=== PATIENT | male | born 1955 | race African-American/Black ===

== ENCOUNTER 2017-09-18 08:59 | Inpatient (IN) | payer OTHER ==
--- NOTE | 2017-09-17 17:08 | RAD REPORT ---
EXAM DESCRIPTION: RAD - Chest Pa And Lat (2 Views) - 09/17/2017 4:52 pm CLINICAL HISTORY: Preop chest, pending right foot surgery, hypertension and diabetes COMPARISON: April 2013 TECHNIQUE: PA and lateral views of the chest were obtained. FINDINGS: The lungs are clear of a peripheral consolidation, mass or failure finding. Mediastinal an d hilar rib regions within normal limits. Mild prominence of the interstitial markings not substantia lly different from the comparison. Heart size is normal and central vasculature is within normal limits. No pleural effusion or pneumot horax seen. No acute bony finding noted. No aortic abnormality. IMPRESSION: No acute cardiopulmonary process. No significant change the comparison study.
[2017-09-17 18:15] LABS: Potassium 3.7 mEq/L (3.6-5.0)
[2017-09-17 18:19] LABS: Absolute Lymphocytes (CBC) 1.4 K/uL (0.7-4.9); Absolute Monocytes 1.3 K/uL (0.1-1.3); Absolute Neutrophil 9.5 K/uL (1.8-8.0); Basophils % 0.9 % (0-1.3); Eosinophils % 0.5 % (0-4.4); Hematocrit 34.3 % (39.6-49.0); Lymphocytes % 11.5 % (15.3-44.8); MCH 26.9 pg (27.0-35.0); MCV 83.3 fL (80-100); MPV 7.2 fL (7.6-11.3); Monocytes % 10.1 % (3.3-12.3); RBC Red Blood Cell Count 4.12 M/uL (4.33-5.43)
--- NOTE | 2017-09-17 23:43 | EKG ---
Test Date: 2017-09-17 Test Time: 16:56:16 Sneller Hand: LORI MEASUREMENT RESULTS: Intervals: Rate: 74 GA: 354 QRSD: 108 QT: 430 QTc: 477 [place]: P: 85 GA: 354 QRS: 41 T: 89 INTERPRETIVE STATEMENTS: Sinus rhythm with 1st degree AV block Left ventricular hypertrophy with repolarization abnormality Abnormal ECG Compared to ECG 05/19/2013 01:26:04 Left ventricular hypertrophy now present Early repolarization now present Electronically Signed On 09-17-17 23:43:05 CDT by Nakul Butcher
[2017-09-18] MEDS ORDERED: CEFAZOLIN/SWI 1gm 1 GM/10 ML SYR ONE (09:44)
[2017-09-18] MEDS ORDERED: NA CHLORIDE 0.9% 0 ML ONE (09:44)
[2017-09-18] MEDS ORDERED: NA CHLORIDE 0.9% 500 ML ONE (09:54)
[2017-09-18] MEDS: BUPIVACAINE 0.5% Inj,MDV 50 mL VIAL ONE ×2 (09:57→10:50)
[2017-09-18] MEDS ORDERED: FENTANYL CITR 100 MCG/2 ML ONE ×2 (09:59→10:59)
[2017-09-18] MEDS ORDERED: PROPOFOL 200 MG/20 ML VIAL IV ONE (09:59)
[2017-09-18] MEDS ORDERED: MIDAZOLAM HCL 2 MG/2 ML INJ ONE ×2 (09:59→10:58)
[2017-09-18] MEDS ORDERED: LIDOCAINE 2% MPF 5 ML VIAL ONE ×2 (10:04→10:42)
[2017-09-18] MEDS ORDERED: ONDANSETRON HCL 40 MG/20 ML VIAL ONE (10:30)
[2017-09-18] MEDS ORDERED: EPHEDRINE SULF 50 MG/ML SYR ONE (10:43)
[2017-09-18] MEDS ORDERED: MORPHINE 10 MG/ML VIAL ONE (11:14)
[2017-09-18] MEDS ORDERED: NS 0.9% VIAL 10 ML ONE (11:14)
[2017-09-18] MEDS: MEPERIDINE HCL 50 MG/ML AMP ONE ×4 (12:00→12:31)
[2017-09-18] MEDS: MIDAZOLAM HCL 2 MG/2 ML INJ ONE ×2 (12:17→12:22)
[2017-09-18] MEDS ORDERED: LABETALOL HCL 100 MG/20 ML ONE (12:43)
[2017-09-18] MEDS ORDERED: ONDANSETRON 4 MG/2 ML VIAL IV PRN (12:51)
[2017-09-18] MEDS: MEPERIDINE HCL 25 MG/0.5 ML IV PRN ×3 (13:36→20:38)
[2017-09-18] MEDS ORDERED: ACETAMINOPHEN 500 MG TAB PO PRN (13:48)
--- NOTE | 2017-09-18 14:01 | P.HP ---
Certification for Inpatient Patient admitted to: Inpatient With expected LOS: >2 Midnights Patient will require the following post-hospital care: Rehabilitation Practitioner: I am a practitioner with admitting privileges, knowledge of patient current condition, hospital course, and medical plan of care. Services: Services provided to patient in accordance with Admission requirements found in Title 42 Section 412.3 of the Code of Federal Regulations Patient History Date of Service: 09/18/17 Primary Care Provider: Dr. Helton([place], [place]); Surgery-Dr. Aguilar; Card-Dr. Webb; Neph-Dr. Brown Reason for admission: Patient requiring left below-knee amputation History of Present Illness: 62-year-old male presented to outpatient surgery for left below -knee amputation due to a left foot grade 4 nonhealing diabetic ulcer. Patient has had a nonhealing diabetic ulcer to the left foot. Patient to have left below-knee amputation. I was asked to admit the patient for postoperative care. Patient will require physical therapy an inpatient rehab consultation. Prior to surgery I was able to evaluate the patient. Patient denied any significant chest pain, shortness of breath, nausea or vomiting. Patient was doing well. No complaints noted. Patient with history of diabetes-insulin dependent; hypertension; end-stage renal disease on dialysis(Mondays, Wednesdays and Fridays); CAD, CHF, and tobacco use. Lab reviewed. He hemoglobin 11.1, white count 12.4, sodium 136, potassium 3.7, creatinine 4.27 with a GFR of 17. Glucose 161. Allergies levofloxacin [From Levaquin] Allergy (Verified 09/18/17 13:40) Shortness of breath Home medications list reviewed: Yes Home Medications: Aspirin Chewable [Aspirin Chewable*] 81 mg PO DAILY 09/04/17 Clopidogrel Bisulfate [Plavix*] 75 mg PO DAILY 09/04/17 Furosemide 80 mg PO BID 09/04/17 Hydralazine HCl 25 mg PO BID 09/04/17 Lovastatin 40 mg PO DAILY 09/04/17 Nifedipine [Nifedipine ER] 30 mg PO DAILY 09/04/17 Sevelamer Carbonate 800 mg PO TIDWM 09/04/17 Folic Acid/Vit Bcomp,C [Judy-Kayden Tablet] 1 tab PO DAILY 09/17/17 Insulin 70/30 NPH/Reg Human [Novolin 70/30*] 1 dose SQ SEECOM 09/17/17 - Past Medical/Surgical History Has patient received pneumonia vaccine in the past: Yes Diabetic: Yes -: ESRD, dialysis-Mondays, Wednesdays and Fridays -: Diabetes mellitus type 2 -: Hypertension -: CHF, diastolic dysfunction -: COPD -: CAD -: Tobacco abuse -: Foot SX X3 -: Gallbladder -: Appendix Psychosocial/ Personal History: The patient is and . Patient has 2 children. - Family History Father -: Cancer Notes: Father and mother of cancer. - Social History Smoking Status: Current some day smoker Counseled patient to stop smoking for: less than 10 minutes Smoking therapy provided: Yes Patient receptive to therapy: Yes Alcohol use: No CD- Drugs: No Caffeine use: Yes Place of Residence: Home Review of Systems General: As per HPI Eyes: Unremarkable ENT: Unremarkable Respiratory: Unremarkable Cardiovascular: Unremarkable Gastrointestinal: Unremarkable Genitourinary: Unremarkable Musculoskeletal: As per HPI Integumentary: As per HPI Neurological: Unremarkable Lymphatics: Unremarkable Physical Examination - Vital Signs Temperature: 97.3 F Blood Pressure: 157/71 Pulse: 72 Respirations: 16 - Physical Exam General: Alert, In no apparent distress, Oriented x3, Cooperative HEENT: Atraumatic, Normocephalic, PERRLA, Mucous membr. moist/pink Neck: Supple, No Thyromegaly Respiratory: Clear to auscultation bilaterally, Normal air movement Cardiovascular: Normal pulses, Regular rate/rhythm Gastrointestinal: Normal bowel sounds, Soft and benign, Non-distended, No tenderness, No masses, No rebound, No guarding Musculoskeletal: No tenderness, No warmth Integumentary: Other (Left foot bandaged.) Neurological: Normal speech, Normal strength at 5/5 x4 extr, Normal tone, Normal affect - Studies Laboratory Data (last 24 hrs) 09/17/17 17:30: Sodium 136, Potassium 3.7, BUN 18, Creatinine 4.27 H, Glucose 161 H 09/17/17 17:30: WBC 12.4 H, Hgb 11.1 L, Hct 34.3 L, Plt Count 315 Assessment and Plan - Problems (Diagnosis) (1) Anemia Current Visit: Yes Status: Chronic Plan: This is likely chronic disease. Patient will have left below-knee amputation. Will need to monitor hemoglobin. Qualifiers: Anemia type: due to chronic kidney disease Chronic kidney disease stage: on chronic dialysis Qualified Code(s): N18.6 - End stage renal disease; D63.1 - Anemia in chronic kidney disease; Z99.2 - Dependence on renal dialysis (2) Tobacco abuse Current Visit: Yes Status: Chronic Plan: Tobacco cessation education provided. (3) CAD (coronary artery disease) Current Visit: No Status: Chronic Plan: Will need to resume home medication after surgery. (4) CHF (congestive heart failure) Current Visit: No Status: Chronic Plan: Overall stable. Will need to resume home medication. Qualifiers: Heart failure type: diastolic Heart failure chronicity: chronic Qualified Code(s): I50.32 - Chronic diastolic (congestive) heart failure (5) COPD (chronic obstructive pulmonary disease) Current Visit: No Status: Chronic Plan: Overall stable. Will resume home medication. Qualifiers: COPD type: chronic bronchitis Chronic bronchitis type: unspecified Qualified Code(s): J42 - Unspecified chronic bronchitis (6) Diabetes mellitus Current Visit: No Status: Chronic Plan: Will provide sliding scale. Will monitor closely. Qualifiers: Diabetes mellitus type: type 2 Diabetes mellitus senior care insulin use: with senior care use Diabetes mellitus complication status: with other specified complication Qualified Code(s): E11.69 - Type 2 diabetes mellitus with other specified complication; Z79.4 - halfway (current) use of insulin (7) Diabetic ulcer of left foot Current Visit: No Status: Acute Plan: Case discussed at length with surgery. Patient will have left below-knee amputation. Patient will be monitored as inpatient postop. Will consult physical therapy to assess for inpatient rehab. Qualifiers: Diabetes mellitus type: type 2 (8) ESRD (end stage renal disease) Current Visit: No Status: Chronic Plan: Will consult Nephrology to continue dialysis Mondays, Wednesdays and Fridays. (9) Hypertension Current Visit: No Status: Chronic Plan: Will continue with home medication. Qualifiers: Hypertension type: essential hypertension Qualified Code(s): I10 - Essential (primary) hypertension (10) Obesity (BMI 30.0-34.9) Current Visit: No Status: Chronic Plan: Will provide lifestyle modification education. (11) PAD (peripheral artery disease) Current Visit: No Status: Chronic Plan: Will continue with medication. Discharge Plan: Other (Inpatient rehab) Plan to discharge in: 48 Hours - Advance Directives Does patient have a Living Will: No Does patient have a Durable POA for Healthcare: No - Code Status/Comfort Care Code Status Assessed: Yes Time Spent Managing Pts Care (In Minutes): 55
[2017-09-18] MEDS ORDERED: D50W 25 GM/50 ML SYRINGE IV PRN (14:02)
[2017-09-18] MEDS ORDERED: GLUCAGON 1 MG/VIAL IM PRN (14:02)
[2017-09-18] MEDS ORDERED: ALBUTEROL 2.5 MG/3 ML NEB SOL NEB PRN (14:05)
[2017-09-18] MEDS ORDERED: IPRATROPIUM IH PRN (14:30)
[2017-09-18] MEDS: HYDROCODONE/APAP 7.5/325 MG TAB PO PRN (15:11)
[2017-09-18] MEDS: INSULIN -REGULAR HUMAN 50 UNIT/0.5 ML ML SQ SCH ×2 (15:24→21:00)
[2017-09-18 15:52] VITALS: BMI 30.9
[2017-09-18] MEDS: SEVELAMER CARBONATE 800 MG TABLET PO SCH (16:22)
[2017-09-18] MEDS: FUROSEMIDE 40 MG TABLET PO SCH (16:22)
[2017-09-18] MEDS: CEFAZOLIN/SWI 1gm 1 GM/10 ML SYR IV SCH (20:37)
[2017-09-18] MEDS: HYDRALAZINE HCL 25 MG TABLET PO SCH (20:38)
[2017-09-18] MEDS: ATORVASTATIN 20 MG TAB PO SCH (20:38)
[2017-09-18] MEDS: ARFORMOTEROL TARTRATE 15 MCG/2 ML VIAL.NEB NEB SCH (20:55)
--- NOTE | 2017-09-18 22:19 | OP ---
Date of Procedure: 09/18/2017 Surgeon: Justin Aguilar MD Dietary Services Director: Anastasia Scott, certified SPECIALIST ICU. Preoperative Diagnosis: Severe peripheral vascular disease, nonhealing wound, left foot. Postoperative Diagnosis: Severe peripheral vascular disease, nonhealing wound, left foot. Procedure: Left below-knee amputation. Estimated Blood Loss: Minimal. Specimen: Left leg. Findings: As above. Anesthesia: General. Complications: None. Disposition: The patient tolerated the procedure in stable condition and taken to the Recovery in go od general condition. Procedure In Detail: The patient was brought to the OR and placed in the supine position. General a nesthesia was begun. The patient was prepped and draped in the usual sterile fashion, and then sharp dissection proceeded down 4 fingerbreadths below the tibial tuberosity. Posterior flaps created to appropriate size to cover the wound and then all neurovascular bundle identified sequentially and div ided between clamps, tied with 2-0 silk ties. Fibula and tibia clearly identified and freed from the surrounding tissues, and bone cutter and Gigli saw used to divide. Both rough edges smoothed with a rasp. The entire leg removed and sent to Pathology. Wound irrigated, bleeding controlled with caut arabella. Good coverage of the bone with muscular pedicles was accomplished, and then the fascia was reap proximated with 2-0 and 3-0 chromic and pantera were used to close skin. Sterile dressing was applie d. The patient was awakened and taken to Recovery in good general condition. /MODL Voice ID: [id number] Report ID: [id number]
[2017-09-18] MEDS ORDERED: MAGNESIUM OXIDE 400 MG TAB PO ONE (22:32)
--- NOTE | 2017-09-18 22:41 | P.CNS ---
Date of Consult: 09/18/17 Reason for Consult: ESRD Requesting Physician: Wing Rivas Primary Care Provider: Dr. Helton([place], [place]); Surgery-Dr. Aguilar; Card-Dr. Webb; Neph-Dr. Brown Chief Complaint: Patient requiring left below-knee amputation History of Present Illness: 62 yo AA male with ESRD sp Left BKA due to DM ulcer. 62-year-old male presented to outpatient surgery for left below -knee amputation due to a left foot grade 4 nonhealing diabetic ulcer. Patient has had a nonhealing diabetic ulcer to the left foot. Patient to have left below-knee amputation. I was asked to admit the patient for postoperative care. Patient will require physical therapy an inpatient rehab consultation. Prior to surgery I was able to evaluate the patient. Patient denied any significant chest pain, shortness of breath, nausea or vomiting. Patient was doing well. No complaints noted. Patient with history of diabetes-insulin dependent; hypertension; end-stage renal disease on dialysis(Mondays, Wednesdays and Fridays); CAD, CHF, and tobacco use. Allergies levofloxacin [From Levaquin] Allergy (Verified 09/18/17 13:40) Shortness of breath Home medications list reviewed: Yes Home Medications: Aspirin Chewable [Aspirin Chewable*] 81 mg PO DAILY 09/04/17 Clopidogrel Bisulfate [Plavix*] 75 mg PO DAILY 09/04/17 Furosemide 80 mg PO BID 09/04/17 Hydralazine HCl 25 mg PO BID 09/04/17 Lovastatin 40 mg PO DAILY 09/04/17 Nifedipine [Nifedipine ER] 30 mg PO DAILY 09/04/17 Sevelamer Carbonate 800 mg PO TIDWM 09/04/17 Folic Acid/Vit Bcomp,C [Judy-Kayden Tablet] 1 tab PO DAILY 09/17/17 Insulin 70/30 NPH/Reg Human [Novolin 70/30*] 1 dose SQ SEECOM 09/17/17 - Past Medical/Surgical History Diabetic: Yes -: ESRD, dialysis-Mondays, Wednesdays and Fridays -: Diabetes mellitus type 2 -: Hypertension -: CHF, diastolic dysfunction -: COPD -: CAD -: Tobacco abuse -: Foot SX X3 -: Gallbladder -: Appendix Psychosocial/ Personal History: The patient is and . Patient has 2 children. - Family History Father Medical History: Cancer Notes: Father and mother of cancer. - Social History Alcohol use: No CD- Drugs: No Caffeine use: Yes Place of Residence: Home Review of Systems 10-point ROS is otherwise unremarkable General: Weakness, Malaise Musculoskeletal: Leg Pain Neurological: Weakness Physical Examination Temp Pulse Resp BP Pulse Ox 96.7 F L 75 16 198/82 H 90 L 09/18/17 16:00 09/18/17 16:00 09/18/17 16:00 09/18/17 16:00 09/18/17 16:00 General: Oriented x3, Cooperative HEENT: Atraumatic Neck: Supple Respiratory: Clear to auscultation bilaterally Cardiovascular: Regular rate/rhythm, No gallops, Edema Gastrointestinal: Soft and benign, Non-distended Musculoskeletal: No clubbing, No contractures, Other (Left BKA.) Integumentary: No rashes, No cyanosis Neurological: Normal speech Blood work reviewed in the chart. Cr 4.27 Imagings Data: EXAM DESCRIPTION: RAD - Chest Pa And Lat (2 Views) - 09/17/2017 4:52 pm CLINICAL HISTORY: Preop chest, pending right foot surgery, hypertension and diabetes COMPARISON: April 2013 TECHNIQUE: PA and lateral views of the chest were obtained. FINDINGS: The lungs are clear of a peripheral consolidation, mass or failure finding. Mediastinal and hilar rib regions within normal limits. Mild prominence of the interstitial markings not substantially different from the comparison. Heart size is normal and central vasculature is within normal limits. No pleural effusion or pneumothorax seen. No acute bony finding noted. No aortic abnormality. IMPRESSION: No acute cardiopulmonary process. No significant change the comparison study. Conclusions/Impression: A/ ESRD on HD. HTN with CKD. Diastolic CHF, chronic. Anemia in CKD. PERCY/ Secondary HyperPTH. DM II with CKD. Constipation. P/ Continue current POC and Medications. Arrange for acute HD in AM. Give Magnesium for constipation. Increase Nifedipine. Start ramipril. Pain medications as needed. AM labs. Daily weight. Thank you kindly for the consultation.
[2017-09-18] MEDS ORDERED: NA CHLORIDE 0.9% 1,000 ML IV PRN (22:49)
[2017-09-18] MEDS ORDERED: MANNITOL 25% 12.5 GM/50 ML VIAL IV PRN (22:49)
[2017-09-18] MEDS: RAMIPRIL 5 MG CAP PO SCH (22:53)
[2017-09-18] MEDS ORDERED: EPOETIN ALFA 10,000 UNIT/ML VIAL IV SCH (23:00)
[2017-09-18] MEDS ORDERED: NIFEDIPINE XL 30 MG TABLET PO SCH (23:00)
[2017-09-18] MEDS ORDERED: ALBUMIN HUMAN 25% 50 ML IV SCH (23:00)
[2017-09-19] MEDS: HYDROCODONE/APAP 7.5/325 MG TAB PO PRN ×4 (01:07→21:30)
[2017-09-19 05:09] LABS: Absolute Lymphocytes (CBC) 1.2 K/uL (0.7-4.9); Absolute Monocytes 1.3 K/uL (0.1-1.3); Absolute Neutrophil 11.3 K/uL (1.8-8.0); Basophils % 0.7 % (0-1.3); Eosinophils % 0.2 % (0-4.4); Hematocrit 29.8 % (39.6-49.0); Lymphocytes % 8.7 % (15.3-44.8); MCH 27.3 pg (27.0-35.0); MCV 82.9 fL (80-100); MPV 7.7 fL (7.6-11.3); Monocytes % 9.2 % (3.3-12.3)
[2017-09-19 05:38] LABS: Magnesium 2.4 mg/dL (1.8-2.5); Potassium 4.2 mEq/L (3.6-5.0)
[2017-09-19] MEDS: INSULIN -REGULAR HUMAN 50 UNIT/0.5 ML ML SQ SCH ×4 (07:30→21:00)
[2017-09-19] MEDS: ARFORMOTEROL TARTRATE 15 MCG/2 ML VIAL.NEB NEB SCH ×2 (08:39→20:21)
[2017-09-19] MEDS: ASPIRIN EC 81 MG TAB PO SCH (08:50)
[2017-09-19] MEDS: FOLIC ACID 1 MG TABLET PO SCH (08:51)
[2017-09-19] MEDS: ENOXAPARIN 30 MG/0.3 ML SQ SCH (08:51)
[2017-09-19] MEDS: SEVELAMER CARBONATE 800 MG TABLET PO SCH ×3 (08:51→18:20)
[2017-09-19] MEDS: CEFAZOLIN/SWI 1gm 1 GM/10 ML SYR IV SCH ×2 (08:51→21:02)
[2017-09-19] MEDS: MULTIVITAMINS,THERAPEUT 1 TAB PO SCH (08:51)
[2017-09-19] MEDS: CLOPIDOGREL 75 MG TABLET PO SCH (08:51)
[2017-09-19] MEDS ORDERED: VIT BCOMP C PO SCH (09:00)
[2017-09-19] MEDS: HYDRALAZINE HCL 25 MG TABLET PO SCH ×2 (09:00→21:03)
[2017-09-19] MEDS: NIFEDIPINE XL 30 MG TABLET PO SCH ×2 (09:00→21:00)
[2017-09-19] MEDS ORDERED: FOLIC ACID PO SCH (09:00)
[2017-09-19] MEDS ORDERED: NIFEDIPINE XL 30 MG TABLET PO SCH (09:00)
[2017-09-19] MEDS: FUROSEMIDE 40 MG TABLET PO SCH ×2 (09:00→18:20)
--- NOTE | 2017-09-19 09:58 | P.PN ---
Subjective Date of Service: 09/19/17 Primary Care Provider: Dr. Helton([place], [place]); Surgery-Dr. Aguilar; Card-Dr. Webb; Neph-Dr. Brown Chief Complaint: Patient requiring left below-knee amputation Subjective: Doing well Physical Examination - Vital Signs Temperature: 97.7 F Blood Pressure: 115/58 Pulse: 81 Respirations: 16 Pulse Ox (%): 100 - Physical Exam General: Alert, In no apparent distress, Oriented x3, Cooperative HEENT: Atraumatic Neck: Supple Respiratory: Clear to auscultation bilaterally, Normal air movement Cardiovascular: Normal pulses, Regular rate/rhythm Gastrointestinal: Normal bowel sounds, Soft and benign, Non-distended, No tenderness, No masses, No rebound, No guarding Musculoskeletal: Other (Bandage to the left lower extremity) Neurological: Normal speech, Normal strength at 5/5 x4 extr, Normal tone, Normal affect - Studies Laboratory Data (last 24 hrs) 09/19/17 04:18: Sodium 135, Potassium 4.2, BUN 35 H, Creatinine 7.02 H* D, Glucose 142 H, Magnesium 2.4 D 09/19/17 04:18: WBC 13.9 H, Hgb 9.8 L, Hct 29.8 L, Plt Count 312 Medications List Reviewed: Yes Assessment & Plan - Problems (Diagnosis) (1) Anemia Onset Date: 09/19/17 Current Visit: Yes Status: Chronic Plan: Patient has left below-knee amputation. Patient with anemia chronic disease. Hemoglobin stable. Will monitor closely. Qualifiers: Anemia type: due to chronic kidney disease Chronic kidney disease stage: on chronic dialysis Qualified Code(s): N18.6 - End stage renal disease; D63.1 - Anemia in chronic kidney disease; Z99.2 - Dependence on renal dialysis (2) Tobacco abuse Onset Date: 09/19/17 Current Visit: Yes Status: Chronic Plan: Tobacco cessation education provided. (3) CAD (coronary artery disease) Onset Date: 09/19/17 Current Visit: Yes Status: Chronic Plan: Will continue with his medications (4) CHF (congestive heart failure) Onset Date: 09/19/17 Current Visit: Yes Status: Chronic Plan: Will continue with his medication. Maintain 1500 cc per day fluid restriction Qualifiers: Heart failure type: diastolic Heart failure chronicity: chronic Qualified Code(s): I50.32 - Chronic diastolic (congestive) heart failure (5) COPD (chronic obstructive pulmonary disease) Onset Date: 09/19/17 Current Visit: Yes Status: Chronic Plan: Overall stable. Will continue with medication Qualifiers: COPD type: chronic bronchitis Chronic bronchitis type: unspecified Qualified Code(s): J42 - Unspecified chronic bronchitis (6) Diabetes mellitus Onset Date: 09/19/17 Current Visit: Yes Status: Chronic Plan: Will continue with sliding scale. Hemoglobin A1c obtained. Qualifiers: Diabetes mellitus type: type 2 Diabetes mellitus senior care insulin use: with intermodal owner operator truck driver use Diabetes mellitus complication status: with other specified complication Qualified Code(s): E11.69 - Type 2 diabetes mellitus with other specified complication; Z79.4 - residential (current) use of insulin (7) Diabetic ulcer of left foot Onset Date: 09/19/17 Current Visit: Yes Status: Acute Plan: Patient had left below-knee amputation. Patient will work with physical therapy. Patient to be assessed for inpatient rehab. Case discussed with surgery yesterday. care services manager consulted. Qualifiers: Diabetes mellitus type: type 2 (8) ESRD (end stage renal disease) Onset Date: 09/19/17 Current Visit: Yes Status: Chronic Plan: Nephrology to continue dialysis Mondays, Wednesdays and Fridays. (9) Hypertension Onset Date: 09/19/17 Current Visit: Yes Status: Chronic Plan: Will continue with home medication. Qualifiers: Hypertension type: essential hypertension Qualified Code(s): I10 - Essential (primary) hypertension (10) Obesity (BMI 30.0-34.9) Onset Date: 09/19/17 Current Visit: Yes Status: Chronic Plan: Will provide lifestyle modification education. (11) PAD (peripheral artery disease) Onset Date: 09/19/17 Current Visit: Yes Status: Chronic Plan: Will continue with medication. (12) Status post amputation Current Visit: Yes Status: Acute Plan: Continue with PT. Assess for Inpatient rehab. Discharge Plan: Other (Inpatient rehab) Plan to discharge in: 48 Hours Time Spent Managing Pts Care (In Minutes): 55
--- NOTE | 2017-09-19 10:51 | PN ---
Date of Progress Note: 09/19/2017 Subjective: The patient is awake, alert. Complaining of some incisional pain. Objective: Vital Signs: Stable. Afebrile. Extremities: Dressing is clean, dry, and intact. Laboratory Data: Reviewed. Assessment: Status post left below-knee amputation. Recommendations: Continue physical therapy as ordered. Rehab evaluation for inpatient rehab. The p atient is clinically doing well. /MODL Voice ID: [id number] Report ID: [id number]
[2017-09-19] MEDS: MEPERIDINE HCL 25 MG/0.5 ML IV PRN (11:26)
--- NOTE | 2017-09-19 17:51 | PN ---
Date of Progress Note: 09/19/2017 Subjective: The patient is seen and examined on dialysis. Complaining of pain in his left lower ext remity and also some back pain. Otherwise, no other issues. Physical Examination: Vital Signs: Have been reviewed and are stable. General: He appears in no acute distress. Lungs: Clear. Abdomen: Soft. Extremities: Right lower extremity with no evidence of edema. Left foot status post BKA was noted. Laboratory Data: Showing stable hemoglobin of 9.8, hematocrit 39.8, and platelet count 312. BMP res ults have been reviewed. Current Medications: Include aspirin, Plavix which has been just started, Procrit with dialysis, Las ix 80 mg b.i.d., Mannitol p.r.n. for dialysis, ramipril and Renvela, nicardipine, meperidine for pain . Impression: 1.End-stage renal disease, on dialysis. 2.Peripheral vascular disease, status post BKA and nonhealing wound. 3.Anemia secondary to ESRD, currently on Procrit. 4.Type 2 diabetes, on insulin per protocol. Plan: Overall, the patient is doing okay at this time. Followup with Wound Care to follow up on oksana balderas of the BKA stump. The patient will have Sunday, Sunday, and Sunday dialysis. I have discont inued meperidine with underlying history of ESRD secondary to severe complications including seizures. Continue hydrocodone for pain protocol. We will follow up closely . RUPERTO/WARRENL Voice ID: [id number] Report ID: [id number]
[2017-09-19 18:25] LABS: Urine Appearance CLEAR; Urine Bilirubin NEGATIVE (NEG); Urine Blood NEGATIVE (NEG); Urine Color YELLOW; Urine Glucose TRACE (NEG); Urine Protein 3+ (NEG); Urine Specific Gravity 1.015 (1.005-1.030); Urine Urobilinogen 0.2 mg/dL (0.2-1.0)
[2017-09-19 18:51] LABS: Urine Microscopic Reflex ORDER UMIC
[2017-09-19 19:06] LABS: Urine Bacteria <20 /HPF (NONE SEEN); Urine Culture Reflex Order REFLEXED; Urine RBC <5 /HPF (NONE SEEN)
[2017-09-19 20:40] LABS: A1c Component 0.47 mg/dL; Hemoglobin A1c 6.5 % (4-6.0)
[2017-09-19] MEDS: RAMIPRIL 5 MG CAP PO SCH (21:03)
[2017-09-19] MEDS: ATORVASTATIN 20 MG TAB PO SCH (21:03)
[2017-09-20] MEDS ORDERED: HYDROCODONE/APAP 10/325 TAB PO ONE
[2017-09-20] MEDS ORDERED: TEMAZEPAM 15 MG CAP PO ONE
[2017-09-20 05:10] LABS: Absolute Lymphocytes (CBC) 1.2 K/uL (0.7-4.9); Absolute Monocytes 1.4 K/uL (0.1-1.3); Absolute Neutrophil 11.5 K/uL (1.8-8.0); Basophils % 0.9 % (0-1.3); Eosinophils % 0.4 % (0-4.4); Hematocrit 32.3 % (39.6-49.0); Lymphocytes % 8.3 % (15.3-44.8); MCH 27.4 pg (27.0-35.0); MCV 83.6 fL (80-100); MPV 8.3 fL (7.6-11.3); Monocytes % 9.8 % (3.3-12.3); RBC Red Blood Cell Count 3.86 M/uL (4.33-5.43)
[2017-09-20 05:36] LABS: Magnesium 2.4 mg/dL (1.8-2.5); Potassium 4.4 mEq/L (3.6-5.0)
[2017-09-20] MEDS: HYDROCODONE/APAP 7.5/325 MG TAB PO PRN ×3 (05:58→21:24)
[2017-09-20] MEDS: ARFORMOTEROL TARTRATE 15 MCG/2 ML VIAL.NEB NEB SCH ×2 (07:23→19:41)
[2017-09-20] MEDS: INSULIN -REGULAR HUMAN 50 UNIT/0.5 ML ML SQ SCH ×4 (07:30→21:00)
[2017-09-20] MEDS ORDERED: LACTULOSE 20 GM/30 ML UCUP PO ONE (08:29)
--- NOTE | 2017-09-20 08:33 | P.PN ---
Date of Service: 09/20/17 Vital Signs Temp Pulse Resp BP Pulse Ox 97.6 F 55 18 140/77 97 09/20/17 04:00 09/20/17 04:00 09/20/17 04:00 09/20/17 04:00 09/20/17 04:00 Medications Acetaminophen (Tylenol -Extra Strength) 500 mg PO Q4HP PRN PRN Reason: [id number] Stop: 10/18/17 13:49 Hydrocodone Bitart/Acetaminophen ([place] 7.5/325 Mg) 1 tab PO Q6H PRN PRN Reason: PAIN-MODERATE Stop: 10/18/17 12:53 Last Admin: 09/20/17 05:58 Dose: 1 tab Albuterol Sulfate (Proventil 0.083% Neb Soln) 2.5 mg NEB [id number] PRN PRN Reason: SHORTNESS OF BREATH Stop: 10/18/17 20:01 Last Admin: 09/19/17 20:21 Dose: 2.5 mg Arformoterol Tartrate (Brovana) 15 mcg NEB BIDRESP FIDEL Stop: 10/18/17 20:01 Last Admin: 09/20/17 07:23 Dose: 15 mcg Aspirin (Aspirin Ec) 81 mg PO DAILY FIDEL Stop: 10/19/17 09:01 Last Admin: 09/19/17 08:50 Dose: 81 mg Atorvastatin Calcium (Lipitor) 20 mg PO BEDTIME FIDEL Stop: 10/18/17 21:01 Last Admin: 09/19/17 21:03 Dose: 20 mg Clopidogrel Bisulfate (Plavix) 75 mg PO DAILY FIDEL Stop: 10/19/17 09:01 Last Admin: 09/19/17 08:51 Dose: 75 mg Dextrose (Dextrose 50% Syringe) 12.5 gm IV PRN PRN PRN Reason: HYPOGLYCEMIA PROTOCOL Stop: 10/18/17 14:03 Docusate Sodium (Colace Cap) 100 mg PO BID FIDEL Stop: 10/20/17 09:01 Enoxaparin Sodium (Lovenox 30 Mg Inj) 30 mg SQ DAILY FIDEL Stop: 10/19/17 09:01 Last Admin: 09/19/17 08:51 Dose: 30 mg Epoetin [place]queria (Procrit) 10,000 unit IV EVERY HD FIDEL Stop: 10/18/17 23:01 Last Admin: 09/19/17 13:03 Dose: 10,000 unit Folic Acid (Folic Acid) 1 mg PO DAILY FIDEL Stop: 10/19/17 09:01 Last Admin: 09/19/17 08:51 Dose: 1 mg Furosemide (Lasix) 80 mg PO BIDL FIDEL Stop: 10/18/17 17:01 Last Admin: 09/19/17 18:20 Dose: 80 mg Glucagon (Glucagen) 1 mg IM 1X PRN PRN Reason: HYPOGLYCEMIA Stop: 10/18/17 14:03 Heparin Sodium (Porcine) (Heparin 1,000 Units/Ml) 6,000 unit IJ EVERY HD PRN PRN Reason: FLUSH AFTER EACH USE Stop: 10/18/17 22:50 Home Med (Home Med) 0 ea IH QID PRN PRN Reason: SHORTNESS OF BREATH Stop: 10/18/17 14:31 Hydralazine HCl (Apresoline) 25 mg PO BID FIDEL Stop: 10/18/17 21:01 Last Admin: 09/19/17 21:03 Dose: 25 mg Cefazolin Sodium (Ancef 1 Gm/10 Ml Swi Ivp) 1 gm in 10 mls @ 600 mls/hr IV Q12HR [facility] Stop: 10/18/17 21:01 Last Admin: 09/19/17 21:02 Dose: 10 mls Albumin Human (Albumin 25%) 50 mls @ 100 mls/hr IV EVERY HD [facility] Stop: 10/18/17 23:01 Insulin Human Regular (Novolin -R) 0 unit SQ ACHS FIDEL; Protocol Stop: 10/18/17 16:31 Last Admin: 09/20/17 07:30 Dose: Not Given Lactulose (Cephulac) 20 gm PO 1X ONE Stop: 09/20/17 08:30 Mannitol (Mannitol 12.5 Gm/50 Ml Vial) 12.5 gm IV EVERY HD PRN PRN Reason: BP support at hemodialysis Stop: 10/18/17 22:50 Nifedipine (Procardia Xl) 30 mg PO Q12HR [facility] Stop: 10/19/17 09:01 Last Admin: 09/19/17 21:00 Dose: Not Given Ondansetron HCl (Zofran) 4 mg IV Q6H PRN PRN Reason: NAUSEA Stop: 10/18/17 12:52 Ramipril (Altace) 5 mg PO BEDTIME [facility] Stop: 10/18/17 22:36 Last Admin: 09/19/17 21:03 Dose: 5 mg Sevelamer Carbonate (Renvela) 800 mg PO TIDWM FIDEL Stop: 10/18/17 17:01 Last Admin: 09/19/17 18:20 Dose: 800 mg Sodium Chloride (Normal Saline Flush) 10 ml IV BID FIDEL Stop: 10/18/17 21:01 Last Admin: 09/19/17 21:03 Dose: 10 ml Vitamin B Complex/Vit C/Folic Acid (Nephro-Kayden) 1 tab PO DAILY FIDEL Stop: 10/19/17 09:01 Last Admin: 09/19/17 08:51 Dose: 1 tab Lab Results (last 24 hrs) 09/20/17 07:36: POC Glucose 175 H 09/20/17 04:16: Sodium 137, Potassium 4.4, Chloride 97 L, Carbon Dioxide 28, BUN 29 H, Creatinine 5.95 H* D, Estimated GFR 12 L, Glucose 180 H, Calcium 9.0, Magnesium 2.4 09/20/17 04:16: WBC 14.3 H, RBC 3.86 L, Hgb 10.6 L, Hct 32.3 L, MCV 83.6, MCH 27.4, MCHC 32.7, RDW 18.3 H, Plt Count 345, MPV 8.3, Neutrophils % 80.6 H, Lymphocytes % 8.3 L, Monocytes % 9.8, Eosinophils % 0.4, Basophils % 0.9, Absolute Neutrophils 11.5 H, Absolute Lymphocytes 1.2, Absolute Monocytes 1.4 H , Absolute Eosinophils 0.1, Absolute Basophils 0.1 09/19/17 20:21: POC Glucose 190 H 09/19/17 18:03: Urine Color Yellow, Urine Appearance Clear, Urine pH 8.0 H, Ur Specific [place] 1.015, Urine Ketones Negative, Urine Blood Negative, Urine Nitrite Negative, Urine Bilirubin Negative, Urine Urobilinogen 0.2, Ur Leukocyte Esterase Negative, Urine RBC <5, Urine WBC 10-20 H, Ur Squamous Epith Cells 5-10 H, Urine Bacteria <20, Urine Culture Reflexed Reflexed, Urine Glucose Trace, Urine Total Protein 3+ H 09/19/17 16:19: POC Glucose 172 H 09/19/17 11:13: POC Glucose 135 H 09/19/17 04:18: Hemoglobin A1c 6.5 H 09/19/17 04:18: Hemoglobin A1c Cancelled Assessment/ Plan: Nephrology. CPS stable without CP or SOB. No acute events overnight. Constipation. Flatus. Anorexia. Vitals, medications, blood work and imaging reviewed in the chart. General: Oriented x3, Cooperative HEENT: Atraumatic Neck: Supple Respiratory: Clear to auscultation bilaterally Cardiovascular: Regular rate/rhythm, No gallops, Edema Gastrointestinal: Soft and benign, Non-distended Musculoskeletal: No clubbing, No contractures, Other (Left BKA.) Integumentary: No rashes, No cyanosis Neurological: Normal speech Blood work reviewed in the chart. Cr 4.27 Imagings Data: EXAM DESCRIPTION: RAD - Chest Pa And Lat (2 Views) - 09/17/2017 4:52 pm CLINICAL HISTORY: Preop chest, pending right foot surgery, hypertension and diabetes COMPARISON: April 2013 TECHNIQUE: PA and lateral views of the chest were obtained. FINDINGS: The lungs are clear of a peripheral consolidation, mass or failure finding. Mediastinal and hilar rib regions within normal limits. Mild prominence of the interstitial markings not substantially different from the comparison. Heart size is normal and central vasculature is within normal limits. No pleural effusion or pneumothorax seen. No acute bony finding noted. No aortic abnormality. IMPRESSION: No acute cardiopulmonary process. No significant change the comparison study. Conclusions/Impression: A/ ESRD on HD. HTN with CKD. Diastolic CHF, chronic. Anemia in CKD. PERCY/ Secondary HyperPTH. DM II with CKD. Constipation. P/ Continue current POC and Medications. Next HD tomorrow. Start Colace. Give Lactulose today. Pain medications as needed; counseled. Plan to see cardiology today for AV block. AM labs. Daily weight. PT as tolerated.
--- NOTE | 2017-09-20 09:01 | P.PN ---
Subjective Date of Service: 09/20/17 Primary Care Provider: Dr. Helton([place], [place]); Surgery-Dr. Aguilar; Card-Dr. Webb; Neph-Dr. Brown Chief Complaint: Patient requiring left below-knee amputation Subjective: Other (Patient reported pain yesterday. He did not work with physical therapy. Pain better controlled today. Hospitalist last night ordered cardiology consult due to second-degree AV block.) Physical Examination - Vital Signs Temperature: 97.6 F Blood Pressure: 140/77 Pulse: 55 Respirations: 18 Pulse Ox (%): 97 - Physical Exam General: Alert, In no apparent distress, Oriented x3, Cooperative HEENT: Atraumatic Neck: Supple Respiratory: Clear to auscultation bilaterally, Normal air movement Cardiovascular: Normal pulses, Regular rate/rhythm Gastrointestinal: Normal bowel sounds, Soft and benign, Non-distended Musculoskeletal: No erythema, No tenderness, No warmth Integumentary: No erythema, No warmth, No cyanosis Neurological: Normal speech, Normal strength at 5/5 x4 extr, Normal tone, Normal affect - Studies Laboratory Data (last 24 hrs) 09/20/17 04:16: Sodium 137, Potassium 4.4, BUN 29 H, Creatinine 5.95 H* D, Glucose 180 H, Magnesium 2.4 09/20/17 04:16: WBC 14.3 H, Hgb 10.6 L, Hct 32.3 L, Plt Count 345 Medications List Reviewed: Yes Assessment & Plan - Problems (Diagnosis) (1) Anemia Onset Date: 09/19/17 Current Visit: Yes Status: Chronic Plan: Patient has left below-knee amputation. Patient with anemia chronic disease. Hemoglobin stable. Will monitor closely. Qualifiers: Anemia type: due to chronic kidney disease Chronic kidney disease stage: on chronic dialysis Qualified Code(s): N18.6 - End stage renal disease; D63.1 - Anemia in chronic kidney disease; Z99.2 - Dependence on renal dialysis (2) Tobacco abuse Onset Date: 09/19/17 Current Visit: Yes Status: Chronic Plan: Tobacco cessation education provided. (3) CAD (coronary artery disease) Onset Date: 09/19/17 Current Visit: Yes Status: Chronic Plan: Will continue with medication. (4) CHF (congestive heart failure) Onset Date: 09/19/17 Current Visit: Yes Status: Chronic Plan: Will continue with his medication. Maintain 1500 cc per day fluid restriction Qualifiers: Heart failure type: diastolic Heart failure chronicity: chronic Qualified Code(s): I50.32 - Chronic diastolic (congestive) heart failure (5) COPD (chronic obstructive pulmonary disease) Onset Date: 09/19/17 Current Visit: Yes Status: Chronic Plan: Overall stable. Will continue with medication Qualifiers: COPD type: chronic bronchitis Chronic bronchitis type: unspecified Qualified Code(s): J42 - Unspecified chronic bronchitis (6) Diabetes mellitus Onset Date: 09/19/17 Current Visit: Yes Status: Chronic Plan: Will continue with sliding scale. Hemoglobin A1c obtained. Qualifiers: Diabetes mellitus type: type 2 Diabetes mellitus mcfp insulin use: with mcfp use Diabetes mellitus complication status: with other specified complication Qualified Code(s): E11.69 - Type 2 diabetes mellitus with other specified complication; Z79.4 - halfway (current) use of insulin (7) Diabetic ulcer of left foot Onset Date: 09/19/17 Current Visit: Yes Status: Acute Plan: Patient had left below-knee amputation. Patient will continue work physical therapy. Patient being assess for inpatient rehab. Qualifiers: Diabetes mellitus type: type 2 (8) ESRD (end stage renal disease) Onset Date: 09/19/17 Current Visit: Yes Status: Chronic Plan: Nephrology to continue dialysis Mondays, Wednesdays and Fridays. (9) Hypertension Onset Date: 09/19/17 Current Visit: Yes Status: Chronic Plan: Will continue with home medication. Qualifiers: Hypertension type: essential hypertension Qualified Code(s): I10 - Essential (primary) hypertension (10) Obesity (BMI 30.0-34.9) Onset Date: 09/19/17 Current Visit: Yes Status: Chronic Plan: Will provide lifestyle modification education. (11) PAD (peripheral artery disease) Onset Date: 09/19/17 Current Visit: Yes Status: Chronic Plan: Will continue with medication. (12) Status post amputation Current Visit: Yes Status: Acute Plan: Continue with PT. Assess for Inpatient rehab. (13) Second degree AV block Current Visit: Yes Status: Acute Plan: Second-degree AV block noted. Cardiology consulted to further evaluate and assess. Discharge Plan: Other (Inpatient rehab) Plan to discharge in: 48 Hours Time Spent Managing Pts Care (In Minutes): 55
[2017-09-20] MEDS: FUROSEMIDE 40 MG TABLET PO SCH ×2 (09:06→17:09)
[2017-09-20] MEDS: SEVELAMER CARBONATE 800 MG TABLET PO SCH ×3 (09:06→17:10)
[2017-09-20] MEDS: FOLIC ACID 1 MG TABLET PO SCH (09:06)
[2017-09-20] MEDS: ENOXAPARIN 30 MG/0.3 ML SQ SCH (09:07)
[2017-09-20] MEDS: CLOPIDOGREL 75 MG TABLET PO SCH (09:07)
[2017-09-20] MEDS: ASPIRIN EC 81 MG TAB PO SCH (09:07)
[2017-09-20] MEDS: HYDRALAZINE HCL 25 MG TABLET PO SCH ×2 (09:07→21:13)
[2017-09-20] MEDS: MULTIVITAMINS,THERAPEUT 1 TAB PO SCH (09:07)
--- NOTE | 2017-09-20 10:04 | EKG ---
Test Date: 2017-09-20 Test Time: 00:26:24 Nurses Superintendent: RT-O MEASUREMENT RESULTS: Intervals: Rate: 70 MT: QRSD: 106 QT: 434 QTc: 468 [place]: P: MT: QRS: 28 T: 132 INTERPRETIVE STATEMENTS: Atrial fibrillation with a competing junctional pacemaker ST & T wave abnormality, consider lateral ischemia or digitalis effect Prolonged QT Abnormal ECG Compared to ECG 09/17/2017 16:56:16 ST (T wave) deviation now present Possible ischemia now present Prolonged QT interval now present Sinus rhythm no longer present First degree AV block no longer present Left ventricular hypertrophy no longer present Early repolarization no longer present Electronically Signed On 09-20-17 10:03:24 CDT by Vijay Lemus
--- NOTE | 2017-09-20 10:04 | EKG ---
Test Date: 2017-09-20 Test Time: 00:28:44 Glass Etcher: RT-O MEASUREMENT RESULTS: Intervals: Rate: 68 NH: QRSD: 104 QT: 440 QTc: 467 [place]: P: NH: QRS: 28 T: 116 INTERPRETIVE STATEMENTS: Atrial fibrillation with a competing junctional pacemaker ST & T wave abnormality, consider lateral ischemia or digitalis effect Prolonged QT Abnormal ECG Compared to ECG 09/20/2017 00:26:24 No significant changes Electronically Signed On 09-20-17 10:03:23 CDT by Vijay Lemus
[2017-09-20] MEDS: DOCUSATE NA 100 MG CAP PO SCH ×2 (10:05→21:13)
[2017-09-20] MEDS: CEFAZOLIN/SWI 1gm 1 GM/10 ML SYR IV SCH ×2 (10:05→21:13)
[2017-09-20] MEDS: NIFEDIPINE XL 30 MG TABLET PO SCH ×2 (12:54→21:00)
--- NOTE | 2017-09-20 13:40 | ECHO ---
HEIGHT: 6 ft 1 in WEIGHT: 235 lb 0 oz DATE OF STUDY: 09/20/[address]: Familia Duval MD 2-DIMENSIONAL: YES M.MODE: YES DOPPLER: YES COLOR FLOW: YES TDS: NO PORTABLE: NO DEFINITY: NO BUBBLE STUDY: NO DIAGNOSIS: ARRYTHMIA CARDIAC HISTORY: CATHERIZATION: YES SURGERY: NO PROSTHETIC VALVE: NO PACEMAKER: NO MEASUREMENTS (cm) DIASTOLIC (NORMALS) SYSTOLIC (NORMALS) IVSd 1.2 (0.6-1.2) LA Diam 3.7 (1.9-4.0) LVEF 54% LVIDd 6.0 (3.5-5.7) LVIDs 4.3 (2.0-3.5) %FS 29% LVPWd 1.2 (0.6-1.2) Ao Diam 3.1 (2.0-3.7) 2 DIMENSIONAL ASSESSMENT: RIGHT ATRIUM: NORMAL LEFT ATRIUM: NORMAL SIZE RIGHT VENTRICLE: NORMAL LEFT VENTRICLE: DILATED TRICUSPID VALVE: NORMAL MITRAL VALVE: MITRAL ANNULAR CALCIFICATION PULMONIC VALVE: NORMAL AORTIC VALVE: NORMAL PERICARDIAL EFFUSION: NONE AORTIC ROOT: NORMAL LEFT VENTRICULAR WALL MOTION: NORMAL LEFT VENTRICULAR EJECTION FRACTION. DECREASED LEFT VENTRICULAR COMPLIANCE. DOPPLER/COLOR FLOW: MILD TRICUSPID REGURGITATION. COMMENTS: MILD TRICUSPID REGURGITATION. DECREASED LEFT VENTRICULAR COMPLIANCE. NORMAL LEFT VENTRICULAR EJECTION FRACTION. MILD LEFT VENTRICULAR DILIATION. MITRAL ANNULAR CALCIFICATION. TECHNOLOGIST: Rogelio LEE
--- NOTE | 2017-09-20 15:13 | PN ---
Date of Progress Note: 09/20/2017 Subjective: The patient is awake, alert. No complaint, except for some mild incisional pain. Objective: Vital Signs: Stable. Afebrile. Extremities: Dressing is clean, dry, and intact. No fever or chills. Laboratory Data: Reviewed. White count is still elevated. Assessment: Status post left below-knee amputation. Recommendations: Continue IV antibiotics, physical therapy, and the patient is being evaluated for t michelle to the rehab floor tomorrow. /MODL Voice ID: [id number] Report ID: [id number]
--- NOTE | 2017-09-20 16:34 | CON ---
Date of Consultation: 09/20/2017 The patient was admitted on 09/17/[address] Duval's service. I was consulted because of abnormal EK G. I saw the patient on 09/20/2017. History Of Present Illness: Mr. Warner is a 62-year-old male. He has an extensive past medical histo ry and cardiac history. He has a history of end-stage renal disease, on hemodialysis. He just had a left BKA. He has a history of anemia, coronary artery disease, tobacco abuse, congestive heart fail ure that is chronic diastolic. He also has a history of COPD, diabetes, hypertension, obesity, perip heral arterial disease. Last blood work showed a creatinine of 5.95 and hemoglobin 10.6. His last E KG showed left ventricular hypertrophy on the monitor, second-degree AV block type 1 Wenckebach witho ut any symptoms. Past Medical History: As stated above. Allergies: INCLUDE LEVAQUIN. Review of Systems: Negative. Social History: Negative. Family History: Noncontributory. Medications: Listed by Dr. Duval. Physical Examination: Vital Signs: Stable. Second-degree AV block, Wenckebach. Normal blood pressure. Afebrile. HEENT: Negative. Neck: Supple. No bruit. Chest: Clear. Cardiac: Revealed S4 gallops. Regular rhythm and rate. Abdomen: Benign. Extremities: Status post left BKA. Diagnostic Data: As stated earlier. 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 No reason to intervene. Echoc ardiogram that was done today showed normal ejection fraction, mild left ventricular hypertrophy, mil d aortic sclerosis. No wall motion abnormalities. No need to change any of his medical therapy as t his is not an indication for pacemaker. His other problems including coronary artery disease, chroni c obstructive pulmonary disease, end-stage renal disease, peripheral arterial disease, and hypertensi on are stable. I will sign off his case. SUZANNA/NAYA Voice ID: [id number] Report ID: [id number]
[2017-09-20] MEDS: GABAPENTIN 100 MG CAP PO PRN (17:09)
[2017-09-20] MEDS: RAMIPRIL 5 MG CAP PO SCH (21:13)
[2017-09-20] MEDS: ATORVASTATIN 20 MG TAB PO SCH (21:14)
[2017-09-21] MEDS: HYDROCODONE/APAP 7.5/325 MG TAB PO PRN ×2 (04:34→10:14)
[2017-09-21 05:06] LABS: Absolute Lymphocytes (CBC) 1.2 K/uL (0.7-4.9); Absolute Monocytes 1.3 K/uL (0.1-1.3); Absolute Neutrophil 9.2 K/uL (1.8-8.0); Basophils % 0.5 % (0-1.3); Eosinophils % 0.9 % (0-4.4); Hematocrit 29.8 % (39.6-49.0); Lymphocytes % 10.3 % (15.3-44.8); MCH 27.1 pg (27.0-35.0); MCV 83.7 fL (80-100); MPV 8.1 fL (7.6-11.3); Monocytes % 10.9 % (3.3-12.3); RBC Red Blood Cell Count 3.56 M/uL (4.33-5.43)
[2017-09-21 05:29] LABS: Magnesium 2.6 mg/dL (1.8-2.5); Potassium 4.6 mEq/L (3.6-5.0)
[2017-09-21] MEDS: INSULIN -REGULAR HUMAN 50 UNIT/0.5 ML ML SQ SCH ×2 (07:30→11:30)
[2017-09-21] MEDS: ARFORMOTEROL TARTRATE 15 MCG/2 ML VIAL.NEB NEB SCH (07:43)
[2017-09-21] MEDS: GABAPENTIN 100 MG CAP PO PRN (08:34)
[2017-09-21 08:40] VITALS: O2SAT 94
[2017-09-21] MEDS: SEVELAMER CARBONATE 800 MG TABLET PO SCH ×2 (08:40→13:20)
[2017-09-21] MEDS: MULTIVITAMINS,THERAPEUT 1 TAB PO SCH (09:00)
[2017-09-21] MEDS: NIFEDIPINE XL 30 MG TABLET PO SCH (09:00)
[2017-09-21] MEDS: FUROSEMIDE 40 MG TABLET PO SCH (09:00)
[2017-09-21] MEDS: HYDRALAZINE HCL 25 MG TABLET PO SCH (09:00)
--- NOTE | 2017-09-21 11:11 | P.DS ---
Admission Date: 09/18/17 Discharge Date: 09/21/17 Primary Care Provider: Dr. Helton([place], [place]); Surgery-Dr. Aguilar; Card-Dr. Webb; Neph-Dr. Brown Disposition: TRANSFER TO INPATIENT REHAB Discharge Condition: GOOD Reason for Admission: Patient requiring left below-knee amputation Consultations: Surgery-Dr. Aguilar Nephrology-Dr. Cain Cardiology-Dr. Lemus Procedures: Echocardiogram: Ejection fraction 54% Surgery: Date of Procedure: 09/18/2017 Surgeon: Justin Aguilar MD Reheat Furnace Operator: Anastasia Scott, certified UNIT CLERK. Preoperative Diagnosis: Severe peripheral vascular disease, nonhealing wound, left foot. Postoperative Diagnosis: Severe peripheral vascular disease, nonhealing wound, left foot. Procedure: Left below-knee amputation. Estimated Blood Loss: Minimal. Specimen: Left leg. Findings: As above. Anesthesia: General. - Problems (1) Anemia Onset Date: 09/19/17 Current Visit: Yes Status: Chronic Qualifiers: Anemia type: due to chronic kidney disease Chronic kidney disease stage: on chronic dialysis Qualified Code(s): N18.6 - End stage renal disease; D63.1 - Anemia in chronic kidney disease; Z99.2 - Dependence on renal dialysis (2) Tobacco abuse Onset Date: 09/19/17 Current Visit: Yes Status: Chronic (3) CAD (coronary artery disease) Onset Date: 09/19/17 Current Visit: Yes Status: Chronic (4) CHF (congestive heart failure) Onset Date: 09/19/17 Current Visit: Yes Status: Chronic Qualifiers: Heart failure type: diastolic Heart failure chronicity: chronic Qualified Code(s): I50.32 - Chronic diastolic (congestive) heart failure (5) COPD (chronic obstructive pulmonary disease) Onset Date: 09/19/17 Current Visit: Yes Status: Chronic Qualifiers: COPD type: chronic bronchitis Chronic bronchitis type: unspecified Qualified Code(s): J42 - Unspecified chronic bronchitis (6) Diabetes mellitus Onset Date: 09/19/17 Current Visit: Yes Status: Chronic Qualifiers: Diabetes mellitus type: type 2 Diabetes mellitus long-term insulin use: with public relations specialist use Diabetes mellitus complication status: with other specified complication Qualified Code(s): E11.69 - Type 2 diabetes mellitus with other specified complication; 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 (7) Diabetic ulcer of left foot Onset Date: 09/19/17 Current Visit: Yes Status: Acute Qualifiers: Diabetes mellitus type: type 2 (8) ESRD (end stage renal disease) Onset Date: 09/19/17 Current Visit: Yes Status: Chronic (9) Hypertension Onset Date: 09/19/17 Current Visit: Yes Status: Chronic Qualifiers: Hypertension type: essential hypertension Qualified Code(s): I10 - Essential (primary) hypertension (10) Obesity (BMI 30.0-34.9) Onset Date: 09/19/17 Current Visit: Yes Status: Chronic (11) PAD (peripheral artery disease) Onset Date: 09/19/17 Current Visit: Yes Status: Chronic (12) Status post amputation Current Visit: Yes Status: Acute (13) Second degree AV block Current Visit: Yes Status: Chronic Brief History of Present Illness: 62-year-old male presented to outpatient surgery for left below -knee amputation due to a left foot grade 4 nonhealing diabetic ulcer. Patient has had a nonhealing diabetic ulcer to the left foot. Patient to have left below-knee amputation. I was asked to admit the patient for postoperative care. Patient will require physical therapy an inpatient rehab consultation. Prior to surgery I was able to evaluate the patient. Patient denied any significant chest pain, shortness of breath, nausea or vomiting. Patient was doing well. No complaints noted. Patient with history of diabetes-insulin dependent; hypertension; end-stage renal disease on dialysis(Mondays, Wednesdays and Fridays); CAD, CHF, and tobacco use. Lab reviewed. He hemoglobin 11.1, white count 12.4, sodium 136, potassium 3.7, creatinine 4.27 with a GFR of 17. Glucose 161. Hospital Course: During the course of his stay patient did well post left below-knee amputation. Patient had a nonhealing chronic diabetic ulcer to the foot. Patient with severe PVD. Patient did work with physical therapy. At discharge patient will go to inpatient rehab to continue rehabilitation. Will continue with surgery recommendation. Surgery will need to follow up with the patient while in rehab. At discharge patient will continue with Keflex 500 mg once daily for 3 days. On days that dialysis this will need to be given after dialysis. Recommendation is to recheck BMP and CBC in 3 days. Patient with end-stage renal disease on hemodialysis. Nephrology was consulted to continue his care. Patient will continue with medication-Judy Kayden daily and Sevelamer 800 mg one pill TID. At discharge patient will continue with dialysis on Mondays, Wednesdays and Fridays. Patient has diabetes. Hemoglobin A1c 6.5. Patient will continue with his current medication-insulin 70/30 as prescribed. Recommendation is to maintain blood sugars less 140 fasting and less than 200 after meals. Further adjustment can be done by his PCP. Patient with hypertension. Patient will continue with his medication- hydralazine 25 mg 1 pill twice daily and nifedipine 30 mg 1 pill once daily. Recommendation is to maintain blood pressures less 150/80. Further adjustment can be done by his PCP. Patient with CHF, diastolic dysfunction. Echocardiogram done showed ejection fraction 54%. Patient was evaluated by cardiology due to EKG showing second- degree AV block. No intervention is needed at this time. Patient will continue with a 1500 cc per day fluid restriction. Patient will continue with his diuretic medication-Lasix 80 mg 1 pill twice daily. Recommendation is to monitor weight daily. If weight increases by more than 5 lb he will need to contact Nephrology for further recommendation. Patient with COPD. Patient will continue with COPD treatment-Symbicort 160 mcg 2 puffs twice daily and Pro air 2 puffs 3 times a day as needed for shortness of breath. Patient has anemia of chronic disease. This has remained stable. This can be followed up as an outpatient. Patient with chronic peripheral vascular disease with his current medication- aspirin 81 mg once daily and Plavix 75 mg 1 pill once daily. Patient has hyperlipidemia. Patient will continue with medication. Patient now with left below-knee amputation. Fall precautions will be enforced. Patient will continue with physical therapy with inpatient rehab. Medication for pain tramadol 50 mg 1 pill 3 times a day as needed will be provided. Further adjustment in medication and pain can be done in rehab. Vital Signs/Physical Exam: Temp Pulse Resp BP Pulse Ox 97.7 F 74 18 146/68 H 97 09/21/17 04:00 09/21/17 04:00 09/21/17 04:00 09/21/17 04:00 09/21/17 04:00 General: Alert, In no apparent distress, Oriented x3, Cooperative HEENT: Atraumatic, Mucous membr. moist/pink Neck: Supple, No Thyromegaly Respiratory: Clear to auscultation bilaterally, Normal air movement Cardiovascular: Normal pulses, Regular rate/rhythm Gastrointestinal: Normal bowel sounds, Soft and benign, Non-distended, No tenderness, No masses, No rebound, No guarding Musculoskeletal: No tenderness, No warmth Integumentary: Tenderness/swelling (Left below-knee amputation noted. Bandaged and splinted in place.) Neurological: Normal speech, Normal strength at 5/5 x4 extr, Normal tone, Normal affect Laboratory Data at Discharge: WBC 11.8 K/uL (4.3-10.9) H D 09/21/17 04:25 Hgb 9.6 g/dL (13.6-17.9) L 09/21/17 04:25 Hct 29.8 % (39.6-49.0) L 09/21/17 04:25 Plt Count 332 K/uL (152-406) 09/21/17 04:25 Sodium 135 mEq/L (135-145) 09/21/17 04:25 Potassium 4.6 mEq/L (3.6-5.0) 09/21/17 04:25 BUN 41 mg/dL (6-20) H 09/21/17 04:25 Creatinine 7.43 mg/dL (0.61-1.24) H* D 09/21/17 04:25 Glucose 155 mg/dL (65-120) H 09/21/17 04:25 Magnesium 2.6 mg/dL (1.8-2.5) H 09/21/17 04:25 Home Medications: Aspirin Chewable [Aspirin Chewable*] 81 mg PO DAILY 09/04/17 Clopidogrel Bisulfate [Plavix*] 75 mg PO DAILY 09/04/17 Furosemide 80 mg PO BID 09/04/17 Hydralazine HCl 25 mg PO BID 09/04/17 Lovastatin 40 mg PO DAILY 09/04/17 Nifedipine [Nifedipine ER] 30 mg PO DAILY 09/04/17 Sevelamer Carbonate 800 mg PO TIDWM 09/04/17 Folic Acid/Vit Bcomp,C [Judy-Kayden Tablet] 1 tab PO DAILY 09/17/17 Insulin 70/30 NPH/Reg Human [Novolin 70/30*] 1 dose SQ SEECOM 09/17/17 Albuterol Sulfate [Proair Hfa] 8.5 gm IH TID PRN #1 hfa.aer.ad 09/21/17 Budesonide/Formoterol Fumarate [Symbicort 160-4.5 Mcg Inhaler] 2 puff IH BID #1 hfa.aer.ad 09/21/17 Cephalexin [Keflex] 500 mg PO DAILY #3 cap 09/21/17 Tramadol HCl [Ultram] 50 mg PO TID PRN #20 tablet 09/21/17 New Medications: Albuterol Sulfate [Proair Hfa] 8.5 gm IH TID PRN #1 hfa.aer.ad PRN Reason: Shortness Of Breath Budesonide/Formoterol Fumarate [Symbicort 160-4.5 Mcg Inhaler] 2 puff IH BID #1 hfa.aer.ad Cephalexin [Keflex] 500 mg PO DAILY #3 cap Tramadol HCl [Ultram] 50 mg PO TID PRN #20 tablet PRN Reason: Pain Mild Patient Discharge Instructions: 1. Patient be transferred to inpatient rehab for continued physical therapy and rehabilitation. 2. Patient did well post left below-knee amputation. Patient had a nonhealing chronic diabetic ulcer to the foot. Patient with severe PVD. Patient did work with physical therapy. At discharge patient will go to inpatient rehab to continue rehabilitation. Will continue with surgery recommendation. Surgery will need to follow up with the patient while in rehab. At discharge patient will continue with Keflex 500 mg once daily for 3 days. On days that dialysis this will need to be given after dialysis. Recommendation is to recheck BMP and CBC in 3 days. 3. Patient with end-stage renal disease on hemodialysis. Nephrology was consulted to continue his care. Patient will continue with medication-Judy Kayden daily and Sevelamer 800 mg one pill TID. At discharge patient will continue with dialysis on Mondays, Wednesdays and Fridays. 4. Patient has diabetes. Hemoglobin A1c 6.5. Patient will continue with his current medication-insulin 70/30 as prescribed. Recommendation is to maintain blood sugars less 140 fasting and less than 200 after meals. Further adjustment can be done by his PCP. 5. Patient with hypertension. Patient will continue with his medication- hydralazine 25 mg 1 pill twice daily and nifedipine 30 mg 1 pill once daily. Recommendation is to maintain blood pressures less 150/80. Further adjustment can be done by his PCP. 6. Patient with CHF, diastolic dysfunction. Echocardiogram done showed ejection fraction 54%. Patient was evaluated by cardiology due to EKG showing second-degree AV block. No intervention is needed at this time. Patient will continue with a 1500 cc per day fluid restriction. Patient will continue with his diuretic medication-Lasix 80 mg 1 pill twice daily. Recommendation is to monitor weight daily. If weight increases by more than 5 lb he will need to contact Nephrology for further recommendation. 7. Patient with COPD. Patient will continue with COPD treatment-Symbicort 160 mcg 2 puffs twice daily and Pro air 2 puffs 3 times a day as needed for shortness of breath. 8. Patient has anemia of chronic disease. This has remained stable. This can be followed up as an outpatient. 9. Patient with chronic peripheral vascular disease with his current medication -aspirin 81 mg once daily and Plavix 75 mg 1 pill once daily. 10. Patient has hyperlipidemia. Patient will continue with medication. 11. Patient now with left below-knee amputation. Fall precautions will be enforced. Patient will continue with physical therapy with inpatient rehab. Medication for pain tramadol 50 mg 1 pill 3 times a day as needed will be provided. Further adjustment in medication and pain can be done in rehab. Diet: Renal Activity: Fall precautions Time spent managing pt's care (in minutes): 55
[2017-09-21 13:14] LABS: HBsAG Nonreactive (Nonreactive)
[2017-09-21] MEDS: DOCUSATE NA 100 MG CAP PO SCH (13:20)
[2017-09-21] MEDS: FOLIC ACID 1 MG TABLET PO SCH (13:20)
[2017-09-21] MEDS: ENOXAPARIN 30 MG/0.3 ML SQ SCH (13:20)
[2017-09-21] MEDS: ASPIRIN EC 81 MG TAB PO SCH (13:20)
[2017-09-21] MEDS: CEFAZOLIN/SWI 1gm 1 GM/10 ML SYR IV SCH (13:20)
[2017-09-21] MEDS: CLOPIDOGREL 75 MG TABLET PO SCH (13:21)
--- NOTE | 2017-09-21 14:49 | PN ---
Date of Progress Note: 09/21/2017 Subjective: The patient is awake, alert, no complaint. Objective: Vital signs: Stable, afebrile. Extremities: The dressing is clean, dry, and intact. Laboratory Data: White count is almost normalized. Assessment: Status post left below-knee amputation. Recommendation: The patient is cleared from surgery to be transferred to the rehab facility and the patient should be on oral antibiotics until his white count is normalized completely and we will eval uate the patient upon rehab. Once he is transferred there, I will check his wound in 3 or 4 days. /MODL Voice ID: [id number] Report ID: [id number]
[2017-09-21 16:27] VITALS: BP 113/56; TEMP 97.7
== END 2017-09-21 15:46 | DRG 474 ==
LOC: OR 08:59 → 2ND 11:30
PROVIDERS: ADMIT Family Medicine; ATTEND Family Medicine
PROC: 0Y6J0Z1 Detachment at Left Lower Leg, High, Open Approach (ICD-10-PCS; principal; 2017-09-18 10:00)
PROC: 5A1D70Z Performance of Urinary Filtration, Intermittent, Less than 6 Hours Per Day (ICD-10-PCS; 2017-09-19)
PROC: 5A1D70Z Performance of Urinary Filtration, Intermittent, Less than 6 Hours Per Day (ICD-10-PCS; 2017-09-21)
DX: Z47.81 Encounter for orthopedic aftercare following surgical amputation (principal); N18.6 End stage renal disease; I13.2 Hypertensive heart and chronic kidney disease with heart failure and with stage 5 chronic kidney disease, or end stage renal disease; I50.32 Chronic diastolic (congestive) heart failure; N25.81 Secondary hyperparathyroidism of renal origin; D63.1 Anemia in chronic kidney disease; I25.10 Atherosclerotic heart disease of native coronary artery without angina pectoris; E11.22 Type 2 diabetes mellitus with diabetic chronic kidney disease; E11.621 Type 2 diabetes mellitus with foot ulcer; I73.9 Peripheral vascular disease, unspecified; I44.1 Atrioventricular block, second degree; J44.9 Chronic obstructive pulmonary disease, unspecified; E78.5 Hyperlipidemia, unspecified; K59.00 Constipation, unspecified; E66.9 Obesity, unspecified; F17.200 Nicotine dependence, unspecified, uncomplicated; Z99.2 Dependence on renal dialysis; Z79.4 Long term (current) use of insulin; Z68.31 Body mass index [BMI] 31.0-31.9, adult
CPT/HCPCS: 36415; 71046; 80048; 81003; 81015; 82962; 83036; 83735; 85025; 86317; 86704; 86706; 87077; 87086; 87088; 87186; 87340; 88305; 88307; 90935; 93005; 93306; 94640; 97163; J0690; J1650; J2175; J2250; J2405; J3010; J7030; J7605; Q4081

== ENCOUNTER 2017-09-21 15:46 | Inpatient (IN) | payer OTHER ==
[2017-09-21] MEDS ORDERED: TRAMADOL HCL 50 MG TAB PO PRN (16:02)
[2017-09-21] MEDS ORDERED: GLUCAGON 1 MG/VIAL IM PRN (16:17)
[2017-09-21] MEDS ORDERED: D50W 25 GM/50 ML SYRINGE IV PRN (16:17)
[2017-09-21] MEDS ORDERED: ONDANSETRON 4 MG (ODT) TAB PO PRN (16:38)
--- NOTE | 2017-09-21 16:59 | P.CNS ---
Date of Consult: 09/21/17 Reason for Consult: ESRD Requesting Physician: Edgar Pereira Chief Complaint: Left BKA due to DM Ulcer. History of Present Illness: 62 yo AA male with ESRD sp Left BKA due to DM ulcer. 62-year-old male presented to outpatient surgery for left below -knee amputation due to a left foot grade 4 nonhealing diabetic ulcer. Patient has had a nonhealing diabetic ulcer to the left foot. Patient to have left below-knee amputation. I was asked to admit the patient for postoperative care. Patient will require physical therapy an inpatient rehab consultation. Prior to surgery I was able to evaluate the patient. Patient denied any significant chest pain, shortness of breath, nausea or vomiting. Patient was doing well. No complaints noted. Patient with history of diabetes-insulin dependent; hypertension; end-stage renal disease on dialysis(Mondays, Wednesdays and Fridays); CAD, CHF, and tobacco use. Allergies levofloxacin [From Levaquin] Allergy (Verified 09/21/17 16:24) Shortness of breath Home medications list reviewed: Yes Home Medications: Aspirin Chewable [Aspirin Chewable*] 81 mg PO DAILY 09/04/17 Clopidogrel Bisulfate [Plavix*] 75 mg PO DAILY 09/04/17 Furosemide 80 mg PO BID 09/04/17 Hydralazine HCl 25 mg PO BID 09/04/17 Lovastatin 40 mg PO DAILY 09/04/17 Nifedipine [Nifedipine ER] 30 mg PO DAILY 09/04/17 Sevelamer Carbonate 800 mg PO TIDWM 09/04/17 Folic Acid/Vit Bcomp,C [Judy-Kayden Tablet] 1 tab PO DAILY 09/17/17 Insulin 70/30 NPH/Reg Human [Novolin 70/30*] 1 dose SQ SEECOM 09/17/17 Albuterol Sulfate [Proair Hfa] 8.5 gm IH TID PRN #1 hfa.aer.ad 09/21/17 Budesonide/Formoterol Fumarate [Symbicort 160-4.5 Mcg Inhaler] 2 puff IH BID #1 hfa.aer.ad 09/21/17 Cephalexin [Keflex] 500 mg PO DAILY #3 cap 09/21/17 Docusate [Colace Cap*] 100 mg PO BID cap 09/21/17 Lactulose [Cephulac] 30 ml PO TID PRN #30 ucup 09/21/17 Tramadol HCl [Ultram] 50 mg PO TID PRN #20 tablet 09/21/17 - Past Medical/Surgical History Diabetic: Yes -: ESRD, dialysis-Mondays, Wednesdays and Fridays -: Diabetes mellitus type 2 -: Hypertension -: CHF, diastolic dysfunction -: COPD -: CAD -: Tobacco abuse -: Foot SX X3 -: Gallbladder -: Appendix Psychosocial/ Personal History: The patient is and . Patient has 2 children. - Family History Father History Unknown: Yes Medical History: Cancer Notes: Father and mother of cancer. - Social History Alcohol use: No CD- Drugs: No Caffeine use: Yes Place of Residence: Home Review of Systems 10-point ROS is otherwise unremarkable Physical Examination Temp Pulse Resp BP Pulse Ox 97.2 F 97 H 16 102/57 L 98 09/21/17 15:54 09/21/17 15:54 09/21/17 15:54 09/21/17 15:54 09/21/17 15:54 General: In no apparent distress, Oriented x3, Cooperative HEENT: Atraumatic Neck: Supple Respiratory: Clear to auscultation bilaterally Cardiovascular: Regular rate/rhythm, No rubs Gastrointestinal: Soft and benign, Non-distended Musculoskeletal: No clubbing, No contractures Integumentary: No rashes, No cyanosis, Other (Left BKA.) Neurological: Normal speech Blood work reviewed in the chart. Hgb 9.6; Alb 3.3 Imagings Data: HEIGHT: 6 ft 1 in WEIGHT: 235 lb 0 oz DATE OF STUDY: 09/20/[address]: Familia Duval MD 2-DIMENSIONAL: YES M.MODE: YES DOPPLER: YES COLOR FLOW: YES TDS: NO PORTABLE: NO DEFINITY: NO BUBBLE STUDY: NO DIAGNOSIS: ARRYTHMIA CARDIAC HISTORY: CATHERIZATION: YES SURGERY: NO PROSTHETIC VALVE: NO PACEMAKER: NO MEASUREMENTS (cm) DIASTOLIC (NORMALS) SYSTOLIC (NORMALS) IVSd 1.2 (0.6-1.2) LA Diam 3.7 (1.9-4.0) LVEF 54% LVIDd 6.0 (3.5-5.7) LVIDs 4.3 (2.0-3.5) %FS 29% LVPWd 1.2 (0.6-1.2) Ao Diam 3.1 (2.0-3.7) 2 DIMENSIONAL ASSESSMENT: RIGHT ATRIUM: NORMAL LEFT ATRIUM: NORMAL SIZE RIGHT VENTRICLE: NORMAL LEFT VENTRICLE: DILATED TRICUSPID VALVE: NORMAL MITRAL VALVE: MITRAL ANNULAR CALCIFICATION PULMONIC VALVE: NORMAL AORTIC VALVE: NORMAL PERICARDIAL EFFUSION: NONE AORTIC ROOT: NORMAL LEFT VENTRICULAR WALL MOTION: NORMAL LEFT VENTRICULAR EJECTION FRACTION. DECREASED LEFT VENTRICULAR COMPLIANCE. DOPPLER/COLOR FLOW: MILD TRICUSPID REGURGITATION. COMMENTS: MILD TRICUSPID REGURGITATION. DECREASED LEFT VENTRICULAR COMPLIANCE. NORMAL LEFT VENTRICULAR EJECTION FRACTION. MILD LEFT VENTRICULAR DILIATION. MITRAL ANNULAR CALCIFICATION. Conclusions/Impression: A/ ESRD on HD. HTN with CKD. Diastolic CHF, chronic. Anemia in CKD. PERCY/ Secondary HyperPTH. DM II with CKD. Left BKA. P/ Continue current POC and Medications. Seen and examined on HD earlier today. Next HD Sunday. Restart inpt medications. No NSAIDs. Titrate insulin as needed. Continue procrit. Low sodium diet. AM labs. Daily weight. Thank you kindly for the consultation.
[2017-09-21] MEDS: FUROSEMIDE 40 MG TABLET PO SCH (17:00)
[2017-09-21] MEDS: INSULIN -REGULAR HUMAN 50 UNIT/0.5 ML ML SQ SCH ×2 (17:10→21:00)
[2017-09-21] MEDS: SEVELAMER CARBONATE 800 MG TABLET PO SCH (17:10)
--- NOTE | 2017-09-21 17:38 | EKG ---
Test Date: 2017-09-21 Test Time: 10:06:10 Emergency Medical Service Coordinator: DANYELLE MEASUREMENT RESULTS: Intervals: Rate: 70 MS: 312 QRSD: 110 QT: 416 QTc: 449 [place]: P: 38 MS: 312 QRS: 38 T: 117 INTERPRETIVE STATEMENTS: Sinus rhythm with 1st degree AV block T wave abnormality, consider lateral ischemia Abnormal ECG Compared to ECG 09/20/2017 08:53:54 Sinus bradycardia no longer present Atrial premature complex(es) no longer present Aberrant conduction of supraventricular beat(s) no longer present Left bundle-branch block no longer present Left ventricular hypertrophy no longer present Prolonged QT interval no longer present T-wave abnormality still present Possible ischemia still present Electronically Signed On 09-21-17 17:36:54 CDT by Vijay Lemus
[2017-09-21] MEDS: DOCUSATE NA 100 MG CAP PO SCH (19:36)
[2017-09-21] MEDS: GABAPENTIN 300 MG CAP PO SCH (19:36)
[2017-09-21] MEDS: HYDRALAZINE HCL 25 MG TABLET PO SCH (19:36)
[2017-09-21] MEDS ORDERED: SYMBICORT IH SCH ×2 (20:00)
[2017-09-21] MEDS ORDERED: FUROSEMIDE 40 MG TABLET PO SCH (20:00)
[2017-09-21] MEDS: ATORVASTATIN 10 MG TAB PO SCH (21:29)
[2017-09-21] MEDS: ALBUTEROL 2.5 MG/3 ML NEB SOL NEB PRN (22:29)
[2017-09-22] MEDS: HYDROCODONE/APAP 7.5/325 MG TAB PO PRN ×4 (00:05→21:14)
[2017-09-22 06:18] LABS: Absolute Lymphocytes (CBC) 1.1 K/uL (0.7-4.9); Absolute Monocytes 1.2 K/uL (0.1-1.3); Absolute Neutrophil 7.5 K/uL (1.8-8.0); Basophils % 0.7 % (0-1.3); Eosinophils % 1.5 % (0-4.4); Hematocrit 29.7 % (39.6-49.0); Lymphocytes % 11.1 % (15.3-44.8); MCH 28.2 pg (27.0-35.0); MCV 83.6 fL (80-100); Monocytes % 11.9 % (3.3-12.3); RBC Red Blood Cell Count 3.56 M/uL (4.33-5.43)
[2017-09-22 06:48] LABS: Albumin 2.8 g/dL (3.2-5.5); Magnesium 2.4 mg/dL (1.8-2.5); Potassium 4.5 mEq/L (3.6-5.0); Prealbumin 18.1 mg/dl (18-38)
[2017-09-22] MEDS: INSULIN -REGULAR HUMAN 50 UNIT/0.5 ML ML SQ SCH ×4 (07:30→22:21)
[2017-09-22] MEDS: DOCUSATE NA 100 MG CAP PO SCH ×2 (08:26→21:14)
[2017-09-22] MEDS: GABAPENTIN 300 MG CAP PO SCH ×2 (08:26→21:16)
[2017-09-22] MEDS: CLOPIDOGREL 75 MG TABLET PO SCH (08:26)
[2017-09-22] MEDS: CEPHALEXIN 500 MG CAP PO SCH (08:26)
[2017-09-22] MEDS: SEVELAMER CARBONATE 800 MG TABLET PO SCH ×3 (08:26→17:20)
[2017-09-22] MEDS: MULTIVITAMINS,THERAPEUT 1 TAB PO SCH (08:26)
[2017-09-22] MEDS: ASPIRIN EC 81 MG TAB PO SCH (08:27)
[2017-09-22] MEDS: NIFEDIPINE XL 30 MG TABLET PO SCH (08:28)
[2017-09-22] MEDS: HYDRALAZINE HCL 25 MG TABLET PO SCH ×2 (08:28→21:14)
[2017-09-22] MEDS: FUROSEMIDE 40 MG TABLET PO SCH ×2 (09:00→17:20)
[2017-09-22] MEDS: LACTULOSE 20 GM/30 ML UCUP PO PRN (12:21)
[2017-09-22] MEDS: ATORVASTATIN 10 MG TAB PO SCH (21:14)
[2017-09-22] MEDS: DULERA 100/5 (MOMETASONE/FORMOTEROL) INHALER IH SCH (21:15)
[2017-09-22] MEDS: DOCUSATE NA/SENNA CONC 1 TAB PO SCH (21:15)
[2017-09-22] MEDS: BISACODYL 10 MG RECTAL SUPP PR PRN (21:15)
[2017-09-22 23:28] LABS: Urine Appearance CLEAR; Urine Bilirubin NEGATIVE (NEG); Urine Blood NEGATIVE (NEG); Urine Color YELLOW; Urine Glucose TRACE (NEG); Urine Protein 3+ (NEG); Urine Urobilinogen 0.2 mg/dL (0.2-1.0); Urine pH 7.5 (5.0-7.0)
[2017-09-22] MEDS: TRAMADOL HCL 50 MG TAB PO PRN (23:56)
[2017-09-23 00:29] LABS: Urine Culture Reflex Order NOT NEEDED
[2017-09-23 00:31] LABS: Urine Bacteria <20 /HPF (NONE SEEN); Urine RBC <5 /HPF (NONE SEEN)
[2017-09-23] MEDS: MELATONIN 3 MG TABLET PO PRN (01:20)
[2017-09-23] MEDS: HYDROCODONE/APAP 7.5/325 MG TAB PO PRN ×4 (02:31→20:40)
[2017-09-23] MEDS: INSULIN -REGULAR HUMAN 50 UNIT/0.5 ML ML SQ SCH ×4 (07:30→20:49)
[2017-09-23] MEDS: DULERA 100/5 (MOMETASONE/FORMOTEROL) INHALER IH SCH (07:49)
[2017-09-23] MEDS: DOCUSATE NA 100 MG CAP PO SCH (07:49)
[2017-09-23] MEDS: GABAPENTIN 300 MG CAP PO SCH ×2 (07:49→20:40)
[2017-09-23] MEDS: CEPHALEXIN 500 MG CAP PO SCH (07:50)
[2017-09-23] MEDS: CLOPIDOGREL 75 MG TABLET PO SCH (07:50)
[2017-09-23] MEDS: MULTIVITAMINS,THERAPEUT 1 TAB PO SCH (07:50)
[2017-09-23] MEDS: ASPIRIN EC 81 MG TAB PO SCH (07:50)
[2017-09-23] MEDS: SEVELAMER CARBONATE 800 MG TABLET PO SCH ×3 (07:50→17:04)
[2017-09-23] MEDS: NIFEDIPINE XL 30 MG TABLET PO SCH (08:00)
[2017-09-23] MEDS: HYDRALAZINE HCL 25 MG TABLET PO SCH ×2 (08:00→20:40)
[2017-09-23] MEDS ORDERED: DULERA 100/5 (MOMETASONE/FORMOTEROL) INHALER IH PRN (08:59)
[2017-09-23] MEDS: FUROSEMIDE 40 MG TABLET PO SCH ×2 (09:00→17:04)
[2017-09-23] MEDS: TRAMADOL HCL 50 MG TAB PO PRN (12:01)
[2017-09-23] MEDS: ENOXAPARIN 30 MG/0.3 ML SQ SCH (17:04)
[2017-09-23] MEDS: DOCUSATE NA/SENNA CONC 1 TAB PO SCH (20:40)
[2017-09-23] MEDS: PROMOD 30 ML DOSE PO SCH (20:41)
[2017-09-23] MEDS: ATORVASTATIN 10 MG TAB PO SCH (20:50)
[2017-09-24] MEDS: HYDROCODONE/APAP 7.5/325 MG TAB PO PRN ×3 (02:44→20:00)
[2017-09-24 06:44] LABS: Absolute Lymphocytes (CBC) 1.7 K/uL (0.7-4.9); Absolute Monocytes 1.1 K/uL (0.1-1.3); Absolute Neutrophil 9.5 K/uL (1.8-8.0); Eosinophils % 1.5 % (0-4.4); Lymphocytes % 13.8 % (15.3-44.8); MCH 27.1 pg (27.0-35.0); MCV 84.2 fL (80-100); MPV 8.1 fL (7.6-11.3); RBC Red Blood Cell Count 3.56 M/uL (4.33-5.43)
[2017-09-24] MEDS: TRAMADOL HCL 50 MG TAB PO PRN ×2 (06:44→15:50)
[2017-09-24 06:51] LABS: Potassium 5.1 mEq/L (3.6-5.0)
[2017-09-24] MEDS: INSULIN -REGULAR HUMAN 50 UNIT/0.5 ML ML SQ SCH ×4 (07:30→20:00)
[2017-09-24] MEDS: NIFEDIPINE XL 30 MG TABLET PO SCH (08:00)
[2017-09-24] MEDS ORDERED: NA CHLORIDE 0.9% 1,000 ML IV PRN (08:39)
[2017-09-24] MEDS ORDERED: MANNITOL 25% 12.5 GM/50 ML VIAL IV PRN (08:39)
[2017-09-24] MEDS: CLOPIDOGREL 75 MG TABLET PO SCH (08:40)
[2017-09-24] MEDS: HYDRALAZINE HCL 25 MG TABLET PO SCH ×2 (08:40→20:00)
[2017-09-24] MEDS: PROMOD 30 ML DOSE PO SCH ×2 (08:40→19:58)
[2017-09-24] MEDS: GABAPENTIN 300 MG CAP PO SCH ×2 (08:40→19:59)
[2017-09-24] MEDS: ASPIRIN EC 81 MG TAB PO SCH (08:40)
[2017-09-24] MEDS: MULTIVITAMINS,THERAPEUT 1 TAB PO SCH (08:40)
[2017-09-24] MEDS: SEVELAMER CARBONATE 800 MG TABLET PO SCH ×3 (08:40→18:48)
[2017-09-24] MEDS: CEPHALEXIN 500 MG CAP PO SCH (08:40)
[2017-09-24] MEDS: FUROSEMIDE 40 MG TABLET PO SCH ×2 (09:00→16:58)
[2017-09-24] MEDS ORDERED: ALBUMIN HUMAN 25% 50 ML IV SCH (09:00)
[2017-09-24] MEDS: EPOETIN ALFA 10,000 UNIT/ML VIAL IV SCH (15:21)
[2017-09-24] MEDS: ENOXAPARIN 30 MG/0.3 ML SQ SCH (18:48)
[2017-09-24] MEDS: DOCUSATE NA/SENNA CONC 1 TAB PO SCH (20:00)
[2017-09-24] MEDS: ATORVASTATIN 10 MG TAB PO SCH (20:00)
[2017-09-24] MEDS: MELATONIN 3 MG TABLET PO PRN (22:23)
[2017-09-25] MEDS: HYDROCODONE/APAP 7.5/325 MG TAB PO PRN ×2 (06:40→13:32)
[2017-09-25] MEDS: INSULIN -REGULAR HUMAN 50 UNIT/0.5 ML ML SQ SCH ×4 (07:30→20:32)
[2017-09-25] MEDS: GABAPENTIN 300 MG CAP PO SCH ×2 (08:20→20:34)
[2017-09-25] MEDS: CEPHALEXIN 500 MG CAP PO SCH (08:20)
[2017-09-25] MEDS: FUROSEMIDE 40 MG TABLET PO SCH ×2 (08:20→17:14)
[2017-09-25] MEDS: HYDRALAZINE HCL 25 MG TABLET PO SCH ×2 (08:20→20:34)
[2017-09-25] MEDS: ASPIRIN EC 81 MG TAB PO SCH (08:21)
[2017-09-25] MEDS: MULTIVITAMINS,THERAPEUT 1 TAB PO SCH (08:21)
[2017-09-25] MEDS: CLOPIDOGREL 75 MG TABLET PO SCH (08:21)
[2017-09-25] MEDS: SEVELAMER CARBONATE 800 MG TABLET PO SCH ×3 (08:21→17:14)
[2017-09-25] MEDS: PROMOD 30 ML DOSE PO SCH ×2 (08:23→20:34)
[2017-09-25] MEDS: NIFEDIPINE XL 30 MG TABLET PO SCH (10:12)
[2017-09-25] MEDS: TRAMADOL HCL 50 MG TAB PO PRN ×2 (12:20→20:34)
--- NOTE | 2017-09-25 16:08 | PN ---
Date of Progress Note: 09/25/2017 Subjective: The patient is awake, alert, and no complaints. Objective: Vital signs: Stable and afebrile. Awake, alert. Extremities: Examination of the left BKA wound reveals to be clean, dry, and intact. No sign of inf ection. Laboratory Data: Reviewed. White count is 12.7, was 10.0. Assessment: Status post left below-knee amputation. Recommendations: Figure of eight dressings daily, nutritional optimization. Physical therapy, prost hesis evaluation, patient is clinically doing well. /MODL Voice ID: [id number] Report ID: [id number]
[2017-09-25] MEDS: ENOXAPARIN 30 MG/0.3 ML SQ SCH (17:13)
[2017-09-25] MEDS: DOCUSATE NA/SENNA CONC 1 TAB PO SCH (20:34)
[2017-09-25] MEDS: ATORVASTATIN 10 MG TAB PO SCH (20:34)
[2017-09-26] MEDS: INSULIN -REGULAR HUMAN 50 UNIT/0.5 ML ML SQ SCH ×4 (07:30→20:47)
[2017-09-26] MEDS: PROMOD 30 ML DOSE PO SCH ×2 (08:00→20:48)
[2017-09-26] MEDS: GABAPENTIN 300 MG CAP PO SCH ×2 (08:20→20:46)
[2017-09-26] MEDS: SEVELAMER CARBONATE 800 MG TABLET PO SCH ×3 (08:20→18:35)
[2017-09-26] MEDS: FUROSEMIDE 40 MG TABLET PO SCH ×2 (08:21→16:00)
[2017-09-26] MEDS: CLOPIDOGREL 75 MG TABLET PO SCH (08:21)
[2017-09-26] MEDS: ASPIRIN EC 81 MG TAB PO SCH (08:21)
[2017-09-26] MEDS: MULTIVITAMINS,THERAPEUT 1 TAB PO SCH (08:21)
[2017-09-26] MEDS: HYDRALAZINE HCL 25 MG TABLET PO SCH ×2 (08:22→20:46)
[2017-09-26] MEDS: HYDROCODONE/APAP 7.5/325 MG TAB PO PRN ×3 (08:22→23:30)
[2017-09-26] MEDS: NIFEDIPINE XL 30 MG TABLET PO SCH (09:50)
[2017-09-26] MEDS: TRAMADOL HCL 50 MG TAB PO PRN (12:18)
--- NOTE | 2017-09-26 15:39 | FAST ---
ENCOUNTER DATE AND TIME: 09/26/2017 08:00 (CDT) NAME CARMEN ALTAMIRANO DATE OF : 1955 DATE OF ADMISSION: 09/21/2017 15:46 (CDT) PHONE: AGE: 62 N# [id number] GENDER: Male ENCOUNTER PHYSICIAN: Dr. Edgar Pereira M.D. ADMISSION DIAGNOSIS: - Amputation of Limb 05 - Unilateral Lower Limb Below the Knee (BK) (05.4) Left Below the Knee Amputation. EATING: EATING - STEP 1: Does the patient require assistance when eating? No. EATING - SCORE: 7-IND GROOMING: Oral care Wash, rinse, and dry face Wash, rinse, and dry hands GROOMING - STEP 1: Does the patient require assistance when grooming? No. GROOMING - SCORE: 7-IND BATHING: Abdomen Buttocks Chest Left arm Left upper leg Perineal area Right arm Right lower leg and foot Right upper leg BATHING - STEP 1: Does the patient require assistance when bathing? Yes. BATHING - STEP 2: Does the patient require the assistance of a helper? Yes. BATHING - STEP 3: How much assistance does the patient require from the helper? Only prior preparation such as putting bathing equipment within reach, turning on water, checking water temperature BATHING - SCORE: 5-SUP DRESSING - UPPER BODY: T-shirt/pullover shirt (four steps) ARTICLES SCORE Total number of steps: 4 DRESSING - UPPER BODY - STEP 1: Does the patient require help when dressing above the waist? No. DRESSING - UPPER BODY - SCORE: 7-IND DRESSING - LOWER BODY: Elastic waist pants (three steps) Slip-on shoe - Right foot (one step) Underwear (three steps) ARTICLES SCORE Total number of steps: 7 DRESSING - LOWER BODY - STEP 1: Does the patient require help when dressing below the waist? Yes. DRESSING - LOWER BODY - STEP 2: Does the patient require the assistance of a helper? Yes. DRESSING - LOWER BODY - STEP 3: Does the helper touch the patient while dressing? No. DRESSING - LOWER BODY - SCORE: 5-SUP TOILETING: Activity did not occur on this shift TOILETING - SCORE: 0-UNK BLADDER MANAGEMENT: Activity did not occur on this shift BLADDER MANAGEMENT - SCORE: 7-IND BOWEL MANAGEMENT: Activity did not occur on this shift BOWEL MANAGEMENT - SCORE: 7-IND TRANSFERS: BED, CHAIR, WHEELCHAIR: Activity did not occur on this shift TRANSFERS: BED, CHAIR, WHEELCHAIR - SCORE: 0-UNK TRANSFERS: TOILET: Activity did not occur on this shift TRANSFERS: TOILET - SCORE: 0-UNK TRANSFERS: SHOWER: TRANSFERS: SHOWER - STEP 1: Does the patient require assistance with shower transfers? Yes. TRANSFERS: SHOWER - STEP 2: Does the patient require the assistance of a helper? Yes. TRANSFERS: SHOWER - STEP 3: How much assistance does the patient require from the helper? Only supervision, cuing, coaxing, or he lp to set out transfer equipment or to lock brakes and/or lift foot rests TRANSFERS: SHOWER - SCORE: 5-SUP TRANSFERS: TUB: Activity did not occur on this shift TRANSFERS: TUB - SCORE: 0-UNK LOCOMOTION: WALK: Activity did not occur on this shift LOCOMOTION: WALK - SCORE: 0-UNK LOCOMOTION: WHEELCHAIR: Activity did not occur on this shift LOCOMOTION: WHEELCHAIR - SCORE: 0-UNK LOCOMOTION: STAIRS: Activity did not occur on this shift LOCOMOTION: STAIRS - SCORE: 0-UNK COMPREHENSION: COMPREHENSION: TYPE: Both COMPREHENSION - STEP 1: Does the patient require help to understand complex and abstract ideas (such as current events, finan josé, discharge planning, medical issues, relationships, etc)? No. COMPREHENSION - STEP 2: Does the patient need extra time, require an assistive device (such as glasses, hearing aids, or an a ugmentative communication system), OR does s/he have mild difficulty expressing complex and abstract ideas (including mild dysarthria or mild word-finding problems)? No. COMPREHENSION - SCORE: 7-IND EXPRESSION EXPRESSION: TYPE: Both EXPRESSION - STEP 1: Does the patient require help expressing complex and abstract ideas (such as current events, finances , discharge planning, medical issues, relationships, etc)? No. EXPRESSION - STEP 2: Does the patient need extra time, require an assistive device (such as augmentive communication syste m or a communication board), OR does s/he have mild difficulty expressing complex and abstract ideas (including mild dysarthria or mild word-find problems)? No. EXPRESSION - SCORE: 7-IND SOCIAL INTERACTION: SOCIAL INTERACTION - STEP 1: Does the patient require a helper to interact with others in social and therapeutic situations? No. SOCIAL INTERACTION - STEP 2: Does the patient need extra time in social situations, OR does s/he interact with staff, other patien ts, and family members ONLY in structured environments, OR does s/he require medication for social in teraction? No. SOCIAL INTERACTION - SCORE: 7-IND PROBLEM SOLVING: PROBLEM SOLVING - STEP 1: Does the patient need help to solve complex problems such as managing a checking account or confronti ng interpersonal problems? No. PROBLEM SOLVING - STEP 2: Does the patient require extra time to make decisions or solve problems, OR does s/he have slight dif ficulty reading, initiating, or self-correcting in unfamiliar situations? No. PROBLEM SOLVING - SCORE: 7-IND MEMORY: MEMORY - STEP 1: Does the patient need help to remember frequently encountered people, daily routines, and executing r equests? No. MEMORY - STEP 2: Does the patient have slight difficulty recognizing frequently encountered people, daily routines, or executing requests without the need for repetition or using self-initiated or environmental cues to remember? No. MEMORY - SCORE: 7-IND SIGNATURE PANEL: The following modified sections: Eating - Score, Grooming - Score, Bathing - Score, Dressing - Upper Body - Score, Dressing - Lower Body - Score, Toileting - Score, Transfers: Bed, Chair, Wheelchair - S core, Transfers: Toilet - Score, Transfers: Tub - Score, Transfers: Shower - Score, Comprehension - S core, Expression - Score, Social Interaction - Score, Problem Solving - Score, Memory - Score were [e lectronically] signed by Brianna Watts OT on SunSep 26 2017 14:38:38 T-0500 ([facility])
--- NOTE | 2017-09-26 15:44 | FAST ---
SHIFT START DATE/TIME: 09/26/2017 07:00 (CDT) SHIFT END DATE/TIME: 09/26/2017 19:00 (CDT) NAME CARMEN ALTAMIRANO DATE OF : 1955 DATE OF ADMISSION: 09/21/2017 15:46 (CDT) PHONE: AGE: 62 [facility]# [id number] GENDER: Male ENCOUNTER PHYSICIAN: Dr. Edgar Pereira M.D. ADMISSION DIAGNOSIS: - Amputation of Limb 05 - Unilateral Lower Limb Below the Knee (BK) (05.4) Left Below the Knee Amputation. EATING: EATING - STEP 1: Does the patient require assistance when eating? Yes. EATING - STEP 2: Does the patient require the assistance of a helper? No, patient only requires an assistive device, O R s/he takes more than reasonable time to eat, OR there is a safety concern, OR s/he requires modifie d food consistency EATING - SCORE: 6-MARIPOSA GROOMING: Comb/brush hair Oral care Wash, rinse, and dry face GROOMING - STEP 1: Does the patient require assistance when grooming? Yes. GROOMING - STEP 2: Does the patient require the assistance of a helper? No. The patient only requires an assistive devic e, OR takes more than reasonable time to groom, OR there is a concern for safety as the patient groom s GROOMING - SCORE: 6-MARIPOSA BATHING: Activity did not occur on this shift BATHING - SCORE: 0-UNK DRESSING - UPPER BODY: Activity did not occur on this shift ARTICLES SCORE Total number of steps: 0 DRESSING - UPPER BODY - SCORE: 0-UNK DRESSING - LOWER BODY: Activity did not occur on this shift ARTICLES SCORE Total number of steps: 0 DRESSING - LOWER BODY - SCORE: 0-UNK TOILETING: Activity did not occur on this shift TOILETING - SCORE: 0-UNK BLADDER MANAGEMENT: Patient is on renal dialysis or peritoneal dialysis and no voiding activity BLADDER MANAGEMENT - SCORE: 7-IND BLADDER MANAGEMENT - FREQUENCY OF ACCIDENTS: BLADDER MANAGEMENT(FA) - STEP 1: How many accidents has the patient had during the current shift? 0 BOWEL MANAGEMENT: Activity did not occur on this shift BOWEL MANAGEMENT - SCORE: 7-IND BOWEL MANAGEMENT - FREQUENCY OF ACCIDENTS: BOWEL MANAGEMENT(FA) - STEP 1: How many accidents has the patient had during the current shift? 0 TRANSFERS: BED, CHAIR, WHEELCHAIR: TRANSFERS: BED, CHAIR, WHEELCHAIR - STEP 1: Does the patient require assistance with bed, chair, or wheelchair transfers? Yes. TRANSFERS: BED, CHAIR, WHEELCHAIR - STEP 2: Does the patient require the assistance of a helper? Yes. TRANSFERS: BED, CHAIR, WHEELCHAIR - STEP 3: How much assistance does the patient require from the helper? Steadying/guiding assistance TRANSFERS: BED, CHAIR, WHEELCHAIR - SCORE: 4-MIN TRANSFERS: TOILET: Activity did not occur on this shift TRANSFERS: TOILET - SCORE: 0-UNK TRANSFERS: SHOWER: Activity did not occur on this shift TRANSFERS: SHOWER - SCORE: 0-UNK TRANSFERS: TUB: Activity did not occur on this shift TRANSFERS: TUB - SCORE: 0-UNK LOCOMOTION: WALK: Activity did not occur on this shift LOCOMOTION: WALK - SCORE: 0-UNK LOCOMOTION: WHEELCHAIR: LOCOMOTION: WHEELCHAIR - STEP 1: Does the patient need help to go 150 feet in a wheelchair? No. LOCOMOTION: WHEELCHAIR - SCORE: 6-MARIPOSA COMPREHENSION: COMPREHENSION - STEP 1: Does the patient require help to understand complex and abstract ideas (such as current events, finan josé, discharge planning, medical issues, relationships, etc)? No. COMPREHENSION - STEP 2: Does the patient need extra time, require an assistive device (such as glasses, hearing aids, or an a ugmentative communication system), OR does s/he have mild difficulty expressing complex and abstract ideas (including mild dysarthria or mild word-finding problems)? Yes. COMPREHENSION - SCORE: 6-MARIPOSA EXPRESSION EXPRESSION: TYPE: Both EXPRESSION - STEP 1: Does the patient require help expressing complex and abstract ideas (such as current events, finances , discharge planning, medical issues, relationships, etc)? No. EXPRESSION - STEP 2: Does the patient need extra time, require an assistive device (such as augmentive communication syste m or a communication board), OR does s/he have mild difficulty expressing complex and abstract ideas (including mild dysarthria or mild word-find problems)? Yes. EXPRESSION - SCORE: 6-MARIPOSA SOCIAL INTERACTION: SOCIAL INTERACTION - STEP 1: Does the patient require a helper to interact with others in social and therapeutic situations? No. SOCIAL INTERACTION - STEP 2: Does the patient need extra time in social situations, OR does s/he interact with staff, other patien ts, and family members ONLY in structured environments, OR does s/he require medication for social in teraction? Yes, patient needs extra time SOCIAL INTERACTION - SCORE: 6-MARIPOSA PROBLEM SOLVING: PROBLEM SOLVING - STEP 1: Does the patient need help to solve complex problems such as managing a checking account or confronti ng interpersonal problems? No. PROBLEM SOLVING - STEP 2: Does the patient require extra time to make decisions or solve problems, OR does s/he have slight dif ficulty reading, initiating, or self-correcting in unfamiliar situations? Yes, patient needs extra ti me. PROBLEM SOLVING - SCORE: 6-MARIPOSA MEMORY: MEMORY - STEP 1: Does the patient need help to remember frequently encountered people, daily routines, and executing r equests? No. MEMORY - STEP 2: Does the patient have slight difficulty recognizing frequently encountered people, daily routines, or executing requests without the need for repetition or using self-initiated or environmental cues to remember? No. MEMORY - SCORE: 7-IND SIGNATURE PANEL: The following modified sections: Eating - Score, Grooming - Score, Bathing - Score, Dressing - Upper Body - Score, Dressing - Lower Body - Score, Toileting - Score, Bladder Management - Score, Bowel Man agement - Score, Transfers: Bed, Chair, Wheelchair - Score, Transfers: Toilet - Score, Transfers: Adeline wer - Score, Transfers: Tub - Score, Locomotion: Walk - Score, Locomotion: Wheelchair - Score, Compre hension - Score, Expression - Score, Social Interaction - Score, Problem Solving - Score, Memory - Sc ore were [electronically] signed by Jomar [email or web address] on SunSep 26 2017 14:44:45 T-0500 ([facility])
--- NOTE | 2017-09-26 17:46 | FAST ---
ENCOUNTER DATE AND TIME: 09/26/2017 08:00 (CDT) NAME CARMEN ALTAMIRANO DATE OF : 1955 DATE OF ADMISSION: 09/21/2017 15:46 (CDT) PHONE: AGE: 62 N# [id number] GENDER: Male ENCOUNTER PHYSICIAN: Dr. Edgar Pereira M.D. ADMISSION DIAGNOSIS: - Amputation of Limb 05 - Unilateral Lower Limb Below the Knee (BK) (05.4) Left Below the Knee Amputation. EATING: Activity did not occur on this shift EATING - SCORE: 0-UNK GROOMING: Activity did not occur on this shift GROOMING - SCORE: 0-UNK BATHING: Activity did not occur on this shift BATHING - SCORE: 0-UNK DRESSING - UPPER BODY: Activity did not occur on this shift Patient is not dressing in public clothing ARTICLES SCORE Total number of steps: 0 DRESSING - UPPER BODY - SCORE: 0-UNK DRESSING - LOWER BODY: Activity did not occur on this shift Patient is not dressing in public clothing ARTICLES SCORE Total number of steps: 0 DRESSING - LOWER BODY - SCORE: 0-UNK TOILETING: Activity did not occur on this shift TOILETING - SCORE: 0-UNK BLADDER MANAGEMENT: Activity did not occur on this shift BLADDER MANAGEMENT - SCORE: 7-IND BOWEL MANAGEMENT: Activity did not occur on this shift BOWEL MANAGEMENT - SCORE: 7-IND TRANSFERS: BED, CHAIR, WHEELCHAIR: TRANSFERS: BED, CHAIR, WHEELCHAIR - STEP 1: Does the patient require assistance with bed, chair, or wheelchair transfers? Yes. TRANSFERS: BED, CHAIR, WHEELCHAIR - STEP 2: Does the patient require the assistance of a helper? Yes. TRANSFERS: BED, CHAIR, WHEELCHAIR - STEP 3: How much assistance does the patient require from the helper? Lifting of the legs TRANSFERS: BED, CHAIR, WHEELCHAIR - STEP 4: How many legs does the patient require the helper to lift? both legs TRANSFERS: BED, CHAIR, WHEELCHAIR - SCORE: 3-MOD TRANSFERS: TOILET: Activity did not occur on this shift TRANSFERS: TOILET - SCORE: 0-UNK TRANSFERS: SHOWER: Activity did not occur on this shift TRANSFERS: SHOWER - SCORE: 0-UNK TRANSFERS: TUB: Activity did not occur on this shift TRANSFERS: TUB - SCORE: 0-UNK LOCOMOTION: WALK: Activity did not occur on this shift LOCOMOTION: WALK - SCORE: 0-UNK LOCOMOTION: WHEELCHAIR: LOCOMOTION: WHEELCHAIR - STEP 1: Does the patient need help to go 150 feet in a wheelchair? Yes. LOCOMOTION: WHEELCHAIR - STEP 2: How much assistance does the patient need from the helper? Only supervision, cuing, or coaxing LOCOMOTION: WHEELCHAIR - SCORE: 5-SUP LOCOMOTION: STAIRS: Activity did not occur on this shift LOCOMOTION: STAIRS - SCORE: 0-UNK COMPREHENSION: COMPREHENSION - SCORE: 0-UNK EXPRESSION EXPRESSION - SCORE: 0-UNK SOCIAL INTERACTION: SOCIAL INTERACTION - SCORE: 0-UNK PROBLEM SOLVING: PROBLEM SOLVING - SCORE: 0-UNK MEMORY: MEMORY - SCORE: 0-UNK SIGNATURE PANEL: The following modified sections: Transfers: Bed, Chair, Wheelchair - Score, Transfers: Toilet - Score , Locomotion: Walk - Score, Locomotion: Wheelchair - Score, Locomotion: Stairs - Score were [electron [email or web address]] signed by Christina Walton PTA on SunSep 26 2017 16:46:15 T-0500 ([facility] Daylight [facility])
[2017-09-26] MEDS: ENOXAPARIN 30 MG/0.3 ML SQ SCH (18:35)
[2017-09-26] MEDS: ATORVASTATIN 10 MG TAB PO SCH (20:46)
[2017-09-26] MEDS: MELATONIN 3 MG TABLET PO PRN (20:46)
[2017-09-26] MEDS: DOCUSATE NA/SENNA CONC 1 TAB PO SCH (20:46)
[2017-09-26] MEDS: BISACODYL 10 MG RECTAL SUPP PR PRN (23:33)
[2017-09-27] MEDS ORDERED: FLEET ENEMA ADULT PR ONE (00:29)
--- NOTE | 2017-09-27 03:18 | FAST ---
SHIFT START DATE/TIME: 09/26/2017 19:00 (CDT) SHIFT END DATE/TIME: 09/27/2017 07:00 (CDT) NAME CARMEN ALTAMIRANO DATE OF : 1955 DATE OF ADMISSION: 09/21/2017 15:46 (CDT) PHONE: AGE: 62 [facility]# [id number] GENDER: Male ENCOUNTER PHYSICIAN: Dr. Edgar Pereira M.D. ADMISSION DIAGNOSIS: - Amputation of Limb 05 - Unilateral Lower Limb Below the Knee (BK) (05.4) Left Below the Knee Amputation. EATING: Activity did not occur on this shift EATING - SCORE: 0-UNK GROOMING: Wash, rinse, and dry hands GROOMING - STEP 1: Does the patient require assistance when grooming? Yes. GROOMING - STEP 2: Does the patient require the assistance of a helper? No. The patient only requires an assistive devic e, OR takes more than reasonable time to groom, OR there is a concern for safety as the patient groom s GROOMING - SCORE: 6-MARIPOSA BATHING: Activity did not occur on this shift BATHING - SCORE: 0-UNK DRESSING - UPPER BODY: Patient is not dressing in public clothing ARTICLES SCORE Total number of steps: 0 DRESSING - UPPER BODY - SCORE: 0-UNK DRESSING - LOWER BODY: Patient is not dressing in public clothing ARTICLES SCORE Total number of steps: 0 DRESSING - LOWER BODY - SCORE: 0-UNK TOILETING: TOILETING - STEP 1: Does the patient require assistance with toileting? Yes. TOILETING - STEP 2: Does the patient require the assistance of a helper? Yes. TOILETING - STEP 3: How much assistance does the patient require from the helper? Only supervision TOILETING - SCORE: 5-SUP BLADDER MANAGEMENT: Patient is on renal dialysis or peritoneal dialysis and no voiding activity BLADDER MANAGEMENT - SCORE: 7-IND BOWEL MANAGEMENT: Enema: [place] positions patient, places a pad, lubricates and inserts rectal tip / nozzle into anal c anal, administers enema, places patient on bedpan or BSC, and takes patient off of bedpan or BSC afte r bowel movement. Suppository: [place] positions patient, places a pad, lubricates and inserts the suppository, provides digital stimulation, places patient on bedpan, and takes patient off of bedpan. BOWEL MANAGEMENT - SCORE: 1-DEP TRANSFERS: BED, CHAIR, WHEELCHAIR: Activity did not occur on this shift TRANSFERS: BED, CHAIR, WHEELCHAIR - SCORE: 0-UNK TRANSFERS: TOILET: TRANSFERS: TOILET - STEP 1: Does the patient require assistance with toilet transfers? Yes. TRANSFERS: TOILET - STEP 2: Does the patient require the assistance of a helper? Yes. TRANSFERS: TOILET - STEP 3: How much assistance does the patient require from the helper? Patient performs half or more of the tr ansferring tasks TRANSFERS: TOILET - STEP 4: Does the patient need only incidental help such as contact guard or steadying during toilet transfer? No. Patient needs more than incidental help TRANSFERS: TOILET - SCORE: 3-MOD TRANSFERS: SHOWER: Activity did not occur on this shift TRANSFERS: SHOWER - SCORE: 0-UNK TRANSFERS: TUB: Activity did not occur on this shift TRANSFERS: TUB - SCORE: 0-UNK LOCOMOTION: WALK: Activity did not occur on this shift LOCOMOTION: WALK - SCORE: 0-UNK LOCOMOTION: WHEELCHAIR: Activity did not occur on this shift LOCOMOTION: WHEELCHAIR - SCORE: 0-UNK COMPREHENSION: COMPREHENSION: TYPE: Both COMPREHENSION - STEP 1: Does the patient require help to understand complex and abstract ideas (such as current events, finan josé, discharge planning, medical issues, relationships, etc)? No. COMPREHENSION - STEP 2: Does the patient need extra time, require an assistive device (such as glasses, hearing aids, or an a ugmentative communication system), OR does s/he have mild difficulty expressing complex and abstract ideas (including mild dysarthria or mild word-finding problems)? Yes. COMPREHENSION - SCORE: 6-MARIPOSA EXPRESSION EXPRESSION - STEP 1: Does the patient require help expressing complex and abstract ideas (such as current events, finances , discharge planning, medical issues, relationships, etc)? No. EXPRESSION - STEP 2: Does the patient need extra time, require an assistive device (such as augmentive communication syste m or a communication board), OR does s/he have mild difficulty expressing complex and abstract ideas (including mild dysarthria or mild word-find problems)? Yes. EXPRESSION - SCORE: 6-MARIPOSA SOCIAL INTERACTION: SOCIAL INTERACTION - STEP 1: Does the patient require a helper to interact with others in social and therapeutic situations? No. SOCIAL INTERACTION - STEP 2: Does the patient need extra time in social situations, OR does s/he interact with staff, other patien ts, and family members ONLY in structured environments, OR does s/he require medication for social in teraction? Yes, patient needs extra time SOCIAL INTERACTION - SCORE: 6-MARIPOSA PROBLEM SOLVING: PROBLEM SOLVING - STEP 1: Does the patient need help to solve complex problems such as managing a checking account or confronti ng interpersonal problems? No. PROBLEM SOLVING - STEP 2: Does the patient require extra time to make decisions or solve problems, OR does s/he have slight dif ficulty reading, initiating, or self-correcting in unfamiliar situations? Yes, patient needs extra ti me. PROBLEM SOLVING - SCORE: 6-MARIPOSA MEMORY: MEMORY - STEP 1: Does the patient need help to remember frequently encountered people, daily routines, and executing r equests? No. MEMORY - STEP 2: Does the patient have slight difficulty recognizing frequently encountered people, daily routines, or executing requests without the need for repetition or using self-initiated or environmental cues to remember? No. MEMORY - SCORE: 7-IND
[2017-09-27 07:00] LABS: Absolute Lymphocytes (CBC) 1.3 K/uL (0.7-4.9); Absolute Monocytes 1.1 K/uL (0.1-1.3); Absolute Neutrophil 10.7 K/uL (1.8-8.0); Eosinophils % 2.7 % (0-4.4); Hematocrit 32.3 % (39.6-49.0); Lymphocytes % 9.8 % (15.3-44.8); MCH 27.4 pg (27.0-35.0); MCV 83.9 fL (80-100); MPV 7.9 fL (7.6-11.3); Monocytes % 8.2 % (3.3-12.3); RBC Red Blood Cell Count 3.85 M/uL (4.33-5.43)
[2017-09-27 07:10] LABS: Albumin 3.1 g/dL (3.2-5.5); Potassium 5.4 mEq/L (3.6-5.0); Prealbumin 26.6 mg/dl (18-38)
[2017-09-27] MEDS: GABAPENTIN 300 MG CAP PO SCH ×2 (07:45→20:52)
[2017-09-27] MEDS: LACTULOSE 20 GM/30 ML UCUP PO PRN (07:46)
[2017-09-27] MEDS: MULTIVITAMINS,THERAPEUT 1 TAB PO SCH (07:46)
[2017-09-27] MEDS: SEVELAMER CARBONATE 800 MG TABLET PO SCH ×3 (07:46→17:23)
[2017-09-27] MEDS: NIFEDIPINE XL 30 MG TABLET PO SCH (07:46)
[2017-09-27] MEDS: HYDROCODONE/APAP 7.5/325 MG TAB PO PRN ×2 (07:47→20:50)
[2017-09-27] MEDS: CLOPIDOGREL 75 MG TABLET PO SCH (07:47)
[2017-09-27] MEDS: ASPIRIN EC 81 MG TAB PO SCH (07:47)
[2017-09-27] MEDS: HYDRALAZINE HCL 25 MG TABLET PO SCH ×2 (07:47→20:51)
[2017-09-27] MEDS: PROMOD 30 ML DOSE PO SCH ×2 (08:36→20:52)
[2017-09-27] MEDS: INSULIN -REGULAR HUMAN 50 UNIT/0.5 ML ML SQ SCH ×4 (08:36→21:00)
[2017-09-27] MEDS: FUROSEMIDE 40 MG TABLET PO SCH ×2 (08:49→17:22)
[2017-09-27] MEDS ORDERED: SOD POLYSTYREN SUL 15 GM/60 ML UCUP PO ONE (10:43)
[2017-09-27] MEDS: TRAMADOL HCL 50 MG TAB PO PRN (11:06)
--- NOTE | 2017-09-27 14:28 | FAST ---
SHIFT START DATE/TIME: 09/27/2017 07:00 (CDT) SHIFT END DATE/TIME: 09/27/2017 19:00 (CDT) NAME CARMEN ALTAMIRANO DATE OF : 1955 DATE OF ADMISSION: 09/21/2017 15:46 (CDT) PHONE: AGE: 62 [facility]# [id number] GENDER: Male ENCOUNTER PHYSICIAN: Dr. Edgar Pereira M.D. ADMISSION DIAGNOSIS: - Amputation of Limb 05 - Unilateral Lower Limb Below the Knee (BK) (05.4) Left Below the Knee Amputation. EATING: EATING - STEP 1: Does the patient require assistance when eating? Yes. EATING - STEP 2: Does the patient require the assistance of a helper? No, patient only requires an assistive device, O R s/he takes more than reasonable time to eat, OR there is a safety concern, OR s/he requires modifie d food consistency EATING - SCORE: 6-MARIPOSA GROOMING: Activity did not occur on this shift GROOMING - SCORE: 0-UNK BATHING: Activity did not occur on this shift BATHING - SCORE: 0-UNK DRESSING - UPPER BODY: Activity did not occur on this shift ARTICLES SCORE Total number of steps: 0 DRESSING - UPPER BODY - SCORE: 0-UNK DRESSING - LOWER BODY: Activity did not occur on this shift ARTICLES SCORE Total number of steps: 0 DRESSING - LOWER BODY - SCORE: 0-UNK TOILETING: Activity did not occur on this shift TOILETING - SCORE: 0-UNK BLADDER MANAGEMENT: Patient is on renal dialysis or peritoneal dialysis and no voiding activity BLADDER MANAGEMENT - SCORE: 7-IND BLADDER MANAGEMENT - FREQUENCY OF ACCIDENTS: BLADDER MANAGEMENT(FA) - STEP 1: How many accidents has the patient had during the current shift? 0 BOWEL MANAGEMENT: Activity did not occur on this shift BOWEL MANAGEMENT - SCORE: 7-IND BOWEL MANAGEMENT - FREQUENCY OF ACCIDENTS: BOWEL MANAGEMENT(FA) - STEP 1: How many accidents has the patient had during the current shift? 0 TRANSFERS: BED, CHAIR, WHEELCHAIR: Activity did not occur on this shift TRANSFERS: BED, CHAIR, WHEELCHAIR - SCORE: 0-UNK TRANSFERS: BED, CHAIR, WHEELCHAIR - COMMENTS: Pt with pain- refuses to get up today TRANSFERS: TOILET: Activity did not occur on this shift TRANSFERS: TOILET - SCORE: 0-UNK TRANSFERS: TOILET - COMMENTS: Pt with pain refuses to get up today TRANSFERS: SHOWER: Activity did not occur on this shift TRANSFERS: SHOWER - SCORE: 0-UNK TRANSFERS: TUB: Activity did not occur on this shift TRANSFERS: TUB - SCORE: 0-UNK LOCOMOTION: WALK: Activity did not occur on this shift LOCOMOTION: WALK - SCORE: 0-UNK LOCOMOTION: WHEELCHAIR: Activity did not occur on this shift LOCOMOTION: WHEELCHAIR - SCORE: 0-UNK LOCOMOTION: WHEELCHAIR - COMMENTS: Pt with pain- pt refuses to get up today COMPREHENSION: COMPREHENSION: TYPE: Both COMPREHENSION - STEP 1: Does the patient require help to understand complex and abstract ideas (such as current events, finan josé, discharge planning, medical issues, relationships, etc)? No. COMPREHENSION - STEP 2: Does the patient need extra time, require an assistive device (such as glasses, hearing aids, or an a ugmentative communication system), OR does s/he have mild difficulty expressing complex and abstract ideas (including mild dysarthria or mild word-finding problems)? Yes. COMPREHENSION - SCORE: 6-MARIPOSA EXPRESSION EXPRESSION: TYPE: Both EXPRESSION - STEP 1: Does the patient require help expressing complex and abstract ideas (such as current events, finances , discharge planning, medical issues, relationships, etc)? No. EXPRESSION - STEP 2: Does the patient need extra time, require an assistive device (such as augmentive communication syste m or a communication board), OR does s/he have mild difficulty expressing complex and abstract ideas (including mild dysarthria or mild word-find problems)? Yes. EXPRESSION - SCORE: 6-MARIPOSA SOCIAL INTERACTION: SOCIAL INTERACTION - STEP 1: Does the patient require a helper to interact with others in social and therapeutic situations? No. SOCIAL INTERACTION - STEP 2: Does the patient need extra time in social situations, OR does s/he interact with staff, other patien ts, and family members ONLY in structured environments, OR does s/he require medication for social in teraction? Yes, patient needs extra time SOCIAL INTERACTION - SCORE: 6-MARIPOSA PROBLEM SOLVING: PROBLEM SOLVING - STEP 1: Does the patient need help to solve complex problems such as managing a checking account or confronti ng interpersonal problems? No. PROBLEM SOLVING - STEP 2: Does the patient require extra time to make decisions or solve problems, OR does s/he have slight dif ficulty reading, initiating, or self-correcting in unfamiliar situations? Yes, patient needs extra ti me. PROBLEM SOLVING - SCORE: 6-MARIPOSA MEMORY: MEMORY - STEP 1: Does the patient need help to remember frequently encountered people, daily routines, and executing r equests? No. MEMORY - STEP 2: Does the patient have slight difficulty recognizing frequently encountered people, daily routines, or executing requests without the need for repetition or using self-initiated or environmental cues to remember? No. MEMORY - SCORE: 7-IND SIGNATURE PANEL: The following modified sections: Eating - Score, Grooming - Score, Bathing - Score, Dressing - Upper Body - Score, Dressing - Lower Body - Score, Toileting - Score, Bladder Management - Score, Bowel Man agement - Score, Transfers: Bed, Chair, Wheelchair - Score, Transfers: Bed, Chair, Wheelchair - Comme nts:, Transfers: Toilet - Score, Transfers: Toilet - Comments:, Transfers: Shower - Score, Transfers: Tub - Score, Locomotion: Walk - Score, Locomotion: Wheelchair - Score, Locomotion: Wheelchair - Comm ents:, Comprehension - Score, Expression - Score, Social Interaction - Score, Problem Solving - Score , Memory - Score were [electronically] signed by Gemma Webb C.N.A. on SunSep 27 2017 13:27:52 T -0500 (Central Daylight Time)
--- NOTE | 2017-09-27 16:04 | FAST ---
ENCOUNTER DATE AND TIME: 09/27/2017 08:00 (CDT) NAME CARMEN ALTAMIRANO DATE OF : 1955 DATE OF ADMISSION: 09/21/2017 15:46 (CDT) PHONE: AGE: 62 N# [id number] GENDER: Male ENCOUNTER PHYSICIAN: Dr. Edgar Pereira M.D. ADMISSION DIAGNOSIS: - Amputation of Limb 05 - Unilateral Lower Limb Below the Knee (BK) (05.4) Left Below the Knee Amputation. EATING: Activity did not occur on this shift EATING - SCORE: 0-UNK GROOMING: Activity did not occur on this shift GROOMING - SCORE: 0-UNK BATHING: Activity did not occur on this shift BATHING - SCORE: 0-UNK DRESSING - UPPER BODY: Activity did not occur on this shift Patient is not dressing in public clothing ARTICLES SCORE Total number of steps: 0 DRESSING - UPPER BODY - SCORE: 0-UNK DRESSING - LOWER BODY: Activity did not occur on this shift Patient is not dressing in public clothing ARTICLES SCORE Total number of steps: 0 DRESSING - LOWER BODY - SCORE: 0-UNK TOILETING: Activity did not occur on this shift TOILETING - SCORE: 0-UNK BLADDER MANAGEMENT: Activity did not occur on this shift BLADDER MANAGEMENT - SCORE: 7-IND BOWEL MANAGEMENT: Activity did not occur on this shift BOWEL MANAGEMENT - SCORE: 7-IND TRANSFERS: BED, CHAIR, WHEELCHAIR: Activity did not occur on this shift TRANSFERS: BED, CHAIR, WHEELCHAIR - SCORE: 0-UNK TRANSFERS: TOILET: Activity did not occur on this shift TRANSFERS: TOILET - SCORE: 0-UNK TRANSFERS: SHOWER: Activity did not occur on this shift TRANSFERS: SHOWER - SCORE: 0-UNK TRANSFERS: TUB: Activity did not occur on this shift TRANSFERS: TUB - SCORE: 0-UNK LOCOMOTION: WALK: Activity did not occur on this shift LOCOMOTION: WALK - SCORE: 0-UNK LOCOMOTION: WHEELCHAIR: Activity did not occur on this shift LOCOMOTION: WHEELCHAIR - SCORE: 0-UNK LOCOMOTION: STAIRS: Activity did not occur on this shift LOCOMOTION: STAIRS - SCORE: 0-UNK COMPREHENSION: COMPREHENSION - SCORE: 0-UNK EXPRESSION EXPRESSION - SCORE: 0-UNK SOCIAL INTERACTION: SOCIAL INTERACTION - SCORE: 0-UNK PROBLEM SOLVING: PROBLEM SOLVING - SCORE: 0-UNK MEMORY: MEMORY - SCORE: 0-UNK SIGNATURE PANEL: The following modified sections: Transfers: Bed, Chair, Wheelchair - Score, Transfers: Toilet - Score , Locomotion: Walk - Score, Locomotion: Wheelchair - Score, Locomotion: Stairs - Score were [electron icallteodoro] signed by Ran Marshall PTA on SunSep 27 2017 15:03:34 GMT-0500 (Central Daylight Time)
--- NOTE | 2017-09-27 16:14 | RAD REPORT ---
EXAM DESCRIPTION: RAD - Chest Single View - 09/27/2017 3:43 pm CLINICAL HISTORY: Cough and congestion COMPARISON: September 17 TECHNIQUE: AP portable chest image was obtained 1532 hours . FINDINGS: No consolidation, mass or failure. Interstitial markings are mildly prominent at each base , accentuated by the shallow inspiration. Acute infiltrate is doubtful. Heart and vasculature are nor mal. No measurable pleural effusion and no pneumothorax. No gross bony abnormality seen. No acute aor tic findings suspected. IMPRESSION: No acute cardiopulmonary process. Exam was somewhat limited. If there are ongoing concerns for a lung base infiltrate, followup two vie w imaging could be performed.
[2017-09-27] MEDS: ENOXAPARIN 30 MG/0.3 ML SQ SCH (17:24)
--- NOTE | 2017-09-27 18:12 | R.PN ---
ENCOUNTER DATE AND TIME: 09/27/2017 17:09 (CDT) NAME CARMEN ALTAMIRANO DATE OF : 1955 DATE OF ADMISSION: 09/21/2017 15:46 (CDT) Left Below the Knee AmputationCHIEF COMPLAINT: Left below the knee amputation SUBJECTIVE: Pt denied any Shortness of Breath. Pt denied any depression. Self-propelled wheelchair 320' with bilateral upper and left lower extremity. VITAL SIGNS Temperature: 97.8 F SBP/DBP: 148/67 Pulse: 62 Resp: 14 MEDICATION ALLERGIES: Levofloxacin ENVIRONMENTAL ALLERGIES: None Known - Substance Allergies None Known - Other Allergies None Known CONSULT: Perform Consult Certified Prosthetic for prosthesis construction NURSING: - Shower allowing shower - Lab Results blood Sugar Check ACHS - Skin care per protocol PRECAUTIONS: - Fall Precaution Bed and chair alarm ACTIVITIES OOB only with supervision THERAPIES: - Orthotics/Prosthetics Prosthetic Evaluation. - Occupational Therapy Evaluate and Treat. - Physical Therapy Evaluate and Treat. PHYSICAL EXAM - Gen Alert and awake Lying in bed No apparent distress Oriented to: person, time, and place - Skin Left BKA bandage in place with good hemostasis. Normacephalic - Eyes No abnormalities - ENMT No abnormalities - Neck No abnormalities - CVS RRR - Chest Clear - Abd +bowel sounds - GI Non distended Deferred - No abnormalities - Ext No significant edema - MSK 5-/5 weakness in right upper and 3+/5 weakness in right lower extremity. - Neuro No focal deficits - Psych No abnormalities ASSESSMENT: Pt. is a 62 yo Right-handed white male.His impairment category is Amputation of Limb 05 - Unilateral Lower Limb Below the Knee (BK) (05.4).Pre-morbidly, Pt. was independent/mod-I in Communication, Soci al Cognition, Self-Care, Locomotion, Sphincter Control, and Transfers Control; and he had good Sphinc ter Control.Currently, he has deficits of Balance, Self-Care, Locomotion, Endurance, Safety Awareness , and Transfers Control.Pt. is now referred to [facility] for acute in-patient rehabilitation in order to maximize patient's functional independence in activities of daily living, strength, ROM, and mobility.- Rehab Goal Patient has realistic goal of being discharged at assistance level 6-Johana to reside at Home with Fam ramy/Relatives. MDM/PLAN: - Diet Type Continue Regular - Physical Therapy Gait dysfunction - to improve, our physical therapists will perform initial evaluation of pt's statu s upon admission and devise an individualized program for Gait Training, and Wheel Chair mobility Inability to transfer - to improve, our physical therapists will perform initial evaluation of pt's status upon admission and devise an individualized program for Bed mobility Need for home safety evaluation - to improve, our physical therapists will perform initial evaluatio n of pt's status upon admission and devise an individualized program for Home Evaluation Need in caregiver upon discharge - to improve, our physical therapists will perform initial evaluati on of pt's status upon admission and devise an individualized program for Caregiver Training Edema - to improve, our physical therapists will perform initial evaluation of pt's status upon admi ssion and devise an individualized program for Elevation Training, and Lymphedema Therapy New precaution - to improve, our physical therapists will perform initial evaluation of pt's status upon admission and devise an individualized program for Patient precaution education Poor balance - to improve, our physical therapists will perform initial evaluation of pt's status up on admission and devise an individualized program for Balance Training Poor endurance - to improve, our physical therapists will perform initial evaluation of pt's status upon admission and devise an individualized program for Endurance Training Weakness - to improve, our physical therapists will perform initial evaluation of pt's status upon a dmission and devise an individualized program for Aquatic Therapy, Neuromuscular Reeducation, and Str engthening Achieving independence - to improve, our physical therapists will perform initial evaluation of pt's status upon admission and devise an individualized program for Community Reintegration Activities - Diet - Liquid Texture Continue Regular - Tube Feed Continue N/A - Lab Results blood Sugar Check ACHS - Weight Bearing Precaution NWB left LE - Fall Precaution Bed and chair alarm - Skin care per protocol - N/A Perform Consult Certified Prosthetic for prosthesis construction - Diet - Solid Texture Continue Regular - Shower allowing shower - Occupational Therapy ADL deficits - to improve, our occupation therapists will perform initial evaluation of pt's status upon admission and devise an individualized program for Bathing, Bed mobility, Community Reintegratio n, Cooking, Dressing, Eating, Fine Motor Skills, Grooming, Homemaking, Kitchen Mobility, Laundry, Pat ient Education, Safety Awareness, Splinting - Positioning, Transfers(Toilet, Tub, Shower), and Wheel Chair Management Need for care process manager - to improve, our occupation therapists will perform initial evaluation of pt's status upon admission and devise an individualized program for Caregiver Training Weakness - to improve, our occupation therapists will perform initial evaluation of pt's status upon admission and devise an individualized program for Aquatic Therapy, Balance, Endurance, UE ROM, and UE strengthening FUNCTIONAL STATUS: UPDATED AT WEEKLY TEAM CONFERENCE - Bladder Same Bladder control device used: diaper Same assistance level: On dialysis Same accident frequency: 7-Ind - No accidents in the past 7 days - Bowel Same accident frequency: 7-Ind - No accidents in the past 7 days - Walking Same score based on distance walked: 0(N/A) - Wheelchair Same score based on distance traveled: 0(N/A) FUNCTIONAL STATUS: - Self-Care A. Eating sup B. Grooming sup C. Bathing Uriel D. Dressing - Upper Johana E. Dressing - Lower Uriel F. Toileting Uriel - Sphincter Control G: Bladder control Dep H: Bowel control Ind - Transfers Control I. Bed/Chair/Wheelchair Uriel J. Toilet Uriel K. Tub/Shower ADNO - Locomotion L. Walk/Wheelchair (C) Uriel L. Walk/Wheelchair (W) Uriel M. Stairs ADNO - Communication N. Comprehension (B) Ind O. Expression (B) Ind - Social Cognition P. Social Interaction Ind Q. Problem Solving Ind R. Memory Ind - Endurance Fair - Balance Fair - Safety Awareness Fair CURRENT FUNC. DEFICITS: Balance, Self-Care, Locomotion, Endurance, Safety Awareness, and Transfers Control SIGNATURE PANEL: (CDT)
[2017-09-27] MEDS: CEFTRIAXONE/SWI 1gm 1 GM/10 ML SYR IV SCH (19:26)
--- NOTE | 2017-09-27 20:49 | RAD REPORT ---
EXAM DESCRIPTION: RAD - Chest Pa And Lat (2 Views) - 09/27/2017 8:03 pm CLINICAL HISTORY: Cough and congestion COMPARISON: September 27 TECHNIQUE: PA and lateral views of the chest were obtained. FINDINGS: The lungs are clear. Lung markings are similar to comparison. Heart size is normal and ce ntral vasculature is within normal limits. No pleural effusion or pneumothorax seen. No acute bony finding noted. No aortic abnormality. IMPRESSION: No acute cardiopulmonary process. No significant change from comparison.
[2017-09-27] MEDS: MELATONIN 3 MG TABLET PO PRN (20:51)
[2017-09-27] MEDS: ATORVASTATIN 10 MG TAB PO SCH (20:51)
[2017-09-27] MEDS: DOCUSATE NA/SENNA CONC 1 TAB PO SCH (20:52)
[2017-09-28] MEDS: BISACODYL 10 MG RECTAL SUPP PR PRN (00:07)
--- NOTE | 2017-09-28 04:28 | FAST ---
SHIFT START DATE/TIME: 09/27/2017 19:00 (CDT) SHIFT END DATE/TIME: 09/28/2017 07:00 (CDT) NAME CARMEN ALTAMIRANO DATE OF : 1955 DATE OF ADMISSION: 09/21/2017 15:46 (CDT) PHONE: AGE: 62 [facility]# [id number] GENDER: Male ENCOUNTER PHYSICIAN: Dr. Edgar Pereira M.D. ADMISSION DIAGNOSIS: - Amputation of Limb 05 - Unilateral Lower Limb Below the Knee (BK) (05.4) Left Below the Knee Amputation. EATING: EATING - STEP 1: Does the patient require assistance when eating? Yes. EATING - STEP 2: Does the patient require the assistance of a helper? Yes. EATING - STEP 3: Does the patient perform half or more of the eating tasks? Yes. EATING - STEP 4: Does the patient need only supervision, cuing, coaxing OR help to apply an orthosis OR help to cut fo od, open containers, pour liquids, or butter bread? Yes. EATING - SCORE: 5-SUP GROOMING: Activity did not occur on this shift GROOMING - SCORE: 0-UNK BATHING: Activity did not occur on this shift BATHING - SCORE: 0-UNK DRESSING - UPPER BODY: Patient is not dressing in public clothing ARTICLES SCORE Total number of steps: 0 DRESSING - UPPER BODY - SCORE: 0-UNK DRESSING - LOWER BODY: Patient is not dressing in public clothing ARTICLES SCORE Total number of steps: 0 DRESSING - LOWER BODY - SCORE: 0-UNK TOILETING: TOILETING - STEP 1: Does the patient require assistance with toileting? Yes. TOILETING - STEP 2: Does the patient require the assistance of a helper? Yes. TOILETING - STEP 3: How much assistance does the patient require from the helper? Hands-on assistance from the helper TOILETING - STEP 4: Of the 3 tasks: 1) Adjusting clothing prior to use, 2) Cleansing of perineal area, 3) Adjusting clot kathy after use; How many tasks does the patient perform WITHOUT assistance of the helper? Two tasks TOILETING - SCORE: 3-MOD BLADDER MANAGEMENT: Patient is on renal dialysis or peritoneal dialysis and no voiding activity BLADDER MANAGEMENT - SCORE: 7-IND BOWEL MANAGEMENT: BOWEL MANAGEMENT - STEP 1: Does the patient control bowels completely and intentionally without equipment devices or medications AND is always continent? No. BOWEL MANAGEMENT - STEP 2: Does the patient require the assistance of a helper? Yes. BOWEL MANAGEMENT - STEP 3: How much assistance does the patient require from the helper? Perkins provides less than 25% assistanc e to position patient on / off bedpan BOWEL MANAGEMENT - SCORE: 4-MIN BOWEL MANAGEMENT - FREQUENCY OF ACCIDENTS: BOWEL MANAGEMENT(FA) - STEP 1: How many accidents has the patient had during the current shift? 0 TRANSFERS: BED, CHAIR, WHEELCHAIR: TRANSFERS: BED, CHAIR, WHEELCHAIR - STEP 1: Does the patient require assistance with bed, chair, or wheelchair transfers? Yes. TRANSFERS: BED, CHAIR, WHEELCHAIR - STEP 2: Does the patient require the assistance of a helper? Yes. TRANSFERS: BED, CHAIR, WHEELCHAIR - STEP 3: How much assistance does the patient require from the helper? Steadying/guiding assistance TRANSFERS: BED, CHAIR, WHEELCHAIR - SCORE: 4-MIN TRANSFERS: TOILET: TRANSFERS: TOILET - STEP 1: Does the patient require assistance with toilet transfers? Yes. TRANSFERS: TOILET - STEP 2: Does the patient require the assistance of a helper? Yes. TRANSFERS: TOILET - STEP 3: How much assistance does the patient require from the helper? Patient performs half or more of the tr ansferring tasks TRANSFERS: TOILET - STEP 4: Does the patient need only incidental help such as contact guard or steadying during toilet transfer? Yes. TRANSFERS: TOILET - SCORE: 4-MIN TRANSFERS: SHOWER: Activity did not occur on this shift TRANSFERS: SHOWER - SCORE: 0-UNK TRANSFERS: TUB: Activity did not occur on this shift TRANSFERS: TUB - SCORE: 0-UNK LOCOMOTION: WALK: Activity did not occur on this shift LOCOMOTION: WALK - SCORE: 0-UNK LOCOMOTION: WHEELCHAIR: Activity did not occur on this shift LOCOMOTION: WHEELCHAIR - SCORE: 0-UNK COMPREHENSION: COMPREHENSION: TYPE: Both COMPREHENSION - STEP 1: Does the patient require help to understand complex and abstract ideas (such as current events, finan josé, discharge planning, medical issues, relationships, etc)? No. COMPREHENSION - STEP 2: Does the patient need extra time, require an assistive device (such as glasses, hearing aids, or an a ugmentative communication system), OR does s/he have mild difficulty expressing complex and abstract ideas (including mild dysarthria or mild word-finding problems)? Yes. COMPREHENSION - SCORE: 6-MARIPOSA EXPRESSION EXPRESSION: TYPE: Both EXPRESSION - STEP 1: Does the patient require help expressing complex and abstract ideas (such as current events, finances , discharge planning, medical issues, relationships, etc)? No. EXPRESSION - STEP 2: Does the patient need extra time, require an assistive device (such as augmentive communication syste m or a communication board), OR does s/he have mild difficulty expressing complex and abstract ideas (including mild dysarthria or mild word-find problems)? No. EXPRESSION - SCORE: 7-IND SOCIAL INTERACTION: SOCIAL INTERACTION - STEP 1: Does the patient require a helper to interact with others in social and therapeutic situations? No. SOCIAL INTERACTION - STEP 2: Does the patient need extra time in social situations, OR does s/he interact with staff, other patien ts, and family members ONLY in structured environments, OR does s/he require medication for social in teraction? No. SOCIAL INTERACTION - SCORE: 7-IND PROBLEM SOLVING: PROBLEM SOLVING - STEP 1: Does the patient need help to solve complex problems such as managing a checking account or confronti ng interpersonal problems? No. PROBLEM SOLVING - STEP 2: Does the patient require extra time to make decisions or solve problems, OR does s/he have slight dif ficulty reading, initiating, or self-correcting in unfamiliar situations? Yes, patient needs extra ti me. PROBLEM SOLVING - SCORE: 6-MARIPOSA MEMORY: MEMORY - STEP 1: Does the patient need help to remember frequently encountered people, daily routines, and executing r equests? No. MEMORY - STEP 2: Does the patient have slight difficulty recognizing frequently encountered people, daily routines, or executing requests without the need for repetition or using self-initiated or environmental cues to remember? Yes. MEMORY - SCORE: 6-MARIPOSA SIGNATURE PANEL: The following modified sections: Eating - Score, Grooming - Score, Bathing - Score, Dressing - Upper Body - Score, Dressing - Lower Body - Score, Toileting - Score, Bladder Management - Score, Bowel Man agement - Score, Transfers: Bed, Chair, Wheelchair - Score, Transfers: Toilet - Score, Transfers: Adeline wer - Score, Transfers: Tub - Score, Locomotion: Walk - Score, Locomotion: Wheelchair - Score, Compre hension - Score, Expression - Score, Social Interaction - Score, Problem Solving - Score, Memory - Sc ore were [electronically] signed by Cristal Renae C.N.A. on SunSep 28 2017 03:27:30 T-0500 ( Central Daylight Time)
[2017-09-28] MEDS: HYDROCODONE/APAP 7.5/325 MG TAB PO PRN ×4 (05:23→22:16)
[2017-09-28] MEDS: INSULIN -REGULAR HUMAN 50 UNIT/0.5 ML ML SQ SCH ×4 (07:21→21:00)
[2017-09-28] MEDS: SEVELAMER CARBONATE 800 MG TABLET PO SCH ×3 (08:34→17:00)
[2017-09-28] MEDS: MULTIVITAMINS,THERAPEUT 1 TAB PO SCH (08:34)
[2017-09-28] MEDS: GABAPENTIN 300 MG CAP PO SCH ×3 (08:34→21:17)
[2017-09-28] MEDS: CLOPIDOGREL 75 MG TABLET PO SCH (08:34)
[2017-09-28] MEDS: NIFEDIPINE XL 30 MG TABLET PO SCH (08:36)
[2017-09-28] MEDS: FUROSEMIDE 40 MG TABLET PO SCH ×2 (08:36→17:00)
[2017-09-28] MEDS: ASPIRIN EC 81 MG TAB PO SCH (08:37)
[2017-09-28] MEDS: HYDRALAZINE HCL 25 MG TABLET PO SCH ×2 (08:37→21:17)
[2017-09-28] MEDS: TRAMADOL HCL 50 MG TAB PO PRN ×3 (08:37→19:38)
[2017-09-28] MEDS: PROMOD 30 ML DOSE PO SCH ×2 (08:37→21:18)
[2017-09-28] MEDS: CEFTRIAXONE/SWI 1gm 1 GM/10 ML SYR IV SCH (08:45)
--- NOTE | 2017-09-28 09:46 | P.RH.PN ---
Estimated Length of Stay: 17 Expected Discharge Date: 10/07/17 Discharge Disposition Plan: Home Family Support: Yes [employer] Goal: Mobility, Transfers, Self Care Vital Signs: Last Vital Signs Temp 96.6 F L 09/28/17 07:40 Pulse 81 09/28/17 08:36 Resp 18 09/28/17 07:40 BP 193/86 H 09/28/17 08:36 Pulse Ox 97 09/28/17 07:40 Laboratory: Laboratory Last Values WBC 13.6 K/uL (4.3-10.9) H 09/27/17 05:52 RBC 3.85 M/uL (4.33-5.43) L 09/27/17 05:52 Hgb 10.5 g/dL (13.6-17.9) L 09/27/17 05:52 Hct 32.3 % (39.6-49.0) L 09/27/17 05:52 MCV 83.9 fL (80-100) 09/27/17 05:52 MCH 27.4 pg (27.0-35.0) 09/27/17 05:52 MCHC 32.7 g/dL (32.0-36.0) 09/27/17 05:52 RDW 18.9 % (12.1-15.2) H 09/27/17 05:52 Plt Count 306 K/uL (152-406) 09/27/17 05:52 MPV 7.9 fL (7.6-11.3) 09/27/17 05:52 Neutrophils % 78.3 % (41.7-73.7) H 09/27/17 05:52 Lymphocytes % 9.8 % (15.3-44.8) L 09/27/17 05:52 Monocytes % 8.2 % (3.3-12.3) 09/27/17 05:52 Eosinophils % 2.7 % (0-4.4) 09/27/17 05:52 Basophils % 1.0 % (0-1.3) 09/27/17 05:52 Absolute Neutrophils 10.7 K/uL (1.8-8.0) H 09/27/17 05:52 Absolute Lymphocytes 1.3 K/uL (0.7-4.9) 09/27/17 05:52 Absolute Monocytes 1.1 K/uL (0.1-1.3) 09/27/17 05:52 Absolute Eosinophils 0.4 K/uL (0-0.5) 09/27/17 05:52 Absolute Basophils 0.1 K/uL (0-0.5) 09/27/17 05:52 Sodium 135 mEq/L (135-145) 09/27/17 05:52 Potassium 5.4 mEq/L (3.6-5.0) H 09/27/17 05:52 Chloride 102 mEq/L (101-111) 09/27/17 05:52 Carbon Dioxide 23 mEq/L (21-31) 09/27/17 05:52 BUN 48 mg/dL (6-20) H 09/27/17 05:52 Creatinine 6.12 mg/dL (0.61-1.24) H* D 09/27/17 05:52 Estimated GFR 11 mL/min (=/>90) L 09/27/17 05:52 Glucose 206 mg/dL (65-120) H 09/27/17 05:52 POC Glucose 140 mg/dl (65-120) H 09/28/17 07:20 Calcium 9.0 mg/dL (8.5-10.5) 09/27/17 05:52 Magnesium 2.4 mg/dL (1.8-2.5) 09/22/17 05:54 Lactate Dehydrogenase 142 IU/L (125-240) 09/27/17 13:26 Albumin 3.1 g/dL (3.2-5.5) L 09/27/17 05:52 Prealbumin 26.6 mg/dl (18-38) 09/27/17 05:52 Procalcitonin 2.34 ng/mL (<0.50) H 09/27/17 13:26 Urine Color Yellow 09/22/17 21:32 Urine Appearance Clear 09/22/17 21:32 Urine pH 7.5 (5.0-7.0) H 09/22/17 21:32 Ur Specific [place] 1.020 (1.005-1.030) 09/22/17 21:32 Urine Ketones Negative (NEG) 09/22/17 21:32 Urine Blood Negative (NEG) 09/22/17 21:32 Urine Nitrite Negative (NEG) 05/26/18 21:32 Urine Bilirubin Negative (NEG) 09/22/17 21:32 Urine Urobilinogen 0.2 mg/dL (0.2-1.0) 09/22/17 21:32 Ur Leukocyte Esterase Negative (NEG) 09/22/17 21:32 Urine RBC <5 /HPF (NONE SEEN) 09/22/17 21:32 Urine WBC <5 /HPF (<5) 09/22/17 21:32 Ur Squamous Epith Cells <5 /HPF (NONE SEEN) 09/22/17 21:32 Ur Urothelial Cells <5 /HPF (NONE SEEN) 09/22/17 21:32 Urine Bacteria <20 /HPF (NONE SEEN) 09/22/17 21:32 Urine Culture Reflexed Not needed 09/22/17 21:32 Urine Glucose Trace (NEG) 09/22/17 21:32 Urine Total Protein 3+ (NEG) H 09/22/17 21:32 Weight: 220 lb 9.6 oz Wound Present: Yes Closed Surgical Incision Present: Yes Negative Pressure Wound Therapy Present: No Physician Update: He has a mildly elevated WBc of 13.6 with 78.3% neutrophils, increased procalcitonin of 2.34 but normal Lactate. He is now on iv rocephin and blood cultures are pending. Chest x-ray is negative. Occupational therapist notes poor safety awareness. He will be evaluated by speech therapy. He is impulsive and would do activities without planning. He reported significant pain yesterday. Summary: Patient's care plan and sandwich hand goals have been reviewed and revised as necessary. Please see the Rehabilitation Signature page for all necessary signatures.
--- NOTE | 2017-09-28 10:31 | P.PN ---
Date of Service: 09/28/17 Mr. Warner will require a wheelchair at discharge due to his acute left below the knee amputation combined with nonweight bearing status of the left stump, right leg weakness and bilaterally upper extremity weakness. He is able to use standard wheelchair safely and complete his activities of daily living and mobilization.
--- NOTE | 2017-09-28 11:25 | RAD REPORT ---
EXAM DESCRIPTION: RAD - Abdomen 1 View (KUB) - 09/28/2017 11:12 am CLINICAL HISTORY: Abdominal pain, possible bowel obstruction COMPARISON: None. FINDINGS: Large amount of stool is present filling the colon. Small bowel loops do not appear to be dilated. There is no free air or pneumatosis. Cholecystectomy clips are present in the right upper qu adrant. Vascular calcifications are seen. No suspicious calcifications. Disc and bony degenerative changes are present. IMPRESSION: Large stool volume filling the colon. No bowel obstruction or free air.
--- NOTE | 2017-09-28 11:26 | RAD REPORT ---
EXAM DESCRIPTION: RAD - Tib Fib Left - 09/28/2017 11:14 am CLINICAL HISTORY: Fall, recent below-knee amputation COMPARISON: None. FINDINGS: No acute fracture changes seen. Osteotomy site of the distal tibia and fibula shows no ish picious finding. Skin pantera are in place. Edema and contusion changes are present but may be part o f the recent surgery. No air or foreign body. Vascular calcifications are present. Distal femoral art arabella stent is in place. No acute or suspicious bony finding. No air or foreign body in the soft tissues. IMPRESSION: No suspicious or unexpected bone, joint or soft tissue finding.
[2017-09-28] MEDS: LACTULOSE 20 GM/30 ML UCUP PO PRN (13:56)
--- NOTE | 2017-09-28 14:33 | FAST ---
ENCOUNTER DATE AND TIME: 09/28/2017 08:00 (CDT) NAME CARMEN ALTAMIRANO DATE OF : 1955 DATE OF ADMISSION: 09/21/2017 15:46 (CDT) PHONE: AGE: 62 N# [id number] GENDER: Male ENCOUNTER PHYSICIAN: Dr. Edgar Pereira M.D. ADMISSION DIAGNOSIS: - Amputation of Limb 05 - Unilateral Lower Limb Below the Knee (BK) (05.4) Left Below the Knee Amputation. EATING: Activity did not occur on this shift EATING - SCORE: 0-UNK GROOMING: Comb/brush hair Oral care Patient shaved Wash, rinse, and dry face Wash, rinse, and dry hands GROOMING - STEP 1: Does the patient require assistance when grooming? No. GROOMING - SCORE: 7-IND BATHING: Abdomen Buttocks Chest Left arm Left upper leg Perineal area Right arm Right lower leg and foot Right upper leg BATHING - STEP 1: Does the patient require assistance when bathing? Yes. BATHING - STEP 2: Does the patient require the assistance of a helper? Yes. BATHING - STEP 3: How much assistance does the patient require from the helper? Only incidental help such as placement of a wash cloth in his/her hand a few times as s/he bathes OR help to bathe just one or two areas of the body BATHING - SCORE: 4-MIN DRESSING - UPPER BODY: T-shirt/pullover shirt (four steps) ARTICLES SCORE Total number of steps: 4 DRESSING - UPPER BODY - STEP 1: Does the patient require help when dressing above the waist? No. DRESSING - UPPER BODY - SCORE: 7-IND DRESSING - LOWER BODY: Elastic waist pants (three steps) Sock - Right foot (one step) Underwear (three steps) ARTICLES SCORE Total number of steps: 7 DRESSING - LOWER BODY - STEP 1: Does the patient require help when dressing below the waist? Yes. DRESSING - LOWER BODY - STEP 2: Does the patient require the assistance of a helper? Yes. DRESSING - LOWER BODY - STEP 3: Does the helper touch the patient while dressing? Yes. DRESSING - LOWER BODY - STEP 4: How many of the total steps does the patient complete on his/her own? 4 DRESSING - LOWER BODY - SCORE: 3-MOD TOILETING: Activity did not occur on this shift TOILETING - SCORE: 0-UNK BLADDER MANAGEMENT: Activity did not occur on this shift BLADDER MANAGEMENT - SCORE: 7-IND BOWEL MANAGEMENT: Activity did not occur on this shift BOWEL MANAGEMENT - SCORE: 7-IND TRANSFERS: BED, CHAIR, WHEELCHAIR: Activity did not occur on this shift TRANSFERS: BED, CHAIR, WHEELCHAIR - SCORE: 0-UNK TRANSFERS: TOILET: Activity did not occur on this shift TRANSFERS: TOILET - SCORE: 0-UNK TRANSFERS: SHOWER: TRANSFERS: SHOWER - STEP 1: Does the patient require assistance with shower transfers? Yes. TRANSFERS: SHOWER - STEP 2: Does the patient require the assistance of a helper? Yes. TRANSFERS: SHOWER - STEP 3: How much assistance does the patient require from the helper? Only incidental help such as contact gu arding or steadying during shower transfers, or help to lift one leg into the shower TRANSFERS: SHOWER - SCORE: 4-MIN TRANSFERS: TUB: Activity did not occur on this shift TRANSFERS: TUB - SCORE: 0-UNK LOCOMOTION: WALK: Activity did not occur on this shift LOCOMOTION: WALK - SCORE: 0-UNK LOCOMOTION: WHEELCHAIR: Activity did not occur on this shift LOCOMOTION: WHEELCHAIR - SCORE: 0-UNK LOCOMOTION: STAIRS: Activity did not occur on this shift LOCOMOTION: STAIRS - SCORE: 0-UNK COMPREHENSION: COMPREHENSION: TYPE: Visual COMPREHENSION - STEP 1: Does the patient require help to understand complex and abstract ideas (such as current events, finan josé, discharge planning, medical issues, relationships, etc)? No. COMPREHENSION - STEP 2: Does the patient need extra time, require an assistive device (such as glasses, hearing aids, or an a ugmentative communication system), OR does s/he have mild difficulty expressing complex and abstract ideas (including mild dysarthria or mild word-finding problems)? Yes. COMPREHENSION - SCORE: 6-MARIPOSA EXPRESSION EXPRESSION: TYPE: Non-Vocal EXPRESSION - STEP 1: Does the patient require help expressing complex and abstract ideas (such as current events, finances , discharge planning, medical issues, relationships, etc)? No. EXPRESSION - STEP 2: Does the patient need extra time, require an assistive device (such as augmentive communication syste m or a communication board), OR does s/he have mild difficulty expressing complex and abstract ideas (including mild dysarthria or mild word-find problems)? No. EXPRESSION - SCORE: 7-IND SOCIAL INTERACTION: SOCIAL INTERACTION - STEP 1: Does the patient require a helper to interact with others in social and therapeutic situations? No. SOCIAL INTERACTION - STEP 2: Does the patient need extra time in social situations, OR does s/he interact with staff, other patien ts, and family members ONLY in structured environments, OR does s/he require medication for social in teraction? No. SOCIAL INTERACTION - SCORE: 7-IND PROBLEM SOLVING: PROBLEM SOLVING - STEP 1: Does the patient need help to solve complex problems such as managing a checking account or confronti ng interpersonal problems? No. PROBLEM SOLVING - STEP 2: Does the patient require extra time to make decisions or solve problems, OR does s/he have slight dif ficulty reading, initiating, or self-correcting in unfamiliar situations? Yes, patient needs extra ti me. PROBLEM SOLVING - SCORE: 6-MARIPOSA MEMORY: MEMORY - STEP 1: Does the patient need help to remember frequently encountered people, daily routines, and executing r equests? No. MEMORY - STEP 2: Does the patient have slight difficulty recognizing frequently encountered people, daily routines, or executing requests without the need for repetition or using self-initiated or environmental cues to remember? Yes. MEMORY - SCORE: 6-MARIPOSA SIGNATURE PANEL: The following modified sections: Eating - Score, Grooming - Score, Bathing - Score, Dressing - Upper Body - Score, Dressing - Lower Body - Score, Toileting - Score, Transfers: Bed, Chair, Wheelchair - S core, Transfers: Toilet - Score, Transfers: Shower - Score, Transfers: Tub - Score, Comprehension - S core, Expression - Score, Social Interaction - Score, Problem Solving - Score, Memory - Score were [e lectronically] signed by CRISTINA Oh on SunSep 28 2017 13:33:18 T-0500 ([facility])
--- NOTE | 2017-09-28 15:37 | FAST ---
SHIFT START DATE/TIME: 09/28/2017 07:00 (CDT) SHIFT END DATE/TIME: 09/28/2017 19:00 (CDT) NAME CARMEN ALTAMIRANO DATE OF : 1955 DATE OF ADMISSION: 09/21/2017 15:46 (CDT) PHONE: AGE: 62 [facility]# [id number] GENDER: Male ENCOUNTER PHYSICIAN: Dr. Edgar Pereira M.D. ADMISSION DIAGNOSIS: - Amputation of Limb 05 - Unilateral Lower Limb Below the Knee (BK) (05.4) Left Below the Knee Amputation. EATING: EATING - STEP 1: Does the patient require assistance when eating? Yes. EATING - STEP 2: Does the patient require the assistance of a helper? Yes. EATING - STEP 3: Does the patient perform half or more of the eating tasks? Yes. EATING - STEP 4: Does the patient need only supervision, cuing, coaxing OR help to apply an orthosis OR help to cut fo od, open containers, pour liquids, or butter bread? Yes. EATING - SCORE: 5-SUP GROOMING: Comb/brush hair Oral care Wash, rinse, and dry face Wash, rinse, and dry hands GROOMING - STEP 1: Does the patient require assistance when grooming? Yes. GROOMING - STEP 2: Does the patient require the assistance of a helper? Yes. GROOMING - STEP 3: How much assistance does the patient require from the helper? Only prior equipment preparation/set up from the helper GROOMING - SCORE: 5-SUP BATHING: Activity did not occur on this shift BATHING - SCORE: 0-UNK DRESSING - UPPER BODY: Activity did not occur on this shift ARTICLES SCORE Total number of steps: 0 DRESSING - UPPER BODY - SCORE: 0-UNK DRESSING - LOWER BODY: Activity did not occur on this shift ARTICLES SCORE Total number of steps: 0 DRESSING - LOWER BODY - SCORE: 0-UNK TOILETING: TOILETING - STEP 1: Does the patient require assistance with toileting? Yes. TOILETING - STEP 2: Does the patient require the assistance of a helper? Yes. TOILETING - STEP 3: How much assistance does the patient require from the helper? Hands-on assistance from the helper TOILETING - STEP 4: Of the 3 tasks: 1) Adjusting clothing prior to use, 2) Cleansing of perineal area, 3) Adjusting clot kathy after use; How many tasks does the patient perform WITHOUT assistance of the helper? Three tasks with steadying assistance from the helper TOILETING - SCORE: 4-MIN BLADDER MANAGEMENT: BLADDER MANAGEMENT - STEP 1: Does the patient control the bladder completely and intentionally without equipment or devices or med ications, and is always continent? No. BLADDER MANAGEMENT - STEP 2: Does the patient require the assistance of a helper? No, patient requires and independently uses an a ssistive device, such as a urinal, bedpan, bedside commode, catheter, absorbent pad, or collecting de vice BLADDER MANAGEMENT - SCORE: 6-MARIPOSA BOWEL MANAGEMENT: BOWEL MANAGEMENT - STEP 1: Does the patient control bowels completely and intentionally without equipment devices or medications AND is always continent? No. BOWEL MANAGEMENT - STEP 2: Does the patient require the assistance of a helper? No, patient requires medication for control such as stool softeners, suppositories, laxatives, enemas, or OTC medications BOWEL MANAGEMENT - SCORE: 6-MARIPOSA TRANSFERS: BED, CHAIR, WHEELCHAIR: TRANSFERS: BED, CHAIR, WHEELCHAIR - STEP 1: Does the patient require assistance with bed, chair, or wheelchair transfers? Yes. TRANSFERS: BED, CHAIR, WHEELCHAIR - STEP 2: Does the patient require the assistance of a helper? Yes. TRANSFERS: BED, CHAIR, WHEELCHAIR - STEP 3: How much assistance does the patient require from the helper? Steadying/guiding assistance TRANSFERS: BED, CHAIR, WHEELCHAIR - SCORE: 4-MIN TRANSFERS: TOILET: TRANSFERS: TOILET - STEP 1: Does the patient require assistance with toilet transfers? Yes. TRANSFERS: TOILET - STEP 2: Does the patient require the assistance of a helper? Yes. TRANSFERS: TOILET - STEP 3: How much assistance does the patient require from the helper? Patient performs half or more of the tr ansferring tasks TRANSFERS: TOILET - STEP 4: Does the patient need only incidental help such as contact guard or steadying during toilet transfer? Yes. TRANSFERS: TOILET - SCORE: 4-MIN TRANSFERS: SHOWER: Activity did not occur on this shift TRANSFERS: SHOWER - SCORE: 0-UNK TRANSFERS: TUB: Activity did not occur on this shift TRANSFERS: TUB - SCORE: 0-UNK LOCOMOTION: WALK: Activity did not occur on this shift LOCOMOTION: WALK - SCORE: 0-UNK LOCOMOTION: WHEELCHAIR: Activity did not occur on this shift LOCOMOTION: WHEELCHAIR - SCORE: 0-UNK COMPREHENSION: COMPREHENSION - SCORE: 0-UNK EXPRESSION EXPRESSION - SCORE: 0-UNK SOCIAL INTERACTION: SOCIAL INTERACTION - SCORE: 0-UNK PROBLEM SOLVING: PROBLEM SOLVING - SCORE: 0-UNK MEMORY: MEMORY - SCORE: 0-UNK SIGNATURE PANEL: The following modified sections: Eating - Score, Grooming - Score, Bathing - Score, Dressing - Upper Body - Score, Dressing - Lower Body - Score, Toileting - Score, Bladder Management - Score, Bowel Man agement - Score, Transfers: Bed, Chair, Wheelchair - Score, Transfers: Toilet - Score, Transfers: Adeline wer - Score, Transfers: Tub - Score, Locomotion: Walk - Score, Locomotion: Wheelchair - Score, Compre hension - Score, Expression - Score, Social Interaction - Score, Problem Solving - Score, Memory - Sc ore were [electronically] signed by Tavo Jamil on SunSep 28 2017 14:36:59 GMT-0500 (Central Daylight Time)
--- NOTE | 2017-09-28 16:13 | FAST ---
ENCOUNTER DATE AND TIME: 09/28/2017 08:00 (CDT) NAME CARMEN ALTAMIRANO DATE OF : 1955 DATE OF ADMISSION: 09/21/2017 15:46 (CDT) PHONE: AGE: 62 N# [id number] GENDER: Male ENCOUNTER PHYSICIAN: Dr. Edgar Pereira M.D. ADMISSION DIAGNOSIS: - Amputation of Limb 05 - Unilateral Lower Limb Below the Knee (BK) (05.4) Left Below the Knee Amputation. EATING: Activity did not occur on this shift EATING - SCORE: 0-UNK GROOMING: Activity did not occur on this shift GROOMING - SCORE: 0-UNK BATHING: Activity did not occur on this shift BATHING - SCORE: 0-UNK DRESSING - UPPER BODY: Activity did not occur on this shift Patient is not dressing in public clothing ARTICLES SCORE Total number of steps: 0 DRESSING - UPPER BODY - SCORE: 0-UNK DRESSING - LOWER BODY: Activity did not occur on this shift Patient is not dressing in public clothing ARTICLES SCORE Total number of steps: 0 DRESSING - LOWER BODY - SCORE: 0-UNK TOILETING: Activity did not occur on this shift TOILETING - SCORE: 0-UNK BLADDER MANAGEMENT: Activity did not occur on this shift BLADDER MANAGEMENT - SCORE: 7-IND BOWEL MANAGEMENT: Activity did not occur on this shift BOWEL MANAGEMENT - SCORE: 7-IND TRANSFERS: BED, CHAIR, WHEELCHAIR: TRANSFERS: BED, CHAIR, WHEELCHAIR - STEP 1: Does the patient require assistance with bed, chair, or wheelchair transfers? Yes. TRANSFERS: BED, CHAIR, WHEELCHAIR - STEP 2: Does the patient require the assistance of a helper? Yes. TRANSFERS: BED, CHAIR, WHEELCHAIR - STEP 3: How much assistance does the patient require from the helper? Steadying/guiding assistance TRANSFERS: BED, CHAIR, WHEELCHAIR - SCORE: 4-MIN TRANSFERS: TOILET: Activity did not occur on this shift TRANSFERS: TOILET - SCORE: 0-UNK TRANSFERS: SHOWER: Activity did not occur on this shift TRANSFERS: SHOWER - SCORE: 0-UNK TRANSFERS: TUB: Activity did not occur on this shift TRANSFERS: TUB - SCORE: 0-UNK LOCOMOTION: WALK: Patient walks less than 50 feet LOCOMOTION: WALK - SCORE: 1-DEP LOCOMOTION: WHEELCHAIR: LOCOMOTION: WHEELCHAIR - STEP 1: Does the patient need help to go 150 feet in a wheelchair? Yes. LOCOMOTION: WHEELCHAIR - STEP 2: How much assistance does the patient need from the helper? Only supervision, cuing, or coaxing LOCOMOTION: WHEELCHAIR - SCORE: 5-SUP LOCOMOTION: STAIRS: Activity did not occur on this shift LOCOMOTION: STAIRS - SCORE: 0-UNK COMPREHENSION: COMPREHENSION - SCORE: 0-UNK EXPRESSION EXPRESSION - SCORE: 0-UNK SOCIAL INTERACTION: SOCIAL INTERACTION - SCORE: 0-UNK PROBLEM SOLVING: PROBLEM SOLVING - SCORE: 0-UNK MEMORY: MEMORY - SCORE: 0-UNK SIGNATURE PANEL: The following modified sections: Transfers: Bed, Chair, Wheelchair - Score, Transfers: Toilet - Score , Locomotion: Walk - Score, Locomotion: Wheelchair - Score, Locomotion: Stairs - Score were [monica meyer] signed by Ran Marshall PTA on SunSep 28 2017 15:12:47 GMT-0500 (Central Daylight Time)
[2017-09-28] MEDS: EPOETIN ALFA 10,000 UNIT/ML VIAL IV SCH (16:27)
--- NOTE | 2017-09-28 17:53 | FAST ---
ENCOUNTER DATE AND TIME: 09/28/2017 08:00 (CDT) NAME CARMEN ALTAMIRANO DATE OF : 1955 DATE OF ADMISSION: 09/21/2017 15:46 (CDT) PHONE: AGE: 62 N# [id number] GENDER: Male ENCOUNTER PHYSICIAN: Dr. Edgar Pereira M.D. ADMISSION DIAGNOSIS: - Amputation of Limb 05 - Unilateral Lower Limb Below the Knee (BK) (05.4) Left Below the Knee Amputation. EATING: Activity did not occur on this shift EATING - SCORE: 0-UNK GROOMING: Activity did not occur on this shift GROOMING - SCORE: 0-UNK BATHING: Activity did not occur on this shift BATHING - SCORE: 0-UNK DRESSING - UPPER BODY: Activity did not occur on this shift Patient is not dressing in public clothing ARTICLES SCORE Total number of steps: 0 DRESSING - UPPER BODY - SCORE: 0-UNK DRESSING - LOWER BODY: Activity did not occur on this shift Patient is not dressing in public clothing ARTICLES SCORE Total number of steps: 0 DRESSING - LOWER BODY - SCORE: 0-UNK TOILETING: Activity did not occur on this shift TOILETING - SCORE: 0-UNK BLADDER MANAGEMENT: Activity did not occur on this shift BLADDER MANAGEMENT - SCORE: 7-IND BOWEL MANAGEMENT: Activity did not occur on this shift BOWEL MANAGEMENT - SCORE: 7-IND TRANSFERS: BED, CHAIR, WHEELCHAIR: Activity did not occur on this shift TRANSFERS: BED, CHAIR, WHEELCHAIR - SCORE: 0-UNK TRANSFERS: TOILET: Activity did not occur on this shift TRANSFERS: TOILET - SCORE: 0-UNK TRANSFERS: SHOWER: Activity did not occur on this shift TRANSFERS: SHOWER - SCORE: 0-UNK TRANSFERS: TUB: Activity did not occur on this shift TRANSFERS: TUB - SCORE: 0-UNK LOCOMOTION: WALK: Activity did not occur on this shift LOCOMOTION: WALK - SCORE: 0-UNK LOCOMOTION: WHEELCHAIR: Activity did not occur on this shift LOCOMOTION: WHEELCHAIR - SCORE: 0-UNK LOCOMOTION: STAIRS: Activity did not occur on this shift LOCOMOTION: STAIRS - SCORE: 0-UNK COMPREHENSION: COMPREHENSION - STEP 1: Does the patient require help to understand complex and abstract ideas (such as current events, finan josé, discharge planning, medical issues, relationships, etc)? Yes. COMPREHENSION - STEP 2: Does the patient require help to understand questions or statements about basic needs or ideas (such as hunger, thirst, sleep, safety, daily schedule, room location, or discomfort) half or more of the t gu[place]? No. COMPREHENSION - STEP 3: How often does the patient need help to understand directions and conversation about basic needs? Les s than 10% of the time COMPREHENSION - SCORE: 5-SUP EXPRESSION EXPRESSION - STEP 1: Does the patient require help expressing complex and abstract ideas (such as current events, finances , discharge planning, medical issues, relationships, etc)? Yes. EXPRESSION - STEP 2: Does the patient require help to express basic necessities or ideas (such as hunger, thirst, sleep, s afety, daily schedule, room location, or discomfort) half or more of the time? No. EXPRESSION - STEP 3: How often does the patient need help to express directions and conversation about basic needs? 10-24% of the time EXPRESSION - SCORE: 4-MIN SOCIAL INTERACTION: SOCIAL INTERACTION - STEP 1: Does the patient require a helper to interact with others in social and therapeutic situations? Yes. SOCIAL INTERACTION - STEP 2: Does the patient interact appropriately half or more of the time? Yes. SOCIAL INTERACTION - STEP 3: How often does the patient need help to interact appropriately? Less than 10% of the time SOCIAL INTERACTION - SCORE: 5-SUP PROBLEM SOLVING: PROBLEM SOLVING - STEP 1: Does the patient need help to solve complex problems such as managing a checking account or confronti ng interpersonal problems? Yes. PROBLEM SOLVING - STEP 2: Does the patient solve basic routine problems half or more of the time? Yes. PROBLEM SOLVING - STEP 3: How often does the patient need help to solve basic routine problems? 25%-49% of the time PROBLEM SOLVING - SCORE: 3-MOD MEMORY: MEMORY - STEP 1: Does the patient need help to remember frequently encountered people, daily routines, and executing r equests? Yes. MEMORY - STEP 2: How often does the patient need help to remember frequently encountered people, daily routines, and e xecuting requests? 25% - 49% of the time MEMORY - SCORE: 3-MOD SIGNATURE PANEL: The following modified sections: Comprehension - Score, Expression - Score, Social Interaction - Scor e, Problem Solving - Score, Memory - Score were [electronically] signed by UNRULY Balderrama on Sun 16:52:45 GMT-0500 (Central Daylight Time)
[2017-09-28] MEDS: ENOXAPARIN 30 MG/0.3 ML SQ SCH (19:39)
[2017-09-28] MEDS: DOCUSATE NA/SENNA CONC 1 TAB PO SCH (21:17)
[2017-09-28] MEDS: ATORVASTATIN 10 MG TAB PO SCH (21:17)
--- NOTE | 2017-09-28 22:24 | P.PN ---
Date of Service: 09/27/17 Vital Signs Temp Pulse Resp BP Pulse Ox 97.5 F 80 16 146/65 H 94 09/28/17 19:38 09/28/17 19:38 09/28/17 19:38 09/28/17 19:38 09/28/17 19:38 Medications Hydrocodone Bitart/Acetaminophen ([place] 7.5/325 Mg) 1 tab PO Q6H PRN PRN Reason: PAIN Stop: 10/21/17 23:50 Last Admin: 09/28/17 22:16 Dose: 1 tab Albuterol Sulfate (Proventil 0.083% Neb Soln) 2.5 mg NEB TIDRESP PRN PRN Reason: SHORTNESS OF BREATH Stop: 10/21/17 16:26 Last Admin: 09/21/17 22:29 Dose: 2.5 mg Aspirin (Aspirin Ec) 81 mg PO DAILY [facility] Stop: 10/22/17 08:01 Last Admin: 09/28/17 08:37 Dose: 81 mg Atorvastatin Calcium (Lipitor) 10 mg PO BEDTIME [facility] Stop: 10/21/17 21:01 Last Admin: 09/28/17 21:17 Dose: 10 mg Bisacodyl (Dulcolax) 10 mg AR DAILY PRN PRN Reason: CONSTIPATION Stop: 10/21/17 19:28 Last Admin: 09/28/17 00:07 Dose: 10 mg Clopidogrel Bisulfate (Plavix) 75 mg PO DAILY [facility] Stop: 10/22/17 08:01 Last Admin: 09/28/17 08:34 Dose: 75 mg Dextrose (Dextrose 50% Syringe) 12.5 gm IV PRN PRN; Protocol PRN Reason: HYPOGLYCEMIA Stop: 10/21/17 16:18 Docusate Sodium (Colace Cap) 200 mg PO DAILY [facility] Stop: 10/29/17 08:01 Enoxaparin Sodium (Lovenox 30 Mg Inj) 30 mg SQ DAILY 5 PM [facility] Stop: 10/23/17 17:01 Last Admin: 09/28/17 19:39 Dose: 30 mg Epoetin Taqueria (Procrit) 10,000 unit IV EVERY HD [facility] Stop: 10/24/17 08:46 Last Admin: 09/28/17 16:27 Dose: 10,000 unit Furosemide (Lasix) 80 mg PO BIDL [facility] Stop: 10/21/17 17:01 Last Admin: 09/28/17 17:00 Dose: Not Given Gabapentin (Neurontin) 600 mg PO BID [facility] Stop: 10/28/17 10:01 Last Admin: 09/28/17 21:17 Dose: 600 mg Glucagon (Glucagen) 1 mg IM 1X PRN; Protocol PRN Reason: HYPOGLYCEMIA Stop: 10/21/17 16:18 Heparin Sodium (Porcine) (Heparin 1,000 Units/Ml) 2,000 unit IV EVERY HD [facility] Stop: 10/26/17 11:01 Last Admin: 09/28/17 16:27 Dose: 2,000 unit Hydralazine HCl (Apresoline) 25 mg PO BID [facility] Stop: 10/21/17 20:01 Last Admin: 09/28/17 21:17 Dose: 25 mg Albumin Human (Albumin 25%) 50 mls @ 100 mls/hr IV EVERY HD [facility] Stop: 10/24/17 09:01 Ceftriaxone Sodium/Sodium Chloride (Rocephin 1 Gm/10 Ml Swi Ivp) 1 gm in 10 mls @ 600 mls/hr IV DAILY [facility] Stop: 10/27/17 17:01 Last Admin: 09/28/17 08:45 Dose: 10 mls Insulin Human Regular (Novolin -R) 0 unit SQ ACHS [facility]; Protocol Stop: 10/21/17 16:31 Last Admin: 09/28/17 21:00 Dose: Not Given Lactulose (Cephulac) 20 gm PO BID [facility] Stop: 10/29/17 08:01 Mannitol (Mannitol 12.5 Gm/50 Ml Vial) 12.5 gm IV EVERY HD PRN PRN Reason: BP support at hemodialysis Stop: 10/24/17 08:40 Melatonin (Melatonin) 3 mg PO BEDTIME PRN PRN PRN Reason: INSOMNIA Stop: 10/23/17 01:10 Last Admin: 09/27/17 20:51 Dose: 3 mg Nifedipine (Procardia Xl) 30 mg PO DAILY [facility] Stop: 10/22/17 08:01 Last Admin: 09/28/17 08:36 Dose: 30 mg Nutritional Formula (Promod Liquid Protein) 30 ml PO BID [facility] Stop: 10/23/17 20:01 Last Admin: 09/28/17 21:18 Dose: 30 ml Ondansetron HCl (Zofran) 4 mg PO Q6H PRN PRN Reason: NAUSEA / VOMITING Stop: 10/21/17 16:39 Senna/Docusate Sodium (Senokot-S) 2 tab PO BEDTIME [facility] Stop: 10/22/17 21:01 Last Admin: 09/28/17 21:17 Dose: 2 tab Sevelamer Carbonate (Renvela) 800 mg PO TIDWM [facility] Stop: 10/21/17 17:01 Last Admin: 09/28/17 17:00 Dose: Not Given Sodium Chloride (Normal Saline Flush) 10 ml IV BID [facility] Stop: 10/27/17 20:01 Last Admin: 09/28/17 20:00 Dose: 10 ml Tramadol HCl (Ultram) 50 mg PO Q6H PRN PRN Reason: PAIN MILD Stop: 10/21/17 16:03 Last Admin: 09/28/17 19:38 Dose: 50 mg Vitamin B Complex/Vit C/Folic Acid (Nephro-Kayden) 1 tab PO DAILY [facility] Stop: 10/22/17 08:01 Last Admin: 09/28/17 08:34 Dose: 1 tab Lab Results (last 24 hrs) 09/28/17 19:35: POC Glucose 190 H 09/28/17 16:51: POC Glucose 140 H 09/28/17 11:43: POC Glucose 188 H 09/28/17 07:20: POC Glucose 140 H Microbiology Results 09/27/17 16:55 Blood - Blood Aerobic Blood Culture - Preliminary No growth in 24 hours. 09/27/17 16:55 Blood - Blood Anaerobic Blood Culture - Final 09/22/17 21:32 Clean Catch Urine [place] Count - Final <10,000 CFU/ML. 09/22/17 21:32 Clean Catch Urine - Final Assessment/ Plan: Nephrology. CPS stable without CP or SOB. No acute events overnight. Constipation. Vitals, medications, blood work and imaging reviewed in the chart. General: In no apparent distress, Oriented x3, Cooperative HEENT: Atraumatic Neck: Supple Respiratory: Clear to auscultation bilaterally Cardiovascular: Regular rate/rhythm, No rubs Gastrointestinal: Soft and benign, Non-distended Musculoskeletal: No clubbing, No contractures Integumentary: No rashes, No cyanosis, Other (Left BKA.) Neurological: Normal speech Blood work reviewed in the chart. Hgb 9.6; Alb 3.3 Imagings Data: HEIGHT: 6 ft 1 in WEIGHT: 235 lb 0 oz DATE OF STUDY: 09/20/[address]: Familia Duval MD 2-DIMENSIONAL: YES M.MODE: YES DOPPLER: YES COLOR FLOW: YES TDS: NO PORTABLE: NO DEFINITY: NO BUBBLE STUDY: NO DIAGNOSIS: ARRYTHMIA CARDIAC HISTORY: CATHERIZATION: YES SURGERY: NO PROSTHETIC VALVE: NO PACEMAKER: NO MEASUREMENTS (cm) DIASTOLIC (NORMALS) SYSTOLIC (NORMALS) IVSd 1.2 (0.6-1.2) LA Diam 3.7 (1.9-4.0) LVEF 54% LVIDd 6.0 (3.5-5.7) LVIDs 4.3 (2.0-3.5) %FS 29% LVPWd 1.2 (0.6-1.2) Ao Diam 3.1 (2.0-3.7) 2 DIMENSIONAL ASSESSMENT: RIGHT ATRIUM: NORMAL LEFT ATRIUM: NORMAL SIZE RIGHT VENTRICLE: NORMAL LEFT VENTRICLE: DILATED TRICUSPID VALVE: NORMAL MITRAL VALVE: MITRAL ANNULAR CALCIFICATION PULMONIC VALVE: NORMAL AORTIC VALVE: NORMAL PERICARDIAL EFFUSION: NONE AORTIC ROOT: NORMAL LEFT VENTRICULAR WALL MOTION: NORMAL LEFT VENTRICULAR EJECTION FRACTION. DECREASED LEFT VENTRICULAR COMPLIANCE. DOPPLER/COLOR FLOW: MILD TRICUSPID REGURGITATION. COMMENTS: MILD TRICUSPID REGURGITATION. DECREASED LEFT VENTRICULAR COMPLIANCE. NORMAL LEFT VENTRICULAR EJECTION FRACTION. MILD LEFT VENTRICULAR DILIATION. MITRAL ANNULAR CALCIFICATION. Conclusions/Impression: A/ ESRD on HD. HTN with CKD. Diastolic CHF, chronic. Anemia in CKD. PERCY/ Secondary HyperPTH. DM II with CKD. Left BKA. P/ Continue current POC and Medications. HD TIW. Give Kayexalate for hyperkalemia. Give Lactulose for constipation. No NSAIDs. Titrate insulin as needed. Continue procrit. Low sodium diet. AM labs. Daily weight.
--- NOTE | 2017-09-28 22:29 | P.PN ---
Date of Service: 09/28/17 Vital Signs Temp Pulse Resp BP Pulse Ox 97.5 F 80 16 146/65 H 94 09/28/17 19:38 09/28/17 19:38 09/28/17 19:38 09/28/17 19:38 09/28/17 19:38 Medications Hydrocodone Bitart/Acetaminophen ([place] 7.5/325 Mg) 1 tab PO Q6H PRN PRN Reason: PAIN Stop: 10/21/17 23:50 Last Admin: 09/28/17 22:16 Dose: 1 tab Albuterol Sulfate (Proventil 0.083% Neb Soln) 2.5 mg NEB TIDRESP PRN PRN Reason: SHORTNESS OF BREATH Stop: 10/21/17 16:26 Last Admin: 09/21/17 22:29 Dose: 2.5 mg Aspirin (Aspirin Ec) 81 mg PO DAILY [facility] Stop: 10/22/17 08:01 Last Admin: 09/28/17 08:37 Dose: 81 mg Atorvastatin Calcium (Lipitor) 10 mg PO BEDTIME [facility] Stop: 10/21/17 21:01 Last Admin: 09/28/17 21:17 Dose: 10 mg Bisacodyl (Dulcolax) 10 mg MT DAILY PRN PRN Reason: CONSTIPATION Stop: 10/21/17 19:28 Last Admin: 09/28/17 00:07 Dose: 10 mg Clopidogrel Bisulfate (Plavix) 75 mg PO DAILY [facility] Stop: 10/22/17 08:01 Last Admin: 09/28/17 08:34 Dose: 75 mg Dextrose (Dextrose 50% Syringe) 12.5 gm IV PRN PRN; Protocol PRN Reason: HYPOGLYCEMIA Stop: 10/21/17 16:18 Docusate Sodium (Colace Cap) 200 mg PO DAILY [facility] Stop: 10/29/17 08:01 Enoxaparin Sodium (Lovenox 30 Mg Inj) 30 mg SQ DAILY 5 PM [facility] Stop: 10/23/17 17:01 Last Admin: 09/28/17 19:39 Dose: 30 mg Epoetin Taqueria (Procrit) 10,000 unit IV EVERY HD [facility] Stop: 10/24/17 08:46 Last Admin: 09/28/17 16:27 Dose: 10,000 unit Furosemide (Lasix) 80 mg PO BIDL [facility] Stop: 10/21/17 17:01 Last Admin: 09/28/17 17:00 Dose: Not Given Gabapentin (Neurontin) 600 mg PO BID [facility] Stop: 10/28/17 10:01 Last Admin: 09/28/17 21:17 Dose: 600 mg Glucagon (Glucagen) 1 mg IM 1X PRN; Protocol PRN Reason: HYPOGLYCEMIA Stop: 10/21/17 16:18 Heparin Sodium (Porcine) (Heparin 1,000 Units/Ml) 2,000 unit IV EVERY HD [facility] Stop: 10/26/17 11:01 Last Admin: 09/28/17 16:27 Dose: 2,000 unit Hydralazine HCl (Apresoline) 25 mg PO BID [facility] Stop: 10/21/17 20:01 Last Admin: 09/28/17 21:17 Dose: 25 mg Albumin Human (Albumin 25%) 50 mls @ 100 mls/hr IV EVERY HD [facility] Stop: 10/24/17 09:01 Ceftriaxone Sodium/Sodium Chloride (Rocephin 1 Gm/10 Ml Swi Ivp) 1 gm in 10 mls @ 600 mls/hr IV DAILY [facility] Stop: 10/27/17 17:01 Last Admin: 09/28/17 08:45 Dose: 10 mls Insulin Human Regular (Novolin -R) 0 unit SQ ACHS [facility]; Protocol Stop: 10/21/17 16:31 Last Admin: 09/28/17 21:00 Dose: Not Given Lactulose (Cephulac) 20 gm PO BID [facility] Stop: 10/29/17 08:01 Mannitol (Mannitol 12.5 Gm/50 Ml Vial) 12.5 gm IV EVERY HD PRN PRN Reason: BP support at hemodialysis Stop: 10/24/17 08:40 Melatonin (Melatonin) 3 mg PO BEDTIME PRN PRN PRN Reason: INSOMNIA Stop: 10/23/17 01:10 Last Admin: 09/27/17 20:51 Dose: 3 mg Nifedipine (Procardia Xl) 30 mg PO DAILY [facility] Stop: 10/22/17 08:01 Last Admin: 09/28/17 08:36 Dose: 30 mg Nutritional Formula (Promod Liquid Protein) 30 ml PO BID [facility] Stop: 10/23/17 20:01 Last Admin: 09/28/17 21:18 Dose: 30 ml Ondansetron HCl (Zofran) 4 mg PO Q6H PRN PRN Reason: NAUSEA / VOMITING Stop: 10/21/17 16:39 Senna/Docusate Sodium (Senokot-S) 2 tab PO BEDTIME [facility] Stop: 10/22/17 21:01 Last Admin: 09/28/17 21:17 Dose: 2 tab Sevelamer Carbonate (Renvela) 800 mg PO TIDWM [facility] Stop: 10/21/17 17:01 Last Admin: 09/28/17 17:00 Dose: Not Given Sodium Chloride (Normal Saline Flush) 10 ml IV BID [facility] Stop: 10/27/17 20:01 Last Admin: 09/28/17 20:00 Dose: 10 ml Tramadol HCl (Ultram) 50 mg PO Q6H PRN PRN Reason: PAIN MILD Stop: 10/21/17 16:03 Last Admin: 09/28/17 19:38 Dose: 50 mg Vitamin B Complex/Vit C/Folic Acid (Nephro-Kayden) 1 tab PO DAILY [facility] Stop: 10/22/17 08:01 Last Admin: 09/28/17 08:34 Dose: 1 tab Lab Results (last 24 hrs) 09/28/17 19:35: POC Glucose 190 H 09/28/17 16:51: POC Glucose 140 H 09/28/17 11:43: POC Glucose 188 H 09/28/17 07:20: POC Glucose 140 H Microbiology Results 09/27/17 16:55 Blood - Blood Aerobic Blood Culture - Preliminary No growth in 24 hours. 09/27/17 16:55 Blood - Blood Anaerobic Blood Culture - Final 09/22/17 21:32 Clean Catch Urine [place] Count - Final <10,000 CFU/ML. 09/22/17 21:32 Clean Catch Urine - Final Assessment/ Plan: Nephrology. CPS stable without CP or SOB. No acute events overnight. Constipation improved but still persistent. +BM. Fall this morning. Vitals, medications, blood work and imaging reviewed in the chart. General: In no apparent distress, Oriented x3, Cooperative HEENT: Atraumatic Neck: Supple Respiratory: Clear to auscultation bilaterally Cardiovascular: Regular rate/rhythm, No rubs Gastrointestinal: Soft and benign, Non-distended Musculoskeletal: No clubbing, No contractures Integumentary: No rashes, No cyanosis, Other (Left BKA.) Neurological: Normal speech Blood work reviewed in the chart. Hgb 9.6; Alb 3.3 Imagings Data: HEIGHT: 6 ft 1 in WEIGHT: 235 lb 0 oz DATE OF STUDY: 09/20/[address]: Familia Duval MD 2-DIMENSIONAL: YES M.MODE: YES DOPPLER: YES COLOR FLOW: YES TDS: NO PORTABLE: NO DEFINITY: NO BUBBLE STUDY: NO DIAGNOSIS: ARRYTHMIA CARDIAC HISTORY: CATHERIZATION: YES SURGERY: NO PROSTHETIC VALVE: NO PACEMAKER: NO MEASUREMENTS (cm) DIASTOLIC (NORMALS) SYSTOLIC (NORMALS) IVSd 1.2 (0.6-1.2) LA Diam 3.7 (1.9-4.0) LVEF 54% LVIDd 6.0 (3.5-5.7) LVIDs 4.3 (2.0-3.5) %FS 29% LVPWd 1.2 (0.6-1.2) Ao Diam 3.1 (2.0-3.7) 2 DIMENSIONAL ASSESSMENT: RIGHT ATRIUM: NORMAL LEFT ATRIUM: NORMAL SIZE RIGHT VENTRICLE: NORMAL LEFT VENTRICLE: DILATED TRICUSPID VALVE: NORMAL MITRAL VALVE: MITRAL ANNULAR CALCIFICATION PULMONIC VALVE: NORMAL AORTIC VALVE: NORMAL PERICARDIAL EFFUSION: NONE AORTIC ROOT: NORMAL LEFT VENTRICULAR WALL MOTION: NORMAL LEFT VENTRICULAR EJECTION FRACTION. DECREASED LEFT VENTRICULAR COMPLIANCE. DOPPLER/COLOR FLOW: MILD TRICUSPID REGURGITATION. COMMENTS: MILD TRICUSPID REGURGITATION. DECREASED LEFT VENTRICULAR COMPLIANCE. NORMAL LEFT VENTRICULAR EJECTION FRACTION. MILD LEFT VENTRICULAR DILIATION. MITRAL ANNULAR CALCIFICATION. Conclusions/Impression: A/ ESRD on HD. Hyperkalemia. HTN with CKD. Diastolic CHF, chronic. Anemia in CKD. PERCY/ Secondary HyperPTH. DM II with CKD. Left BKA. Constipation. P/ Continue current POC and Medications. HD TIW. Plan for HD today. Increase Colace. No NSAIDs. Titrate insulin as needed. Low sodium diet. AM labs. Daily weight. PT as tolerated.
[2017-09-29] MEDS: MELATONIN 3 MG TABLET PO PRN ×2 (00:43→21:59)
--- NOTE | 2017-09-29 03:21 | FAST ---
SHIFT START DATE/TIME: 09/28/2017 19:00 (CDT) SHIFT END DATE/TIME: 09/29/2017 07:00 (CDT) NAME CARMEN ALTAMIRANO DATE OF : 1955 DATE OF ADMISSION: 09/21/2017 15:46 (CDT) PHONE: AGE: 62 [facility]# [id number] GENDER: Male ENCOUNTER PHYSICIAN: Dr. Edgar Pereira M.D. ADMISSION DIAGNOSIS: - Amputation of Limb 05 - Unilateral Lower Limb Below the Knee (BK) (05.4) Left Below the Knee Amputation. EATING: Activity did not occur on this shift EATING - SCORE: 0-UNK GROOMING: Wash, rinse, and dry hands GROOMING - STEP 1: Does the patient require assistance when grooming? Yes. GROOMING - STEP 2: Does the patient require the assistance of a helper? Yes. GROOMING - STEP 3: How much assistance does the patient require from the helper? Only prior equipment preparation/set up from the helper GROOMING - SCORE: 5-SUP BATHING: Activity did not occur on this shift BATHING - SCORE: 0-UNK DRESSING - UPPER BODY: Patient is not dressing in public clothing ARTICLES SCORE Total number of steps: 0 DRESSING - UPPER BODY - SCORE: 0-UNK DRESSING - LOWER BODY: Patient is not dressing in public clothing ARTICLES SCORE Total number of steps: 0 DRESSING - LOWER BODY - SCORE: 0-UNK TOILETING: TOILETING - STEP 1: Does the patient require assistance with toileting? Yes. TOILETING - STEP 2: Does the patient require the assistance of a helper? Yes. TOILETING - STEP 3: How much assistance does the patient require from the helper? Hands-on assistance from the helper TOILETING - STEP 4: Of the 3 tasks: 1) Adjusting clothing prior to use, 2) Cleansing of perineal area, 3) Adjusting clot kathy after use; How many tasks does the patient perform WITHOUT assistance of the helper? Three tasks with steadying assistance from the helper TOILETING - SCORE: 4-MIN BLADDER MANAGEMENT: Patient is on renal dialysis or peritoneal dialysis and no voiding activity BLADDER MANAGEMENT - SCORE: 7-IND BOWEL MANAGEMENT: BOWEL MANAGEMENT - STEP 1: Does the patient control bowels completely and intentionally without equipment devices or medications AND is always continent? No. BOWEL MANAGEMENT - STEP 2: Does the patient require the assistance of a helper? Yes. BOWEL MANAGEMENT - STEP 3: How much assistance does the patient require from the helper? [employer] provides less than 25% assistanc e to position patient on / off bedpan BOWEL MANAGEMENT - SCORE: 4-MIN TRANSFERS: BED, CHAIR, WHEELCHAIR: Activity did not occur on this shift TRANSFERS: BED, CHAIR, WHEELCHAIR - SCORE: 0-UNK TRANSFERS: TOILET: TRANSFERS: TOILET - STEP 1: Does the patient require assistance with toilet transfers? Yes. TRANSFERS: TOILET - STEP 2: Does the patient require the assistance of a helper? Yes. TRANSFERS: TOILET - STEP 3: How much assistance does the patient require from the helper? Patient performs half or more of the tr ansferring tasks TRANSFERS: TOILET - STEP 4: Does the patient need only incidental help such as contact guard or steadying during toilet transfer? No. Patient needs more than incidental help TRANSFERS: TOILET - SCORE: 3-MOD TRANSFERS: SHOWER: Activity did not occur on this shift TRANSFERS: SHOWER - SCORE: 0-UNK TRANSFERS: TUB: Activity did not occur on this shift TRANSFERS: TUB - SCORE: 0-UNK LOCOMOTION: WALK: Activity did not occur on this shift LOCOMOTION: WALK - SCORE: 0-UNK LOCOMOTION: WHEELCHAIR: Activity did not occur on this shift LOCOMOTION: WHEELCHAIR - SCORE: 0-UNK COMPREHENSION: COMPREHENSION: TYPE: Both COMPREHENSION - STEP 1: Does the patient require help to understand complex and abstract ideas (such as current events, finan josé, discharge planning, medical issues, relationships, etc)? No. COMPREHENSION - STEP 2: Does the patient need extra time, require an assistive device (such as glasses, hearing aids, or an a ugmentative communication system), OR does s/he have mild difficulty expressing complex and abstract ideas (including mild dysarthria or mild word-finding problems)? Yes. COMPREHENSION - SCORE: 6-MARIPOSA EXPRESSION EXPRESSION: TYPE: Both EXPRESSION - STEP 1: Does the patient require help expressing complex and abstract ideas (such as current events, finances , discharge planning, medical issues, relationships, etc)? No. EXPRESSION - STEP 2: Does the patient need extra time, require an assistive device (such as augmentive communication syste m or a communication board), OR does s/he have mild difficulty expressing complex and abstract ideas (including mild dysarthria or mild word-find problems)? No. EXPRESSION - SCORE: 7-IND SOCIAL INTERACTION: SOCIAL INTERACTION - STEP 1: Does the patient require a helper to interact with others in social and therapeutic situations? No. SOCIAL INTERACTION - STEP 2: Does the patient need extra time in social situations, OR does s/he interact with staff, other patien ts, and family members ONLY in structured environments, OR does s/he require medication for social in teraction? No. SOCIAL INTERACTION - SCORE: 7-IND PROBLEM SOLVING: PROBLEM SOLVING - STEP 1: Does the patient need help to solve complex problems such as managing a checking account or confronti ng interpersonal problems? No. PROBLEM SOLVING - STEP 2: Does the patient require extra time to make decisions or solve problems, OR does s/he have slight dif ficulty reading, initiating, or self-correcting in unfamiliar situations? Yes, patient needs extra ti me. PROBLEM SOLVING - SCORE: 6-MARIPOSA MEMORY: MEMORY - STEP 1: Does the patient need help to remember frequently encountered people, daily routines, and executing r equests? No. MEMORY - STEP 2: Does the patient have slight difficulty recognizing frequently encountered people, daily routines, or executing requests without the need for repetition or using self-initiated or environmental cues to remember? Yes. MEMORY - SCORE: 6-MARIPOSA
[2017-09-29] MEDS: TRAMADOL HCL 50 MG TAB PO PRN ×3 (04:28→16:18)
[2017-09-29] MEDS: INSULIN -REGULAR HUMAN 50 UNIT/0.5 ML ML SQ SCH ×4 (07:30→20:32)
[2017-09-29] MEDS: DOCUSATE NA 100 MG CAP PO SCH (07:34)
[2017-09-29] MEDS: LACTULOSE 20 GM/30 ML UCUP PO SCH ×2 (07:34→20:15)
[2017-09-29] MEDS: NIFEDIPINE XL 30 MG TABLET PO SCH (07:34)
[2017-09-29] MEDS: SEVELAMER CARBONATE 800 MG TABLET PO SCH ×3 (07:34→16:27)
[2017-09-29] MEDS: ASPIRIN EC 81 MG TAB PO SCH (07:35)
[2017-09-29] MEDS: PROMOD 30 ML DOSE PO SCH ×2 (07:35→20:17)
[2017-09-29] MEDS: MULTIVITAMINS,THERAPEUT 1 TAB PO SCH (07:35)
[2017-09-29] MEDS: CLOPIDOGREL 75 MG TABLET PO SCH (07:35)
[2017-09-29] MEDS: GABAPENTIN 300 MG CAP PO SCH ×2 (07:35→20:14)
[2017-09-29] MEDS: CEFTRIAXONE/SWI 1gm 1 GM/10 ML SYR IV SCH (07:36)
[2017-09-29] MEDS: HYDRALAZINE HCL 25 MG TABLET PO SCH ×2 (07:37→20:15)
[2017-09-29] MEDS: HYDROCODONE/APAP 7.5/325 MG TAB PO PRN ×3 (07:37→21:59)
[2017-09-29] MEDS: FUROSEMIDE 40 MG TABLET PO SCH ×2 (09:56→16:27)
[2017-09-29] MEDS ORDERED: MAGNESIUM HYDROXIDE 8% 30 ML PO PRN (10:22)
[2017-09-29] MEDS ORDERED: MAGNESIUM HYDROXIDE 8% 30 ML ONE (10:48)
--- NOTE | 2017-09-29 12:46 | FAST ---
ENCOUNTER DATE AND TIME: 09/29/2017 08:00 (CDT) NAME CARMEN ALTAMIRANO DATE OF : 1955 DATE OF ADMISSION: 09/21/2017 15:46 (CDT) PHONE: AGE: 62 N# [id number] GENDER: Male ENCOUNTER PHYSICIAN: Dr. Edgar Pereira M.D. ADMISSION DIAGNOSIS: - Amputation of Limb 05 - Unilateral Lower Limb Below the Knee (BK) (05.4) Left Below the Knee Amputation. EATING: Activity did not occur on this shift EATING - SCORE: 0-UNK GROOMING: Activity did not occur on this shift GROOMING - SCORE: 0-UNK BATHING: Activity did not occur on this shift BATHING - SCORE: 0-UNK DRESSING - UPPER BODY: Activity did not occur on this shift Patient is not dressing in public clothing ARTICLES SCORE Total number of steps: 0 DRESSING - UPPER BODY - SCORE: 0-UNK DRESSING - LOWER BODY: Activity did not occur on this shift Patient is not dressing in public clothing ARTICLES SCORE Total number of steps: 0 DRESSING - LOWER BODY - SCORE: 0-UNK TOILETING: Activity did not occur on this shift TOILETING - SCORE: 0-UNK BLADDER MANAGEMENT: Activity did not occur on this shift BLADDER MANAGEMENT - SCORE: 7-IND BOWEL MANAGEMENT: Activity did not occur on this shift BOWEL MANAGEMENT - SCORE: 7-IND TRANSFERS: BED, CHAIR, WHEELCHAIR: TRANSFERS: BED, CHAIR, WHEELCHAIR - STEP 1: Does the patient require assistance with bed, chair, or wheelchair transfers? Yes. TRANSFERS: BED, CHAIR, WHEELCHAIR - STEP 2: Does the patient require the assistance of a helper? Yes. TRANSFERS: BED, CHAIR, WHEELCHAIR - STEP 3: How much assistance does the patient require from the helper? Steadying/guiding assistance TRANSFERS: BED, CHAIR, WHEELCHAIR - SCORE: 4-MIN TRANSFERS: TOILET: Activity did not occur on this shift TRANSFERS: TOILET - SCORE: 0-UNK TRANSFERS: SHOWER: Activity did not occur on this shift TRANSFERS: SHOWER - SCORE: 0-UNK TRANSFERS: TUB: Activity did not occur on this shift TRANSFERS: TUB - SCORE: 0-UNK LOCOMOTION: WALK: Activity did not occur on this shift LOCOMOTION: WALK - SCORE: 0-UNK LOCOMOTION: WHEELCHAIR: LOCOMOTION: WHEELCHAIR - STEP 1: Does the patient need help to go 150 feet in a wheelchair? Yes. LOCOMOTION: WHEELCHAIR - STEP 2: How much assistance does the patient need from the helper? Only supervision, cuing, or coaxing LOCOMOTION: WHEELCHAIR - SCORE: 5-SUP LOCOMOTION: STAIRS: Activity did not occur on this shift LOCOMOTION: STAIRS - SCORE: 0-UNK COMPREHENSION: COMPREHENSION - SCORE: 0-UNK EXPRESSION EXPRESSION - SCORE: 0-UNK SOCIAL INTERACTION: SOCIAL INTERACTION - SCORE: 0-UNK PROBLEM SOLVING: PROBLEM SOLVING - SCORE: 0-UNK MEMORY: MEMORY - SCORE: 0-UNK SIGNATURE PANEL: The following modified sections: Transfers: Bed, Chair, Wheelchair - Score, Transfers: Toilet - Score , Locomotion: Walk - Score, Locomotion: Wheelchair - Score, Locomotion: Stairs - Score were [monica meyer] signed by Alicja Marshall PTA on Sat Sep 29 2017 11:46:18 GMT-0500 (Central Daylight Time)
[2017-09-29] MEDS: BISACODYL 10 MG RECTAL SUPP PR PRN (13:38)
[2017-09-29] MEDS: ENOXAPARIN 30 MG/0.3 ML SQ SCH (16:18)
--- NOTE | 2017-09-29 17:12 | FAST ---
SHIFT START DATE/TIME: 09/29/2017 07:00 (CDT) SHIFT END DATE/TIME: 09/29/2017 19:00 (CDT) NAME CARMEN ALTAMIRANO DATE OF : 1955 DATE OF ADMISSION: 09/21/2017 15:46 (CDT) PHONE: AGE: 62 [facility]# [id number] GENDER: Male ENCOUNTER PHYSICIAN: Dr. Edgar Pereira M.D. ADMISSION DIAGNOSIS: - Amputation of Limb 05 - Unilateral Lower Limb Below the Knee (BK) (05.4) Left Below the Knee Amputation. EATING: EATING - STEP 1: Does the patient require assistance when eating? Yes. EATING - STEP 2: Does the patient require the assistance of a helper? No, patient only requires an assistive device, O R s/he takes more than reasonable time to eat, OR there is a safety concern, OR s/he requires modifie d food consistency EATING - SCORE: 6-MARIPOSA GROOMING: Activity did not occur on this shift GROOMING - SCORE: 0-UNK BATHING: Activity did not occur on this shift BATHING - SCORE: 0-UNK DRESSING - UPPER BODY: Activity did not occur on this shift ARTICLES SCORE Total number of steps: 0 DRESSING - UPPER BODY - SCORE: 0-UNK DRESSING - LOWER BODY: Activity did not occur on this shift ARTICLES SCORE Total number of steps: 0 DRESSING - LOWER BODY - SCORE: 0-UNK TOILETING: TOILETING - STEP 1: Does the patient require assistance with toileting? Yes. TOILETING - STEP 2: Does the patient require the assistance of a helper? Yes. TOILETING - STEP 3: How much assistance does the patient require from the helper? Hands-on assistance from the helper TOILETING - STEP 4: Of the 3 tasks: 1) Adjusting clothing prior to use, 2) Cleansing of perineal area, 3) Adjusting clot kathy after use; How many tasks does the patient perform WITHOUT assistance of the helper? Two tasks TOILETING - SCORE: 3-MOD BLADDER MANAGEMENT: Patient is on renal dialysis or peritoneal dialysis and no voiding activity BLADDER MANAGEMENT - SCORE: 7-IND BOWEL MANAGEMENT: Suppository: [place] positions patient, places a pad, lubricates and inserts the suppository, provides digital stimulation, places patient on bedpan, and takes patient off of bedpan. BOWEL MANAGEMENT - SCORE: 1-DEP TRANSFERS: BED, CHAIR, WHEELCHAIR: TRANSFERS: BED, CHAIR, WHEELCHAIR - STEP 1: Does the patient require assistance with bed, chair, or wheelchair transfers? Yes. TRANSFERS: BED, CHAIR, WHEELCHAIR - STEP 2: Does the patient require the assistance of a helper? Yes. TRANSFERS: BED, CHAIR, WHEELCHAIR - STEP 3: How much assistance does the patient require from the helper? Lifting of the patient TRANSFERS: BED, CHAIR, WHEELCHAIR - STEP 4: Does the helper lift the patient ONLY up? ONLY down? Up AND Down? ONLY up. TRANSFERS: BED, CHAIR, WHEELCHAIR - SCORE: 3-MOD TRANSFERS: TOILET: TRANSFERS: TOILET - STEP 1: Does the patient require assistance with toilet transfers? Yes. TRANSFERS: TOILET - STEP 2: Does the patient require the assistance of a helper? Yes. TRANSFERS: TOILET - STEP 3: How much assistance does the patient require from the helper? Patient performs half or more of the tr ansferring tasks TRANSFERS: TOILET - STEP 4: Does the patient need only incidental help such as contact guard or steadying during toilet transfer? Yes. TRANSFERS: TOILET - SCORE: 4-MIN TRANSFERS: SHOWER: Activity did not occur on this shift TRANSFERS: SHOWER - SCORE: 0-UNK TRANSFERS: TUB: Activity did not occur on this shift TRANSFERS: TUB - SCORE: 0-UNK LOCOMOTION: WALK: Activity did not occur on this shift LOCOMOTION: WALK - SCORE: 0-UNK LOCOMOTION: WHEELCHAIR: Activity did not occur on this shift LOCOMOTION: WHEELCHAIR - SCORE: 0-UNK COMPREHENSION: COMPREHENSION - SCORE: 0-UNK EXPRESSION EXPRESSION - SCORE: 0-UNK SOCIAL INTERACTION: SOCIAL INTERACTION - SCORE: 0-UNK PROBLEM SOLVING: PROBLEM SOLVING - SCORE: 0-UNK MEMORY: MEMORY - SCORE: 0-UNK SIGNATURE PANEL: The following modified sections: Eating - Score, Grooming - Score, Bathing - Score, Dressing - Upper Body - Score, Dressing - Lower Body - Score, Toileting - Score, Bladder Management - Score, Bowel Man agement - Score, Transfers: Bed, Chair, Wheelchair - Score, Transfers: Toilet - Score, Transfers: Adeline wer - Score, Transfers: Tub - Score, Locomotion: Walk - Score, Locomotion: Wheelchair - Score, Compre hension - Score, Expression - Score, Social Interaction - Score, Problem Solving - Score, Memory - Sc ore were [electronically] signed by Tavo Jamil on SunSep 29 2017 16:12:34 GMT-0500 (Central Daylight Time)
[2017-09-29] MEDS: ATORVASTATIN 10 MG TAB PO SCH (20:15)
[2017-09-29] MEDS: DOCUSATE NA/SENNA CONC 1 TAB PO SCH (20:15)
--- NOTE | 2017-09-30 03:18 | FAST ---
SHIFT START DATE/TIME: 09/29/2017 19:00 (CDT) SHIFT END DATE/TIME: 09/30/2017 07:00 (CDT) NAME CARMEN ALTAMIRAON DATE OF : 1955 DATE OF ADMISSION: 09/21/2017 15:46 (CDT) PHONE: AGE: 62 [facility]# [id number] GENDER: Male ENCOUNTER PHYSICIAN: Dr. Edgar Pereira M.D. ADMISSION DIAGNOSIS: - Amputation of Limb 05 - Unilateral Lower Limb Below the Knee (BK) (05.4) Left Below the Knee Amputation. EATING: Activity did not occur on this shift EATING - SCORE: 0-UNK GROOMING: Wash, rinse, and dry hands GROOMING - STEP 1: Does the patient require assistance when grooming? Yes. GROOMING - STEP 2: Does the patient require the assistance of a helper? Yes. GROOMING - STEP 3: How much assistance does the patient require from the helper? Only prior equipment preparation/set up from the helper GROOMING - SCORE: 5-SUP BATHING: Activity did not occur on this shift BATHING - SCORE: 0-UNK DRESSING - UPPER BODY: Patient is not dressing in public clothing ARTICLES SCORE Total number of steps: 0 DRESSING - UPPER BODY - SCORE: 0-UNK DRESSING - LOWER BODY: Patient is not dressing in public clothing ARTICLES SCORE Total number of steps: 0 DRESSING - LOWER BODY - SCORE: 0-UNK TOILETING: TOILETING - STEP 1: Does the patient require assistance with toileting? Yes. TOILETING - STEP 2: Does the patient require the assistance of a helper? Yes. TOILETING - STEP 3: How much assistance does the patient require from the helper? Only supervision TOILETING - SCORE: 5-SUP BLADDER MANAGEMENT: Patient is on renal dialysis or peritoneal dialysis and no voiding activity BLADDER MANAGEMENT - SCORE: 7-IND BOWEL MANAGEMENT: Activity did not occur on this shift BOWEL MANAGEMENT - SCORE: 7-IND TRANSFERS: BED, CHAIR, WHEELCHAIR: Activity did not occur on this shift TRANSFERS: BED, CHAIR, WHEELCHAIR - SCORE: 0-UNK TRANSFERS: TOILET: Activity did not occur on this shift TRANSFERS: TOILET - SCORE: 0-UNK TRANSFERS: SHOWER: Activity did not occur on this shift TRANSFERS: SHOWER - SCORE: 0-UNK TRANSFERS: TUB: Activity did not occur on this shift TRANSFERS: TUB - SCORE: 0-UNK LOCOMOTION: WALK: Activity did not occur on this shift LOCOMOTION: WALK - SCORE: 0-UNK LOCOMOTION: WHEELCHAIR: Activity did not occur on this shift LOCOMOTION: WHEELCHAIR - SCORE: 0-UNK COMPREHENSION: COMPREHENSION: TYPE: Both COMPREHENSION - STEP 1: Does the patient require help to understand complex and abstract ideas (such as current events, finan jos[place], discharge planning, medical issues, relationships, etc)? No. COMPREHENSION - STEP 2: Does the patient need extra time, require an assistive device (such as glasses, hearing aids, or an a ugmentative communication system), OR does s/he have mild difficulty expressing complex and abstract ideas (including mild dysarthria or mild word-finding problems)? Yes. COMPREHENSION - SCORE: 6-MARIPOSA EXPRESSION EXPRESSION: TYPE: Both EXPRESSION - STEP 1: Does the patient require help expressing complex and abstract ideas (such as current events, finances , discharge planning, medical issues, relationships, etc)? No. EXPRESSION - STEP 2: Does the patient need extra time, require an assistive device (such as augmentive communication syste m or a communication board), OR does s/he have mild difficulty expressing complex and abstract ideas (including mild dysarthria or mild word-find problems)? No. EXPRESSION - SCORE: 7-IND SOCIAL INTERACTION: SOCIAL INTERACTION - STEP 1: Does the patient require a helper to interact with others in social and therapeutic situations? No. SOCIAL INTERACTION - STEP 2: Does the patient need extra time in social situations, OR does s/he interact with staff, other patien ts, and family members ONLY in structured environments, OR does s/he require medication for social in teraction? No. SOCIAL INTERACTION - SCORE: 7-IND PROBLEM SOLVING: PROBLEM SOLVING - STEP 1: Does the patient need help to solve complex problems such as managing a checking account or confronti ng interpersonal problems? No. PROBLEM SOLVING - STEP 2: Does the patient require extra time to make decisions or solve problems, OR does s/he have slight dif ficulty reading, initiating, or self-correcting in unfamiliar situations? Yes, patient needs extra ti me. PROBLEM SOLVING - SCORE: 6-MARIPOSA MEMORY: MEMORY - STEP 1: Does the patient need help to remember frequently encountered people, daily routines, and executing r equests? No. MEMORY - STEP 2: Does the patient have slight difficulty recognizing frequently encountered people, daily routines, or executing requests without the need for repetition or using self-initiated or environmental cues to remember? Yes. MEMORY - SCORE: 6-MARIPOSA
[2017-09-30] MEDS: CEFTRIAXONE/SWI 1gm 1 GM/10 ML SYR IV SCH (07:29)
[2017-09-30] MEDS: NIFEDIPINE XL 30 MG TABLET PO SCH (07:29)
[2017-09-30] MEDS: LACTULOSE 20 GM/30 ML UCUP PO SCH ×2 (07:29→20:12)
[2017-09-30] MEDS: GABAPENTIN 300 MG CAP PO SCH ×2 (07:30→20:11)
[2017-09-30] MEDS: SEVELAMER CARBONATE 800 MG TABLET PO SCH ×3 (07:30→16:31)
[2017-09-30] MEDS: ASPIRIN EC 81 MG TAB PO SCH (07:30)
[2017-09-30] MEDS: HYDRALAZINE HCL 25 MG TABLET PO SCH ×2 (07:30→20:12)
[2017-09-30] MEDS: MULTIVITAMINS,THERAPEUT 1 TAB PO SCH (07:30)
[2017-09-30] MEDS: CLOPIDOGREL 75 MG TABLET PO SCH (07:30)
[2017-09-30] MEDS: DOCUSATE NA 100 MG CAP PO SCH (07:30)
[2017-09-30] MEDS: INSULIN -REGULAR HUMAN 50 UNIT/0.5 ML ML SQ SCH ×4 (07:30→20:10)
[2017-09-30] MEDS: PROMOD 30 ML DOSE PO SCH ×2 (07:31→20:12)
[2017-09-30] MEDS: HYDROCODONE/APAP 7.5/325 MG TAB PO PRN ×3 (07:33→22:31)
[2017-09-30] MEDS: FUROSEMIDE 40 MG TABLET PO SCH ×2 (08:17→16:31)
--- NOTE | 2017-09-30 12:24 | FAST ---
SHIFT START DATE/TIME: 09/30/2017 07:00 (CDT) SHIFT END DATE/TIME: 09/30/2017 19:00 (CDT) NAME CARMEN ALTAMIRANO DATE OF : 1955 DATE OF ADMISSION: 09/21/2017 15:46 (CDT) PHONE: AGE: [address] [facility]# [id number] GENDER: Male ENCOUNTER PHYSICIAN: Dr. Edgar Pereira M.D. ADMISSION DIAGNOSIS: - Amputation of Limb 05 - Unilateral Lower Limb Below the Knee (BK) (05.4) Left Below the Knee Amputation. EATING: EATING - STEP 1: Does the patient require assistance when eating? Yes. EATING - STEP 2: Does the patient require the assistance of a helper? No, patient only requires an assistive device, O R s/he takes more than reasonable time to eat, OR there is a safety concern, OR s/he requires modifie d food consistency EATING - SCORE: 6-MARIPOSA GROOMING: Patient shaved Wash, rinse, and dry face Wash, rinse, and dry hands GROOMING - STEP 1: Does the patient require assistance when grooming? Yes. GROOMING - STEP 2: Does the patient require the assistance of a helper? Yes. GROOMING - STEP 3: How much assistance does the patient require from the helper? Only prior equipment preparation/set up from the helper GROOMING - SCORE: 5-SUP BATHING: Activity did not occur on this shift BATHING - SCORE: 0-UNK DRESSING - UPPER BODY: Activity did not occur on this shift ARTICLES SCORE Total number of steps: 0 DRESSING - UPPER BODY - SCORE: 0-UNK DRESSING - LOWER BODY: Activity did not occur on this shift ARTICLES SCORE Total number of steps: 0 DRESSING - LOWER BODY - SCORE: 0-UNK TOILETING: TOILETING - STEP 1: Does the patient require assistance with toileting? Yes. TOILETING - STEP 2: Does the patient require the assistance of a helper? Yes. TOILETING - STEP 3: How much assistance does the patient require from the helper? Hands-on assistance from the helper TOILETING - STEP 4: Of the 3 tasks: 1) Adjusting clothing prior to use, 2) Cleansing of perineal area, 3) Adjusting clot kathy after use; How many tasks does the patient perform WITHOUT assistance of the helper? Two tasks TOILETING - SCORE: 3-MOD BLADDER MANAGEMENT: Patient is on renal dialysis or peritoneal dialysis and no voiding activity BLADDER MANAGEMENT - SCORE: 7-IND BOWEL MANAGEMENT: Suppository: [place] positions patient, places a pad, lubricates and inserts the suppository, provides digital stimulation, places patient on bedpan, and takes patient off of bedpan. BOWEL MANAGEMENT - SCORE: 1-DEP TRANSFERS: BED, CHAIR, WHEELCHAIR: TRANSFERS: BED, CHAIR, WHEELCHAIR - STEP 1: Does the patient require assistance with bed, chair, or wheelchair transfers? Yes. TRANSFERS: BED, CHAIR, WHEELCHAIR - STEP 2: Does the patient require the assistance of a helper? Yes. TRANSFERS: BED, CHAIR, WHEELCHAIR - STEP 3: How much assistance does the patient require from the helper? Lifting of the patient TRANSFERS: BED, CHAIR, WHEELCHAIR - STEP 4: Does the helper lift the patient ONLY up? ONLY down? Up AND Down? ONLY up. TRANSFERS: BED, CHAIR, WHEELCHAIR - SCORE: 3-MOD TRANSFERS: TOILET: TRANSFERS: TOILET - STEP 1: Does the patient require assistance with toilet transfers? Yes. TRANSFERS: TOILET - STEP 2: Does the patient require the assistance of a helper? Yes. TRANSFERS: TOILET - STEP 3: How much assistance does the patient require from the helper? Patient performs half or more of the tr ansferring tasks TRANSFERS: TOILET - STEP 4: Does the patient need only incidental help such as contact guard or steadying during toilet transfer? Yes. TRANSFERS: TOILET - SCORE: 4-MIN TRANSFERS: SHOWER: Activity did not occur on this shift TRANSFERS: SHOWER - SCORE: 0-UNK TRANSFERS: TUB: Activity did not occur on this shift TRANSFERS: TUB - SCORE: 0-UNK LOCOMOTION: WALK: Activity did not occur on this shift LOCOMOTION: WALK - SCORE: 0-UNK LOCOMOTION: WHEELCHAIR: Activity did not occur on this shift LOCOMOTION: WHEELCHAIR - SCORE: 0-UNK COMPREHENSION: COMPREHENSION - SCORE: 0-UNK EXPRESSION EXPRESSION - SCORE: 0-UNK SOCIAL INTERACTION: SOCIAL INTERACTION - SCORE: 0-UNK PROBLEM SOLVING: PROBLEM SOLVING - SCORE: 0-UNK MEMORY: MEMORY - SCORE: 0-UNK SIGNATURE PANEL: The following modified sections: Eating - Score, Grooming - Score, Bathing - Score, Dressing - Upper Body - Score, Dressing - Lower Body - Score, Toileting - Score, Bladder Management - Score, Bowel Man agement - Score, Transfers: Bed, Chair, Wheelchair - Score, Transfers: Toilet - Score, Transfers: Adeline wer - Score, Transfers: Tub - Score, Locomotion: Walk - Score, Locomotion: Wheelchair - Score, Compre hension - Score, Expression - Score, Social Interaction - Score, Problem Solving - Score, Memory - Sc ore were [electronically] signed by Tavo Jamil on SunSep 30 2017 11:24:23 GMT-0500 (Central Daylight Time)
[2017-09-30] MEDS: ENOXAPARIN 30 MG/0.3 ML SQ SCH (16:31)
[2017-09-30] MEDS: ATORVASTATIN 10 MG TAB PO SCH (20:11)
[2017-09-30] MEDS: DOCUSATE NA/SENNA CONC 1 TAB PO SCH (20:11)
[2017-09-30] MEDS: MELATONIN 3 MG TABLET PO PRN (22:03)
[2017-10-01] MEDS: TRAMADOL HCL 50 MG TAB PO PRN ×2 (01:42→08:19)
--- NOTE | 2017-10-01 03:08 | FAST ---
SHIFT START DATE/TIME: 09/30/2017 19:00 (CDT) SHIFT END DATE/TIME: 10/01/2017 07:00 (CDT) NAME CARMEN ALTAMIRANO DATE OF : 1955 DATE OF ADMISSION: 09/21/2017 15:46 (CDT) PHONE: AGE: 62 [facility]# [id number] GENDER: Male ENCOUNTER PHYSICIAN: Dr. Edgar Pereira M.D. ADMISSION DIAGNOSIS: - Amputation of Limb 05 - Unilateral Lower Limb Below the Knee (BK) (05.4) Left Below the Knee Amputation. EATING: Activity did not occur on this shift EATING - SCORE: 0-UNK GROOMING: Activity did not occur on this shift GROOMING - SCORE: 0-UNK BATHING: Activity did not occur on this shift BATHING - SCORE: 0-UNK DRESSING - UPPER BODY: Activity did not occur on this shift ARTICLES SCORE Total number of steps: 0 DRESSING - UPPER BODY - SCORE: 0-UNK DRESSING - LOWER BODY: Activity did not occur on this shift ARTICLES SCORE Total number of steps: 0 DRESSING - LOWER BODY - SCORE: 0-UNK TOILETING: TOILETING - STEP 1: Does the patient require assistance with toileting? Yes. TOILETING - STEP 2: Does the patient require the assistance of a helper? Yes. TOILETING - STEP 3: How much assistance does the patient require from the helper? Hands-on assistance from the helper TOILETING - STEP 4: Of the 3 tasks: 1) Adjusting clothing prior to use, 2) Cleansing of perineal area, 3) Adjusting clot kathy after use; How many tasks does the patient perform WITHOUT assistance of the helper? One task TOILETING - SCORE: 2-MAX BLADDER MANAGEMENT: BLADDER MANAGEMENT - STEP 1: Does the patient control the bladder completely and intentionally without equipment or devices or med ications, and is always continent? No. BLADDER MANAGEMENT - STEP 2: Does the patient require the assistance of a helper? Yes. BLADDER MANAGEMENT - STEP 3: How much assistance does the patient require from the helper? Patient requires contact assistance fro m the helper BLADDER MANAGEMENT - STEP 4: How much contact assistance does the patient require from the helper? Patient requires moderate jose tance, and performs 50% to 75% of bladder management tasks - [place] positions AND holds urinal or bed frey BLADDER MANAGEMENT - SCORE: 3-MOD BOWEL MANAGEMENT: Activity did not occur on this shift BOWEL MANAGEMENT - SCORE: 7-IND TRANSFERS: BED, CHAIR, WHEELCHAIR: TRANSFERS: BED, CHAIR, WHEELCHAIR - STEP 1: Does the patient require assistance with bed, chair, or wheelchair transfers? Yes. TRANSFERS: BED, CHAIR, WHEELCHAIR - STEP 2: Does the patient require the assistance of a helper? Yes. TRANSFERS: BED, CHAIR, WHEELCHAIR - STEP 3: How much assistance does the patient require from the helper? Steadying/guiding assistance TRANSFERS: BED, CHAIR, WHEELCHAIR - SCORE: 4-MIN TRANSFERS: TOILET: Activity did not occur on this shift TRANSFERS: TOILET - SCORE: 0-UNK TRANSFERS: SHOWER: Activity did not occur on this shift TRANSFERS: SHOWER - SCORE: 0-UNK TRANSFERS: TUB: Activity did not occur on this shift TRANSFERS: TUB - SCORE: 0-UNK LOCOMOTION: WALK: Activity did not occur on this shift LOCOMOTION: WALK - SCORE: 0-UNK LOCOMOTION: WHEELCHAIR: Activity did not occur on this shift LOCOMOTION: WHEELCHAIR - SCORE: 0-UNK COMPREHENSION: COMPREHENSION - STEP 1: Does the patient require help to understand complex and abstract ideas (such as current events, finan josé, discharge planning, medical issues, relationships, etc)? No. COMPREHENSION - STEP 2: Does the patient need extra time, require an assistive device (such as glasses, hearing aids, or an a ugmentative communication system), OR does s/he have mild difficulty expressing complex and abstract ideas (including mild dysarthria or mild word-finding problems)? Yes. COMPREHENSION - SCORE: 6-MARIPOSA EXPRESSION EXPRESSION - STEP 1: Does the patient require help expressing complex and abstract ideas (such as current events, finances , discharge planning, medical issues, relationships, etc)? No. EXPRESSION - STEP 2: Does the patient need extra time, require an assistive device (such as augmentive communication syste m or a communication board), OR does s/he have mild difficulty expressing complex and abstract ideas (including mild dysarthria or mild word-find problems)? No. EXPRESSION - SCORE: 7-IND SOCIAL INTERACTION: SOCIAL INTERACTION - STEP 1: Does the patient require a helper to interact with others in social and therapeutic situations? No. SOCIAL INTERACTION - STEP 2: Does the patient need extra time in social situations, OR does s/he interact with staff, other patien ts, and family members ONLY in structured environments, OR does s/he require medication for social in teraction? No. SOCIAL INTERACTION - SCORE: 7-IND PROBLEM SOLVING: PROBLEM SOLVING - STEP 1: Does the patient need help to solve complex problems such as managing a checking account or confronti ng interpersonal problems? No. PROBLEM SOLVING - STEP 2: Does the patient require extra time to make decisions or solve problems, OR does s/he have slight dif ficulty reading, initiating, or self-correcting in unfamiliar situations? No. PROBLEM SOLVING - SCORE: 7-IND MEMORY: MEMORY - STEP 1: Does the patient need help to remember frequently encountered people, daily routines, and executing r equests? No. MEMORY - STEP 2: Does the patient have slight difficulty recognizing frequently encountered people, daily routines, or executing requests without the need for repetition or using self-initiated or environmental cues to remember? No. MEMORY - SCORE: 7-IND SIGNATURE PANEL: The following modified sections: Eating - Score, Grooming - Score, Bathing - Score, Dressing - Upper Body - Score, Dressing - Lower Body - Score, Toileting - Score, Bladder Management - Score, Bowel Man agement - Score, Transfers: Bed, Chair, Wheelchair - Score, Transfers: Toilet - Score, Transfers: Adeline wer - Score, Transfers: Tub - Score, Locomotion: Walk - Score, Locomotion: Wheelchair - Score, Compre hension - Score, Expression - Score, Social Interaction - Score, Problem Solving - Score, Memory - Sc ore were [electronically] signed by Lina Islas RN on SunOct 01 2017 02:08:22 T-0500 ([facility] Time)
[2017-10-01] MEDS: BISACODYL 10 MG RECTAL SUPP PR PRN (05:30)
[2017-10-01 05:59] LABS: Absolute Lymphocytes (CBC) 1.5 K/uL (0.7-4.9); Absolute Monocytes 1.3 K/uL (0.1-1.3); Absolute Neutrophil 7.5 K/uL (1.8-8.0); Basophils % 1.2 % (0-1.3); Eosinophils % 6.1 % (0-4.4); Hematocrit 28.5 % (39.6-49.0); Lymphocytes % 13.4 % (15.3-44.8); MCH 27.2 pg (27.0-35.0); MCV 85.4 fL (80-100); MPV 8.2 fL (7.6-11.3); Monocytes % 12.1 % (3.3-12.3); RBC Red Blood Cell Count 3.34 M/uL (4.33-5.43)
[2017-10-01] MEDS: INSULIN -REGULAR HUMAN 50 UNIT/0.5 ML ML SQ SCH ×4 (07:05→20:35)
[2017-10-01 07:13] LABS: AST/SGOT 13 IU/L (10-42); Albumin 2.7 g/dL (3.2-5.5); Alkaline Phosphatase 83 IU/L (42-121); BUN Blood Urea Nitrogen 64 mg/dL (6-20); Bicarbonate 26 mEq/L (21-31); Bilirubin Total 0.5 mg/dL (0.3-1.2); Glucose Level 176 mg/dL (65-120); Phosphorus 7.4 mg/dL (2.5-4.3); Potassium 5.2 mEq/L (3.6-5.0); Sodium Level 134 mEq/L (135-145)
[2017-10-01 07:14] LABS: ALT/SGPT < 5 IU/L (10-60)
[2017-10-01] MEDS: NIFEDIPINE XL 30 MG TABLET PO SCH (08:00)
[2017-10-01] MEDS: LACTULOSE 20 GM/30 ML UCUP PO SCH ×2 (08:16→20:33)
[2017-10-01] MEDS: SEVELAMER CARBONATE 800 MG TABLET PO SCH ×3 (08:16→20:31)
[2017-10-01] MEDS: MULTIVITAMINS,THERAPEUT 1 TAB PO SCH (08:17)
[2017-10-01] MEDS: GABAPENTIN 300 MG CAP PO SCH ×2 (08:17→20:31)
[2017-10-01] MEDS: DOCUSATE NA 100 MG CAP PO SCH (08:17)
[2017-10-01] MEDS: CLOPIDOGREL 75 MG TABLET PO SCH (08:18)
[2017-10-01] MEDS: FUROSEMIDE 40 MG TABLET PO SCH ×2 (08:18→16:37)
[2017-10-01] MEDS: ASPIRIN EC 81 MG TAB PO SCH (08:18)
[2017-10-01] MEDS: HYDRALAZINE HCL 25 MG TABLET PO SCH ×2 (08:18→20:31)
[2017-10-01] MEDS: CEFTRIAXONE/SWI 1gm 1 GM/10 ML SYR IV SCH (08:49)
[2017-10-01] MEDS: PROMOD 30 ML DOSE PO SCH ×2 (08:51→20:34)
[2017-10-01] MEDS: HYDROCODONE/APAP 7.5/325 MG TAB PO PRN (12:04)
[2017-10-01] MEDS ORDERED: FORMULATION-R RECTAL 30GM PR PRN (13:07)
[2017-10-01] MEDS ORDERED: POLYETHYL GLY 3350 17 GM/DOSE PO PRN (14:30)
--- NOTE | 2017-10-01 14:32 | P.PN ---
Date of Service: 10/01/17 Vital Signs Temp Pulse Resp BP Pulse Ox 98.6 F 85 16 178/76 H 94 10/01/17 07:09 10/01/17 08:18 10/01/17 07:09 10/01/17 08:18 10/01/17 07:09 Medications Hydrocodone Bitart/Acetaminophen ([place] 7.5/325 Mg) 1 tab PO Q6H PRN PRN Reason: PAIN Stop: 10/21/17 23:50 Last Admin: 10/01/17 12:04 Dose: 1 tab Albuterol Sulfate (Proventil 0.083% Neb Soln) 2.5 mg NEB TIDRESP PRN PRN Reason: SHORTNESS OF BREATH Stop: 10/21/17 16:26 Last Admin: 09/21/17 22:29 Dose: 2.5 mg Aspirin (Aspirin Ec) 81 mg PO DAILY FIDEL Stop: 10/22/17 08:01 Last Admin: 10/01/17 08:18 Dose: 81 mg Atorvastatin Calcium (Lipitor) 10 mg PO BEDTIME FIDEL Stop: 10/21/17 21:01 Last Admin: 09/30/17 20:11 Dose: 10 mg Bisacodyl (Dulcolax) 10 mg VA DAILY PRN PRN Reason: CONSTIPATION Stop: 10/21/17 19:28 Last Admin: 10/01/17 05:30 Dose: 10 mg Clopidogrel Bisulfate (Plavix) 75 mg PO DAILY FIDEL Stop: 10/22/17 08:01 Last Admin: 10/01/17 08:18 Dose: 75 mg Dextrose (Dextrose 50% Syringe) 12.5 gm IV PRN PRN; Protocol PRN Reason: HYPOGLYCEMIA Stop: 10/21/17 16:18 Docusate Sodium (Colace Cap) 200 mg PO DAILY FIDEL Stop: 10/29/17 08:01 Last Admin: 10/01/17 08:17 Dose: 200 mg Enoxaparin Sodium (Lovenox 30 Mg Inj) 30 mg SQ DAILY 5 PM FIDEL Stop: 10/23/17 17:01 Last Admin: 09/30/17 16:31 Dose: 30 mg Epoetin Taqueria (Procrit) 10,000 unit IV EVERY HD FIDEL Stop: 10/24/17 08:46 Last Admin: 09/28/17 16:27 Dose: 10,000 unit Furosemide (Lasix) 80 mg PO BIDL [facility] Stop: 10/21/17 17:01 Last Admin: 10/01/17 08:18 Dose: 80 mg Gabapentin (Neurontin) 600 mg PO BID [facility] Stop: 10/28/17 10:01 Last Admin: 10/01/17 08:17 Dose: 600 mg Glucagon (Glucagen) 1 mg IM 1X PRN; Protocol PRN Reason: HYPOGLYCEMIA Stop: 10/21/17 16:18 Heparin Sodium (Porcine) (Heparin 1,000 Units/Ml) 2,000 unit IV EVERY HD FIDEL Stop: 10/26/17 11:01 Last Admin: 09/28/17 16:27 Dose: 2,000 unit Hydralazine HCl (Apresoline) 25 mg PO BID [facility] Stop: 10/21/17 20:01 Last Admin: 10/01/17 08:18 Dose: 25 mg Albumin Human (Albumin 25%) 50 mls @ 100 mls/hr IV EVERY HD [facility] Stop: 10/24/17 09:01 Insulin Human Regular (Novolin -R) 0 unit SQ ACHS [facility]; Protocol Stop: 10/21/17 16:31 Last Admin: 10/01/17 11:30 Dose: Not Given Lactulose (Cephulac) 20 gm PO BID [facility] Stop: 10/29/17 08:01 Last Admin: 10/01/17 08:16 Dose: 20 gm Mannitol (Mannitol 12.5 Gm/50 Ml Vial) 12.5 gm IV EVERY HD PRN PRN Reason: BP support at hemodialysis Stop: 10/24/17 08:40 Melatonin (Melatonin) 3 mg PO BEDTIME PRN PRN PRN Reason: INSOMNIA Stop: 10/23/17 01:10 Last Admin: 09/30/17 22:03 Dose: 3 mg Nifedipine (Procardia Xl) 30 mg PO DAILY [facility] Stop: 10/22/17 08:01 Last Admin: 10/01/17 08:00 Dose: Not Given Nutritional Formula (Promod Liquid Protein) 30 ml PO BID [facility] Stop: 10/23/17 20:01 Last Admin: 10/01/17 08:51 Dose: 30 ml Ondansetron HCl (Zofran) 4 mg PO Q6H PRN PRN Reason: NAUSEA / VOMITING Stop: 10/21/17 16:39 Phenyleph/Shark Oil/Min Oil/Petrol (Formulation R) 1 appl VA BID PRN PRN Reason: HEMORRHOIDS Stop: 10/31/17 13:08 Senna/Docusate Sodium (Senokot-S) 2 tab PO BEDTIME FIDEL Stop: 10/22/17 21:01 Last Admin: 09/30/17 20:11 Dose: 2 tab Sevelamer Carbonate (Renvela) 1,600 mg PO TIDWM FIDEL Stop: 10/31/17 17:01 Sodium Chloride (Normal Saline Flush) 10 ml IV BID FIDEL Stop: 10/27/17 20:01 Last Admin: 10/01/17 08:00 Dose: 10 ml Tramadol HCl (Ultram) 50 mg PO Q6H PRN PRN Reason: PAIN MILD Stop: 10/21/17 16:03 Last Admin: 10/01/17 08:19 Dose: 50 mg Vitamin B Complex/Vit C/Folic Acid (Nephro-Kayden) 1 tab PO DAILY FIDEL Stop: 10/22/17 08:01 Last Admin: 10/01/17 08:17 Dose: 1 tab Lab Results (last 24 hrs) 10/01/17 12:01: POC Glucose 192 H 10/01/17 06:57: POC Glucose 174 H 10/01/17 05:45: Sodium 134 L, Potassium 5.2 H, Chloride 97 L, Carbon Dioxide 26 , BUN 64 H, Creatinine 7.94 H* D, Estimated GFR 8 L, Glucose 176 H, Calcium 8.6 , Phosphorus 7.4 H, Magnesium 3.0 H D, Total Bilirubin 0.5, AST 13, ALT < 5 L, Alkaline Phosphatase 83, Serum Total Protein 6.0, Albumin 2.7 L, Globulin 3.3, Albumin/Globulin Ratio 0.8 L 10/01/17 05:45: WBC 11.1 H D, RBC 3.34 L, Hgb 9.1 L, Hct 28.5 L, MCV 85.4, MCH 27.2, MCHC 31.9 L, RDW 19.6 H, Plt Count 292, MPV 8.2, Neutrophils % 67.2, Lymphocytes % 13.4 L, Monocytes % 12.1, Eosinophils % 6.1 H, Basophils % 1.2, Absolute Neutrophils 7.5, Absolute Lymphocytes 1.5, Absolute Monocytes 1.3, Absolute Eosinophils 0.7 H, Absolute Basophils 0.1, ESR Westergren 82 H 09/30/17 22:42: Procalcitonin 1.29 H 09/30/17 20:10: POC Glucose 161 H 09/30/17 16:28: POC Glucose 222 H Microbiology Results 09/27/17 16:55 Blood - Blood Aerobic Blood Culture - Preliminary No growth in 24 hours. 09/27/17 16:55 Blood - Blood Anaerobic Blood Culture - Final 09/22/17 21:32 Clean Catch Urine [place] Count - Final <10,000 CFU/ML. 09/22/17 21:32 Clean Catch Urine - Final Assessment/ Plan: Nephrology. CPS stable without CP or SOB. No acute events overnight. Constipation improved but still persistent. +BM. Vitals, medications, blood work and imaging reviewed in the chart. General: In no apparent distress, Oriented x3, Cooperative HEENT: Atraumatic Neck: Supple Respiratory: Clear to auscultation bilaterally Cardiovascular: Regular rate/rhythm, No rubs Gastrointestinal: Soft and benign, Non-distended Musculoskeletal: No clubbing, No contractures Integumentary: No rashes, No cyanosis, Other (Left BKA.) Neurological: Normal speech Blood work reviewed in the chart. Hgb 9.6; Alb 3.3 Imagings Data: HEIGHT: 6 ft 1 in WEIGHT: 235 lb 0 oz DATE OF STUDY: 09/20/[address]: Familia Duval MD 2-DIMENSIONAL: YES M.MODE: YES DOPPLER: YES COLOR FLOW: YES TDS: NO PORTABLE: NO DEFINITY: NO BUBBLE STUDY: NO DIAGNOSIS: ARRYTHMIA CARDIAC HISTORY: CATHERIZATION: YES SURGERY: NO PROSTHETIC VALVE: NO PACEMAKER: NO MEASUREMENTS (cm) DIASTOLIC (NORMALS) SYSTOLIC (NORMALS) IVSd 1.2 (0.6-1.2) LA Diam 3.7 (1.9-4.0) LVEF 54% LVIDd 6.0 (3.5-5.7) LVIDs 4.3 (2.0-3.5) %FS 29% LVPWd 1.2 (0.6-1.2) Ao Diam 3.1 (2.0-3.7) 2 DIMENSIONAL ASSESSMENT: RIGHT ATRIUM: NORMAL LEFT ATRIUM: NORMAL SIZE RIGHT VENTRICLE: NORMAL LEFT VENTRICLE: DILATED TRICUSPID VALVE: NORMAL MITRAL VALVE: MITRAL ANNULAR CALCIFICATION PULMONIC VALVE: NORMAL AORTIC VALVE: NORMAL PERICARDIAL EFFUSION: NONE AORTIC ROOT: NORMAL LEFT VENTRICULAR WALL MOTION: NORMAL LEFT VENTRICULAR EJECTION FRACTION. DECREASED LEFT VENTRICULAR COMPLIANCE. DOPPLER/COLOR FLOW: MILD TRICUSPID REGURGITATION. COMMENTS: MILD TRICUSPID REGURGITATION. DECREASED LEFT VENTRICULAR COMPLIANCE. NORMAL LEFT VENTRICULAR EJECTION FRACTION. MILD LEFT VENTRICULAR DILIATION. MITRAL ANNULAR CALCIFICATION. Conclusions/Impression: A/ ESRD on HD. Hyperkalemia. HTN with CKD. Diastolic CHF, chronic. Anemia in CKD. PERCY/ Secondary HyperPTH. DM II with CKD. Left BKA. Constipation. P/ Continue current POC and Medications. HD TIW. Plan for HD today. Add Miralax. Increase Renvela. No NSAIDs. Titrate insulin as needed. Low sodium diet. AM labs. Daily weight. PT as tolerated.
--- NOTE | 2017-10-01 15:40 | FAST ---
ENCOUNTER DATE AND TIME: 10/01/2017 08:00 (CDT) NAME CARMEN ALTAMIRANO DATE OF : 1955 DATE OF ADMISSION: 09/21/2017 15:46 (CDT) PHONE: AGE: 62 N# [id number] GENDER: Male ENCOUNTER PHYSICIAN: Dr. Edgar Pereira M.D. ADMISSION DIAGNOSIS: - Amputation of Limb 05 - Unilateral Lower Limb Below the Knee (BK) (05.4) Left Below the Knee Amputation. EATING: Activity did not occur on this shift EATING - SCORE: 0-UNK GROOMING: Wash, rinse, and dry face GROOMING - STEP 1: Does the patient require assistance when grooming? No. GROOMING - SCORE: 7-IND BATHING: Abdomen Buttocks Chest Left arm Left upper leg Perineal area Right arm Right lower leg and foot Right upper leg BATHING - STEP 1: Does the patient require assistance when bathing? Yes. BATHING - STEP 2: Does the patient require the assistance of a helper? Yes. BATHING - STEP 3: How much assistance does the patient require from the helper? Only supervision, cuing, coaxing, instr uctions, encouragement BATHING - SCORE: 5-SUP DRESSING - UPPER BODY: T-shirt/pullover shirt (four steps) ARTICLES SCORE Total number of steps: 4 DRESSING - UPPER BODY - STEP 1: Does the patient require help when dressing above the waist? No. DRESSING - UPPER BODY - SCORE: 7-IND DRESSING - LOWER BODY: Elastic waist pants (three steps) Slip-on shoe - Right foot (one step) Sock - Right foot (one step) Underwear (three steps) ARTICLES SCORE Total number of steps: 8 DRESSING - LOWER BODY - STEP 1: Does the patient require help when dressing below the waist? Yes. DRESSING - LOWER BODY - STEP 2: Does the patient require the assistance of a helper? Yes. DRESSING - LOWER BODY - STEP 3: Does the helper touch the patient while dressing? Yes. DRESSING - LOWER BODY - STEP 4: How many of the total steps does the patient complete on his/her own? 6 DRESSING - LOWER BODY - SCORE: 4-MIN TOILETING: Activity did not occur on this shift TOILETING - SCORE: 0-UNK BLADDER MANAGEMENT: Activity did not occur on this shift BLADDER MANAGEMENT - SCORE: 7-IND BOWEL MANAGEMENT: Activity did not occur on this shift BOWEL MANAGEMENT - SCORE: 7-IND TRANSFERS: BED, CHAIR, WHEELCHAIR: Activity did not occur on this shift TRANSFERS: BED, CHAIR, WHEELCHAIR - SCORE: 0-UNK TRANSFERS: TOILET: Activity did not occur on this shift TRANSFERS: TOILET - SCORE: 0-UNK TRANSFERS: SHOWER: TRANSFERS: SHOWER - STEP 1: Does the patient require assistance with shower transfers? Yes. TRANSFERS: SHOWER - STEP 2: Does the patient require the assistance of a helper? Yes. TRANSFERS: SHOWER - STEP 3: How much assistance does the patient require from the helper? More than incidental help TRANSFERS: SHOWER - STEP 4: How much more help does the patient require from the helper? Lifting the patient up AND down from the wheelchair onto the shower chair TRANSFERS: SHOWER - SCORE: 2-MAX TRANSFERS: TUB: Activity did not occur on this shift TRANSFERS: TUB - SCORE: 0-UNK LOCOMOTION: WALK: Activity did not occur on this shift LOCOMOTION: WALK - SCORE: 0-UNK LOCOMOTION: WHEELCHAIR: Activity did not occur on this shift LOCOMOTION: WHEELCHAIR - SCORE: 0-UNK LOCOMOTION: STAIRS: Activity did not occur on this shift LOCOMOTION: STAIRS - SCORE: 0-UNK COMPREHENSION: COMPREHENSION - SCORE: 0-UNK EXPRESSION EXPRESSION - SCORE: 0-UNK SOCIAL INTERACTION: SOCIAL INTERACTION - SCORE: 0-UNK PROBLEM SOLVING: PROBLEM SOLVING - SCORE: 0-UNK MEMORY: MEMORY - SCORE: 0-UNK SIGNATURE PANEL: The following modified sections: Eating - Score, Grooming - Score, Bathing - Score, Dressing - Upper Body - Score, Dressing - Lower Body - Score, Toileting - Score, Transfers: Bed, Chair, Wheelchair - S core, Transfers: Toilet - Score, Transfers: Shower - Score, Transfers: Tub - Score, Comprehension - S core, Expression - Score, Social Interaction - Score, Problem Solving - Score, Memory - Score were [e lectronically] signed by CRISTINA Oh on SunOct 01 2017 14:40:12 GMT-0500 ([facility] Time)
--- NOTE | 2017-10-01 18:19 | FAST ---
ENCOUNTER DATE AND TIME: 10/01/2017 08:00 (CDT) NAME CARMEN ALTAMIRANO DATE OF : 1955 DATE OF ADMISSION: 09/21/2017 15:46 (CDT) PHONE: AGE: 62 N# [id number] GENDER: Male ENCOUNTER PHYSICIAN: Dr. Edgar Pereira M.D. ADMISSION DIAGNOSIS: - Amputation of Limb 05 - Unilateral Lower Limb Below the Knee (BK) (05.4) Left Below the Knee Amputation. EATING: Activity did not occur on this shift EATING - SCORE: 0-UNK GROOMING: Activity did not occur on this shift GROOMING - SCORE: 0-UNK BATHING: Activity did not occur on this shift BATHING - SCORE: 0-UNK DRESSING - UPPER BODY: Activity did not occur on this shift Patient is not dressing in public clothing ARTICLES SCORE Total number of steps: 0 DRESSING - UPPER BODY - SCORE: 0-UNK DRESSING - LOWER BODY: Activity did not occur on this shift Patient is not dressing in public clothing ARTICLES SCORE Total number of steps: 0 DRESSING - LOWER BODY - SCORE: 0-UNK TOILETING: Activity did not occur on this shift TOILETING - SCORE: 0-UNK BLADDER MANAGEMENT: Activity did not occur on this shift BLADDER MANAGEMENT - SCORE: 7-IND BOWEL MANAGEMENT: Activity did not occur on this shift BOWEL MANAGEMENT - SCORE: 7-IND TRANSFERS: BED, CHAIR, WHEELCHAIR: Activity did not occur on this shift TRANSFERS: BED, CHAIR, WHEELCHAIR - SCORE: 0-UNK TRANSFERS: TOILET: Activity did not occur on this shift TRANSFERS: TOILET - SCORE: 0-UNK TRANSFERS: SHOWER: Activity did not occur on this shift TRANSFERS: SHOWER - SCORE: 0-UNK TRANSFERS: TUB: Activity did not occur on this shift TRANSFERS: TUB - SCORE: 0-UNK LOCOMOTION: WALK: Activity did not occur on this shift LOCOMOTION: WALK - SCORE: 0-UNK LOCOMOTION: WHEELCHAIR: Activity did not occur on this shift LOCOMOTION: WHEELCHAIR - SCORE: 0-UNK LOCOMOTION: STAIRS: Activity did not occur on this shift LOCOMOTION: STAIRS - SCORE: 0-UNK COMPREHENSION: COMPREHENSION - STEP 1: Does the patient require help to understand complex and abstract ideas (such as current events, finan josé, discharge planning, medical issues, relationships, etc)? No. COMPREHENSION - STEP 2: Does the patient need extra time, require an assistive device (such as glasses, hearing aids, or an a ugmentative communication system), OR does s/he have mild difficulty expressing complex and abstract ideas (including mild dysarthria or mild word-finding problems)? Yes. COMPREHENSION - SCORE: 6-MARIPOSA EXPRESSION EXPRESSION - STEP 1: Does the patient require help expressing complex and abstract ideas (such as current events, finances , discharge planning, medical issues, relationships, etc)? Yes. EXPRESSION - STEP 2: Does the patient require help to express basic necessities or ideas (such as hunger, thirst, sleep, s afety, daily schedule, room location, or discomfort) half or more of the time? No. EXPRESSION - STEP 3: How often does the patient need help to express directions and conversation about basic needs? Less t garza 10% of the time EXPRESSION - SCORE: 5-SUP SOCIAL INTERACTION: SOCIAL INTERACTION - STEP 1: Does the patient require a helper to interact with others in social and therapeutic situations? No. SOCIAL INTERACTION - STEP 2: Does the patient need extra time in social situations, OR does s/he interact with staff, other patien ts, and family members ONLY in structured environments, OR does s/he require medication for social in teraction? No. SOCIAL INTERACTION - SCORE: 7-IND PROBLEM SOLVING: PROBLEM SOLVING - STEP 1: Does the patient need help to solve complex problems such as managing a checking account or confronti ng interpersonal problems? Yes. PROBLEM SOLVING - STEP 2: Does the patient solve basic routine problems half or more of the time? Yes. PROBLEM SOLVING - STEP 3: How often does the patient need help to solve basic routine problems? 10%-24% of the time PROBLEM SOLVING - SCORE: 4-MIN MEMORY: MEMORY - STEP 1: Does the patient need help to remember frequently encountered people, daily routines, and executing r equests? Yes. MEMORY - STEP 2: How often does the patient need help to remember frequently encountered people, daily routines, and e xecuting requests? 10% - 24% of the time MEMORY - SCORE: 4-MIN SIGNATURE PANEL: The following modified sections: Comprehension - Score, Expression - Score, Social Interaction - Scor e, Problem Solving - Score, Memory - Score were [electronically] signed by UNRULY Balderrama on Sun:19:37 GMT-0500 ([facility] Day[facility] Time)
--- NOTE | 2017-10-01 18:50 | R.PN ---
ENCOUNTER DATE AND TIME: 10/01/2017 17:40 (CDT) NAME CARMEN ALTAMIRANO DATE OF : 1955 DATE OF ADMISSION: 09/21/2017 15:46 (CDT) Left Below the Knee AmputationCHIEF COMPLAINT: Left below the knee amputation SUBJECTIVE: Pt denied any Shortness of Breath. Pt denied any depression. Self-propelled wheelchair 100' with bilateral upper and left lower extremity. Denies significant pain in left BKA stump. Ambulated 34' using a rolling walker with moderate assistance. Improved WBC of 11.1 with normal neutrophils. Procalcitonin improved from 2.34 to 1.29. Glucose 161- 193. Increased creatinine to 7.94 with hemodialysis scheduled for today. VITAL SIGNS Temperature: 98.6 F SBP/DBP: 178/76 Pulse: 85 Resp: 16 MEDICATION ALLERGIES: Levofloxacin ENVIRONMENTAL ALLERGIES: None Known - Substance Allergies None Known - Other Allergies None Known CONSULT: Perform Consult Certified Prosthetic for prosthesis construction NURSING: - Shower allowing shower - Lab Results blood Sugar Check ACHS - Skin care per protocol PRECAUTIONS: - Fall Precaution Bed and chair alarm ACTIVITIES OOB only with supervision THERAPIES: - Orthotics/Prosthetics Prosthetic Evaluation. - Occupational Therapy Evaluate and Treat. - Physical Therapy Evaluate and Treat. PHYSICAL EXAM - Gen Alert and awake Lying in bed No apparent distress Oriented to: person, time, and place - Skin Left BKA bandage in place with good hemostasis. Normacephalic - Eyes No abnormalities - ENMT No abnormalities - Neck No abnormalities - CVS RRR - Chest Clear - Abd +bowel sounds - GI Non distended Deferred - No abnormalities - Ext No significant edema - MSK 5-/5 weakness in right upper and 3+/5 weakness in right lower extremity. - Neuro No focal deficits - Psych No abnormalities ASSESSMENT: Pt. is a 62 yo Right-handed white male.His impairment category is Amputation of Limb 05 - Unilateral Lower Limb Below the Knee (BK) (05.4).Pre-morbidly, Pt. was independent/mod-I in Communication, Soci al Cognition, Self-Care, Locomotion, Sphincter Control, and Transfers Control; and he had good Sphinc ter Control.Currently, he has deficits of Balance, Self-Care, Locomotion, Endurance, Safety Awareness , and Transfers Control.Pt. is now referred to [facility] for acute in-patient rehabilitation in order to maximize patient's functional independence in activities of daily living, strength, ROM, and mobility.- Rehab Goal Patient has realistic goal of being discharged at assistance level 6-Johana to reside at Home with Fam ramy/Relatives. MDM/PLAN: - Diet Type Continue Regular - Physical Therapy Gait dysfunction - to improve, our physical therapists will perform initial evaluation of pt's statu s upon admission and devise an individualized program for Gait Training, and Wheel Chair mobility Inability to transfer - to improve, our physical therapists will perform initial evaluation of pt's status upon admission and devise an individualized program for Bed mobility Need for home safety evaluation - to improve, our physical therapists will perform initial evaluatio n of pt's status upon admission and devise an individualized program for Home Evaluation Need in caregiver upon discharge - to improve, our physical therapists will perform initial evaluati on of pt's status upon admission and devise an individualized program for Caregiver Training Edema - to improve, our physical therapists will perform initial evaluation of pt's status upon admi ssion and devise an individualized program for Elevation Training, and Lymphedema Therapy New precaution - to improve, our physical therapists will perform initial evaluation of pt's status upon admission and devise an individualized program for Patient precaution education Poor balance - to improve, our physical therapists will perform initial evaluation of pt's status up on admission and devise an individualized program for Balance Training Poor endurance - to improve, our physical therapists will perform initial evaluation of pt's status upon admission and devise an individualized program for Endurance Training Weakness - to improve, our physical therapists will perform initial evaluation of pt's status upon a dmission and devise an individualized program for Aquatic Therapy, Neuromuscular Reeducation, and Str engthening Achieving independence - to improve, our physical therapists will perform initial evaluation of pt's status upon admission and devise an individualized program for Community Reintegration Activities - Diet - Liquid Texture Continue Regular - Tube Feed Continue N/A - Lab Results blood Sugar Check ACHS - Weight Bearing Precaution NWB left LE - Fall Precaution Bed and chair alarm - Skin care per protocol - N/A Perform Consult Certified Prosthetic for prosthesis construction - Diet - Solid Texture Continue Regular - Shower allowing shower - Occupational Therapy ADL deficits - to improve, our occupation therapists will perform initial evaluation of pt's status upon admission and devise an individualized program for Bathing, Bed mobility, Community Reintegratio n, Cooking, Dressing, Eating, Fine Motor Skills, Grooming, Homemaking, Kitchen Mobility, Laundry, Pat ient Education, Safety Awareness, Splinting - Positioning, Transfers(Toilet, Tub, Shower), and Wheel Chair Management Need for child care assistant - to improve, our occupation therapists will perform initial evaluation of pt's status upon admission and devise an individualized program for Caregiver Training Weakness - to improve, our occupation therapists will perform initial evaluation of pt's status upon admission and devise an individualized program for Aquatic Therapy, Balance, Endurance, UE ROM, and UE strengthening FUNCTIONAL STATUS: UPDATED AT WEEKLY TEAM CONFERENCE - Bladder Same Bladder control device used: diaper Same assistance level: On dialysis Same accident frequency: 7-Ind - No accidents in the past 7 days - Bowel Same accident frequency: 7-Ind - No accidents in the past 7 days - Walking Same score based on distance walked: 0(N/A) - Wheelchair Same score based on distance traveled: 0(N/A) FUNCTIONAL STATUS: - Self-Care A. Eating sup B. Grooming sup C. Bathing Uriel D. Dressing - Upper Johana E. Dressing - Lower Uriel F. Toileting Uriel - Sphincter Control G: Bladder control Dep H: Bowel control Ind - Transfers Control I. Bed/Chair/Wheelchair Uriel J. Toilet Uriel K. Tub/Shower ADNO - Locomotion L. Walk/Wheelchair (C) Uriel L. Walk/Wheelchair (W) Uriel M. Stairs ADNO - Communication N. Comprehension (B) Ind O. Expression (B) Ind - Social Cognition P. Social Interaction Ind Q. Problem Solving Ind R. Memory Ind - Endurance Fair - Balance Fair - Safety Awareness Fair CURRENT FUNC. DEFICITS: Balance, Self-Care, Locomotion, Endurance, Safety Awareness, and Transfers Control SIGNATURE PANEL: (CDT)
[2017-10-01] MEDS: EPOETIN ALFA 10,000 UNIT/ML VIAL IV SCH (19:16)
[2017-10-01] MEDS: ATORVASTATIN 10 MG TAB PO SCH (20:31)
[2017-10-01] MEDS: ENOXAPARIN 30 MG/0.3 ML SQ SCH (20:32)
[2017-10-01] MEDS: DOCUSATE NA/SENNA CONC 1 TAB PO SCH (20:32)
[2017-10-02] MEDS: HYDROCODONE/APAP 7.5/325 MG TAB PO PRN (01:27)
--- NOTE | 2017-10-02 03:21 | FAST ---
SHIFT START DATE/TIME: 10/01/2017 19:00 (CDT) SHIFT END DATE/TIME: 10/02/2017 07:00 (CDT) NAME CARMEN ALTAMIRANO DATE OF : 1955 DATE OF ADMISSION: 09/21/2017 15:46 (CDT) PHONE: AGE: 62 [facility]# [id number] GENDER: Male ENCOUNTER PHYSICIAN: Dr. Edgar Pereira M.D. ADMISSION DIAGNOSIS: - Amputation of Limb 05 - Unilateral Lower Limb Below the Knee (BK) (05.4) Left Below the Knee Amputation. EATING: Activity did not occur on this shift EATING - SCORE: 0-UNK GROOMING: Wash, rinse, and dry hands GROOMING - STEP 1: Does the patient require assistance when grooming? Yes. GROOMING - STEP 2: Does the patient require the assistance of a helper? Yes. GROOMING - STEP 3: How much assistance does the patient require from the helper? Cuing, coaxing, instructions, or encour agement for completion of grooming GROOMING - SCORE: 5-SUP BATHING: Activity did not occur on this shift BATHING - SCORE: 0-UNK DRESSING - UPPER BODY: Patient is not dressing in public clothing ARTICLES SCORE Total number of steps: 0 DRESSING - UPPER BODY - SCORE: 0-UNK DRESSING - LOWER BODY: Patient is not dressing in public clothing ARTICLES SCORE Total number of steps: 0 DRESSING - LOWER BODY - SCORE: 0-UNK TOILETING: TOILETING - STEP 1: Does the patient require assistance with toileting? Yes. TOILETING - STEP 2: Does the patient require the assistance of a helper? Yes. TOILETING - STEP 3: How much assistance does the patient require from the helper? Hands-on assistance from the helper TOILETING - STEP 4: Of the 3 tasks: 1) Adjusting clothing prior to use, 2) Cleansing of perineal area, 3) Adjusting clot kathy after use; How many tasks does the patient perform WITHOUT assistance of the helper? Three tasks with steadying assistance from the helper TOILETING - SCORE: 4-MIN BLADDER MANAGEMENT: Patient is on renal dialysis or peritoneal dialysis and no voiding activity BLADDER MANAGEMENT - SCORE: 7-IND BOWEL MANAGEMENT: BOWEL MANAGEMENT - STEP 1: Does the patient control bowels completely and intentionally without equipment devices or medications AND is always continent? No. BOWEL MANAGEMENT - STEP 2: Does the patient require the assistance of a helper? Yes. BOWEL MANAGEMENT - STEP 3: How much assistance does the patient require from the helper? Hoskins provides less than 25% assistanc e to position patient on / off bedpan BOWEL MANAGEMENT - SCORE: 4-MIN TRANSFERS: BED, CHAIR, WHEELCHAIR: TRANSFERS: BED, CHAIR, WHEELCHAIR - STEP 1: Does the patient require assistance with bed, chair, or wheelchair transfers? Yes. TRANSFERS: BED, CHAIR, WHEELCHAIR - STEP 2: Does the patient require the assistance of a helper? Yes. TRANSFERS: BED, CHAIR, WHEELCHAIR - STEP 3: How much assistance does the patient require from the helper? Steadying/guiding assistance TRANSFERS: BED, CHAIR, WHEELCHAIR - SCORE: 4-MIN TRANSFERS: TOILET: TRANSFERS: TOILET - STEP 1: Does the patient require assistance with toilet transfers? Yes. TRANSFERS: TOILET - STEP 2: Does the patient require the assistance of a helper? Yes. TRANSFERS: TOILET - STEP 3: How much assistance does the patient require from the helper? Patient performs less than half of the transferring tasks TRANSFERS: TOILET - STEP 4: Does the patient require total assistance for the toilet transfer such as the helper doing basically all the lifting? No. TRANSFERS: TOILET - SCORE: 2-MAX TRANSFERS: SHOWER: Activity did not occur on this shift TRANSFERS: SHOWER - SCORE: 0-UNK TRANSFERS: TUB: Activity did not occur on this shift TRANSFERS: TUB - SCORE: 0-UNK LOCOMOTION: WALK: Activity did not occur on this shift LOCOMOTION: WALK - SCORE: 0-UNK LOCOMOTION: WHEELCHAIR: Activity did not occur on this shift LOCOMOTION: WHEELCHAIR - SCORE: 0-UNK COMPREHENSION: COMPREHENSION: TYPE: Both COMPREHENSION - STEP 1: Does the patient require help to understand complex and abstract ideas (such as current events, finan josé, discharge planning, medical issues, relationships, etc)? No. COMPREHENSION - STEP 2: Does the patient need extra time, require an assistive device (such as glasses, hearing aids, or an a ugmentative communication system), OR does s/he have mild difficulty expressing complex and abstract ideas (including mild dysarthria or mild word-finding problems)? Yes. COMPREHENSION - SCORE: 6-MARIPOSA EXPRESSION EXPRESSION - STEP 1: Does the patient require help expressing complex and abstract ideas (such as current events, finances , discharge planning, medical issues, relationships, etc)? No. EXPRESSION - STEP 2: Does the patient need extra time, require an assistive device (such as augmentive communication syste m or a communication board), OR does s/he have mild difficulty expressing complex and abstract ideas (including mild dysarthria or mild word-find problems)? No. EXPRESSION - SCORE: 7-IND SOCIAL INTERACTION: SOCIAL INTERACTION - STEP 1: Does the patient require a helper to interact with others in social and therapeutic situations? No. SOCIAL INTERACTION - STEP 2: Does the patient need extra time in social situations, OR does s/he interact with staff, other patien ts, and family members ONLY in structured environments, OR does s/he require medication for social in teraction? No. SOCIAL INTERACTION - SCORE: 7-IND PROBLEM SOLVING: PROBLEM SOLVING - STEP 1: Does the patient need help to solve complex problems such as managing a checking account or confronti ng interpersonal problems? No. PROBLEM SOLVING - STEP 2: Does the patient require extra time to make decisions or solve problems, OR does s/he have slight dif ficulty reading, initiating, or self-correcting in unfamiliar situations? Yes, patient needs extra ti me. PROBLEM SOLVING - SCORE: 6-MARIPOSA MEMORY: MEMORY - STEP 1: Does the patient need help to remember frequently encountered people, daily routines, and executing r equests? No. MEMORY - STEP 2: Does the patient have slight difficulty recognizing frequently encountered people, daily routines, or executing requests without the need for repetition or using self-initiated or environmental cues to remember? Yes. MEMORY - SCORE: 6-MARIPOSA
[2017-10-02] MEDS: INSULIN -REGULAR HUMAN 50 UNIT/0.5 ML ML SQ SCH ×4 (06:53→20:24)
[2017-10-02] MEDS: NIFEDIPINE XL 30 MG TABLET PO SCH ×2 (08:00→16:57)
[2017-10-02] MEDS: HYDRALAZINE HCL 25 MG TABLET PO SCH ×2 (08:00→20:14)
[2017-10-02] MEDS: DOCUSATE NA 100 MG CAP PO SCH (08:09)
[2017-10-02] MEDS: GABAPENTIN 300 MG CAP PO SCH ×2 (08:09→20:14)
[2017-10-02] MEDS: SEVELAMER CARBONATE 800 MG TABLET PO SCH ×3 (08:09→16:56)
[2017-10-02] MEDS: LACTULOSE 20 GM/30 ML UCUP PO SCH ×2 (08:09→20:15)
[2017-10-02] MEDS: ASPIRIN EC 81 MG TAB PO SCH (08:10)
[2017-10-02] MEDS: CLOPIDOGREL 75 MG TABLET PO SCH (08:10)
[2017-10-02] MEDS: MULTIVITAMINS,THERAPEUT 1 TAB PO SCH (08:10)
[2017-10-02] MEDS: TRAMADOL HCL 50 MG TAB PO PRN ×2 (08:10→16:57)
[2017-10-02] MEDS: PROMOD 30 ML DOSE PO SCH ×2 (08:13→20:15)
[2017-10-02] MEDS: FUROSEMIDE 40 MG TABLET PO SCH ×2 (09:00→16:57)
[2017-10-02] MEDS ORDERED: TAMSULOSIN 0.4 MG SR CAP PO SCH (12:50)
--- NOTE | 2017-10-02 16:23 | FAST ---
SHIFT START DATE/TIME: 10/01/2017 07:00 (CDT) SHIFT END DATE/TIME: 10/01/2017 19:00 (CDT) NAME CARMEN ALTAMIRANO DATE OF : 1955 DATE OF ADMISSION: 09/21/2017 15:46 (CDT) PHONE: AGE: 62 [facility]# [phone] GENDER: Male ENCOUNTER PHYSICIAN: Dr. Edgar Pereira M.D. ADMISSION DIAGNOSIS: - Amputation of Limb 05 - Unilateral Lower Limb Below the Knee (BK) (05.4) Left Below the Knee Amputation. EATING: EATING - STEP 1: Does the patient require assistance when eating? Yes. EATING - STEP 2: Does the patient require the assistance of a helper? No, patient only requires an assistive device, O R s/he takes more than reasonable time to eat, OR there is a safety concern, OR s/he requires modifie d food consistency EATING - SCORE: 6-MARIPOSA GROOMING: Comb/brush hair Wash, rinse, and dry face Wash, rinse, and dry hands GROOMING - STEP 1: Does the patient require assistance when grooming? Yes. GROOMING - STEP 2: Does the patient require the assistance of a helper? No. The patient only requires an assistive devic e, OR takes more than reasonable time to groom, OR there is a concern for safety as the patient groom s GROOMING - SCORE: 6-MARIPOSA BATHING: Activity did not occur on this shift BATHING - SCORE: 0-UNK DRESSING - UPPER BODY: T-shirt/pullover shirt (four steps) ARTICLES SCORE Total number of steps: 4 DRESSING - UPPER BODY - STEP 1: Does the patient require help when dressing above the waist? Yes. DRESSING - UPPER BODY - STEP 2: Does the patient require the assistance of a helper? No. Patient only requires an assistive device, s uch as a button hook, velcro, or metallurgical inspector. OR s/he takes more than reasonable time as s/he dresses the upper body. OR there is a concern for safety when s/he dresses the upper body DRESSING - UPPER BODY - SCORE: 6-MARIPOSA DRESSING - LOWER BODY: Elastic waist pants (three steps) Underwear (three steps) ARTICLES SCORE Total number of steps: 6 DRESSING - LOWER BODY - STEP 1: Does the patient require help when dressing below the waist? Yes. DRESSING - LOWER BODY - STEP 2: Does the patient require the assistance of a helper? Yes. DRESSING - LOWER BODY - STEP 3: Does the helper touch the patient while dressing? No. DRESSING - LOWER BODY - SCORE: 5-SUP TOILETING: TOILETING - STEP 1: Does the patient require assistance with toileting? Yes. TOILETING - STEP 2: Does the patient require the assistance of a helper? Yes. TOILETING - STEP 3: How much assistance does the patient require from the helper? Hands-on assistance from the helper TOILETING - STEP 4: Of the 3 tasks: 1) Adjusting clothing prior to use, 2) Cleansing of perineal area, 3) Adjusting clot kathy after use; How many tasks does the patient perform WITHOUT assistance of the helper? Three tasks with steadying assistance from the helper TOILETING - SCORE: 4-MIN BLADDER MANAGEMENT: Activity did not occur on this shift BLADDER MANAGEMENT - SCORE: 7-IND BLADDER MANAGEMENT - FREQUENCY OF ACCIDENTS: BLADDER MANAGEMENT(FA) - STEP 1: How many accidents has the patient had during the current shift? 0 BOWEL MANAGEMENT: Activity did not occur on this shift BOWEL MANAGEMENT - SCORE: 7-IND BOWEL MANAGEMENT - FREQUENCY OF ACCIDENTS: BOWEL MANAGEMENT(FA) - STEP 1: How many accidents has the patient had during the current shift? 0 TRANSFERS: BED, CHAIR, WHEELCHAIR: TRANSFERS: BED, CHAIR, WHEELCHAIR - STEP 1: Does the patient require assistance with bed, chair, or wheelchair transfers? Yes. TRANSFERS: BED, CHAIR, WHEELCHAIR - STEP 2: Does the patient require the assistance of a helper? Yes. TRANSFERS: BED, CHAIR, WHEELCHAIR - STEP 3: How much assistance does the patient require from the helper? Steadying/guiding assistance TRANSFERS: BED, CHAIR, WHEELCHAIR - SCORE: 4-MIN TRANSFERS: TOILET: TRANSFERS: TOILET - STEP 1: Does the patient require assistance with toilet transfers? Yes. TRANSFERS: TOILET - STEP 2: Does the patient require the assistance of a helper? Yes. TRANSFERS: TOILET - STEP 3: How much assistance does the patient require from the helper? Patient performs half or more of the tr ansferring tasks TRANSFERS: TOILET - STEP 4: Does the patient need only incidental help such as contact guard or steadying during toilet transfer? Yes. TRANSFERS: TOILET - SCORE: 4-MIN TRANSFERS: SHOWER: Activity did not occur on this shift TRANSFERS: SHOWER - SCORE: 0-UNK TRANSFERS: TUB: Activity did not occur on this shift TRANSFERS: TUB - SCORE: 0-UNK LOCOMOTION: WALK: Activity did not occur on this shift LOCOMOTION: WALK - SCORE: 0-UNK LOCOMOTION: WHEELCHAIR: LOCOMOTION: WHEELCHAIR - STEP 1: Does the patient need help to go 150 feet in a wheelchair? No. LOCOMOTION: WHEELCHAIR - SCORE: 6-MARIPOSA COMPREHENSION: COMPREHENSION: TYPE: Both COMPREHENSION - STEP 1: Does the patient require help to understand complex and abstract ideas (such as current events, finan josé, discharge planning, medical issues, relationships, etc)? No. COMPREHENSION - STEP 2: Does the patient need extra time, require an assistive device (such as glasses, hearing aids, or an a ugmentative communication system), OR does s/he have mild difficulty expressing complex and abstract ideas (including mild dysarthria or mild word-finding problems)? Yes. COMPREHENSION - SCORE: 6-MARIPOSA EXPRESSION EXPRESSION: TYPE: Both EXPRESSION - STEP 1: Does the patient require help expressing complex and abstract ideas (such as current events, finances , discharge planning, medical issues, relationships, etc)? No. EXPRESSION - STEP 2: Does the patient need extra time, require an assistive device (such as augmentive communication syste m or a communication board), OR does s/he have mild difficulty expressing complex and abstract ideas (including mild dysarthria or mild word-find problems)? Yes. EXPRESSION - SCORE: 6-MARIPOSA SOCIAL INTERACTION: SOCIAL INTERACTION - STEP 1: Does the patient require a helper to interact with others in social and therapeutic situations? No. SOCIAL INTERACTION - STEP 2: Does the patient need extra time in social situations, OR does s/he interact with staff, other patien ts, and family members ONLY in structured environments, OR does s/he require medication for social in teraction? Yes, patient needs extra time SOCIAL INTERACTION - SCORE: 6-MARIPOSA PROBLEM SOLVING: PROBLEM SOLVING - STEP 1: Does the patient need help to solve complex problems such as managing a checking account or confronti ng interpersonal problems? No. PROBLEM SOLVING - STEP 2: Does the patient require extra time to make decisions or solve problems, OR does s/he have slight dif ficulty reading, initiating, or self-correcting in unfamiliar situations? Yes, patient needs extra ti me. PROBLEM SOLVING - SCORE: 6-MARIPOSA MEMORY: MEMORY - STEP 1: Does the patient need help to remember frequently encountered people, daily routines, and executing r equests? No. MEMORY - STEP 2: Does the patient have slight difficulty recognizing frequently encountered people, daily routines, or executing requests without the need for repetition or using self-initiated or environmental cues to remember? No. MEMORY - SCORE: 7-IND SIGNATURE PANEL: The following modified sections: Eating - Score, Grooming - Score, Bathing - Score, Dressing - Upper Body - Score, Dressing - Lower Body - Score, Toileting - Score, Bladder Management - Score, Bowel Man agement - Score, Transfers: Bed, Chair, Wheelchair - Score, Transfers: Toilet - Score, Transfers: Adeline wer - Score, Transfers: Tub - Score, Locomotion: Walk - Score, Locomotion: Wheelchair - Score, Compre hension - Score, Expression - Score, Social Interaction - Score, Problem Solving - Score, Memory - Sc ore were [electronically] signed by Jomar IzquierdoNMagalis on SunOct 02 2017 15:22:56 GMT-0500 (Centra [place] Daylight Time)
--- NOTE | 2017-10-02 16:47 | FAST ---
ENCOUNTER DATE AND TIME: 10/02/2017 08:00 (CDT) NAME CARMEN ALTAMIRANO DATE OF : 1955 DATE OF ADMISSION: 09/21/2017 15:46 (CDT) PHONE: AGE: 62 N# [id number] GENDER: Male ENCOUNTER PHYSICIAN: Dr. Edgar Pereira M.D. ADMISSION DIAGNOSIS: - Amputation of Limb 05 - Unilateral Lower Limb Below the Knee (BK) (05.4) Left Below the Knee Amputation. EATING: Activity did not occur on this shift EATING - SCORE: 0-UNK GROOMING: Activity did not occur on this shift GROOMING - SCORE: 0-UNK BATHING: Activity did not occur on this shift BATHING - SCORE: 0-UNK DRESSING - UPPER BODY: Activity did not occur on this shift Patient is not dressing in public clothing ARTICLES SCORE Total number of steps: 0 DRESSING - UPPER BODY - SCORE: 0-UNK DRESSING - LOWER BODY: Activity did not occur on this shift Patient is not dressing in public clothing ARTICLES SCORE Total number of steps: 0 DRESSING - LOWER BODY - SCORE: 0-UNK TOILETING: Activity did not occur on this shift TOILETING - SCORE: 0-UNK BLADDER MANAGEMENT: Activity did not occur on this shift BLADDER MANAGEMENT - SCORE: 7-IND BOWEL MANAGEMENT: Activity did not occur on this shift BOWEL MANAGEMENT - SCORE: 7-IND TRANSFERS: BED, CHAIR, WHEELCHAIR: Activity did not occur on this shift TRANSFERS: BED, CHAIR, WHEELCHAIR - SCORE: 0-UNK TRANSFERS: TOILET: Activity did not occur on this shift TRANSFERS: TOILET - SCORE: 0-UNK TRANSFERS: SHOWER: Activity did not occur on this shift TRANSFERS: SHOWER - SCORE: 0-UNK TRANSFERS: TUB: Activity did not occur on this shift TRANSFERS: TUB - SCORE: 0-UNK LOCOMOTION: WALK: Activity did not occur on this shift LOCOMOTION: WALK - SCORE: 0-UNK LOCOMOTION: WHEELCHAIR: Activity did not occur on this shift LOCOMOTION: WHEELCHAIR - SCORE: 0-UNK LOCOMOTION: STAIRS: Activity did not occur on this shift LOCOMOTION: STAIRS - SCORE: 0-UNK COMPREHENSION: COMPREHENSION - STEP 1: Does the patient require help to understand complex and abstract ideas (such as current events, finan josé, discharge planning, medical issues, relationships, etc)? No. COMPREHENSION - STEP 2: Does the patient need extra time, require an assistive device (such as glasses, hearing aids, or an a ugmentative communication system), OR does s/he have mild difficulty expressing complex and abstract ideas (including mild dysarthria or mild word-finding problems)? Yes. COMPREHENSION - SCORE: 6-MARIPOSA EXPRESSION EXPRESSION - STEP 1: Does the patient require help expressing complex and abstract ideas (such as current events, finances , discharge planning, medical issues, relationships, etc)? No. EXPRESSION - STEP 2: Does the patient need extra time, require an assistive device (such as augmentive communication syste m or a communication board), OR does s/he have mild difficulty expressing complex and abstract ideas (including mild dysarthria or mild word-find problems)? Yes. EXPRESSION - SCORE: 6-MARIPOSA SOCIAL INTERACTION: SOCIAL INTERACTION - STEP 1: Does the patient require a helper to interact with others in social and therapeutic situations? No. SOCIAL INTERACTION - STEP 2: Does the patient need extra time in social situations, OR does s/he interact with staff, other patien ts, and family members ONLY in structured environments, OR does s/he require medication for social in teraction? No. SOCIAL INTERACTION - SCORE: 7-IND PROBLEM SOLVING: PROBLEM SOLVING - STEP 1: Does the patient need help to solve complex problems such as managing a checking account or confronti ng interpersonal problems? Yes. PROBLEM SOLVING - STEP 2: Does the patient solve basic routine problems half or more of the time? Yes. PROBLEM SOLVING - STEP 3: How often does the patient need help to solve basic routine problems? Less than 10% of the time PROBLEM SOLVING - SCORE: 5-SUP MEMORY: MEMORY - STEP 1: Does the patient need help to remember frequently encountered people, daily routines, and executing r equests? Yes. MEMORY - STEP 2: How often does the patient need help to remember frequently encountered people, daily routines, and e xecuting requests? Less than 10% of the time MEMORY - SCORE: 5-SUP SIGNATURE PANEL: The following modified sections: Comprehension - Score, Expression - Score, Social Interaction - Scor e, Problem Solving - Score, Memory - Score were [electronically] signed by UNRULY Balderrama on Sun 15:46:28 GMT-0500 (Central Daylight Time)
[2017-10-02] MEDS: ENOXAPARIN 30 MG/0.3 ML SQ SCH (16:58)
--- NOTE | 2017-10-02 19:12 | R.PN ---
ENCOUNTER DATE AND TIME: 10/02/2017 18:08 (CDT) NAME CARMEN ALTAMIRANO DATE OF : 1955 DATE OF ADMISSION: 09/21/2017 15:46 (CDT) Left Below the Knee AmputationCHIEF COMPLAINT: Left below the knee amputation SUBJECTIVE: Pt denied any Shortness of Breath. Pt denied any depression. Self-propelled wheelchair 100' with bilateral upper and left lower extremity. Denies significant pain in left BKA stump. Ambulated 34' using a rolling walker with moderate assistance. Improved WBC of 11.1 with normal neutrophils. Procalcitonin improved from 2.34 to 1.29. Glucose 147- 219. Increased creatinine to 7.94. He had hemodialysis yesterday. VITAL SIGNS Temperature: 98.6 F SBP/DBP: 191/85 Pulse: 69 Resp: 16 MEDICATION ALLERGIES: Levofloxacin ENVIRONMENTAL ALLERGIES: None Known - Substance Allergies None Known - Other Allergies None Known CONSULT: Perform Consult Certified Prosthetic for prosthesis construction NURSING: - Shower allowing shower - Lab Results blood Sugar Check ACHS - Skin care per protocol PRECAUTIONS: - Fall Precaution Bed and chair alarm ACTIVITIES OOB only with supervision THERAPIES: - Orthotics/Prosthetics Prosthetic Evaluation. - Occupational Therapy Evaluate and Treat. - Physical Therapy Evaluate and Treat. PHYSICAL EXAM - Gen Alert and awake Lying in bed No apparent distress Oriented to: person, time, and place - Skin Left BKA bandage in place with good hemostasis. Normacephalic - Eyes No abnormalities - ENMT No abnormalities - Neck No abnormalities - CVS RRR - Chest Clear - Abd +bowel sounds - GI Non distended Deferred - No abnormalities - Ext No significant edema - MSK 5-/5 weakness in right upper and 3+/5 weakness in right lower extremity. - Neuro No focal deficits - Psych No abnormalities ASSESSMENT: Pt. is a 62 yo Right-handed white male.His impairment category is Amputation of Limb 05 - Unilateral Lower Limb Below the Knee (BK) (05.4).Pre-morbidly, Pt. was independent/mod-I in Communication, Soci al Cognition, Self-Care, Locomotion, Sphincter Control, and Transfers Control; and he had good Sphinc ter Control.Currently, he has deficits of Balance, Self-Care, Locomotion, Endurance, Safety Awareness , and Transfers Control.Pt. is now referred to [facility] for acute in-patient rehabilitation in order to maximize patient's functional independence in activities of daily living, strength, ROM, and mobility.- Rehab Goal Patient has realistic goal of being discharged at assistance level 6-Johana to reside at Home with Fam ramy/Relatives. MDM/PLAN: - Diet Type Continue Regular - Physical Therapy Gait dysfunction - to improve, our physical therapists will perform initial evaluation of pt's statu s upon admission and devise an individualized program for Gait Training, and Wheel Chair mobility Inability to transfer - to improve, our physical therapists will perform initial evaluation of pt's status upon admission and devise an individualized program for Bed mobility Need for home safety evaluation - to improve, our physical therapists will perform initial evaluatio n of pt's status upon admission and devise an individualized program for Home Evaluation Need in caregiver upon discharge - to improve, our physical therapists will perform initial evaluati on of pt's status upon admission and devise an individualized program for Caregiver Training Edema - to improve, our physical therapists will perform initial evaluation of pt's status upon admi ssion and devise an individualized program for Elevation Training, and Lymphedema Therapy New precaution - to improve, our physical therapists will perform initial evaluation of pt's status upon admission and devise an individualized program for Patient precaution education Poor balance - to improve, our physical therapists will perform initial evaluation of pt's status up on admission and devise an individualized program for Balance Training Poor endurance - to improve, our physical therapists will perform initial evaluation of pt's status upon admission and devise an individualized program for Endurance Training Weakness - to improve, our physical therapists will perform initial evaluation of pt's status upon a dmission and devise an individualized program for Aquatic Therapy, Neuromuscular Reeducation, and Str engthening Achieving independence - to improve, our physical therapists will perform initial evaluation of pt's status upon admission and devise an individualized program for Community Reintegration Activities - Diet - Liquid Texture Continue Regular - Tube Feed Continue N/A - Lab Results blood Sugar Check ACHS - Weight Bearing Precaution NWB left LE - Fall Precaution Bed and chair alarm - Skin care per protocol - N/A Perform Consult Certified Prosthetic for prosthesis construction - Diet - Solid Texture Continue Regular - Shower allowing shower - Occupational Therapy ADL deficits - to improve, our occupation therapists will perform initial evaluation of pt's status upon admission and devise an individualized program for Bathing, Bed mobility, Community Reintegratio n, Cooking, Dressing, Eating, Fine Motor Skills, Grooming, Homemaking, Kitchen Mobility, Laundry, Pat ient Education, Safety Awareness, Splinting - Positioning, Transfers(Toilet, Tub, Shower), and Wheel Chair Management Need for hemodialysis patient care specialist - to improve, our occupation therapists will perform initial evaluation of pt's status upon admission and devise an individualized program for Caregiver Training Weakness - to improve, our occupation therapists will perform initial evaluation of pt's status upon admission and devise an individualized program for Aquatic Therapy, Balance, Endurance, UE ROM, and UE strengthening FUNCTIONAL STATUS: UPDATED AT WEEKLY TEAM CONFERENCE - Bladder Same Bladder control device used: diaper Same assistance level: On dialysis Same accident frequency: 7-Ind - No accidents in the past 7 days - Bowel Same accident frequency: 7-Ind - No accidents in the past 7 days - Walking Same score based on distance walked: 0(N/A) - Wheelchair Same score based on distance traveled: 0(N/A) FUNCTIONAL STATUS: - Self-Care A. Eating sup B. Grooming sup C. Bathing Uriel D. Dressing - Upper Johana E. Dressing - Lower Uriel F. Toileting Uriel - Sphincter Control G: Bladder control Dep H: Bowel control Ind - Transfers Control I. Bed/Chair/Wheelchair Uriel J. Toilet Uriel K. Tub/Shower ADNO - Locomotion L. Walk/Wheelchair (C) Uriel L. Walk/Wheelchair (W) Uriel M. Stairs ADNO - Communication N. Comprehension (B) Ind O. Expression (B) Ind - Social Cognition P. Social Interaction Ind Q. Problem Solving Ind R. Memory Ind - Endurance Fair - Balance Fair - Safety Awareness Fair CURRENT FUNC. DEFICITS: Balance, Self-Care, Locomotion, Endurance, Safety Awareness, and Transfers Control SIGNATURE PANEL: (CDT)
[2017-10-02] MEDS: DOCUSATE NA/SENNA CONC 1 TAB PO SCH (20:14)
[2017-10-02] MEDS: TAMSULOSIN 0.4 MG SR CAP PO SCH (20:14)
[2017-10-02] MEDS: ATORVASTATIN 10 MG TAB PO SCH (20:14)
--- NOTE | 2017-10-02 20:58 | P.PN ---
Date of Service: 10/02/17 Vital Signs Temp Pulse Resp BP Pulse Ox 98.6 F 81 16 172/77 H 98 10/02/17 20:03 10/02/17 20:03 10/02/17 20:03 10/02/17 20:03 10/02/17 20:03 Medications Hydrocodone Bitart/Acetaminophen ([place] 7.5/325 Mg) 1 tab PO Q6H PRN PRN Reason: PAIN Stop: 10/21/17 23:50 Last Admin: 10/02/17 01:27 Dose: 1 tab Albuterol Sulfate (Proventil 0.083% Neb Soln) 2.5 mg NEB TIDRESP PRN PRN Reason: SHORTNESS OF BREATH Stop: 10/21/17 16:26 Last Admin: 09/21/17 22:29 Dose: 2.5 mg Aspirin (Aspirin Ec) 81 mg PO DAILY FIDEL Stop: 10/22/17 08:01 Last Admin: 10/02/17 08:10 Dose: 81 mg Atorvastatin Calcium (Lipitor) 10 mg PO BEDTIME FIDEL Stop: 10/21/17 21:01 Last Admin: 10/02/17 20:14 Dose: 10 mg Bisacodyl (Dulcolax) 10 mg ID DAILY PRN PRN Reason: CONSTIPATION Stop: 10/21/17 19:28 Last Admin: 10/01/17 05:30 Dose: 10 mg Clopidogrel Bisulfate (Plavix) 75 mg PO DAILY FIDEL Stop: 10/22/17 08:01 Last Admin: 10/02/17 08:10 Dose: 75 mg Dextrose (Dextrose 50% Syringe) 12.5 gm IV PRN PRN; Protocol PRN Reason: HYPOGLYCEMIA Stop: 10/21/17 16:18 Docusate Sodium (Colace Cap) 200 mg PO DAILY FIDEL Stop: 10/29/17 08:01 Last Admin: 10/02/17 08:09 Dose: 200 mg Enoxaparin Sodium (Lovenox 30 Mg Inj) 30 mg SQ DAILY 5 PM FIDEL Stop: 10/23/17 17:01 Last Admin: 10/02/17 16:58 Dose: 30 mg E[employer]etin [employer]qu[employer] (Procrit) 10,000 unit IV EVERY HD FIDEL Stop: 10/24/17 08:46 Last Admin: 10/01/17 19:16 Dose: 10,000 unit Furosemide (Lasix) 80 mg PO BIDL [facility] Stop: 10/21/17 17:01 Last Admin: 10/02/17 16:57 Dose: 80 mg Gabapentin (Neurontin) 600 mg PO BID [facility] Stop: 10/28/17 10:01 Last Admin: 10/02/17 20:14 Dose: 600 mg Glucagon (Glucagen) 1 mg IM 1X PRN; Protocol PRN Reason: HYPOGLYCEMIA Stop: 10/21/17 16:18 Heparin Sodium (Porcine) (Heparin 1,000 Units/Ml) 2,000 unit IV EVERY HD FIDEL Stop: 10/26/17 11:01 Last Admin: 09/28/17 16:27 Dose: 2,000 unit Hydralazine HCl (Apresoline) 25 mg PO BID [facility] Stop: 10/21/17 20:01 Last Admin: 10/02/17 20:14 Dose: 25 mg Albumin Human (Albumin 25%) 50 mls @ 100 mls/hr IV EVERY HD [facility] Stop: 10/24/17 09:01 Insulin Human Regular (Novolin -R) 0 unit SQ ACHS [facility]; Protocol Stop: 10/21/17 16:31 Last Admin: 10/02/17 20:24 Dose: Not Given Lactulose (Cephulac) 20 gm PO BID [facility] Stop: 10/29/17 08:01 Last Admin: 10/02/17 20:15 Dose: 20 gm Mannitol (Mannitol 12.5 Gm/50 Ml Vial) 12.5 gm IV EVERY HD PRN PRN Reason: BP support at hemodialysis Stop: 10/24/17 08:40 Melatonin (Melatonin) 3 mg PO BEDTIME PRN PRN PRN Reason: INSOMNIA Stop: 10/23/17 01:10 Last Admin: 09/30/17 22:03 Dose: 3 mg Nifedipine (Procardia Xl) 30 mg PO DAILY [facility] Stop: 10/22/17 08:01 Last Admin: 10/02/17 16:57 Dose: 30 mg Nutritional Formula (Promod Liquid Protein) 30 ml PO BID [facility] Stop: 10/23/17 20:01 Last Admin: 10/02/17 20:15 Dose: 30 ml Ondansetron HCl (Zofran) 4 mg PO Q6H PRN PRN Reason: NAUSEA / VOMITING Stop: 10/21/17 16:39 Phenyleph/Shark Oil/Min Oil/Petrol (Formulation R) 1 appl ID BID PRN PRN Reason: HEMORRHOIDS Stop: 10/31/17 13:08 Polyethylene Glycol (Glycolax) 17 gm PO DAILY PRN PRN Reason: CONSTIPATION Stop: 10/31/17 14:31 Senna/Docusate Sodium (Senokot-S) 2 tab PO BEDTIME FIDEL Stop: 10/22/17 21:01 Last Admin: 10/02/17 20:14 Dose: 2 tab Sevelamer Carbonate (Renvela) 1,600 mg PO TIDWM FIDEL Stop: 10/31/17 17:01 Last Admin: 10/02/17 16:56 Dose: 1,600 mg Tamsulosin HCl (Flomax) 0.4 mg PO BID FIDEL Stop: 11/01/17 20:01 Last Admin: 10/02/17 20:14 Dose: 0.4 mg Tramadol HCl (Ultram) 50 mg PO Q6H PRN PRN Reason: PAIN MILD Stop: 10/21/17 16:03 Last Admin: 10/02/17 16:57 Dose: 50 mg Vitamin B Complex/Vit C/Folic Acid (Nephro-Kayden) 1 tab PO DAILY FIDEL Stop: 10/22/17 08:01 Last Admin: 10/02/17 08:10 Dose: 1 tab Lab Results (last 24 hrs) 10/02/17 20:21: POC Glucose 175 H 10/02/17 16:46: POC Glucose 125 H 10/02/17 11:54: POC Glucose 219 H 10/02/17 06:50: POC Glucose 147 H Microbiology Results 09/27/17 16:55 Blood - Blood Aerobic Blood Culture - Final No growth in 5 days. 09/27/17 16:55 Blood - Blood Anaerobic Blood Culture - Final 09/22/17 21:32 Clean Catch Urine [place] Count - Final <10,000 CFU/ML. 09/22/17 21:32 Clean Catch Urine - Final Assessment/ Plan: Nephrology. CPS stable without CP or SOB. Persistent left stump pain since fall. Persistent constipation. +BM. Episode of urinary retention. Vitals, medications, blood work and imaging reviewed in the chart. General: In no apparent distress, Oriented x3, Cooperative HEENT: Atraumatic Neck: Supple Respiratory: Clear to auscultation bilaterally Cardiovascular: Regular rate/rhythm, No rubs Gastrointestinal: Soft and benign, Non-distended Musculoskeletal: No clubbing, No contractures Integumentary: No rashes, No cyanosis, Other (Left BKA.) Neurological: Normal speech Blood work reviewed in the chart. Hgb 9.6; Alb 3.3 Imagings Data: HEIGHT: 6 ft 1 in WEIGHT: 235 lb 0 oz DATE OF STUDY: 09/20/[address]: Familia Duval MD 2-DIMENSIONAL: YES M.MODE: YES DOPPLER: YES COLOR FLOW: YES TDS: NO PORTABLE: NO DEFINITY: NO BUBBLE STUDY: NO DIAGNOSIS: ARRYTHMIA CARDIAC HISTORY: CATHERIZATION: YES SURGERY: NO PROSTHETIC VALVE: NO PACEMAKER: NO MEASUREMENTS (cm) DIASTOLIC (NORMALS) SYSTOLIC (NORMALS) IVSd 1.2 (0.6-1.2) LA Diam 3.7 (1.9-4.0) LVEF 54% LVIDd 6.0 (3.5-5.7) LVIDs 4.3 (2.0-3.5) %FS 29% LVPWd 1.2 (0.6-1.2) Ao Diam 3.1 (2.0-3.7) 2 DIMENSIONAL ASSESSMENT: RIGHT ATRIUM: NORMAL LEFT ATRIUM: NORMAL SIZE RIGHT VENTRICLE: NORMAL LEFT VENTRICLE: DILATED TRICUSPID VALVE: NORMAL MITRAL VALVE: MITRAL ANNULAR CALCIFICATION PULMONIC VALVE: NORMAL AORTIC VALVE: NORMAL PERICARDIAL EFFUSION: NONE AORTIC ROOT: NORMAL LEFT VENTRICULAR WALL MOTION: NORMAL LEFT VENTRICULAR EJECTION FRACTION. DECREASED LEFT VENTRICULAR COMPLIANCE. DOPPLER/COLOR FLOW: MILD TRICUSPID REGURGITATION. COMMENTS: MILD TRICUSPID REGURGITATION. DECREASED LEFT VENTRICULAR COMPLIANCE. NORMAL LEFT VENTRICULAR EJECTION FRACTION. MILD LEFT VENTRICULAR DILIATION. MITRAL ANNULAR CALCIFICATION. Conclusions/Impression: A/ ESRD on HD. Hyperkalemia. HTN with CKD. Diastolic CHF, chronic. Anemia in CKD. PERCY/ Secondary HyperPTH. 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 Constipation. Urinary retention likely due to BPH & opiates. P/ Continue current POC and Medications. HD TIW. Plan for HD tomorrow. Start Flomax BID; Bladder US as needed. Wean opiate therapy as tolerated. No NSAIDs. Titrate insulin as needed. Low sodium diet. AM labs. Daily weight. PT as tolerated.
[2017-10-02] MEDS: MELATONIN 3 MG TABLET PO PRN (22:11)
--- NOTE | 2017-10-03 05:11 | FAST ---
SHIFT START DATE/TIME: 10/02/2017 19:00 (CDT) SHIFT END DATE/TIME: 10/03/2017 07:00 (CDT) NAME CARMEN ALTAMIRANO DATE OF : 1955 DATE OF ADMISSION: 09/21/2017 15:46 (CDT) PHONE: AGE: 62 [facility]# [id number] GENDER: Male ENCOUNTER PHYSICIAN: Dr. Edgar Pereira M.D. ADMISSION DIAGNOSIS: - Amputation of Limb 05 - Unilateral Lower Limb Below the Knee (BK) (05.4) Left Below the Knee Amputation. EATING: EATING - STEP 1: Does the patient require assistance when eating? Yes. EATING - STEP 2: Does the patient require the assistance of a helper? Yes. EATING - STEP 3: Does the patient perform half or more of the eating tasks? Yes. EATING - STEP 4: Does the patient need only supervision, cuing, coaxing OR help to apply an orthosis OR help to cut fo od, open containers, pour liquids, or butter bread? Yes. EATING - SCORE: 5-SUP GROOMING: Activity did not occur on this shift GROOMING - SCORE: 0-UNK BATHING: Activity did not occur on this shift BATHING - SCORE: 0-UNK DRESSING - UPPER BODY: Patient is not dressing in public clothing ARTICLES SCORE Total number of steps: 0 DRESSING - UPPER BODY - SCORE: 0-UNK DRESSING - LOWER BODY: Patient is not dressing in public clothing ARTICLES SCORE Total number of steps: 0 DRESSING - LOWER BODY - SCORE: 0-UNK TOILETING: TOILETING - STEP 1: Does the patient require assistance with toileting? Yes. TOILETING - STEP 2: Does the patient require the assistance of a helper? Yes. TOILETING - STEP 3: How much assistance does the patient require from the helper? Hands-on assistance from the helper TOILETING - STEP 4: Of the 3 tasks: 1) Adjusting clothing prior to use, 2) Cleansing of perineal area, 3) Adjusting clot kathy after use; How many tasks does the patient perform WITHOUT assistance of the helper? Two tasks TOILETING - SCORE: 3-MOD BLADDER MANAGEMENT: Activity did not occur on this shift BLADDER MANAGEMENT - SCORE: 7-IND BOWEL MANAGEMENT: BOWEL MANAGEMENT - STEP 1: Does the patient control bowels completely and intentionally without equipment devices or medications AND is always continent? No. BOWEL MANAGEMENT - STEP 2: Does the patient require the assistance of a helper? Yes. BOWEL MANAGEMENT - STEP 3: How much assistance does the patient require from the helper? [place] provides less than 25% assistanc e to position patient on / off bedpan BOWEL MANAGEMENT - SCORE: 4-MIN BOWEL MANAGEMENT - FREQUENCY OF ACCIDENTS: BOWEL MANAGEMENT(FA) - STEP 1: How many accidents has the patient had during the current shift? 0 TRANSFERS: BED, CHAIR, WHEELCHAIR: TRANSFERS: BED, CHAIR, WHEELCHAIR - STEP 1: Does the patient require assistance with bed, chair, or wheelchair transfers? Yes. TRANSFERS: BED, CHAIR, WHEELCHAIR - STEP 2: Does the patient require the assistance of a helper? Yes. TRANSFERS: BED, CHAIR, WHEELCHAIR - STEP 3: How much assistance does the patient require from the helper? Steadying/guiding assistance TRANSFERS: BED, CHAIR, WHEELCHAIR - SCORE: 4-MIN TRANSFERS: TOILET: TRANSFERS: TOILET - STEP 1: Does the patient require assistance with toilet transfers? Yes. TRANSFERS: TOILET - STEP 2: Does the patient require the assistance of a helper? Yes. TRANSFERS: TOILET - STEP 3: How much assistance does the patient require from the helper? Patient performs half or more of the tr ansferring tasks TRANSFERS: TOILET - STEP 4: Does the patient need only incidental help such as contact guard or steadying during toilet transfer? Yes. TRANSFERS: TOILET - SCORE: 4-MIN TRANSFERS: SHOWER: Activity did not occur on this shift TRANSFERS: SHOWER - SCORE: 0-UNK TRANSFERS: TUB: Activity did not occur on this shift TRANSFERS: TUB - SCORE: 0-UNK LOCOMOTION: WALK: Activity did not occur on this shift LOCOMOTION: WALK - SCORE: 0-UNK LOCOMOTION: WHEELCHAIR: Activity did not occur on this shift LOCOMOTION: WHEELCHAIR - SCORE: 0-UNK COMPREHENSION: COMPREHENSION: TYPE: Both COMPREHENSION - STEP 1: Does the patient require help to understand complex and abstract ideas (such as current events, finan josé, discharge planning, medical issues, relationships, etc)? No. COMPREHENSION - STEP 2: Does the patient need extra time, require an assistive device (such as glasses, hearing aids, or an a ugmentative communication system), OR does s/he have mild difficulty expressing complex and abstract ideas (including mild dysarthria or mild word-finding problems)? Yes. COMPREHENSION - SCORE: 6-MARIPOSA EXPRESSION EXPRESSION - STEP 1: Does the patient require help expressing complex and abstract ideas (such as current events, finances , discharge planning, medical issues, relationships, etc)? No. EXPRESSION - STEP 2: Does the patient need extra time, require an assistive device (such as augmentive communication syste m or a communication board), OR does s/he have mild difficulty expressing complex and abstract ideas (including mild dysarthria or mild word-find problems)? Yes. EXPRESSION - SCORE: 6-MARIPOSA SOCIAL INTERACTION: SOCIAL INTERACTION - STEP 1: Does the patient require a helper to interact with others in social and therapeutic situations? No. SOCIAL INTERACTION - STEP 2: Does the patient need extra time in social situations, OR does s/he interact with staff, other patien ts, and family members ONLY in structured environments, OR does s/he require medication for social in teraction? No. SOCIAL INTERACTION - SCORE: 7-IND PROBLEM SOLVING: PROBLEM SOLVING - STEP 1: Does the patient need help to solve complex problems such as managing a checking account or confronti ng interpersonal problems? No. PROBLEM SOLVING - STEP 2: Does the patient require extra time to make decisions or solve problems, OR does s/he have slight dif ficulty reading, initiating, or self-correcting in unfamiliar situations? Yes, patient needs extra ti me. PROBLEM SOLVING - SCORE: 6-[place]A MEMORY: MEMORY - STEP 1: Does the patient need help to remember frequently encountered people, daily routines, and executing r equests? No. MEMORY - STEP 2: Does the patient have slight difficulty recognizing frequently encountered people, daily routines, or executing requests without the need for repetition or using self-initiated or environmental cues to remember? Yes. MEMORY - SCORE: 6-MARIPOSA SIGNATURE PANEL: The following modified sections: Eating - Score, Grooming - Score, Bathing - Score, Dressing - Upper Body - Score, Dressing - Lower Body - Score, Toileting - Score, Bladder Management - Score, Bowel Man agement - Score, Transfers: Bed, Chair, Wheelchair - Score, Transfers: Toilet - Score, Transfers: Adeline wer - Score, Transfers: Tub - Score, Locomotion: Walk - Score, Locomotion: Wheelchair - Score, Compre hension - Score, Expression - Score, Social Interaction - Score, Problem Solving - Score, Memory - Sc ore were [electronically] signed by Cristal Renae C.N.A. on SunOct 03 2017 04:10:58 T-0500 ( Central Daylight Time)
[2017-10-03 06:31] LABS: Absolute Lymphocytes (CBC) 1.7 K/uL (0.7-4.9); Absolute Monocytes 1.3 K/uL (0.1-1.3); Absolute Neutrophil 5.8 K/uL (1.8-8.0); Basophils % 1.2 % (0-1.3); Eosinophils % 8.8 % (0-4.4); Hematocrit 29.7 % (39.6-49.0); Lymphocytes % 17.6 % (15.3-44.8); MCH 28.5 pg (27.0-35.0); MCV 85.4 fL (80-100); MPV 7.1 fL (7.6-11.3); Monocytes % 12.9 % (3.3-12.3); RBC Red Blood Cell Count 3.48 M/uL (4.33-5.43)
[2017-10-03] MEDS: HYDROCODONE/APAP 7.5/325 MG TAB PO PRN ×2 (06:31→15:55)
[2017-10-03 06:52] LABS: Albumin 2.7 g/dL (3.2-5.5); Phosphorus 7.1 mg/dL (2.5-4.3); Prealbumin 21.3 mg/dl (18-38)
[2017-10-03] MEDS: INSULIN -REGULAR HUMAN 50 UNIT/0.5 ML ML SQ SCH ×4 (07:13→20:52)
[2017-10-03] MEDS: LACTULOSE 20 GM/30 ML UCUP PO SCH ×4 (07:57→20:53)
[2017-10-03] MEDS: NIFEDIPINE XL 30 MG TABLET PO SCH (07:58)
[2017-10-03] MEDS: SEVELAMER CARBONATE 800 MG TABLET PO SCH ×3 (07:58→16:46)
[2017-10-03] MEDS: DOCUSATE NA 100 MG CAP PO SCH (07:59)
[2017-10-03] MEDS: TAMSULOSIN 0.4 MG SR CAP PO SCH ×2 (07:59→20:51)
[2017-10-03] MEDS: ASPIRIN EC 81 MG TAB PO SCH (07:59)
[2017-10-03] MEDS: MULTIVITAMINS,THERAPEUT 1 TAB PO SCH (07:59)
[2017-10-03] MEDS: GABAPENTIN 300 MG CAP PO SCH ×2 (07:59→20:52)
[2017-10-03] MEDS: HYDRALAZINE HCL 25 MG TABLET PO SCH ×2 (08:00→20:52)
[2017-10-03] MEDS: CLOPIDOGREL 75 MG TABLET PO SCH (08:00)
[2017-10-03] MEDS: FUROSEMIDE 40 MG TABLET PO SCH ×2 (08:00→16:45)
[2017-10-03] MEDS: PROMOD 30 ML DOSE PO SCH ×2 (08:01→20:51)
[2017-10-03] MEDS: TRAMADOL HCL 50 MG TAB PO PRN ×2 (12:35→20:54)
--- NOTE | 2017-10-03 14:44 | FAST ---
ENCOUNTER DATE AND TIME: 10/03/2017 08:00 (CDT) NAME CARMEN ALTAMIRANO DATE OF : 1955 DATE OF ADMISSION: 09/21/2017 15:46 (CDT) PHONE: AGE: 62 N# [id number] GENDER: Male ENCOUNTER PHYSICIAN: Dr. Edgar Pereira M.D. ADMISSION DIAGNOSIS: - Amputation of Limb 05 - Unilateral Lower Limb Below the Knee (BK) (05.4) Left Below the Knee Amputation. EATING: Activity did not occur on this shift EATING - SCORE: 0-UNK GROOMING: Wash, rinse, and dry face Wash, rinse, and dry hands GROOMING - STEP 1: Does the patient require assistance when grooming? No. GROOMING - SCORE: 7-IND BATHING: Abdomen Buttocks Chest Left arm Left upper leg Perineal area Right arm Right lower leg and foot Right upper leg BATHING - STEP 1: Does the patient require assistance when bathing? Yes. BATHING - STEP 2: Does the patient require the assistance of a helper? Yes. BATHING - STEP 3: How much assistance does the patient require from the helper? Only supervision, cuing, coaxing, instr uctions, encouragement BATHING - SCORE: 5-SUP DRESSING - UPPER BODY: T-shirt/pullover shirt (four steps) ARTICLES SCORE Total number of steps: 4 DRESSING - UPPER BODY - STEP 1: Does the patient require help when dressing above the waist? Yes. DRESSING - UPPER BODY - STEP 2: Does the patient require the assistance of a helper? Yes. DRESSING - UPPER BODY - STEP 3: Does the helper touch the patient while dressing? No. DRESSING - UPPER BODY - SCORE: 5-SUP DRESSING - LOWER BODY: Elastic waist pants (three steps) Slip-on shoe - Right foot (one step) Sock - Right foot (one step) Underwear (three steps) ARTICLES SCORE Total number of steps: 8 DRESSING - LOWER BODY - STEP 1: Does the patient require help when dressing below the waist? Yes. DRESSING - LOWER BODY - STEP 2: Does the patient require the assistance of a helper? Yes. DRESSING - LOWER BODY - STEP 3: Does the helper touch the patient while dressing? No. DRESSING - LOWER BODY - SCORE: 5-SUP TOILETING: Activity did not occur on this shift TOILETING - SCORE: 0-UNK BLADDER MANAGEMENT: Activity did not occur on this shift BLADDER MANAGEMENT - SCORE: 7-IND BOWEL MANAGEMENT: Activity did not occur on this shift BOWEL MANAGEMENT - SCORE: 7-IND TRANSFERS: BED, CHAIR, WHEELCHAIR: Activity did not occur on this shift TRANSFERS: BED, CHAIR, WHEELCHAIR - SCORE: 0-UNK TRANSFERS: TOILET: Activity did not occur on this shift TRANSFERS: TOILET - SCORE: 0-UNK TRANSFERS: SHOWER: Activity did not occur on this shift TRANSFERS: SHOWER - SCORE: 0-UNK TRANSFERS: TUB: TRANSFERS: TUB - STEP 1: Does the patient require assistance with tub transfers? Yes. TRANSFERS: TUB - STEP 2: Does the patient require the assistance of a helper? Yes. TRANSFERS: TUB - STEP 3: How much assistance does the patient require from the helper? Incidental help such as contact guardin g or steadying, OR help to lift one leg into the tub TRANSFERS: TUB - SCORE: 4-MIN LOCOMOTION: WALK: Activity did not occur on this shift LOCOMOTION: WALK - SCORE: 0-UNK LOCOMOTION: WHEELCHAIR: Activity did not occur on this shift LOCOMOTION: WHEELCHAIR - SCORE: 0-UNK LOCOMOTION: STAIRS: Activity did not occur on this shift LOCOMOTION: STAIRS - SCORE: 0-UNK COMPREHENSION: COMPREHENSION - SCORE: 0-UNK EXPRESSION EXPRESSION - SCORE: 0-UNK SOCIAL INTERACTION: SOCIAL INTERACTION - SCORE: 0-UNK PROBLEM SOLVING: PROBLEM SOLVING - SCORE: 0-UNK MEMORY: MEMORY - SCORE: 0-UNK SIGNATURE PANEL: The following modified sections: Eating - Score, Grooming - Score, Bathing - Score, Dressing - Upper Body - Score, Dressing - Lower Body - Score, Toileting - Score, Transfers: Bed, Chair, Wheelchair - S core, Transfers: Toilet - Score, Transfers: Shower - Score, Transfers: Tub - Score, Comprehension - S core, Expression - Score, Social Interaction - Score, Problem Solving - Score, Memory - Score were [e lectronically] signed by CRISTINA Oh on SunOct 03 2017 13:44:24 GMT-0500 ([facility] Time)
--- NOTE | 2017-10-03 15:29 | FAST ---
SHIFT START DATE/TIME: 10/03/2017 07:00 (CDT) SHIFT END DATE/TIME: 10/03/2017 19:00 (CDT) NAME CARMEN ALTAMIRANO DATE OF : 1955 DATE OF ADMISSION: 09/21/2017 15:46 (CDT) PHONE: AGE: 62 [facility]# [id number] GENDER: Male ENCOUNTER PHYSICIAN: Dr. Edgar Pereira M.D. ADMISSION DIAGNOSIS: - Amputation of Limb 05 - Unilateral Lower Limb Below the Knee (BK) (05.4) Left Below the Knee Amputation. EATING: EATING - STEP 1: Does the patient require assistance when eating? Yes. EATING - STEP 2: Does the patient require the assistance of a helper? Yes. EATING - STEP 3: Does the patient perform half or more of the eating tasks? Yes. EATING - STEP 4: Does the patient need only supervision, cuing, coaxing OR help to apply an orthosis OR help to cut fo od, open containers, pour liquids, or butter bread? Yes. EATING - SCORE: 5-SUP GROOMING: Patient shaved Wash, rinse, and dry face Wash, rinse, and dry hands GROOMING - STEP 1: Does the patient require assistance when grooming? Yes. GROOMING - STEP 2: Does the patient require the assistance of a helper? Yes. GROOMING - STEP 3: How much assistance does the patient require from the helper? Cuing, coaxing, instructions, or encour agement for completion of grooming GROOMING - SCORE: 5-SUP BATHING: Activity did not occur on this shift BATHING - SCORE: 0-UNK DRESSING - UPPER BODY: Activity did not occur on this shift ARTICLES SCORE Total number of steps: 0 DRESSING - UPPER BODY - SCORE: 0-UNK DRESSING - LOWER BODY: Activity did not occur on this shift ARTICLES SCORE Total number of steps: 0 DRESSING - LOWER BODY - SCORE: 0-UNK TOILETING: TOILETING - STEP 1: Does the patient require assistance with toileting? Yes. TOILETING - STEP 2: Does the patient require the assistance of a helper? Yes. TOILETING - STEP 3: How much assistance does the patient require from the helper? Hands-on assistance from the helper TOILETING - STEP 4: Of the 3 tasks: 1) Adjusting clothing prior to use, 2) Cleansing of perineal area, 3) Adjusting clot kathy after use; How many tasks does the patient perform WITHOUT assistance of the helper? Two tasks TOILETING - SCORE: 3-MOD BLADDER MANAGEMENT: BLADDER MANAGEMENT - STEP 1: Does the patient control the bladder completely and intentionally without equipment or devices or med ications, and is always continent? No. BLADDER MANAGEMENT - STEP 2: Does the patient require the assistance of a helper? No, patient requires and independently uses an a ssistive device, such as a urinal, bedpan, bedside commode, catheter, absorbent pad, or collecting de vice BLADDER MANAGEMENT - SCORE: 6-MARIPOSA BOWEL MANAGEMENT: BOWEL MANAGEMENT - STEP 1: Does the patient control bowels completely and intentionally without equipment devices or medications AND is always continent? No. BOWEL MANAGEMENT - STEP 2: Does the patient require the assistance of a helper? No, patient requires medication for control such as stool softeners, suppositories, laxatives, enemas, or OTC medications BOWEL MANAGEMENT - SCORE: 6-MARIPOSA TRANSFERS: BED, CHAIR, WHEELCHAIR: TRANSFERS: BED, CHAIR, WHEELCHAIR - STEP 1: Does the patient require assistance with bed, chair, or wheelchair transfers? Yes. TRANSFERS: BED, CHAIR, WHEELCHAIR - STEP 2: Does the patient require the assistance of a helper? Yes. TRANSFERS: BED, CHAIR, WHEELCHAIR - STEP 3: How much assistance does the patient require from the helper? Steadying/guiding assistance TRANSFERS: BED, CHAIR, WHEELCHAIR - SCORE: 4-MIN TRANSFERS: TOILET: TRANSFERS: TOILET - STEP 1: Does the patient require assistance with toilet transfers? Yes. TRANSFERS: TOILET - STEP 2: Does the patient require the assistance of a helper? Yes. TRANSFERS: TOILET - STEP 3: How much assistance does the patient require from the helper? Only supervision, cuing, coaxing, OR he lp to set out transfer equipment or to lock brakes and/or lift foot rests TRANSFERS: TOILET - SCORE: 5-SUP TRANSFERS: SHOWER: Activity did not occur on this shift TRANSFERS: SHOWER - SCORE: 0-UNK TRANSFERS: TUB: Activity did not occur on this shift TRANSFERS: TUB - SCORE: 0-UNK LOCOMOTION: WALK: Activity did not occur on this shift LOCOMOTION: WALK - SCORE: 0-UNK LOCOMOTION: WHEELCHAIR: Activity did not occur on this shift LOCOMOTION: WHEELCHAIR - SCORE: 0-UNK COMPREHENSION: COMPREHENSION - SCORE: 0-UNK EXPRESSION EXPRESSION - SCORE: 0-UNK SOCIAL INTERACTION: SOCIAL INTERACTION - SCORE: 0-UNK PROBLEM SOLVING: PROBLEM SOLVING - SCORE: 0-UNK MEMORY: MEMORY - SCORE: 0-UNK SIGNATURE PANEL: The following modified sections: Eating - Score, Grooming - Score, Bathing - Score, Dressing - Upper Body - Score, Dressing - Lower Body - Score, Toileting - Score, Bladder Management - Score, Bowel Man agement - Score, Transfers: Bed, Chair, Wheelchair - Score, Transfers: Toilet - Score, Transfers: Adeline wer - Score, Transfers: Tub - Score, Locomotion: Walk - Score, Locomotion: Wheelchair - Score, Compre hension - Score, Expression - Score, Social Interaction - Score, Problem Solving - Score, Memory - Sc ore were [electronically] signed by Tavo Jamil on SunOct 03 2017 14:28:55 GMT-0500 ([facility] Daylight Time)
--- NOTE | 2017-10-03 15:42 | FAST ---
ENCOUNTER DATE AND TIME: 10/01/2017 08:00 (CDT) NAME CARMEN ALTAMIRANO DATE OF : 1955 DATE OF ADMISSION: 09/21/2017 15:46 (CDT) PHONE: AGE: 62 N# [id number] GENDER: Male ENCOUNTER PHYSICIAN: Dr. Edgar Pereira M.D. ADMISSION DIAGNOSIS: - Amputation of Limb 05 - Unilateral Lower Limb Below the Knee (BK) (05.4) Left Below the Knee Amputation. EATING: Activity did not occur on this shift EATING - SCORE: 0-UNK GROOMING: Activity did not occur on this shift GROOMING - SCORE: 0-UNK BATHING: Activity did not occur on this shift BATHING - SCORE: 0-UNK DRESSING - UPPER BODY: Activity did not occur on this shift Patient is not dressing in public clothing ARTICLES SCORE Total number of steps: 0 DRESSING - UPPER BODY - SCORE: 0-UNK DRESSING - LOWER BODY: Activity did not occur on this shift Patient is not dressing in public clothing ARTICLES SCORE Total number of steps: 0 DRESSING - LOWER BODY - SCORE: 0-UNK TOILETING: Activity did not occur on this shift TOILETING - SCORE: 0-UNK BLADDER MANAGEMENT: Activity did not occur on this shift BLADDER MANAGEMENT - SCORE: 7-IND BOWEL MANAGEMENT: Activity did not occur on this shift BOWEL MANAGEMENT - SCORE: 7-IND TRANSFERS: BED, CHAIR, WHEELCHAIR: TRANSFERS: BED, CHAIR, WHEELCHAIR - STEP 1: Does the patient require assistance with bed, chair, or wheelchair transfers? Yes. TRANSFERS: BED, CHAIR, WHEELCHAIR - STEP 2: Does the patient require the assistance of a helper? Yes. TRANSFERS: BED, CHAIR, WHEELCHAIR - STEP 3: How much assistance does the patient require from the helper? Steadying/guiding assistance TRANSFERS: BED, CHAIR, WHEELCHAIR - SCORE: 4-MIN TRANSFERS: TOILET: Activity did not occur on this shift TRANSFERS: TOILET - SCORE: 0-UNK TRANSFERS: SHOWER: Activity did not occur on this shift TRANSFERS: SHOWER - SCORE: 0-UNK TRANSFERS: TUB: Activity did not occur on this shift TRANSFERS: TUB - SCORE: 0-UNK LOCOMOTION: WALK: Patient walks less than 50 feet LOCOMOTION: WALK - SCORE: 1-DEP LOCOMOTION: WHEELCHAIR: LOCOMOTION: WHEELCHAIR - STEP 1: Does the patient need help to go 150 feet in a wheelchair? Yes. LOCOMOTION: WHEELCHAIR - STEP 2: How much assistance does the patient need from the helper? Only supervision, cuing, or coaxing LOCOMOTION: WHEELCHAIR - SCORE: 5-SUP LOCOMOTION: STAIRS: Activity did not occur on this shift LOCOMOTION: STAIRS - SCORE: 0-UNK COMPREHENSION: COMPREHENSION - SCORE: 0-UNK EXPRESSION EXPRESSION - SCORE: 0-UNK SOCIAL INTERACTION: SOCIAL INTERACTION - SCORE: 0-UNK PROBLEM SOLVING: PROBLEM SOLVING - SCORE: 0-UNK MEMORY: MEMORY - SCORE: 0-UNK SIGNATURE PANEL: The following modified sections: Transfers: Bed, Chair, Wheelchair - Score, Transfers: Toilet - Score , Locomotion: Walk - Score, Locomotion: Wheelchair - Score, Locomotion: Stairs - Score were [monica meyer] signed by Ran Marshall PTA on SunOct 03 2017 14:42:33 GMT-0500 ([facility] Day[facility] Time)
--- NOTE | 2017-10-03 15:43 | FAST ---
ENCOUNTER DATE AND TIME: 10/02/2017 08:00 (CDT) NAME CARMEN ALTAMIRANO DATE OF : 1955 DATE OF ADMISSION: 09/21/2017 15:46 (CDT) PHONE: AGE: 62 N# [id number] GENDER: Male ENCOUNTER PHYSICIAN: Dr. Edgar Pereira M.D. ADMISSION DIAGNOSIS: - Amputation of Limb 05 - Unilateral Lower Limb Below the Knee (BK) (05.4) Left Below the Knee Amputation. EATING: Activity did not occur on this shift EATING - SCORE: 0-UNK GROOMING: Activity did not occur on this shift GROOMING - SCORE: 0-UNK BATHING: Activity did not occur on this shift BATHING - SCORE: 0-UNK DRESSING - UPPER BODY: Activity did not occur on this shift Patient is not dressing in public clothing ARTICLES SCORE Total number of steps: 0 DRESSING - UPPER BODY - SCORE: 0-UNK DRESSING - LOWER BODY: Activity did not occur on this shift Patient is not dressing in public clothing ARTICLES SCORE Total number of steps: 0 DRESSING - LOWER BODY - SCORE: 0-UNK TOILETING: Activity did not occur on this shift TOILETING - SCORE: 0-UNK BLADDER MANAGEMENT: Activity did not occur on this shift BLADDER MANAGEMENT - SCORE: 7-IND BOWEL MANAGEMENT: Activity did not occur on this shift BOWEL MANAGEMENT - SCORE: 7-IND TRANSFERS: BED, CHAIR, WHEELCHAIR: TRANSFERS: BED, CHAIR, WHEELCHAIR - STEP 1: Does the patient require assistance with bed, chair, or wheelchair transfers? Yes. TRANSFERS: BED, CHAIR, WHEELCHAIR - STEP 2: Does the patient require the assistance of a helper? Yes. TRANSFERS: BED, CHAIR, WHEELCHAIR - STEP 3: How much assistance does the patient require from the helper? Steadying/guiding assistance TRANSFERS: BED, CHAIR, WHEELCHAIR - SCORE: 4-MIN TRANSFERS: TOILET: Activity did not occur on this shift TRANSFERS: TOILET - SCORE: 0-UNK TRANSFERS: SHOWER: Activity did not occur on this shift TRANSFERS: SHOWER - SCORE: 0-UNK TRANSFERS: TUB: Activity did not occur on this shift TRANSFERS: TUB - SCORE: 0-UNK LOCOMOTION: WALK: Activity did not occur on this shift LOCOMOTION: WALK - SCORE: 0-UNK LOCOMOTION: WHEELCHAIR: LOCOMOTION: WHEELCHAIR - STEP 1: Does the patient need help to go 150 feet in a wheelchair? Yes. LOCOMOTION: WHEELCHAIR - STEP 2: How much assistance does the patient need from the helper? Only supervision, cuing, or coaxing LOCOMOTION: WHEELCHAIR - SCORE: 5-SUP LOCOMOTION: STAIRS: Activity did not occur on this shift LOCOMOTION: STAIRS - SCORE: 0-UNK COMPREHENSION: COMPREHENSION - SCORE: 0-UNK EXPRESSION EXPRESSION - SCORE: 0-UNK SOCIAL INTERACTION: SOCIAL INTERACTION - SCORE: 0-UNK PROBLEM SOLVING: PROBLEM SOLVING - SCORE: 0-UNK MEMORY: MEMORY - SCORE: 0-UNK SIGNATURE PANEL: The following modified sections: Transfers: Bed, Chair, Wheelchair - Score, Transfers: Toilet - Score , Locomotion: Walk - Score, Locomotion: Wheelchair - Score, Locomotion: Stairs - Score were [monica meyer] signed by Ran Marshall PTA on SunOct 03 2017 14:43:36 GMT-0500 ([place] Daylight Time)
--- NOTE | 2017-10-03 16:09 | FAST ---
ENCOUNTER DATE AND TIME: 10/03/2017 08:00 (CDT) NAME CARMEN ALTAMIRANO DATE OF : 1955 DATE OF ADMISSION: 09/21/2017 15:46 (CDT) PHONE: AGE: 62 N# [id number] GENDER: Male ENCOUNTER PHYSICIAN: Dr. Edgar Pereira M.D. ADMISSION DIAGNOSIS: - Amputation of Limb 05 - Unilateral Lower Limb Below the Knee (BK) (05.4) Left Below the Knee Amputation. EATING: Activity did not occur on this shift EATING - SCORE: 0-UNK GROOMING: Activity did not occur on this shift GROOMING - SCORE: 0-UNK BATHING: Activity did not occur on this shift BATHING - SCORE: 0-UNK DRESSING - UPPER BODY: Activity did not occur on this shift Patient is not dressing in public clothing ARTICLES SCORE Total number of steps: 0 DRESSING - UPPER BODY - SCORE: 0-UNK DRESSING - LOWER BODY: Activity did not occur on this shift Patient is not dressing in public clothing ARTICLES SCORE Total number of steps: 0 DRESSING - LOWER BODY - SCORE: 0-UNK TOILETING: Activity did not occur on this shift TOILETING - SCORE: 0-UNK BLADDER MANAGEMENT: Activity did not occur on this shift BLADDER MANAGEMENT - SCORE: 7-IND BOWEL MANAGEMENT: Activity did not occur on this shift BOWEL MANAGEMENT - SCORE: 7-IND TRANSFERS: BED, CHAIR, WHEELCHAIR: TRANSFERS: BED, CHAIR, WHEELCHAIR - STEP 1: Does the patient require assistance with bed, chair, or wheelchair transfers? Yes. TRANSFERS: BED, CHAIR, WHEELCHAIR - STEP 2: Does the patient require the assistance of a helper? Yes. TRANSFERS: BED, CHAIR, WHEELCHAIR - STEP 3: How much assistance does the patient require from the helper? Steadying/guiding assistance TRANSFERS: BED, CHAIR, WHEELCHAIR - SCORE: 4-MIN TRANSFERS: TOILET: Activity did not occur on this shift TRANSFERS: TOILET - SCORE: 0-UNK TRANSFERS: SHOWER: Activity did not occur on this shift TRANSFERS: SHOWER - SCORE: 0-UNK TRANSFERS: TUB: Activity did not occur on this shift TRANSFERS: TUB - SCORE: 0-UNK LOCOMOTION: WALK: Activity did not occur on this shift LOCOMOTION: WALK - SCORE: 0-UNK LOCOMOTION: WHEELCHAIR: LOCOMOTION: WHEELCHAIR - STEP 1: Does the patient need help to go 150 feet in a wheelchair? No. LOCOMOTION: WHEELCHAIR - SCORE: 6-MARIPOSA LOCOMOTION: STAIRS: Activity did not occur on this shift LOCOMOTION: STAIRS - SCORE: 0-UNK COMPREHENSION: COMPREHENSION - SCORE: 0-UNK EXPRESSION EXPRESSION - SCORE: 0-UNK SOCIAL INTERACTION: SOCIAL INTERACTION - SCORE: 0-UNK PROBLEM SOLVING: PROBLEM SOLVING - SCORE: 0-UNK MEMORY: MEMORY - SCORE: 0-UNK SIGNATURE PANEL: The following modified sections: Transfers: Bed, Chair, Wheelchair - Score, Transfers: Toilet - Score , Locomotion: Walk - Score, Locomotion: Wheelchair - Score, Locomotion: Stairs - Score were [electron ically] signed by Ran Marshall PTA on SunOct 03 2017 15:09:14 GMT-0500 ([place] Daylight Time)
[2017-10-03] MEDS: ENOXAPARIN 30 MG/0.3 ML SQ SCH (16:25)
--- NOTE | 2017-10-03 16:53 | P.PN ---
Date of Service: 10/03/17 Vital Signs Temp Pulse Resp BP Pulse Ox 97.6 F 68 18 158/79 H 99 10/03/17 07:14 10/03/17 16:45 10/03/17 07:14 10/03/17 16:45 10/03/17 07:14 Medications Hydrocodone Bitart/Acetaminophen ([place] 7.5/325 Mg) 1 tab PO Q6H PRN PRN Reason: PAIN Stop: 10/21/17 23:50 Last Admin: 10/03/17 15:55 Dose: 1 tab Albuterol Sulfate (Proventil 0.083% Neb Soln) 2.5 mg NEB TIDRESP PRN PRN Reason: SHORTNESS OF BREATH Stop: 10/21/17 16:26 Last Admin: 09/21/17 22:29 Dose: 2.5 mg Aspirin (Aspirin Ec) 81 mg PO DAILY [facility]IDEL Stop: 10/22/17 08:01 Last Admin: 10/03/17 07:59 Dose: 81 mg Atorvastatin Calcium (Lipitor) 10 mg PO BEDTIME FIDEL Stop: 10/21/17 21:01 Last Admin: 10/02/17 20:14 Dose: 10 mg Bisacodyl (Dulcolax) 10 mg TX DAILY PRN PRN Reason: CONSTIPATION Stop: 10/21/17 19:28 Last Admin: 10/01/17 05:30 Dose: 10 mg Clopidogrel Bisulfate (Plavix) 75 mg PO DAILY FIDEL Stop: 10/22/17 08:01 Last Admin: 10/03/17 08:00 Dose: 75 mg Dextrose (Dextrose 50% Syringe) 12.5 gm IV PRN PRN; Protocol PRN Reason: HYPOGLYCEMIA Stop: 10/21/17 16:18 Docusate Sodium (Colace Cap) 200 mg PO DAILY FIDEL Stop: 10/29/17 08:01 Last Admin: 10/03/17 07:59 Dose: 200 mg Enoxaparin Sodium (Lovenox 30 Mg Inj) 30 mg SQ DAILY 5 PM [facility] Stop: 10/23/17 17:01 Last Admin: 10/03/17 16:25 Dose: 30 mg Epoetin [place]queria (Procrit) 10,000 unit IV EVERY HD [facility]IDEL Stop: 10/24/17 08:46 Last Admin: 10/01/17 19:16 Dose: 10,000 unit Furosemide (Lasix) 80 mg PO BIDL [facility] Stop: 10/21/17 17:01 Last Admin: 10/03/17 16:45 Dose: Not Given Gabapentin (Neurontin) 600 mg PO BID [facility] Stop: 10/28/17 10:01 Last Admin: 10/03/17 07:59 Dose: 600 mg Glucagon (Glucagen) 1 mg IM 1X PRN; Protocol PRN Reason: HYPOGLYCEMIA Stop: 10/21/17 16:18 Heparin Sodium (Porcine) (Heparin 1,000 Units/Ml) 2,000 unit IV EVERY HD [facility]IDEL Stop: 10/26/17 11:01 Last Admin: 09/28/17 16:27 Dose: 2,000 unit Hydralazine HCl (Apresoline) 25 mg PO BID [facility] Stop: 10/21/17 20:01 Last Admin: 10/03/17 08:00 Dose: Not Given Albumin Human (Albumin 25%) 50 mls @ 100 mls/hr IV EVERY HD [facility] Stop: 10/24/17 09:01 Insulin Human Regular (Novolin -R) 0 unit SQ ACHS [facility]; Protocol Stop: 10/21/17 16:31 Last Admin: 10/03/17 16:30 Dose: Not Given Lactulose (Cephulac) 20 gm PO TID [facility] Stop: 11/02/17 14:01 Last Admin: 10/03/17 13:58 Dose: Not Given Mannitol (Mannitol 12.5 Gm/50 Ml Vial) 12.5 gm IV EVERY HD PRN PRN Reason: BP support at hemodialysis Stop: 10/24/17 08:40 Melatonin (Melatonin) 3 mg PO BEDTIME PRN PRN PRN Reason: INSOMNIA Stop: 10/23/17 01:10 Last Admin: 10/02/17 22:11 Dose: 3 mg Nifedipine (Procardia Xl) 30 mg PO DAILY [facility] Stop: 10/22/17 08:01 Last Admin: 10/03/17 07:58 Dose: 30 mg Nutritional Formula (Promod Liquid Protein) 30 ml PO BID [facility] Stop: 10/23/17 20:01 Last Admin: 10/03/17 08:01 Dose: 30 ml Ondansetron HCl (Zofran) 4 mg PO Q6H PRN PRN Reason: NAUSEA / VOMITING Stop: 10/21/17 16:39 Phenyleph/Shark Oil/Min Oil/Petrol (Formulation R) 1 appl TX BID PRN PRN Reason: HEMORRHOIDS Stop: 10/31/17 13:08 Polyethylene Glycol (Glycolax) 17 gm PO DAILY PRN PRN Reason: CONSTIPATION Stop: 10/31/17 14:31 Senna/Docusate Sodium (Senokot-S) 2 tab PO BEDTIME FIDEL Stop: 10/22/17 21:01 Last Admin: 10/02/17 20:14 Dose: 2 tab Sevelamer Carbonate (Renvela) 1,600 mg PO TIDWM [facility] Stop: 10/31/17 17:01 Last Admin: 10/03/17 16:46 Dose: Not Given Tamsulosin HCl (Flomax) 0.4 mg PO BID [facility] Stop: 11/01/17 20:01 Last Admin: 10/03/17 07:59 Dose: 0.4 mg Tramadol HCl (Ultram) 50 mg PO Q6H PRN PRN Reason: PAIN MILD Stop: 10/21/17 16:03 Last Admin: 10/03/17 12:35 Dose: 50 mg Vitamin B Complex/Vit C/Folic Acid (Nephro-Kayden) 1 tab PO DAILY FIDEL Stop: 10/22/17 08:01 Last Admin: 10/03/17 07:59 Dose: 1 tab Lab Results (last 24 hrs) 10/03/17 11:33: POC Glucose 214 H 10/03/17 05:50: Sodium 139, Potassium 5.0, Chloride 103, Carbon Dioxide 26, BUN 61 H, Creatinine 7.91 H*, Estimated GFR 8 L, Glucose 152 H, Calcium 8.9, Phosphorus 7.1 H, Magnesium 3.0 H, Albumin 2.7 L, Prealbumin 21.3 10/03/17 05:50: WBC 9.7, RBC 3.48 L, Hgb 9.9 L, Hct 29.7 L, MCV 85.4, MCH 28.5, MCHC 33.4, RDW 19.9 H, Plt Count 241, MPV 7.1 L D, Neutrophils % 59.5, Lymphocytes % 17.6, Monocytes % 12.9 H, Eosinophils % 8.8 H, Basophils % 1.2, Absolute Neutrophils 5.8, Absolute Lymphocytes 1.7, Absolute Monocytes 1.3, Absolute Eosinophils 0.9 H, Absolute Basophils 0.1 10/03/17 05:00: Phosphorus Cancelled 10/02/17 20:21: POC Glucose 175 H Microbiology Results 09/27/17 16:55 Blood - Blood Aerobic Blood Culture - Final No growth in 5 days. 09/27/17 16:55 Blood - Blood Anaerobic Blood Culture - Final 09/22/17 21:32 Clean Catch Urine [place] Count - Final <10,000 CFU/ML. 09/22/17 21:32 Clean Catch Urine - Final Assessment/ Plan: Nephrology. CPS stable without CP or SOB. Persistent left stump pain since fall. Persistent constipation. Eating well. Episode of urinary retention. Vitals, medications, blood work and imaging reviewed in the chart. General: In no apparent distress, Oriented x3, Cooperative HEENT: Atraumatic Neck: Supple Respiratory: Clear to auscultation bilaterally Cardiovascular: Regular rate/rhythm, No rubs Gastrointestinal: Soft and benign, Non-distended Musculoskeletal: No clubbing, No contractures Integumentary: No rashes, No cyanosis, Other (Left BKA.) Neurological: Normal speech Blood work reviewed in the chart. Hgb 9.6; Alb 3.3 Imagings Data: HEIGHT: 6 ft 1 in WEIGHT: 235 lb 0 oz DATE OF STUDY: 09/20/[address]: Familia Duval MD 2-DIMENSIONAL: YES M.MODE: YES DOPPLER: YES COLOR FLOW: YES TDS: NO PORTABLE: NO DEFINITY: NO BUBBLE STUDY: NO DIAGNOSIS: ARRYTHMIA CARDIAC HISTORY: CATHERIZATION: YES SURGERY: NO PROSTHETIC VALVE: NO PACEMAKER: NO MEASUREMENTS (cm) DIASTOLIC (NORMALS) SYSTOLIC (NORMALS) IVSd 1.2 (0.6-1.2) LA Diam 3.7 (1.9-4.0) LVEF 54% LVIDd 6.0 (3.5-5.7) LVIDs 4.3 (2.0-3.5) %FS 29% LVPWd 1.2 (0.6-1.2) Ao Diam 3.1 (2.0-3.7) 2 DIMENSIONAL ASSESSMENT: RIGHT ATRIUM: NORMAL LEFT ATRIUM: NORMAL SIZE RIGHT VENTRICLE: NORMAL LEFT VENTRICLE: DILATED TRICUSPID VALVE: NORMAL MITRAL VALVE: MITRAL ANNULAR CALCIFICATION PULMONIC VALVE: NORMAL AORTIC VALVE: NORMAL PERICARDIAL EFFUSION: NONE AORTIC ROOT: NORMAL LEFT VENTRICULAR WALL MOTION: NORMAL LEFT VENTRICULAR EJECTION FRACTION. DECREASED LEFT VENTRICULAR COMPLIANCE. DOPPLER/COLOR FLOW: MILD TRICUSPID REGURGITATION. COMMENTS: MILD TRICUSPID REGURGITATION. DECREASED LEFT VENTRICULAR COMPLIANCE. NORMAL LEFT VENTRICULAR EJECTION FRACTION. MILD LEFT VENTRICULAR DILIATION. MITRAL ANNULAR CALCIFICATION. Conclusions/Impression: A/ ESRD on HD. Hyperkalemia. HTN with CKD. Diastolic CHF, chronic. Anemia in CKD. PERCY/ Secondary HyperPTH. 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 Constipation. Urinary retention likely due to BPH & opiates. P/ Continue current POC and Medications. HD TIW. Plan for HD today. Increase Lactulose TID. Wean opiate therapy as tolerated. No NSAIDs. Titrate insulin as needed. Low sodium diet. AM labs. Daily weight. PT as tolerated.
--- NOTE | 2017-10-03 17:02 | FAST ---
ENCOUNTER DATE AND TIME: 10/03/2017 08:00 (CDT) NAME CARMEN ALTAMIRANO DATE OF : 1955 DATE OF ADMISSION: 09/21/2017 15:46 (CDT) PHONE: AGE: 62 N# [id number] GENDER: Male ENCOUNTER PHYSICIAN: Dr. Edgar Pereira M.D. ADMISSION DIAGNOSIS: - Amputation of Limb 05 - Unilateral Lower Limb Below the Knee (BK) (05.4) Left Below the Knee Amputation. EATING: Activity did not occur on this shift EATING - SCORE: 0-UNK GROOMING: Activity did not occur on this shift GROOMING - SCORE: 0-UNK BATHING: Activity did not occur on this shift BATHING - SCORE: 0-UNK DRESSING - UPPER BODY: Activity did not occur on this shift Patient is not dressing in public clothing ARTICLES SCORE Total number of steps: 0 DRESSING - UPPER BODY - SCORE: 0-UNK DRESSING - LOWER BODY: Activity did not occur on this shift Patient is not dressing in public clothing ARTICLES SCORE Total number of steps: 0 DRESSING - LOWER BODY - SCORE: 0-UNK TOILETING: Activity did not occur on this shift TOILETING - SCORE: 0-UNK BLADDER MANAGEMENT: Activity did not occur on this shift BLADDER MANAGEMENT - SCORE: 7-IND BOWEL MANAGEMENT: Activity did not occur on this shift BOWEL MANAGEMENT - SCORE: 7-IND TRANSFERS: BED, CHAIR, WHEELCHAIR: Activity did not occur on this shift TRANSFERS: BED, CHAIR, WHEELCHAIR - SCORE: 0-UNK TRANSFERS: TOILET: Activity did not occur on this shift TRANSFERS: TOILET - SCORE: 0-UNK TRANSFERS: SHOWER: Activity did not occur on this shift TRANSFERS: SHOWER - SCORE: 0-UNK TRANSFERS: TUB: Activity did not occur on this shift TRANSFERS: TUB - SCORE: 0-UNK LOCOMOTION: WALK: Activity did not occur on this shift LOCOMOTION: WALK - SCORE: 0-UNK LOCOMOTION: WHEELCHAIR: Activity did not occur on this shift LOCOMOTION: WHEELCHAIR - SCORE: 0-UNK LOCOMOTION: STAIRS: Activity did not occur on this shift LOCOMOTION: STAIRS - SCORE: 0-UNK COMPREHENSION: COMPREHENSION - STEP 1: Does the patient require help to understand complex and abstract ideas (such as current events, finan josé, discharge planning, medical issues, relationships, etc)? No. COMPREHENSION - STEP 2: Does the patient need extra time, require an assistive device (such as glasses, hearing aids, or an a ugmentative communication system), OR does s/he have mild difficulty expressing complex and abstract ideas (including mild dysarthria or mild word-finding problems)? Yes. COMPREHENSION - SCORE: 6-MARIPOSA EXPRESSION EXPRESSION - STEP 1: Does the patient require help expressing complex and abstract ideas (such as current events, finances , discharge planning, medical issues, relationships, etc)? No. EXPRESSION - STEP 2: Does the patient need extra time, require an assistive device (such as augmentive communication syste m or a communication board), OR does s/he have mild difficulty expressing complex and abstract ideas (including mild dysarthria or mild word-find problems)? Yes. EXPRESSION - SCORE: 6-MARIPOSA SOCIAL INTERACTION: SOCIAL INTERACTION - STEP 1: Does the patient require a helper to interact with others in social and therapeutic situations? No. SOCIAL INTERACTION - STEP 2: Does the patient need extra time in social situations, OR does s/he interact with staff, other patien ts, and family members ONLY in structured environments, OR does s/he require medication for social in teraction? No. SOCIAL INTERACTION - SCORE: 7-IND PROBLEM SOLVING: PROBLEM SOLVING - STEP 1: Does the patient need help to solve complex problems such as managing a checking account or confronti ng interpersonal problems? Yes. PROBLEM SOLVING - STEP 2: Does the patient solve basic routine problems half or more of the time? Yes. PROBLEM SOLVING - STEP 3: How often does the patient need help to solve basic routine problems? Less than 10% of the time PROBLEM SOLVING - SCORE: 5-SUP MEMORY: MEMORY - STEP 1: Does the patient need help to remember frequently encountered people, daily routines, and executing r equests? No. MEMORY - STEP 2: Does the patient have slight difficulty recognizing frequently encountered people, daily routines, or executing requests without the need for repetition or using self-initiated or environmental cues to remember? Yes. MEMORY - SCORE: 6-MARIPOSA SIGNATURE PANEL: The following modified sections: Comprehension - Score, Expression - Score, Social Interaction - Scor e, Problem Solving - Score, Memory - Score were [electronically] signed by UNRULY Balderrama on Sun 16:01:55 GMT-0500 (Central Daylight Time)
[2017-10-03] MEDS: EPOETIN ALFA 10,000 UNIT/ML VIAL IV SCH (20:00)
[2017-10-03] MEDS: ATORVASTATIN 10 MG TAB PO SCH (20:52)
[2017-10-03] MEDS: DOCUSATE NA/SENNA CONC 1 TAB PO SCH (20:52)
[2017-10-03] MEDS: MELATONIN 3 MG TABLET PO PRN (20:52)
--- NOTE | 2017-10-04 03:40 | FAST ---
SHIFT START DATE/TIME: 10/03/2017 19:00 (CDT) SHIFT END DATE/TIME: 10/04/2017 07:00 (CDT) NAME CARMEN ALTAMIRANO DATE OF : 1955 DATE OF ADMISSION: 09/21/2017 15:46 (CDT) PHONE: AGE: 62 [facility]# [id number] GENDER: Male ENCOUNTER PHYSICIAN: Dr. Edgar Pereira M.D. ADMISSION DIAGNOSIS: - Amputation of Limb 05 - Unilateral Lower Limb Below the Knee (BK) (05.4) Left Below the Knee Amputation. EATING: EATING - STEP 1: Does the patient require assistance when eating? Yes. EATING - STEP 2: Does the patient require the assistance of a helper? Yes. EATING - STEP 3: Does the patient perform half or more of the eating tasks? Yes. EATING - STEP 4: Does the patient need only supervision, cuing, coaxing OR help to apply an orthosis OR help to cut fo od, open containers, pour liquids, or butter bread? Yes. EATING - SCORE: 5-SUP GROOMING: Activity did not occur on this shift GROOMING - SCORE: 0-UNK BATHING: Activity did not occur on this shift BATHING - SCORE: 0-UNK DRESSING - UPPER BODY: Patient is not dressing in public clothing ARTICLES SCORE Total number of steps: 0 DRESSING - UPPER BODY - SCORE: 0-UNK DRESSING - LOWER BODY: Patient is not dressing in public clothing ARTICLES SCORE Total number of steps: 0 DRESSING - LOWER BODY - SCORE: 0-UNK TOILETING: Activity did not occur on this shift TOILETING - SCORE: 0-UNK BLADDER MANAGEMENT: Patient is on renal dialysis or peritoneal dialysis and no voiding activity BLADDER MANAGEMENT - SCORE: 7-IND BOWEL MANAGEMENT: Activity did not occur on this shift BOWEL MANAGEMENT - SCORE: 7-IND TRANSFERS: BED, CHAIR, WHEELCHAIR: TRANSFERS: BED, CHAIR, WHEELCHAIR - STEP 1: Does the patient require assistance with bed, chair, or wheelchair transfers? Yes. TRANSFERS: BED, CHAIR, WHEELCHAIR - STEP 2: Does the patient require the assistance of a helper? Yes. TRANSFERS: BED, CHAIR, WHEELCHAIR - STEP 3: How much assistance does the patient require from the helper? Steadying/guiding assistance TRANSFERS: BED, CHAIR, WHEELCHAIR - SCORE: 4-MIN TRANSFERS: TOILET: Activity did not occur on this shift TRANSFERS: TOILET - SCORE: 0-UNK TRANSFERS: SHOWER: Activity did not occur on this shift TRANSFERS: SHOWER - SCORE: 0-UNK TRANSFERS: TUB: Activity did not occur on this shift TRANSFERS: TUB - SCORE: 0-UNK LOCOMOTION: WALK: Activity did not occur on this shift LOCOMOTION: WALK - SCORE: 0-UNK LOCOMOTION: WHEELCHAIR: Activity did not occur on this shift LOCOMOTION: WHEELCHAIR - SCORE: 0-UNK COMPREHENSION: COMPREHENSION: TYPE: Both COMPREHENSION - STEP 1: Does the patient require help to understand complex and abstract ideas (such as current events, finan josé, discharge planning, medical issues, relationships, etc)? Yes. COMPREHENSION - STEP 2: Does the patient require help to understand questions or statements about basic needs or ideas (such as hunger, thirst, sleep, safety, daily schedule, room location, or discomfort) half or more of the t [place]? No. COMPREHENSION - STEP 3: How often does the patient need help to understand directions and conversation about basic needs? Les s than 10% of the time COMPREHENSION - SCORE: 5-SUP EXPRESSION EXPRESSION: TYPE: Both EXPRESSION - STEP 1: Does the patient require help expressing complex and abstract ideas (such as current events, finances , discharge planning, medical issues, relationships, etc)? No. EXPRESSION - STEP 2: Does the patient need extra time, require an assistive device (such as augmentive communication syste m or a communication board), OR does s/he have mild difficulty expressing complex and abstract ideas (including mild dysarthria or mild word-find problems)? Yes. EXPRESSION - SCORE: 6-MARIPOSA SOCIAL INTERACTION: SOCIAL INTERACTION - STEP 1: Does the patient require a helper to interact with others in social and therapeutic situations? No. SOCIAL INTERACTION - STEP 2: Does the patient need extra time in social situations, OR does s/he interact with staff, other patien ts, and family members ONLY in structured environments, OR does s/he require medication for social in teraction? Yes, patient needs extra time SOCIAL INTERACTION - SCORE: 6-MARIPOSA PROBLEM SOLVING: PROBLEM SOLVING - STEP 1: Does the patient need help to solve complex problems such as managing a checking account or confronti ng interpersonal problems? No. PROBLEM SOLVING - STEP 2: Does the patient require extra time to make decisions or solve problems, OR does s/he have slight dif ficulty reading, initiating, or self-correcting in unfamiliar situations? Yes, patient needs extra ti me. PROBLEM SOLVING - SCORE: 6-MARIPOSA MEMORY: MEMORY - STEP 1: Does the patient need help to remember frequently encountered people, daily routines, and executing r equests? No. MEMORY - STEP 2: Does the patient have slight difficulty recognizing frequently encountered people, daily routines, or executing requests without the need for repetition or using self-initiated or environmental cues to remember? Yes. MEMORY - SCORE: 6-MARIPOSA SIGNATURE PANEL: The following modified sections: Eating - Score, Grooming - Score, Bathing - Score, Dressing - Upper Body - Score, Dressing - Lower Body - Score, Toileting - Score, Bladder Management - Score, Bowel Man agement - Score, Transfers: Bed, Chair, Wheelchair - Score, Transfers: Toilet - Score, Transfers: Adeline wer - Score, Transfers: Tub - Score, Locomotion: Walk - Score, Locomotion: Wheelchair - Score, Compre hension - Score, Expression - Score, Social Interaction - Score, Problem Solving - Score, Memory - Sc ore were [electronically] signed by Jomar ButtNMagalis on SunOct 04 2017 02:39:45 GMT-0500 ( Central Daylight Time)
[2017-10-04] MEDS: HYDROCODONE/APAP 7.5/325 MG TAB PO PRN ×3 (06:08→20:27)
[2017-10-04] MEDS: INSULIN -REGULAR HUMAN 50 UNIT/0.5 ML ML SQ SCH ×4 (07:25→20:26)
[2017-10-04] MEDS: PROMOD 30 ML DOSE PO SCH ×2 (08:00→20:25)
[2017-10-04] MEDS: LACTULOSE 20 GM/30 ML UCUP PO SCH ×3 (08:07→20:26)
[2017-10-04] MEDS: SEVELAMER CARBONATE 800 MG TABLET PO SCH ×3 (08:08→16:32)
[2017-10-04] MEDS: DOCUSATE NA 100 MG CAP PO SCH (08:08)
[2017-10-04] MEDS: GABAPENTIN 300 MG CAP PO SCH ×2 (08:08→20:26)
[2017-10-04] MEDS: MULTIVITAMINS,THERAPEUT 1 TAB PO SCH (08:08)
[2017-10-04] MEDS: TAMSULOSIN 0.4 MG SR CAP PO SCH ×2 (08:08→20:27)
[2017-10-04] MEDS: CLOPIDOGREL 75 MG TABLET PO SCH (08:08)
[2017-10-04] MEDS: ASPIRIN EC 81 MG TAB PO SCH (08:08)
[2017-10-04] MEDS: FUROSEMIDE 40 MG TABLET PO SCH ×2 (08:09→16:31)
[2017-10-04] MEDS: NIFEDIPINE XL 30 MG TABLET PO SCH (08:09)
[2017-10-04] MEDS: HYDRALAZINE HCL 25 MG TABLET PO SCH ×2 (08:09→20:27)
--- NOTE | 2017-10-04 09:41 | P.RH.PN ---
Estimated Length of Stay: 17 Expected Discharge Date: 10/07/17 Discharge Disposition Plan: Home Family Support: Yes Vital Signs: Last Vital Signs Temp 97.8 F 10/04/17 07:26 Pulse 63 10/04/17 08:09 Resp 16 10/04/17 07:26 BP 174/77 H 10/04/17 08:09 Pulse Ox 98 10/04/17 07:26 Laboratory: Laboratory Last Values WBC 9.7 K/uL (4.3-10.9) 10/03/17 05:50 RBC 3.48 M/uL (4.33-5.43) L 10/03/17 05:50 Hgb 9.9 g/dL (13.6-17.9) L 10/03/17 05:50 Hct 29.7 % (39.6-49.0) L 10/03/17 05:50 MCV 85.4 fL (80-100) 10/03/17 05:50 MCH 28.5 pg (27.0-35.0) 10/03/17 05:50 MCHC 33.4 g/dL (32.0-36.0) 10/03/17 05:50 RDW 19.9 % (12.1-15.2) H 10/03/17 05:50 Plt Count 241 K/uL (152-406) 10/03/17 05:50 MPV 7.1 fL (7.6-11.3) L D 10/03/17 05:50 Neutrophils % 59.5 % (41.7-73.7) 10/03/17 05:50 Lymphocytes % 17.6 % (15.3-44.8) 10/03/17 05:50 Monocytes % 12.9 % (3.3-12.3) H 10/03/17 05:50 Eosinophils % 8.8 % (0-4.4) H 10/03/17 05:50 Basophils % 1.2 % (0-1.3) 10/03/17 05:50 Absolute Neutrophils 5.8 K/uL (1.8-8.0) 10/03/17 05:50 Absolute Lymphocytes 1.7 K/uL (0.7-4.9) 10/03/17 05:50 Absolute Monocytes 1.3 K/uL (0.1-1.3) 10/03/17 05:50 Absolute Eosinophils 0.9 K/uL (0-0.5) H 10/03/17 05:50 Absolute Basophils 0.1 K/uL (0-0.5) 10/03/17 05:50 ESR Westergren 82 mm/HR (0-20) H 10/01/17 05:45 Sodium 139 mEq/L (135-145) 10/03/17 05:50 Potassium 5.0 mEq/L (3.6-5.0) 10/03/17 05:50 Chloride 103 mEq/L (101-111) 10/03/17 05:50 Carbon Dioxide 26 mEq/L (21-31) 10/03/17 05:50 BUN 61 mg/dL (6-20) H 10/03/17 05:50 Creatinine 7.91 mg/dL (0.61-1.24) H* 10/03/17 05:50 Estimated GFR 8 mL/min (=/>90) L 10/03/17 05:50 Glucose 152 mg/dL (65-120) H 10/03/17 05:50 POC Glucose 131 mg/dl (65-120) H 10/04/17 07:13 Calcium 8.9 mg/dL (8.5-10.5) 10/03/17 05:50 Phosphorus 7.1 mg/dL (2.5-4.3) H 10/03/17 05:50 Magnesium 3.0 mg/dL (1.8-2.5) H 10/03/17 05:50 Total Bilirubin 0.5 mg/dL (0.3-1.2) 10/01/17 05:45 AST 13 IU/L (10-42) 10/01/17 05:45 ALT < 5 IU/L (10-60) L 10/01/17 05:45 Alkaline Phosphatase 83 IU/L (42-121) 10/01/17 05:45 Lactate Dehydrogenase 142 IU/L (125-240) 09/27/17 13:26 Serum Total Protein 6.0 g/dL (6.0-8.3) 10/01/17 05:45 Albumin 2.7 g/dL (3.2-5.5) L 10/03/17 05:50 Globulin 3.3 g/dL (2.3-3.5) 10/01/17 05:45 Albumin/Globulin Ratio 0.8 (1.1-1.8) L 10/01/17 05:45 Prealbumin 21.3 mg/dl (18-38) 10/03/17 05:50 Procalcitonin 1.29 ng/mL (<0.50) H 09/30/17 22:42 Urine Color Yellow 09/22/17 21:32 Urine Appearance Clear 09/22/17 21:32 Urine pH 7.5 (5.0-7.0) H 09/22/17 21:32 Ur Specific [place] 1.020 (1.005-1.030) 09/22/17 21:32 Urine Ketones Negative (NEG) 09/22/17 21:32 Urine Blood Negative (NEG) 09/22/17 21:32 Urine Nitrite Negative (NEG) 09/22/17 21:32 Urine Bilirubin Negative (NEG) 09/22/17 21:32 Urine Urobilinogen 0.2 mg/dL (0.2-1.0) 09/22/17 21:32 Ur Leukocyte Esterase Negative (NEG) 09/22/17 21:32 Urine RBC <5 /HPF (NONE SEEN) 09/22/17 21:32 Urine WBC <5 /HPF (<5) 09/22/17 21:32 Ur Squamous Epith Cells <5 /HPF (NONE SEEN) 09/22/17 21:32 Ur Urothelial Cells <5 /HPF (NONE SEEN) 09/22/17 21:32 Urine Bacteria <20 /HPF (NONE SEEN) 09/22/17 21:32 Urine Culture Reflexed Not needed 09/22/17 21:32 Urine Glucose Trace (NEG) 09/22/17 21:32 Urine Total Protein 3+ (NEG) H 09/22/17 21:32 Weight: 217 lb 14.4 oz Wound Present: Yes Closed Surgical Incision Present: Yes Negative Pressure Wound Therapy Present: No Physician Update: He is doing well overall he has moderate difficulty with sit to stand activities by he is working well with the sliding board. He continues to be impulsive with a tendency to lean forward without using the breaks on the wheelchair. He already slipped out of the wheelchair once. Speech therapy is working on improving cognitive functioning. He is medically stable. He will have hemodialysis tomorrow. Speech Therapy Update: Initial evaluation of cognitive linguistic ability completed this session. Pt. presents with mild cognitive impariment and will benefit from skilled speech therapy services targeting safety awareness, recall of safety strategies, and problem solving. Summary: Patient's care plan and penitentiary goals have been reviewed and revised as necessary. Please see the Rehabilitation Signature page for all necessary signatures.
--- NOTE | 2017-10-04 12:07 | FAST ---
SHIFT START DATE/TIME: 10/04/2017 07:00 (CDT) SHIFT END DATE/TIME: 10/04/2017 19:00 (CDT) NAME CARMEN ALTAMIRANO DATE OF : 1955 DATE OF ADMISSION: 09/21/2017 15:46 (CDT) PHONE: AGE: 62 [facility]# [id number] GENDER: Male ENCOUNTER PHYSICIAN: Dr. Edgar Pereira M.D. ADMISSION DIAGNOSIS: - Amputation of Limb 05 - Unilateral Lower Limb Below the Knee (BK) (05.4) Left Below the Knee Amputation. EATING: EATING - STEP 1: Does the patient require assistance when eating? Yes. EATING - STEP 2: Does the patient require the assistance of a helper? No, patient only requires an assistive device, O R s/he takes more than reasonable time to eat, OR there is a safety concern, OR s/he requires modifie d food consistency EATING - SCORE: 6-MARIPOSA GROOMING: Comb/brush hair Wash, rinse, and dry face Wash, rinse, and dry hands GROOMING - STEP 1: Does the patient require assistance when grooming? Yes. GROOMING - STEP 2: Does the patient require the assistance of a helper? Yes. GROOMING - STEP 3: How much assistance does the patient require from the helper? Only prior equipment preparation/set up from the helper GROOMING - SCORE: 5-SUP BATHING: Activity did not occur on this shift BATHING - SCORE: 0-UNK DRESSING - UPPER BODY: Activity did not occur on this shift ARTICLES SCORE Total number of steps: 0 DRESSING - UPPER BODY - SCORE: 0-UNK DRESSING - LOWER BODY: Activity did not occur on this shift ARTICLES SCORE Total number of steps: 0 DRESSING - LOWER BODY - SCORE: 0-UNK TOILETING: TOILETING - STEP 1: Does the patient require assistance with toileting? Yes. TOILETING - STEP 2: Does the patient require the assistance of a helper? Yes. TOILETING - STEP 3: How much assistance does the patient require from the helper? Hands-on assistance from the helper TOILETING - STEP 4: Of the 3 tasks: 1) Adjusting clothing prior to use, 2) Cleansing of perineal area, 3) Adjusting clot kathy after use; How many tasks does the patient perform WITHOUT assistance of the helper? Three tasks with steadying assistance from the helper TOILETING - SCORE: 4-MIN BLADDER MANAGEMENT: BLADDER MANAGEMENT - STEP 1: Does the patient control the bladder completely and intentionally without equipment or devices or med ications, and is always continent? No. BLADDER MANAGEMENT - STEP 2: Does the patient require the assistance of a helper? No, patient requires and independently uses an a ssistive device, such as a urinal, bedpan, bedside commode, catheter, absorbent pad, or collecting de vice BLADDER MANAGEMENT - SCORE: 6-MARIPOSA BOWEL MANAGEMENT: BOWEL MANAGEMENT - STEP 1: Does the patient control bowels completely and intentionally without equipment devices or medications AND is always continent? No. BOWEL MANAGEMENT - STEP 2: Does the patient require the assistance of a helper? No, patient requires and manages independently a n assistive device such as a bedpan, bedside commode, absorbent pad, incontinent device, or collectin g device BOWEL MANAGEMENT - SCORE: 6-MARIPOSA TRANSFERS: BED, CHAIR, WHEELCHAIR: TRANSFERS: BED, CHAIR, WHEELCHAIR - STEP 1: Does the patient require assistance with bed, chair, or wheelchair transfers? Yes. TRANSFERS: BED, CHAIR, WHEELCHAIR - STEP 2: Does the patient require the assistance of a helper? Yes. TRANSFERS: BED, CHAIR, WHEELCHAIR - STEP 3: How much assistance does the patient require from the helper? Steadying/guiding assistance TRANSFERS: BED, CHAIR, WHEELCHAIR - SCORE: 4-MIN TRANSFERS: TOILET: TRANSFERS: TOILET - STEP 1: Does the patient require assistance with toilet transfers? Yes. TRANSFERS: TOILET - STEP 2: Does the patient require the assistance of a helper? Yes. TRANSFERS: TOILET - STEP 3: How much assistance does the patient require from the helper? Only supervision, cuing, coaxing, OR he lp to set out transfer equipment or to lock brakes and/or lift foot rests TRANSFERS: TOILET - SCORE: 5-SUP TRANSFERS: SHOWER: Activity did not occur on this shift TRANSFERS: SHOWER - SCORE: 0-UNK TRANSFERS: TUB: Activity did not occur on this shift TRANSFERS: TUB - SCORE: 0-UNK LOCOMOTION: WALK: Activity did not occur on this shift LOCOMOTION: WALK - SCORE: 0-UNK LOCOMOTION: WHEELCHAIR: Activity did not occur on this shift LOCOMOTION: WHEELCHAIR - SCORE: 0-UNK COMPREHENSION: COMPREHENSION - SCORE: 0-UNK EXPRESSION EXPRESSION - SCORE: 0-UNK SOCIAL INTERACTION: SOCIAL INTERACTION - SCORE: 0-UNK PROBLEM SOLVING: PROBLEM SOLVING - SCORE: 0-UNK MEMORY: MEMORY - SCORE: 0-UNK SIGNATURE PANEL: The following modified sections: Eating - Score, Grooming - Score, Bathing - Score, Dressing - Upper Body - Score, Dressing - Lower Body - Score, Toileting - Score, Bladder Management - Score, Bowel Man agement - Score, Transfers: Bed, Chair, Wheelchair - Score, Transfers: Toilet - Score, Transfers: Adeline wer - Score, Transfers: Tub - Score, Locomotion: Walk - Score, Locomotion: Wheelchair - Score, Compre hension - Score, Expression - Score, Social Interaction - Score, Problem Solving - Score, Memory - Sc ore were [electronically] signed by Tavo Jamil on SunOct 04 2017 11:07:07 GMT-0500 (Central Daylight Time)
--- NOTE | 2017-10-04 16:04 | FAST ---
ENCOUNTER DATE AND TIME: 10/04/2017 08:00 (CDT) NAME CARMEN ALTAMIRANO DATE OF : 1955 DATE OF ADMISSION: 09/21/2017 15:46 (CDT) PHONE: AGE: 62 N# [id number] GENDER: Male ENCOUNTER PHYSICIAN: Dr. Edgar Pereira M.D. ADMISSION DIAGNOSIS: - Amputation of Limb 05 - Unilateral Lower Limb Below the Knee (BK) (05.4) Left Below the Knee Amputation. EATING: Activity did not occur on this shift EATING - SCORE: 0-UNK GROOMING: Activity did not occur on this shift GROOMING - SCORE: 0-UNK BATHING: Activity did not occur on this shift BATHING - SCORE: 0-UNK DRESSING - UPPER BODY: Activity did not occur on this shift Patient is not dressing in public clothing ARTICLES SCORE Total number of steps: 0 DRESSING - UPPER BODY - SCORE: 0-UNK DRESSING - LOWER BODY: Activity did not occur on this shift Patient is not dressing in public clothing ARTICLES SCORE Total number of steps: 0 DRESSING - LOWER BODY - SCORE: 0-UNK TOILETING: Activity did not occur on this shift TOILETING - SCORE: 0-UNK BLADDER MANAGEMENT: Activity did not occur on this shift BLADDER MANAGEMENT - SCORE: 7-IND BOWEL MANAGEMENT: Activity did not occur on this shift BOWEL MANAGEMENT - SCORE: 7-IND TRANSFERS: BED, CHAIR, WHEELCHAIR: TRANSFERS: BED, CHAIR, WHEELCHAIR - STEP 1: Does the patient require assistance with bed, chair, or wheelchair transfers? Yes. TRANSFERS: BED, CHAIR, WHEELCHAIR - STEP 2: Does the patient require the assistance of a helper? Yes. TRANSFERS: BED, CHAIR, WHEELCHAIR - STEP 3: How much assistance does the patient require from the helper? Steadying/guiding assistance TRANSFERS: BED, CHAIR, WHEELCHAIR - SCORE: 4-MIN TRANSFERS: TOILET: Activity did not occur on this shift TRANSFERS: TOILET - SCORE: 0-UNK TRANSFERS: SHOWER: Activity did not occur on this shift TRANSFERS: SHOWER - SCORE: 0-UNK TRANSFERS: TUB: Activity did not occur on this shift TRANSFERS: TUB - SCORE: 0-UNK LOCOMOTION: WALK: Activity did not occur on this shift LOCOMOTION: WALK - SCORE: 0-UNK LOCOMOTION: WHEELCHAIR: LOCOMOTION: WHEELCHAIR - STEP 1: Does the patient need help to go 150 feet in a wheelchair? No. LOCOMOTION: WHEELCHAIR - SCORE: 6-MARIPOSA LOCOMOTION: STAIRS: Activity did not occur on this shift LOCOMOTION: STAIRS - SCORE: 0-UNK COMPREHENSION: COMPREHENSION - SCORE: 0-UNK EXPRESSION EXPRESSION - SCORE: 0-UNK SOCIAL INTERACTION: SOCIAL INTERACTION - SCORE: 0-UNK PROBLEM SOLVING: PROBLEM SOLVING - SCORE: 0-UNK MEMORY: MEMORY - SCORE: 0-UNK SIGNATURE PANEL: The following modified sections: Transfers: Bed, Chair, Wheelchair - Score, Transfers: Toilet - Score , Locomotion: Walk - Score, Locomotion: Wheelchair - Score, Locomotion: Stairs - Score were [electron ically] signed by Ran Marshall PTA on SunOct 04 2017 15:03:31 GMT-0500 (Central Daylight Time)
[2017-10-04] MEDS: ENOXAPARIN 30 MG/0.3 ML SQ SCH (16:32)
[2017-10-04] MEDS: TRAMADOL HCL 50 MG TAB PO PRN (16:33)
--- NOTE | 2017-10-04 19:30 | FAST ---
ENCOUNTER DATE AND TIME: 10/04/2017 08:00 (CDT) NAME CARMEN ALTAMIRANO DATE OF : 1955 DATE OF ADMISSION: 09/21/2017 15:46 (CDT) PHONE: AGE: 62 N# [id number] GENDER: Male ENCOUNTER PHYSICIAN: Dr. Edgar Pereira M.D. ADMISSION DIAGNOSIS: - Amputation of Limb 05 - Unilateral Lower Limb Below the Knee (BK) (05.4) Left Below the Knee Amputation. EATING: Activity did not occur on this shift EATING - SCORE: 0-UNK GROOMING: Activity did not occur on this shift GROOMING - SCORE: 0-UNK BATHING: Activity did not occur on this shift BATHING - SCORE: 0-UNK DRESSING - UPPER BODY: Activity did not occur on this shift Patient is not dressing in public clothing ARTICLES SCORE Total number of steps: 0 DRESSING - UPPER BODY - SCORE: 0-UNK DRESSING - LOWER BODY: Activity did not occur on this shift Patient is not dressing in public clothing ARTICLES SCORE Total number of steps: 0 DRESSING - LOWER BODY - SCORE: 0-UNK TOILETING: Activity did not occur on this shift TOILETING - SCORE: 0-UNK BLADDER MANAGEMENT: Activity did not occur on this shift BLADDER MANAGEMENT - SCORE: 7-IND BOWEL MANAGEMENT: Activity did not occur on this shift BOWEL MANAGEMENT - SCORE: 7-IND TRANSFERS: BED, CHAIR, WHEELCHAIR: Activity did not occur on this shift TRANSFERS: BED, CHAIR, WHEELCHAIR - SCORE: 0-UNK TRANSFERS: TOILET: Activity did not occur on this shift TRANSFERS: TOILET - SCORE: 0-UNK TRANSFERS: SHOWER: Activity did not occur on this shift TRANSFERS: SHOWER - SCORE: 0-UNK TRANSFERS: TUB: Activity did not occur on this shift TRANSFERS: TUB - SCORE: 0-UNK LOCOMOTION: WALK: Activity did not occur on this shift LOCOMOTION: WALK - SCORE: 0-UNK LOCOMOTION: WHEELCHAIR: Activity did not occur on this shift LOCOMOTION: WHEELCHAIR - SCORE: 0-UNK LOCOMOTION: STAIRS: Activity did not occur on this shift LOCOMOTION: STAIRS - SCORE: 0-UNK COMPREHENSION: COMPREHENSION - STEP 1: Does the patient require help to understand complex and abstract ideas (such as current events, finan josé, discharge planning, medical issues, relationships, etc)? No. COMPREHENSION - STEP 2: Does the patient need extra time, require an assistive device (such as glasses, hearing aids, or an a ugmentative communication system), OR does s/he have mild difficulty expressing complex and abstract ideas (including mild dysarthria or mild word-finding problems)? Yes. COMPREHENSION - SCORE: 6-MARIPOSA EXPRESSION EXPRESSION - STEP 1: Does the patient require help expressing complex and abstract ideas (such as current events, finances , discharge planning, medical issues, relationships, etc)? No. EXPRESSION - STEP 2: Does the patient need extra time, require an assistive device (such as augmentive communication syste m or a communication board), OR does s/he have mild difficulty expressing complex and abstract ideas (including mild dysarthria or mild word-find problems)? Yes. EXPRESSION - SCORE: 6-MARIPOSA SOCIAL INTERACTION: SOCIAL INTERACTION - STEP 1: Does the patient require a helper to interact with others in social and therapeutic situations? No. SOCIAL INTERACTION - STEP 2: Does the patient need extra time in social situations, OR does s/he interact with staff, other patien ts, and family members ONLY in structured environments, OR does s/he require medication for social in teraction? No. SOCIAL INTERACTION - SCORE: 7-IND PROBLEM SOLVING: PROBLEM SOLVING - STEP 1: Does the patient need help to solve complex problems such as managing a checking account or confronti ng interpersonal problems? No. PROBLEM SOLVING - STEP 2: Does the patient require extra time to make decisions or solve problems, OR does s/he have slight dif ficulty reading, initiating, or self-correcting in unfamiliar situations? Yes, patient needs extra ti me. PROBLEM SOLVING - SCORE: 6-MARIPOSA MEMORY: MEMORY - STEP 1: Does the patient need help to remember frequently encountered people, daily routines, and executing r equests? No. MEMORY - STEP 2: Does the patient have slight difficulty recognizing frequently encountered people, daily routines, or executing requests without the need for repetition or using self-initiated or environmental cues to remember? Yes. MEMORY - SCORE: 6-MARIPOSA SIGNATURE PANEL: The following modified sections: Comprehension - Score, Expression - Score, Social Interaction - Scor e, Problem Solving - Score, Memory - Score were [electronically] signed by UNRULY Balderrama on Sun 18:30:15 GMT-0500 (Central Daylight Time)
[2017-10-04] MEDS: DOCUSATE NA/SENNA CONC 1 TAB PO SCH (20:26)
[2017-10-04] MEDS: MELATONIN 3 MG TABLET PO PRN (20:27)
[2017-10-04] MEDS: ATORVASTATIN 10 MG TAB PO SCH (20:27)
[2017-10-05] MEDS: TRAMADOL HCL 50 MG TAB PO PRN ×3 (02:23→21:28)
--- NOTE | 2017-10-05 04:53 | FAST ---
SHIFT START DATE/TIME: 10/04/2017 19:00 (CDT) SHIFT END DATE/TIME: 10/05/2017 07:00 (CDT) NAME CARMEN ALTAMIRANO DATE OF : 1955 DATE OF ADMISSION: 09/21/2017 15:46 (CDT) PHONE: AGE: 62 [facility]# [id number] GENDER: Male ENCOUNTER PHYSICIAN: Dr. Edgar Pereira M.D. ADMISSION DIAGNOSIS: - Amputation of Limb 05 - Unilateral Lower Limb Below the Knee (BK) (05.4) Left Below the Knee Amputation. EATING: EATING - STEP 1: Does the patient require assistance when eating? Yes. EATING - STEP 2: Does the patient require the assistance of a helper? Yes. EATING - STEP 3: Does the patient perform half or more of the eating tasks? Yes. EATING - STEP 4: Does the patient need only supervision, cuing, coaxing OR help to apply an orthosis OR help to cut fo od, open containers, pour liquids, or butter bread? Yes. EATING - SCORE: 5-SUP GROOMING: Activity did not occur on this shift GROOMING - SCORE: 0-UNK BATHING: Activity did not occur on this shift BATHING - SCORE: 0-UNK DRESSING - UPPER BODY: Patient is not dressing in public clothing ARTICLES SCORE Total number of steps: 0 DRESSING - UPPER BODY - SCORE: 0-UNK DRESSING - LOWER BODY: Patient is not dressing in public clothing ARTICLES SCORE Total number of steps: 0 DRESSING - LOWER BODY - SCORE: 0-UNK TOILETING: Activity did not occur on this shift TOILETING - SCORE: 0-UNK BLADDER MANAGEMENT: Activity did not occur on this shift Patient is on renal dialysis or peritoneal dialysis and no voiding activity BLADDER MANAGEMENT - SCORE: 7-IND BOWEL MANAGEMENT: Activity did not occur on this shift BOWEL MANAGEMENT - SCORE: 7-IND TRANSFERS: BED, CHAIR, WHEELCHAIR: Activity did not occur on this shift TRANSFERS: BED, CHAIR, WHEELCHAIR - SCORE: 0-UNK TRANSFERS: TOILET: Activity did not occur on this shift TRANSFERS: TOILET - SCORE: 0-UNK TRANSFERS: SHOWER: Activity did not occur on this shift TRANSFERS: SHOWER - SCORE: 0-UNK TRANSFERS: TUB: Activity did not occur on this shift TRANSFERS: TUB - SCORE: 0-UNK LOCOMOTION: WALK: Activity did not occur on this shift LOCOMOTION: WALK - SCORE: 0-UNK LOCOMOTION: WHEELCHAIR: Activity did not occur on this shift LOCOMOTION: WHEELCHAIR - SCORE: 0-UNK COMPREHENSION: COMPREHENSION: TYPE: Both COMPREHENSION - STEP 1: Does the patient require help to understand complex and abstract ideas (such as current events, finan josé, discharge planning, medical issues, relationships, etc)? No. COMPREHENSION - STEP 2: Does the patient need extra time, require an assistive device (such as glasses, hearing aids, or an a ugmentative communication system), OR does s/he have mild difficulty expressing complex and abstract ideas (including mild dysarthria or mild word-finding problems)? Yes. COMPREHENSION - SCORE: 6-MARIPOSA EXPRESSION EXPRESSION: TYPE: Both EXPRESSION - STEP 1: Does the patient require help expressing complex and abstract ideas (such as current events, finances , discharge planning, medical issues, relationships, etc)? No. EXPRESSION - STEP 2: Does the patient need extra time, require an assistive device (such as augmentive communication syste m or a communication board), OR does s/he have mild difficulty expressing complex and abstract ideas (including mild dysarthria or mild word-find problems)? Yes. EXPRESSION - SCORE: 6-MARIPOSA SOCIAL INTERACTION: SOCIAL INTERACTION - STEP 1: Does the patient require a helper to interact with others in social and therapeutic situations? No. SOCIAL INTERACTION - STEP 2: Does the patient need extra time in social situations, OR does s/he interact with staff, other patien ts, and family members ONLY in structured environments, OR does s/he require medication for social in teraction? Yes, patient needs extra time SOCIAL INTERACTION - SCORE: 6-MARIPOSA PROBLEM SOLVING: PROBLEM SOLVING - STEP 1: Does the patient need help to solve complex problems such as managing a checking account or confronti ng interpersonal problems? Yes. PROBLEM SOLVING - STEP 2: Does the patient solve basic routine problems half or more of the time? Yes. PROBLEM SOLVING - STEP 3: How often does the patient need help to solve basic routine problems? Less than 10% of the time PROBLEM SOLVING - SCORE: 5-SUP MEMORY: MEMORY - STEP 1: Does the patient need help to remember frequently encountered people, daily routines, and executing r equests? Yes. MEMORY - STEP 2: How often does the patient need help to remember frequently encountered people, daily routines, and e xecuting requests? Less than 10% of the time MEMORY - SCORE: 5-SUP SIGNATURE PANEL: The following modified sections: Eating - Score, Grooming - Score, Bathing - Score, Dressing - Upper Body - Score, Dressing - Lower Body - Score, Toileting - Score, Bladder Management - Score, Bowel Man agement - Score, Transfers: Bed, Chair, Wheelchair - Score, Transfers: Toilet - Score, Transfers: Adeline wer - Score, Transfers: Tub - Score, Locomotion: Walk - Score, Locomotion: Wheelchair - Score, Compre hension - Score, Expression - Score, Social Interaction - Score, Problem Solving - Score, Memory - Sc ore were [electronically] signed by Cristal Renae [email or web address] on SunOct 05 2017 03:52:50 T-0500 ( Central Daylight Time)
[2017-10-05] MEDS: INSULIN -REGULAR HUMAN 50 UNIT/0.5 ML ML SQ SCH ×4 (07:18→20:24)
[2017-10-05] MEDS: PROMOD 30 ML DOSE PO SCH ×2 (08:00→20:00)
[2017-10-05] MEDS: LACTULOSE 20 GM/30 ML UCUP PO SCH ×3 (08:33→20:23)
[2017-10-05] MEDS: HYDROCODONE/APAP 7.5/325 MG TAB PO PRN (08:33)
[2017-10-05] MEDS: SEVELAMER CARBONATE 800 MG TABLET PO SCH ×3 (08:33→17:00)
[2017-10-05] MEDS: CLOPIDOGREL 75 MG TABLET PO SCH (08:33)
[2017-10-05] MEDS: MULTIVITAMINS,THERAPEUT 1 TAB PO SCH (08:33)
[2017-10-05] MEDS: FUROSEMIDE 40 MG TABLET PO SCH ×2 (08:34→17:00)
[2017-10-05] MEDS: GABAPENTIN 300 MG CAP PO SCH ×2 (08:34→20:17)
[2017-10-05] MEDS: TAMSULOSIN 0.4 MG SR CAP PO SCH ×2 (08:34→20:17)
[2017-10-05] MEDS: DOCUSATE NA 100 MG CAP PO SCH (08:34)
[2017-10-05] MEDS: ASPIRIN EC 81 MG TAB PO SCH (08:34)
[2017-10-05] MEDS: HYDRALAZINE HCL 25 MG TABLET PO SCH ×3 (08:34→20:17)
[2017-10-05] MEDS: NIFEDIPINE XL 30 MG TABLET PO SCH (08:35)
--- NOTE | 2017-10-05 14:51 | FAST ---
ENCOUNTER DATE AND TIME: 10/05/2017 08:00 (CDT) NAME CARMEN ALTAMIRANO DATE OF : 1955 DATE OF ADMISSION: 09/21/2017 15:46 (CDT) PHONE: AGE: 62 N# [id number] GENDER: Male ENCOUNTER PHYSICIAN: Dr. Edgar Pereira M.D. ADMISSION DIAGNOSIS: - Amputation of Limb 05 - Unilateral Lower Limb Below the Knee (BK) (05.4) Left Below the Knee Amputation. EATING: Activity did not occur on this shift EATING - SCORE: 0-UNK GROOMING: Activity did not occur on this shift GROOMING - SCORE: 0-UNK BATHING: Activity did not occur on this shift BATHING - SCORE: 0-UNK DRESSING - UPPER BODY: Activity did not occur on this shift Patient is not dressing in public clothing ARTICLES SCORE Total number of steps: 0 DRESSING - UPPER BODY - SCORE: 0-UNK DRESSING - LOWER BODY: Activity did not occur on this shift Patient is not dressing in public clothing ARTICLES SCORE Total number of steps: 0 DRESSING - LOWER BODY - SCORE: 0-UNK TOILETING: Activity did not occur on this shift TOILETING - SCORE: 0-UNK BLADDER MANAGEMENT: Activity did not occur on this shift BLADDER MANAGEMENT - SCORE: 7-IND BOWEL MANAGEMENT: Activity did not occur on this shift BOWEL MANAGEMENT - SCORE: 7-IND TRANSFERS: BED, CHAIR, WHEELCHAIR: Activity did not occur on this shift TRANSFERS: BED, CHAIR, WHEELCHAIR - SCORE: 0-UNK TRANSFERS: TOILET: Activity did not occur on this shift TRANSFERS: TOILET - SCORE: 0-UNK TRANSFERS: SHOWER: Activity did not occur on this shift TRANSFERS: SHOWER - SCORE: 0-UNK TRANSFERS: TUB: Activity did not occur on this shift TRANSFERS: TUB - SCORE: 0-UNK LOCOMOTION: WALK: Activity did not occur on this shift LOCOMOTION: WALK - SCORE: 0-UNK LOCOMOTION: WHEELCHAIR: Activity did not occur on this shift LOCOMOTION: WHEELCHAIR - SCORE: 0-UNK LOCOMOTION: STAIRS: Activity did not occur on this shift LOCOMOTION: STAIRS - SCORE: 0-UNK COMPREHENSION: COMPREHENSION - STEP 1: Does the patient require help to understand complex and abstract ideas (such as current events, finan josé, discharge planning, medical issues, relationships, etc)? No. COMPREHENSION - STEP 2: Does the patient need extra time, require an assistive device (such as glasses, hearing aids, or an a ugmentative communication system), OR does s/he have mild difficulty expressing complex and abstract ideas (including mild dysarthria or mild word-finding problems)? Yes. COMPREHENSION - SCORE: 6-MARIPOSA EXPRESSION EXPRESSION - STEP 1: Does the patient require help expressing complex and abstract ideas (such as current events, finances , discharge planning, medical issues, relationships, etc)? No. EXPRESSION - STEP 2: Does the patient need extra time, require an assistive device (such as augmentive communication syste m or a communication board), OR does s/he have mild difficulty expressing complex and abstract ideas (including mild dysarthria or mild word-find problems)? Yes. EXPRESSION - SCORE: 6-MARIPOSA SOCIAL INTERACTION: SOCIAL INTERACTION - STEP 1: Does the patient require a helper to interact with others in social and therapeutic situations? No. SOCIAL INTERACTION - STEP 2: Does the patient need extra time in social situations, OR does s/he interact with staff, other patien ts, and family members ONLY in structured environments, OR does s/he require medication for social in teraction? No. SOCIAL INTERACTION - SCORE: 7-IND PROBLEM SOLVING: PROBLEM SOLVING - STEP 1: Does the patient need help to solve complex problems such as managing a checking account or confronti ng interpersonal problems? No. PROBLEM SOLVING - STEP 2: Does the patient require extra time to make decisions or solve problems, OR does s/he have slight dif ficulty reading, initiating, or self-correcting in unfamiliar situations? Yes, patient has slight dif ficulty reading, initiating, or self-correcting in unfamiliar situations. PROBLEM SOLVING - SCORE: 6-MARIPOSA MEMORY: MEMORY - STEP 1: Does the patient need help to remember frequently encountered people, daily routines, and executing r equests? No. MEMORY - STEP 2: Does the patient have slight difficulty recognizing frequently encountered people, daily routines, or executing requests without the need for repetition or using self-initiated or environmental cues to remember? Yes. MEMORY - SCORE: 6-MARIPOSA SIGNATURE PANEL: The following modified sections: Comprehension - Score, Expression - Score, Social Interaction - Scor e, Problem Solving - Score, Memory - Score were [electronically] signed by UNRULY Balderrama on Sun 13:51:22 GMT-0500 (Central Daylight Time)
[2017-10-05] MEDS: EPOETIN ALFA 10,000 UNIT/ML VIAL IV SCH (15:41)
--- NOTE | 2017-10-05 15:45 | FAST ---
SHIFT START DATE/TIME: 10/05/2017 07:00 (CDT) SHIFT END DATE/TIME: 10/05/2017 19:00 (CDT) NAME CARMEN ALTAMIRANO DATE OF : 1955 DATE OF ADMISSION: 09/21/2017 15:46 (CDT) PHONE: AGE: 62 [facility]# [id number] GENDER: Male ENCOUNTER PHYSICIAN: Dr. Edgar Pereira M.D. ADMISSION DIAGNOSIS: - Amputation of Limb 05 - Unilateral Lower Limb Below the Knee (BK) (05.4) Left Below the Knee Amputation. EATING: EATING - STEP 1: Does the patient require assistance when eating? Yes. EATING - STEP 2: Does the patient require the assistance of a helper? Yes. EATING - STEP 3: Does the patient perform half or more of the eating tasks? Yes. EATING - STEP 4: Does the patient need only supervision, cuing, coaxing OR help to apply an orthosis OR help to cut fo od, open containers, pour liquids, or butter bread? Yes. EATING - SCORE: 5-SUP GROOMING: Activity did not occur on this shift GROOMING - SCORE: 0-UNK BATHING: Activity did not occur on this shift BATHING - SCORE: 0-UNK DRESSING - UPPER BODY: Activity did not occur on this shift ARTICLES SCORE Total number of steps: 0 DRESSING - UPPER BODY - SCORE: 0-UNK DRESSING - LOWER BODY: Activity did not occur on this shift ARTICLES SCORE Total number of steps: 0 DRESSING - LOWER BODY - SCORE: 0-UNK TOILETING: Activity did not occur on this shift TOILETING - SCORE: 0-UNK BLADDER MANAGEMENT: BLADDER MANAGEMENT - STEP 1: Does the patient control the bladder completely and intentionally without equipment or devices or med ications, and is always continent? Yes. BLADDER MANAGEMENT - SCORE: 7-IND BLADDER MANAGEMENT - FREQUENCY OF ACCIDENTS: BLADDER MANAGEMENT(FA) - STEP 1: How many accidents has the patient had during the current shift? 0 BOWEL MANAGEMENT: BOWEL MANAGEMENT - STEP 1: Does the patient control bowels completely and intentionally without equipment devices or medications AND is always continent? Yes. BOWEL MANAGEMENT - SCORE: 7-IND BOWEL MANAGEMENT - FREQUENCY OF ACCIDENTS: BOWEL MANAGEMENT(FA) - STEP 1: How many accidents has the patient had during the current shift? 0 TRANSFERS: BED, CHAIR, WHEELCHAIR: TRANSFERS: BED, CHAIR, WHEELCHAIR - STEP 1: Does the patient require assistance with bed, chair, or wheelchair transfers? Yes. TRANSFERS: BED, CHAIR, WHEELCHAIR - STEP 2: Does the patient require the assistance of a helper? Yes. TRANSFERS: BED, CHAIR, WHEELCHAIR - STEP 3: How much assistance does the patient require from the helper? Steadying/guiding assistance TRANSFERS: BED, CHAIR, WHEELCHAIR - SCORE: 4-MIN TRANSFERS: TOILET: Activity did not occur on this shift TRANSFERS: TOILET - SCORE: 0-UNK TRANSFERS: SHOWER: Activity did not occur on this shift TRANSFERS: SHOWER - SCORE: 0-UNK TRANSFERS: TUB: Activity did not occur on this shift TRANSFERS: TUB - SCORE: 0-UNK LOCOMOTION: WALK: Activity did not occur on this shift LOCOMOTION: WALK - SCORE: 0-UNK LOCOMOTION: WHEELCHAIR: Activity did not occur on this shift LOCOMOTION: WHEELCHAIR - SCORE: 0-UNK COMPREHENSION: COMPREHENSION - SCORE: 0-UNK EXPRESSION EXPRESSION - SCORE: 0-UNK SOCIAL INTERACTION: SOCIAL INTERACTION - SCORE: 0-UNK PROBLEM SOLVING: PROBLEM SOLVING - SCORE: 0-UNK MEMORY: MEMORY - SCORE: 0-UNK SIGNATURE PANEL: The following modified sections: Eating - Score, Grooming - Score, Bathing - Score, Dressing - Upper Body - Score, Dressing - Lower Body - Score, Toileting - Score, Bladder Management - Score, Bowel Man agement - Score, Transfers: Bed, Chair, Wheelchair - Score, Transfers: Toilet - Score, Transfers: Adeline wer - Score, Transfers: Tub - Score, Locomotion: Walk - Score, Locomotion: Wheelchair - Score, Compre hension - Score, Expression - Score, Social Interaction - Score, Problem Solving - Score, Memory - Sc ore were [electronically] signed by Cathleen Orosco CNA on SunOct 05 2017 14:45:02 GMT-0500 (Centra l Daylight Time)
[2017-10-05] MEDS: ENOXAPARIN 30 MG/0.3 ML SQ SCH (19:44)
--- NOTE | 2017-10-05 19:54 | P.PN ---
Date of Service: 10/05/17 Vital Signs Temp Pulse Resp BP Pulse Ox 97.0 F 81 16 123/60 93 10/05/17 18:43 10/05/17 18:43 10/05/17 18:43 10/05/17 18:43 10/05/17 18:43 Medications Hydrocodone Bitart/Acetaminophen ([place] 7.5/325 Mg) 1 tab PO Q6H PRN PRN Reason: PAIN Stop: 10/21/17 23:50 Last Admin: 10/05/17 08:33 Dose: 1 tab Albuterol Sulfate (Proventil 0.083% Neb Soln) 2.5 mg NEB TIDRESP PRN PRN Reason: SHORTNESS OF BREATH Stop: 10/21/17 16:26 Last Admin: 09/21/17 22:29 Dose: 2.5 mg Aspirin (Aspirin Ec) 81 mg PO DAILY FIDLE Stop: 10/22/17 08:01 Last Admin: 10/05/17 08:34 Dose: 81 mg Atorvastatin Calcium (Lipitor) 10 mg PO BEDTIME FIDEL Stop: 10/21/17 21:01 Last Admin: 10/04/17 20:27 Dose: 10 mg Bisacodyl (Dulcolax) 10 mg VT DAILY PRN PRN Reason: CONSTIPATION Stop: 10/21/17 19:28 Last Admin: 10/01/17 05:30 Dose: 10 mg Clopidogrel Bisulfate (Plavix) 75 mg PO DAILY FIDEL Stop: 10/22/17 08:01 Last Admin: 10/05/17 08:33 Dose: 75 mg Dextrose (Dextrose 50% Syringe) 12.5 gm IV PRN PRN; Protocol PRN Reason: HYPOGLYCEMIA Stop: 10/21/17 16:18 Docusate Sodium (Colace Cap) 200 mg PO DAILY FIDEL Stop: 10/29/17 08:01 Last Admin: 10/05/17 08:34 Dose: 200 mg Enoxaparin Sodium (Lovenox 30 Mg Inj) 30 mg SQ DAILY 5 PM FIDEL Stop: 10/23/17 17:01 Last Admin: 10/05/17 19:44 Dose: 30 mg Epoetin [employer]qu[employer] (Procrit) 10,000 unit IV EVERY HD FIDEL Stop: 10/24/17 08:46 Last Admin: 10/05/17 15:41 Dose: 10,000 unit Furosemide (Lasix) 80 mg PO BIDL [facility] Stop: 10/21/17 17:01 Last Admin: 10/05/17 17:00 Dose: Not Given Gabapentin (Neurontin) 600 mg PO BID [facility] Stop: 10/28/17 10:01 Last Admin: 10/05/17 08:34 Dose: 600 mg Glucagon (Glucagen) 1 mg IM 1X PRN; Protocol PRN Reason: HYPOGLYCEMIA Stop: 10/21/17 16:18 Heparin Sodium (Porcine) (Heparin 1,000 Units/Ml) 2,000 unit IV EVERY HD FIDEL Stop: 10/26/17 11:01 Last Admin: 10/05/17 15:42 Dose: 2,000 unit Hydralazine HCl (Apresoline) 25 mg PO BID [facility] Stop: 10/21/17 20:01 Last Admin: 10/05/17 08:34 Dose: 25 mg Albumin Human (Albumin 25%) 50 mls @ 100 mls/hr IV EVERY HD [facility] Stop: 10/24/17 09:01 Insulin Human Regular (Novolin -R) 0 unit SQ ACHS [facility]; Protocol Stop: 10/21/17 16:31 Last Admin: 10/05/17 16:30 Dose: Not Given Lactulose (Cephulac) 20 gm PO TID [facility] Stop: 11/02/17 14:01 Last Admin: 10/05/17 12:21 Dose: Not Given Mannitol (Mannitol 12.5 Gm/50 Ml Vial) 12.5 gm IV EVERY HD PRN PRN Reason: BP support at hemodialysis Stop: 10/24/17 08:40 Melatonin (Melatonin) 3 mg PO BEDTIME PRN PRN PRN Reason: INSOMNIA Stop: 10/23/17 01:10 Last Admin: 10/04/17 20:27 Dose: 3 mg Nifedipine (Procardia Xl) 30 mg PO DAILY [facility] Stop: 10/22/17 08:01 Last Admin: 10/05/17 08:35 Dose: 30 mg Nutritional Formula (Promod Liquid Protein) 30 ml PO BID [facility] Stop: 10/23/17 20:01 Last Admin: 10/05/17 08:00 Dose: 30 ml Ondansetron HCl (Zofran) 4 mg PO Q6H PRN PRN Reason: NAUSEA / VOMITING Stop: 10/21/17 16:39 Phenyleph/Shark Oil/Min Oil/Petrol (Formulation R) 1 appl VT BID PRN PRN Reason: HEMORRHOIDS Stop: 10/31/17 13:08 Polyethylene Glycol (Glycolax) 17 gm PO DAILY PRN PRN Reason: CONSTIPATION Stop: 10/31/17 14:31 Senna/Docusate Sodium (Senokot-S) 2 tab PO BEDTIME FIDEL Stop: 10/22/17 21:01 Last Admin: 10/04/17 20:26 Dose: 2 tab Sevelamer Carbonate (Renvela) 1,600 mg PO TIDWM FIDEL Stop: 10/31/17 17:01 Last Admin: 10/05/17 17:00 Dose: Not Given Tamsulosin HCl (Flomax) 0.4 mg PO BID FIDEL Stop: 11/01/17 20:01 Last Admin: 10/05/17 08:34 Dose: 0.4 mg Tramadol HCl (Ultram) 50 mg PO Q6H PRN PRN Reason: PAIN MILD Stop: 10/21/17 16:03 Last Admin: 10/05/17 13:46 Dose: 50 mg Vitamin B Complex/Vit C/Folic Acid (Nephro-Kayden) 1 tab PO DAILY FIDEL Stop: 10/22/17 08:01 Last Admin: 10/05/17 08:33 Dose: 1 tab Lab Results (last 24 hrs) 10/05/17 16:57: POC Glucose 147 H 10/05/17 12:03: POC Glucose 175 H 10/05/17 07:17: POC Glucose 168 H 10/04/17 20:00: POC Glucose 143 H Microbiology Results 09/27/17 16:55 Blood - Blood Aerobic Blood Culture - Final No growth in 5 days. 09/27/17 16:55 Blood - Blood Anaerobic Blood Culture - Final 09/22/17 21:32 Clean Catch Urine [place] Count - Final <10,000 CFU/ML. 09/22/17 21:32 Clean Catch Urine - Final Assessment/ Plan: Nephrology. CPS stable without CP or SOB. Had a second fall today. Eating well. Constipation improving. Vitals, medications, blood work and imaging reviewed in the chart. General: In no apparent distress, Oriented x3, Cooperative HEENT: Atraumatic Neck: Supple Respiratory: Clear to auscultation bilaterally Cardiovascular: Regular rate/rhythm, No rubs Gastrointestinal: Soft and benign, Non-distended Musculoskeletal: No clubbing, No contractures Integumentary: No rashes, No cyanosis, Other (Left BKA.) Neurological: Normal speech Blood work reviewed in the chart. Hgb 9.6; Alb 3.3 Imagings Data: HEIGHT: 6 ft 1 in WEIGHT: 235 lb 0 oz DATE OF STUDY: 09/20/[address]: Familia Duval MD 2-DIMENSIONAL: YES M.MODE: YES DOPPLER: YES COLOR FLOW: YES TDS: NO PORTABLE: NO DEFINITY: NO BUBBLE STUDY: NO DIAGNOSIS: ARRYTHMIA CARDIAC HISTORY: CATHERIZATION: YES SURGERY: NO PROSTHETIC VALVE: NO PACEMAKER: NO MEASUREMENTS (cm) DIASTOLIC (NORMALS) SYSTOLIC (NORMALS) IVSd 1.2 (0.6-1.2) LA Diam 3.7 (1.9-4.0) LVEF 54% LVIDd 6.0 (3.5-5.7) LVIDs 4.3 (2.0-3.5) %FS 29% LVPWd 1.2 (0.6-1.2) Ao Diam 3.1 (2.0-3.7) 2 DIMENSIONAL ASSESSMENT: RIGHT ATRIUM: NORMAL LEFT ATRIUM: NORMAL SIZE RIGHT VENTRICLE: NORMAL LEFT VENTRICLE: DILATED TRICUSPID VALVE: NORMAL MITRAL VALVE: MITRAL ANNULAR CALCIFICATION PULMONIC VALVE: NORMAL AORTIC VALVE: NORMAL PERICARDIAL EFFUSION: NONE AORTIC ROOT: NORMAL LEFT VENTRICULAR WALL MOTION: NORMAL LEFT VENTRICULAR EJECTION FRACTION. DECREASED LEFT VENTRICULAR COMPLIANCE. DOPPLER/COLOR FLOW: MILD TRICUSPID REGURGITATION. COMMENTS: MILD TRICUSPID REGURGITATION. DECREASED LEFT VENTRICULAR COMPLIANCE. NORMAL LEFT VENTRICULAR EJECTION FRACTION. MILD LEFT VENTRICULAR DILIATION. MITRAL ANNULAR CALCIFICATION. Conclusions/Impression: A/ ESRD on HD. Hyperkalemia. HTN with CKD. Diastolic CHF, chronic. Anemia in CKD. PERCY/ Secondary HyperPTH. 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 Constipation. Urinary retention likely due to BPH & opiates. P/ Continue current POC and Medications. HD TIW. Plan for HD today. Monitor for urinary retention. Wean opiate therapy as tolerated. No NSAIDs. Titrate insulin as needed. Low sodium diet. AM labs. Daily weight. PT as tolerated.
[2017-10-05] MEDS: ATORVASTATIN 10 MG TAB PO SCH (20:16)
[2017-10-05] MEDS: DOCUSATE NA/SENNA CONC 1 TAB PO SCH (20:18)
[2017-10-05] MEDS: MELATONIN 3 MG TABLET PO PRN (21:29)
[2017-10-06] MEDS: HYDROCODONE/APAP 7.5/325 MG TAB PO PRN ×3 (02:02→16:37)
--- NOTE | 2017-10-06 05:03 | FAST ---
SHIFT START DATE/TIME: 10/05/2017 19:00 (CDT) SHIFT END DATE/TIME: 10/06/2017 07:00 (CDT) NAME CARMEN ALTAMIRANO DATE OF : 1955 DATE OF ADMISSION: 09/21/2017 15:46 (CDT) PHONE: AGE: 62 [facility]# [id number] GENDER: Male ENCOUNTER PHYSICIAN: Dr. Edgar Pereira M.D. ADMISSION DIAGNOSIS: - Amputation of Limb 05 - Unilateral Lower Limb Below the Knee (BK) (05.4) Left Below the Knee Amputation. EATING: Activity did not occur on this shift EATING - SCORE: 0-UNK GROOMING: Wash, rinse, and dry hands GROOMING - STEP 1: Does the patient require assistance when grooming? Yes. GROOMING - STEP 2: Does the patient require the assistance of a helper? Yes. GROOMING - STEP 3: How much assistance does the patient require from the helper? Only prior equipment preparation/set up from the helper GROOMING - SCORE: 5-SUP BATHING: Activity did not occur on this shift BATHING - SCORE: 0-UNK DRESSING - UPPER BODY: Patient is not dressing in public clothing ARTICLES SCORE Total number of steps: 0 DRESSING - UPPER BODY - SCORE: 0-UNK DRESSING - LOWER BODY: Patient is not dressing in public clothing ARTICLES SCORE Total number of steps: 0 DRESSING - LOWER BODY - SCORE: 0-UNK TOILETING: TOILETING - STEP 1: Does the patient require assistance with toileting? Yes. TOILETING - STEP 2: Does the patient require the assistance of a helper? Yes. TOILETING - STEP 3: How much assistance does the patient require from the helper? Hands-on assistance from the helper TOILETING - STEP 4: Of the 3 tasks: 1) Adjusting clothing prior to use, 2) Cleansing of perineal area, 3) Adjusting clot kathy after use; How many tasks does the patient perform WITHOUT assistance of the helper? Three tasks with steadying assistance from the helper TOILETING - SCORE: 4-MIN BLADDER MANAGEMENT: Patient is on renal dialysis or peritoneal dialysis and no voiding activity BLADDER MANAGEMENT - SCORE: 7-IND BOWEL MANAGEMENT: BOWEL MANAGEMENT - STEP 1: Does the patient control bowels completely and intentionally without equipment devices or medications AND is always continent? No. BOWEL MANAGEMENT - STEP 2: Does the patient require the assistance of a helper? Yes. BOWEL MANAGEMENT - STEP 3: How much assistance does the patient require from the helper? Patient requires moderate assistance - performs 50% to 74% of bowel management tasks BOWEL MANAGEMENT - SCORE: 3-MOD TRANSFERS: BED, CHAIR, WHEELCHAIR: TRANSFERS: BED, CHAIR, WHEELCHAIR - STEP 1: Does the patient require assistance with bed, chair, or wheelchair transfers? Yes. TRANSFERS: BED, CHAIR, WHEELCHAIR - STEP 2: Does the patient require the assistance of a helper? Yes. TRANSFERS: BED, CHAIR, WHEELCHAIR - STEP 3: How much assistance does the patient require from the helper? Steadying/guiding assistance TRANSFERS: BED, CHAIR, WHEELCHAIR - SCORE: 4-MIN TRANSFERS: TOILET: TRANSFERS: TOILET - STEP 1: Does the patient require assistance with toilet transfers? Yes. TRANSFERS: TOILET - STEP 2: Does the patient require the assistance of a helper? Yes. TRANSFERS: TOILET - STEP 3: How much assistance does the patient require from the helper? Patient performs half or more of the tr ansferring tasks TRANSFERS: TOILET - STEP 4: Does the patient need only incidental help such as contact guard or steadying during toilet transfer? Yes. TRANSFERS: TOILET - SCORE: 4-MIN TRANSFERS: SHOWER: Activity did not occur on this shift TRANSFERS: SHOWER - SCORE: 0-UNK TRANSFERS: TUB: Activity did not occur on this shift TRANSFERS: TUB - SCORE: 0-UNK LOCOMOTION: WALK: Activity did not occur on this shift LOCOMOTION: WALK - SCORE: 0-UNK LOCOMOTION: WHEELCHAIR: Activity did not occur on this shift LOCOMOTION: WHEELCHAIR - SCORE: 0-UNK COMPREHENSION: COMPREHENSION: TYPE: Both COMPREHENSION - STEP 1: Does the patient require help to understand complex and abstract ideas (such as current events, finan josé, discharge planning, medical issues, relationships, etc)? No. COMPREHENSION - STEP 2: Does the patient need extra time, require an assistive device (such as glasses, hearing aids, or an a ugmentative communication system), OR does s/he have mild difficulty expressing complex and abstract ideas (including mild dysarthria or mild word-finding problems)? Yes. COMPREHENSION - SCORE: 6-MARIPOSA EXPRESSION EXPRESSION: TYPE: Both EXPRESSION - STEP 1: Does the patient require help expressing complex and abstract ideas (such as current events, finances , discharge planning, medical issues, relationships, etc)? No. EXPRESSION - STEP 2: Does the patient need extra time, require an assistive device (such as augmentive communication syste m or a communication board), OR does s/he have mild difficulty expressing complex and abstract ideas (including mild dysarthria or mild word-find problems)? Yes. EXPRESSION - SCORE: 6-MARIPOSA SOCIAL INTERACTION: SOCIAL INTERACTION - STEP 1: Does the patient require a helper to interact with others in social and therapeutic situations? No. SOCIAL INTERACTION - STEP 2: Does the patient need extra time in social situations, OR does s/he interact with staff, other patien ts, and family members ONLY in structured environments, OR does s/he require medication for social in teraction? Yes, patient needs extra time SOCIAL INTERACTION - SCORE: 6-MARIPOSA PROBLEM SOLVING: PROBLEM SOLVING - STEP 1: Does the patient need help to solve complex problems such as managing a checking account or confronti ng interpersonal problems? Yes. PROBLEM SOLVING - STEP 2: Does the patient solve basic routine problems half or more of the time? Yes. PROBLEM SOLVING - STEP 3: How often does the patient need help to solve basic routine problems? Less than 10% of the time PROBLEM SOLVING - SCORE: 5-SUP MEMORY: MEMORY - STEP 1: Does the patient need help to remember frequently encountered people, daily routines, and executing r equests? Yes. MEMORY - STEP 2: How often does the patient need help to remember frequently encountered people, daily routines, and e xecuting requests? Less than 10% of the time MEMORY - SCORE: 5-SUP
[2017-10-06] MEDS: INSULIN -REGULAR HUMAN 50 UNIT/0.5 ML ML SQ SCH ×4 (07:00→20:35)
[2017-10-06] MEDS: TRAMADOL HCL 50 MG TAB PO PRN ×3 (07:18→20:21)
[2017-10-06] MEDS: MULTIVITAMINS,THERAPEUT 1 TAB PO SCH (07:44)
[2017-10-06] MEDS: SEVELAMER CARBONATE 800 MG TABLET PO SCH ×3 (07:44→16:36)
[2017-10-06] MEDS: GABAPENTIN 300 MG CAP PO SCH ×2 (07:44→20:16)
[2017-10-06] MEDS: DOCUSATE NA 100 MG CAP PO SCH (07:44)
[2017-10-06] MEDS: TAMSULOSIN 0.4 MG SR CAP PO SCH ×2 (07:44→20:15)
[2017-10-06] MEDS: CLOPIDOGREL 75 MG TABLET PO SCH (07:44)
[2017-10-06] MEDS: ASPIRIN EC 81 MG TAB PO SCH (07:44)
[2017-10-06] MEDS: NIFEDIPINE XL 30 MG TABLET PO SCH (07:45)
[2017-10-06] MEDS: PROMOD 30 ML DOSE PO SCH ×2 (07:46→20:16)
[2017-10-06] MEDS: HYDRALAZINE HCL 25 MG TABLET PO SCH ×2 (07:46→20:15)
[2017-10-06] MEDS: FUROSEMIDE 40 MG TABLET PO SCH ×2 (08:03→16:37)
[2017-10-06] MEDS: LACTULOSE 20 GM/30 ML UCUP PO SCH ×3 (08:07→20:17)
--- NOTE | 2017-10-06 12:40 | FAST ---
ENCOUNTER DATE AND TIME: 10/05/2017 08:00 (CDT) NAME CARMEN ALTAMIRANO DATE OF : 1955 DATE OF ADMISSION: 09/21/2017 15:46 (CDT) PHONE: AGE: 62 N# [id number] GENDER: Male ENCOUNTER PHYSICIAN: Dr. Edgar Pereira M.D. ADMISSION DIAGNOSIS: - Amputation of Limb 05 - Unilateral Lower Limb Below the Knee (BK) (05.4) Left Below the Knee Amputation. EATING: Activity did not occur on this shift EATING - SCORE: 0-UNK GROOMING: Activity did not occur on this shift GROOMING - SCORE: 0-UNK BATHING: Activity did not occur on this shift BATHING - SCORE: 0-UNK DRESSING - UPPER BODY: Activity did not occur on this shift Patient is not dressing in public clothing ARTICLES SCORE Total number of steps: 0 DRESSING - UPPER BODY - SCORE: 0-UNK DRESSING - LOWER BODY: Activity did not occur on this shift Patient is not dressing in public clothing ARTICLES SCORE Total number of steps: 0 DRESSING - LOWER BODY - SCORE: 0-UNK TOILETING: Activity did not occur on this shift TOILETING - SCORE: 0-UNK BLADDER MANAGEMENT: Activity did not occur on this shift BLADDER MANAGEMENT - SCORE: 7-IND BOWEL MANAGEMENT: Activity did not occur on this shift BOWEL MANAGEMENT - SCORE: 7-IND TRANSFERS: BED, CHAIR, WHEELCHAIR: Activity did not occur on this shift TRANSFERS: BED, CHAIR, WHEELCHAIR - SCORE: 0-UNK TRANSFERS: TOILET: Activity did not occur on this shift TRANSFERS: TOILET - SCORE: 0-UNK TRANSFERS: SHOWER: Activity did not occur on this shift TRANSFERS: SHOWER - SCORE: 0-UNK TRANSFERS: TUB: Activity did not occur on this shift TRANSFERS: TUB - SCORE: 0-UNK LOCOMOTION: WALK: Activity did not occur on this shift LOCOMOTION: WALK - SCORE: 0-UNK LOCOMOTION: WHEELCHAIR: LOCOMOTION: WHEELCHAIR - STEP 1: Does the patient need help to go 150 feet in a wheelchair? Yes. LOCOMOTION: WHEELCHAIR - STEP 2: How much assistance does the patient need from the helper? Only supervision, cuing, or coaxing LOCOMOTION: WHEELCHAIR - SCORE: 5-SUP LOCOMOTION: STAIRS: Activity did not occur on this shift LOCOMOTION: STAIRS - SCORE: 0-UNK COMPREHENSION: COMPREHENSION - SCORE: 0-UNK EXPRESSION EXPRESSION - SCORE: 0-UNK SOCIAL INTERACTION: SOCIAL INTERACTION - SCORE: 0-UNK PROBLEM SOLVING: PROBLEM SOLVING - SCORE: 0-UNK MEMORY: MEMORY - SCORE: 0-UNK SIGNATURE PANEL: The following modified sections: Transfers: Bed, Chair, Wheelchair - Score, Transfers: Toilet - Score , Locomotion: Walk - Score, Locomotion: Wheelchair - Score, Locomotion: Stairs - Score were [electron ically] signed by Ran Marshall PTA on Sat Oct 06 2017 11:40:43 GMT-0500 (Central Daylight Time)
--- NOTE | 2017-10-06 12:56 | FAST ---
ENCOUNTER DATE AND TIME: 10/06/2017 08:00 (CDT) NAME CARMEN ALTAMIRANO DATE OF : 1955 DATE OF ADMISSION: 09/21/2017 15:46 (CDT) PHONE: AGE: 62 N# [id number] GENDER: Male ENCOUNTER PHYSICIAN: Dr. Edgar Pereira M.D. ADMISSION DIAGNOSIS: - Amputation of Limb 05 - Unilateral Lower Limb Below the Knee (BK) (05.4) Left Below the Knee Amputation. EATING: Activity did not occur on this shift EATING - SCORE: 0-UNK GROOMING: Activity did not occur on this shift GROOMING - SCORE: 0-UNK BATHING: Activity did not occur on this shift BATHING - SCORE: 0-UNK DRESSING - UPPER BODY: Activity did not occur on this shift Patient is not dressing in public clothing ARTICLES SCORE Total number of steps: 0 DRESSING - UPPER BODY - SCORE: 0-UNK DRESSING - LOWER BODY: Activity did not occur on this shift Patient is not dressing in public clothing ARTICLES SCORE Total number of steps: 0 DRESSING - LOWER BODY - SCORE: 0-UNK TOILETING: Activity did not occur on this shift TOILETING - SCORE: 0-UNK BLADDER MANAGEMENT: Activity did not occur on this shift BLADDER MANAGEMENT - SCORE: 7-IND BOWEL MANAGEMENT: Activity did not occur on this shift BOWEL MANAGEMENT - SCORE: 7-IND TRANSFERS: BED, CHAIR, WHEELCHAIR: TRANSFERS: BED, CHAIR, WHEELCHAIR - STEP 1: Does the patient require assistance with bed, chair, or wheelchair transfers? Yes. TRANSFERS: BED, CHAIR, WHEELCHAIR - STEP 2: Does the patient require the assistance of a helper? Yes. TRANSFERS: BED, CHAIR, WHEELCHAIR - STEP 3: How much assistance does the patient require from the helper? Only supervision TRANSFERS: BED, CHAIR, WHEELCHAIR - SCORE: 5-SUP TRANSFERS: TOILET: TRANSFERS: TOILET - STEP 1: Does the patient require assistance with toilet transfers? Yes. TRANSFERS: TOILET - STEP 2: Does the patient require the assistance of a helper? Yes. TRANSFERS: TOILET - STEP 3: How much assistance does the patient require from the helper? Only supervision, cuing, coaxing, OR he lp to set out transfer equipment or to lock brakes and/or lift foot rests TRANSFERS: TOILET - SCORE: 5-SUP TRANSFERS: SHOWER: Activity did not occur on this shift TRANSFERS: SHOWER - SCORE: 0-UNK TRANSFERS: TUB: Activity did not occur on this shift TRANSFERS: TUB - SCORE: 0-UNK LOCOMOTION: WALK: Activity did not occur on this shift LOCOMOTION: WALK - SCORE: 0-UNK LOCOMOTION: WHEELCHAIR: LOCOMOTION: WHEELCHAIR - STEP 1: Does the patient need help to go 150 feet in a wheelchair? No. LOCOMOTION: WHEELCHAIR - SCORE: 6-MARIPOSA LOCOMOTION: STAIRS: Activity did not occur on this shift LOCOMOTION: STAIRS - SCORE: 0-UNK COMPREHENSION: COMPREHENSION - SCORE: 0-UNK EXPRESSION EXPRESSION - SCORE: 0-UNK SOCIAL INTERACTION: SOCIAL INTERACTION - SCORE: 0-UNK PROBLEM SOLVING: PROBLEM SOLVING - SCORE: 0-UNK MEMORY: MEMORY - SCORE: 0-UNK SIGNATURE PANEL: The following modified sections: Transfers: Bed, Chair, Wheelchair - Score, Transfers: Toilet - Score , Locomotion: Walk - Score, Locomotion: Wheelchair - Score, Locomotion: Stairs - Score were [electron betsy] signed by Ran Marshall PTA on Sat Oct 06 2017 11:55:47 GMT-0500 (Central Daylight Time)
--- NOTE | 2017-10-06 16:02 | FAST ---
SHIFT START DATE/TIME: 10/06/2017 07:00 (CDT) SHIFT END DATE/TIME: 10/06/2017 19:00 (CDT) NAME CARMEN ALTAMIRANO DATE OF : 1955 DATE OF ADMISSION: 09/21/2017 15:46 (CDT) PHONE: AGE: 62 [facility]# [id number] GENDER: Male ENCOUNTER PHYSICIAN: Dr. Edgar Pereira M.D. ADMISSION DIAGNOSIS: - Amputation of Limb 05 - Unilateral Lower Limb Below the Knee (BK) (05.4) Left Below the Knee Amputation. EATING: EATING - STEP 1: Does the patient require assistance when eating? Yes. EATING - STEP 2: Does the patient require the assistance of a helper? Yes. EATING - STEP 3: Does the patient perform half or more of the eating tasks? Yes. EATING - STEP 4: Does the patient need only supervision, cuing, coaxing OR help to apply an orthosis OR help to cut fo od, open containers, pour liquids, or butter bread? Yes. EATING - SCORE: 5-SUP GROOMING: Comb/brush hair Oral care Wash, rinse, and dry face Wash, rinse, and dry hands GROOMING - STEP 1: Does the patient require assistance when grooming? Yes. GROOMING - STEP 2: Does the patient require the assistance of a helper? No. The patient only requires an assistive devic e, OR takes more than reasonable time to groom, OR there is a concern for safety as the patient groom s GROOMING - SCORE: 6-MARIPOSA BATHING: Activity did not occur on this shift BATHING - SCORE: 0-UNK DRESSING - UPPER BODY: Activity did not occur on this shift ARTICLES SCORE Total number of steps: 0 DRESSING - UPPER BODY - SCORE: 0-UNK DRESSING - LOWER BODY: Elastic waist pants (three steps) Sock - Right foot (one step) Underwear (three steps) ARTICLES SCORE Total number of steps: 7 DRESSING - LOWER BODY - STEP 1: Does the patient require help when dressing below the waist? Yes. DRESSING - LOWER BODY - STEP 2: Does the patient require the assistance of a helper? Yes. DRESSING - LOWER BODY - STEP 3: Does the helper touch the patient while dressing? No. DRESSING - LOWER BODY - SCORE: 5-SUP TOILETING: TOILETING - STEP 1: Does the patient require assistance with toileting? Yes. TOILETING - STEP 2: Does the patient require the assistance of a helper? Yes. TOILETING - STEP 3: How much assistance does the patient require from the helper? Only supervision TOILETING - SCORE: 5-SUP BLADDER MANAGEMENT: Patient is on renal dialysis or peritoneal dialysis and no voiding activity BLADDER MANAGEMENT - SCORE: 7-IND BLADDER MANAGEMENT - FREQUENCY OF ACCIDENTS: BLADDER MANAGEMENT(FA) - STEP 1: How many accidents has the patient had during the current shift? 0 BOWEL MANAGEMENT: Activity did not occur on this shift BOWEL MANAGEMENT - SCORE: 7-IND BOWEL MANAGEMENT - FREQUENCY OF ACCIDENTS: BOWEL MANAGEMENT(FA) - STEP 1: How many accidents has the patient had during the current shift? 0 TRANSFERS: BED, CHAIR, WHEELCHAIR: TRANSFERS: BED, CHAIR, WHEELCHAIR - STEP 1: Does the patient require assistance with bed, chair, or wheelchair transfers? Yes. TRANSFERS: BED, CHAIR, WHEELCHAIR - STEP 2: Does the patient require the assistance of a helper? Yes. TRANSFERS: BED, CHAIR, WHEELCHAIR - STEP 3: How much assistance does the patient require from the helper? Steadying/guiding assistance TRANSFERS: BED, CHAIR, WHEELCHAIR - SCORE: 4-MIN TRANSFERS: BED, CHAIR, WHEELCHAIR - COMMENTS: Uses sliding board TRANSFERS: TOILET: TRANSFERS: TOILET - STEP 1: Does the patient require assistance with toilet transfers? Yes. TRANSFERS: TOILET - STEP 2: Does the patient require the assistance of a helper? Yes. TRANSFERS: TOILET - STEP 3: How much assistance does the patient require from the helper? Only supervision, cuing, coaxing, OR he lp to set out transfer equipment or to lock brakes and/or lift foot rests TRANSFERS: TOILET - SCORE: 5-SUP TRANSFERS: TOILET - COMMENTS: Uses sliding board TRANSFERS: SHOWER: Activity did not occur on this shift TRANSFERS: SHOWER - SCORE: 0-UNK TRANSFERS: TUB: Activity did not occur on this shift TRANSFERS: TUB - SCORE: 0-UNK LOCOMOTION: WALK: Activity did not occur on this shift LOCOMOTION: WALK - SCORE: 0-UNK LOCOMOTION: WHEELCHAIR: LOCOMOTION: WHEELCHAIR - STEP 1: Does the patient need help to go 150 feet in a wheelchair? Yes. LOCOMOTION: WHEELCHAIR - STEP 2: How much assistance does the patient need from the helper? Only supervision, cuing, or coaxing LOCOMOTION: WHEELCHAIR - SCORE: 5-SUP COMPREHENSION: COMPREHENSION - STEP 1: Does the patient require help to understand complex and abstract ideas (such as current events, finan josé, discharge planning, medical issues, relationships, etc)? No. COMPREHENSION - STEP 2: Does the patient need extra time, require an assistive device (such as glasses, hearing aids, or an a ugmentative communication system), OR does s/he have mild difficulty expressing complex and abstract ideas (including mild dysarthria or mild word-finding problems)? Yes. COMPREHENSION - SCORE: 6-MARIPOSA EXPRESSION EXPRESSION: TYPE: Both EXPRESSION - STEP 1: Does the patient require help expressing complex and abstract ideas (such as current events, finances , discharge planning, medical issues, relationships, etc)? No. EXPRESSION - STEP 2: Does the patient need extra time, require an assistive device (such as augmentive communication syste m or a communication board), OR does s/he have mild difficulty expressing complex and abstract ideas (including mild dysarthria or mild word-find problems)? Yes. EXPRESSION - SCORE: 6-MARIPOSA SOCIAL INTERACTION: SOCIAL INTERACTION - STEP 1: Does the patient require a helper to interact with others in social and therapeutic situations? No. SOCIAL INTERACTION - STEP 2: Does the patient need extra time in social situations, OR does s/he interact with staff, other patien ts, and family members ONLY in structured environments, OR does s/he require medication for social in teraction? Yes, patient needs extra time SOCIAL INTERACTION - SCORE: 6-MARIPOSA PROBLEM SOLVING: PROBLEM SOLVING - STEP 1: Does the patient need help to solve complex problems such as managing a checking account or confronti ng interpersonal problems? No. PROBLEM SOLVING - STEP 2: Does the patient require extra time to make decisions or solve problems, OR does s/he have slight dif ficulty reading, initiating, or self-correcting in unfamiliar situations? Yes, patient needs extra ti me. PROBLEM SOLVING - SCORE: 6-MARIPOSA MEMORY: MEMORY - STEP 1: Does the patient need help to remember frequently encountered people, daily routines, and executing r equests? No. MEMORY - STEP 2: Does the patient have slight difficulty recognizing frequently encountered people, daily routines, or executing requests without the need for repetition or using self-initiated or environmental cues to remember? Yes. MEMORY - SCORE: 6-MARIPOSA SIGNATURE PANEL: The following modified sections: Eating - Score, Grooming - Score, Bathing - Score, Dressing - Upper Body - Score, Dressing - Lower Body - Score, Toileting - Score, Bladder Management - Score, Bowel Man agement - Score, Transfers: Bed, Chair, Wheelchair - Score, Transfers: Bed, Chair, Wheelchair - Comme nts:, Transfers: Toilet - Score, Transfers: Toilet - Comments:, Transfers: Shower - Score, Transfers: Tub - Score, Locomotion: Walk - Score, Locomotion: Wheelchair - Score, Comprehension - Score, Expres deedee - Score, Social Interaction - Score, Problem Solving - Score, Memory - Score were [electronicall y] signed by Gemma Webb C.N.A. on Sat Oct 06 2017 15:02:22 GMT-0500 (Central Daylight Time)
[2017-10-06] MEDS: ENOXAPARIN 30 MG/0.3 ML SQ SCH (16:36)
--- NOTE | 2017-10-06 19:29 | PN ---
Date of Progress Note: 10/06/2017 Subjective: The patient is doing okay. Denies any complaints. Doing well with physical therapy. N o issues noted. Objective: Vital Signs: Have been reviewed and are stable. General: He appears in no acute distress. Lungs: Clear. Abdomen: Soft. Extremities: Left BKA was noted. Current Medications: Have all been reviewed. Laboratory Data: None obtained since the . CBC has been stable. Impression: 1.End-stage renal disease, on dialysis. 2.Peripheral vascular disease with nonhealing ulcer of the left lower extremity status post below-kn ee amputation, improving. 3.Debility and weakness, undergoing physical therapy. 4.Constipation, stable. 5.Urinary retention secondary to benign prostatic hyperplasia and opiates. The patient has been sta rted on Flomax. Continue to monitor. Plan: The patient is overall doing okay. Plan for Sunday, Sunday, Sunday dialysis. Monitor for urinary retention, and continue tamsulosin twice a day. Continue all other medications and plan of c are. RUPERTO/NAYA Voice ID: [id number] Report ID: [id number]
[2017-10-06] MEDS: ATORVASTATIN 10 MG TAB PO SCH (20:15)
[2017-10-06] MEDS: DOCUSATE NA/SENNA CONC 1 TAB PO SCH (20:16)
[2017-10-06] MEDS: MELATONIN 3 MG TABLET PO PRN (20:16)
[2017-10-06] MEDS ORDERED: INSULIN -REGULAR HUMAN 50 UNIT/0.5 ML ML ONE (20:35)
[2017-10-07] MEDS: HYDROCODONE/APAP 7.5/325 MG TAB PO PRN ×3 (02:38→20:09)
[2017-10-07] MEDS: ALBUTEROL 2.5 MG/3 ML NEB SOL NEB PRN ×2 (03:18→14:30)
--- NOTE | 2017-10-07 03:24 | FAST ---
SHIFT START DATE/TIME: 10/06/2017 19:00 (CDT) SHIFT END DATE/TIME: 10/07/2017 07:00 (CDT) NAME CARMEN ALTAMIRANO DATE OF : 1955 DATE OF ADMISSION: 09/21/2017 15:46 (CDT) PHONE: AGE: 62 [facility]# [id number] GENDER: Male ENCOUNTER PHYSICIAN: Dr. Edgar Pereira M.D. ADMISSION DIAGNOSIS: - Amputation of Limb 05 - Unilateral Lower Limb Below the Knee (BK) (05.4) Left Below the Knee Amputation. EATING: Activity did not occur on this shift EATING - SCORE: 0-UNK GROOMING: Wash, rinse, and dry hands GROOMING - STEP 1: Does the patient require assistance when grooming? Yes. GROOMING - STEP 2: Does the patient require the assistance of a helper? Yes. GROOMING - STEP 3: How much assistance does the patient require from the helper? Only prior equipment preparation/set up from the helper GROOMING - SCORE: 5-SUP BATHING: Activity did not occur on this shift BATHING - SCORE: 0-UNK DRESSING - UPPER BODY: Patient is not dressing in public clothing ARTICLES SCORE Total number of steps: 0 DRESSING - UPPER BODY - SCORE: 0-UNK DRESSING - LOWER BODY: Patient is not dressing in public clothing ARTICLES SCORE Total number of steps: 0 DRESSING - LOWER BODY - SCORE: 0-UNK TOILETING: TOILETING - STEP 1: Does the patient require assistance with toileting? Yes. TOILETING - STEP 2: Does the patient require the assistance of a helper? Yes. TOILETING - STEP 3: How much assistance does the patient require from the helper? Only supervision TOILETING - SCORE: 5-SUP BLADDER MANAGEMENT: Patient is on renal dialysis or peritoneal dialysis and no voiding activity BLADDER MANAGEMENT - SCORE: 7-IND BOWEL MANAGEMENT: Activity did not occur on this shift BOWEL MANAGEMENT - SCORE: 7-IND TRANSFERS: BED, CHAIR, WHEELCHAIR: TRANSFERS: BED, CHAIR, WHEELCHAIR - STEP 1: Does the patient require assistance with bed, chair, or wheelchair transfers? Yes. TRANSFERS: BED, CHAIR, WHEELCHAIR - STEP 2: Does the patient require the assistance of a helper? Yes. TRANSFERS: BED, CHAIR, WHEELCHAIR - STEP 3: How much assistance does the patient require from the helper? Steadying/guiding assistance TRANSFERS: BED, CHAIR, WHEELCHAIR - SCORE: 4-MIN TRANSFERS: TOILET: Activity did not occur on this shift TRANSFERS: TOILET - SCORE: 0-UNK TRANSFERS: SHOWER: Activity did not occur on this shift TRANSFERS: SHOWER - SCORE: 0-UNK TRANSFERS: TUB: Activity did not occur on this shift TRANSFERS: TUB - SCORE: 0-UNK LOCOMOTION: WALK: Activity did not occur on this shift LOCOMOTION: WALK - SCORE: 0-UNK LOCOMOTION: WHEELCHAIR: Activity did not occur on this shift LOCOMOTION: WHEELCHAIR - SCORE: 0-UNK COMPREHENSION: COMPREHENSION: TYPE: Both COMPREHENSION - STEP 1: Does the patient require help to understand complex and abstract ideas (such as current events, finan josé, discharge planning, medical issues, relationships, etc)? No. COMPREHENSION - STEP 2: Does the patient need extra time, require an assistive device (such as glasses, hearing aids, or an a ugmentative communication system), OR does s/he have mild difficulty expressing complex and abstract ideas (including mild dysarthria or mild word-finding problems)? Yes. COMPREHENSION - SCORE: 6-MARIPOSA EXPRESSION EXPRESSION: TYPE: Both EXPRESSION - STEP 1: Does the patient require help expressing complex and abstract ideas (such as current events, finances , discharge planning, medical issues, relationships, etc)? No. EXPRESSION - STEP 2: Does the patient need extra time, require an assistive device (such as augmentive communication syste m or a communication board), OR does s/he have mild difficulty expressing complex and abstract ideas (including mild dysarthria or mild word-find problems)? Yes. EXPRESSION - SCORE: 6-MARIPOSA SOCIAL INTERACTION: SOCIAL INTERACTION - STEP 1: Does the patient require a helper to interact with others in social and therapeutic situations? No. SOCIAL INTERACTION - STEP 2: Does the patient need extra time in social situations, OR does s/he interact with staff, other patien ts, and family members ONLY in structured environments, OR does s/he require medication for social in teraction? Yes, patient needs extra time SOCIAL INTERACTION - SCORE: 6-MARIPOSA PROBLEM SOLVING: PROBLEM SOLVING - STEP 1: Does the patient need help to solve complex problems such as managing a checking account or confronti ng interpersonal problems? No. PROBLEM SOLVING - STEP 2: Does the patient require extra time to make decisions or solve problems, OR does s/he have slight dif ficulty reading, initiating, or self-correcting in unfamiliar situations? Yes, patient needs extra ti me. PROBLEM SOLVING - SCORE: 6-MARIPOSA MEMORY: MEMORY - STEP 1: Does the patient need help to remember frequently encountered people, daily routines, and executing r equests? No. MEMORY - STEP 2: Does the patient have slight difficulty recognizing frequently encountered people, daily routines, or executing requests without the need for repetition or using self-initiated or environmental cues to remember? Yes. MEMORY - SCORE: 6-MARIPOSA
[2017-10-07] MEDS: INSULIN -REGULAR HUMAN 50 UNIT/0.5 ML ML SQ SCH ×4 (07:30→20:49)
[2017-10-07] MEDS: SEVELAMER CARBONATE 800 MG TABLET PO SCH ×3 (08:04→17:03)
[2017-10-07] MEDS: LACTULOSE 20 GM/30 ML UCUP PO SCH ×3 (08:04→20:11)
[2017-10-07] MEDS: GABAPENTIN 300 MG CAP PO SCH ×2 (08:05→20:09)
[2017-10-07] MEDS: DOCUSATE NA 100 MG CAP PO SCH (08:06)
[2017-10-07] MEDS: TAMSULOSIN 0.4 MG SR CAP PO SCH ×2 (08:06→20:10)
[2017-10-07] MEDS: CLOPIDOGREL 75 MG TABLET PO SCH (08:06)
[2017-10-07] MEDS: ASPIRIN EC 81 MG TAB PO SCH (08:07)
[2017-10-07] MEDS: FUROSEMIDE 40 MG TABLET PO SCH ×2 (08:07→17:04)
[2017-10-07] MEDS: MULTIVITAMINS,THERAPEUT 1 TAB PO SCH (08:07)
[2017-10-07] MEDS: PROMOD 30 ML DOSE PO SCH ×2 (08:09→20:11)
[2017-10-07] MEDS: NIFEDIPINE XL 30 MG TABLET PO SCH (09:29)
[2017-10-07] MEDS: HYDRALAZINE HCL 25 MG TABLET PO SCH ×2 (09:29→20:10)
--- NOTE | 2017-10-07 15:19 | FAST ---
SHIFT START DATE/TIME: 10/07/2017 07:00 (CDT) SHIFT END DATE/TIME: 10/07/2017 19:00 (CDT) NAME CARMEN ALTAMIRANO DATE OF : 1955 DATE OF ADMISSION: 09/21/2017 15:46 (CDT) PHONE: AGE: 62 [facility]# [id number] GENDER: Male ENCOUNTER PHYSICIAN: Dr. Edgar Pereira M.D. ADMISSION DIAGNOSIS: - Amputation of Limb 05 - Unilateral Lower Limb Below the Knee (BK) (05.4) Left Below the Knee Amputation. EATING: EATING - STEP 1: Does the patient require assistance when eating? No. EATING - SCORE: 7-IND GROOMING: Comb/brush hair Oral care Patient shaved Wash, rinse, and dry face Wash, rinse, and dry hands GROOMING - STEP 1: Does the patient require assistance when grooming? No. GROOMING - SCORE: 7-IND BATHING: Activity did not occur on this shift BATHING - SCORE: 0-UNK DRESSING - UPPER BODY: T-shirt/pullover shirt (four steps) ARTICLES SCORE Total number of steps: 4 DRESSING - UPPER BODY - STEP 1: Does the patient require help when dressing above the waist? No. DRESSING - UPPER BODY - SCORE: 7-IND DRESSING - LOWER BODY: Elastic waist pants (three steps) Slip-on shoe - Right foot (one step) Sock - Right foot (one step) Underwear (three steps) ARTICLES SCORE Total number of steps: 8 DRESSING - LOWER BODY - STEP 1: Does the patient require help when dressing below the waist? Yes. DRESSING - LOWER BODY - STEP 2: Does the patient require the assistance of a helper? Yes. DRESSING - LOWER BODY - STEP 3: Does the helper touch the patient while dressing? Yes. DRESSING - LOWER BODY - STEP 4: How many of the total steps does the patient complete on his/her own? 4 DRESSING - LOWER BODY - SCORE: 3-MOD TOILETING: Activity did not occur on this shift TOILETING - SCORE: 0-UNK TOILETING - COMMENTS: Renal dialysis BLADDER MANAGEMENT: Patient is on renal dialysis or peritoneal dialysis and no voiding activity BLADDER MANAGEMENT - SCORE: 7-IND BLADDER MANAGEMENT - FREQUENCY OF ACCIDENTS: BLADDER MANAGEMENT(FA) - STEP 1: How many accidents has the patient had during the current shift? 0 BOWEL MANAGEMENT: Activity did not occur on this shift BOWEL MANAGEMENT - SCORE: 7-IND BOWEL MANAGEMENT - FREQUENCY OF ACCIDENTS: BOWEL MANAGEMENT(FA) - STEP 1: How many accidents has the patient had during the current shift? 0 TRANSFERS: BED, CHAIR, WHEELCHAIR: TRANSFERS: BED, CHAIR, WHEELCHAIR - STEP 1: Does the patient require assistance with bed, chair, or wheelchair transfers? Yes. TRANSFERS: BED, CHAIR, WHEELCHAIR - STEP 2: Does the patient require the assistance of a helper? Yes. TRANSFERS: BED, CHAIR, WHEELCHAIR - STEP 3: How much assistance does the patient require from the helper? Only supervision TRANSFERS: BED, CHAIR, WHEELCHAIR - SCORE: 5-SUP TRANSFERS: TOILET: Activity did not occur on this shift TRANSFERS: TOILET - SCORE: 0-UNK TRANSFERS: SHOWER: Activity did not occur on this shift TRANSFERS: SHOWER - SCORE: 0-UNK TRANSFERS: TUB: Activity did not occur on this shift TRANSFERS: TUB - SCORE: 0-UNK LOCOMOTION: WALK: Activity did not occur on this shift LOCOMOTION: WALK - SCORE: 0-UNK LOCOMOTION: WHEELCHAIR: LOCOMOTION: WHEELCHAIR - STEP 1: Does the patient need help to go 150 feet in a wheelchair? Yes. LOCOMOTION: WHEELCHAIR - STEP 2: How much assistance does the patient need from the helper? Only supervision, cuing, or coaxing LOCOMOTION: WHEELCHAIR - SCORE: 5-SUP COMPREHENSION: COMPREHENSION - STEP 1: Does the patient require help to understand complex and abstract ideas (such as current events, finan josé, discharge planning, medical issues, relationships, etc)? No. COMPREHENSION - STEP 2: Does the patient need extra time, require an assistive device (such as glasses, hearing aids, or an a ugmentative communication system), OR does s/he have mild difficulty expressing complex and abstract ideas (including mild dysarthria or mild word-finding problems)? Yes. COMPREHENSION - SCORE: 6-MARIPOSA EXPRESSION EXPRESSION: TYPE: Both EXPRESSION - STEP 1: Does the patient require help expressing complex and abstract ideas (such as current events, finances , discharge planning, medical issues, relationships, etc)? No. EXPRESSION - STEP 2: Does the patient need extra time, require an assistive device (such as augmentive communication syste m or a communication board), OR does s/he have mild difficulty expressing complex and abstract ideas (including mild dysarthria or mild word-find problems)? Yes. EXPRESSION - SCORE: 6-MARIPOSA SOCIAL INTERACTION: SOCIAL INTERACTION - STEP 1: Does the patient require a helper to interact with others in social and therapeutic situations? No. SOCIAL INTERACTION - STEP 2: Does the patient need extra time in social situations, OR does s/he interact with staff, other patien ts, and family members ONLY in structured environments, OR does s/he require medication for social in teraction? No. SOCIAL INTERACTION - SCORE: 7-IND PROBLEM SOLVING: PROBLEM SOLVING - STEP 1: Does the patient need help to solve complex problems such as managing a checking account or confronti ng interpersonal problems? No. PROBLEM SOLVING - STEP 2: Does the patient require extra time to make decisions or solve problems, OR does s/he have slight dif ficulty reading, initiating, or self-correcting in unfamiliar situations? Yes, patient needs extra ti me. PROBLEM SOLVING - SCORE: 6-MARIPOSA MEMORY: MEMORY - STEP 1: Does the patient need help to remember frequently encountered people, daily routines, and executing r equests? No. MEMORY - STEP 2: Does the patient have slight difficulty recognizing frequently encountered people, daily routines, or executing requests without the need for repetition or using self-initiated or environmental cues to remember? Yes. MEMORY - SCORE: 6-MARIPOSA SIGNATURE PANEL: The following modified sections: Eating - Score, Grooming - Score, Bathing - Score, Dressing - Upper Body - Score, Dressing - Lower Body - Score, Toileting - Score, Toileting - Comments:, Bladder Manage ment - Score, Bowel Management - Score, Transfers: Bed, Chair, Wheelchair - Score, Transfers: Toilet - Score, Transfers: Shower - Score, Transfers: Tub - Score, Locomotion: Walk - Score, Locomotion: Whe elchair - Score, Comprehension - Score, Expression - Score, Social Interaction - Score, Problem Solvi ng - Score, Memory - Score were [electronically] signed by Gemma Webb C.N.A. on SunOct 07 2017 14 :19:04 GMT-0500 (Central Daylight Time)
[2017-10-07] MEDS: ENOXAPARIN 30 MG/0.3 ML SQ SCH (17:04)
[2017-10-07] MEDS: ATORVASTATIN 10 MG TAB PO SCH (20:10)
[2017-10-07] MEDS: DOCUSATE NA/SENNA CONC 1 TAB PO SCH (20:10)
[2017-10-08] MEDS: TRAMADOL HCL 50 MG TAB PO PRN ×3 (01:37→20:00)
[2017-10-08] MEDS: INSULIN -REGULAR HUMAN 50 UNIT/0.5 ML ML SQ SCH ×4 (07:30→20:31)
[2017-10-08] MEDS: NIFEDIPINE XL 30 MG TABLET PO SCH (08:00)
[2017-10-08] MEDS: SEVELAMER CARBONATE 800 MG TABLET PO SCH ×3 (08:12→17:10)
[2017-10-08] MEDS: ASPIRIN EC 81 MG TAB PO SCH (08:13)
[2017-10-08] MEDS: FUROSEMIDE 40 MG TABLET PO SCH ×2 (08:13→16:59)
[2017-10-08] MEDS: HYDRALAZINE HCL 25 MG TABLET PO SCH ×2 (08:14→19:59)
[2017-10-08] MEDS: GABAPENTIN 300 MG CAP PO SCH ×2 (08:15→19:59)
[2017-10-08] MEDS: MULTIVITAMINS,THERAPEUT 1 TAB PO SCH (08:16)
[2017-10-08] MEDS: TAMSULOSIN 0.4 MG SR CAP PO SCH ×2 (08:16→19:59)
[2017-10-08] MEDS: CLOPIDOGREL 75 MG TABLET PO SCH (08:17)
[2017-10-08] MEDS: DOCUSATE NA 100 MG CAP PO SCH (08:18)
[2017-10-08] MEDS: LACTULOSE 20 GM/30 ML UCUP PO SCH ×3 (08:20→20:00)
[2017-10-08] MEDS: PROMOD 30 ML DOSE PO SCH ×2 (08:22→20:00)
[2017-10-08] MEDS: HYDROCODONE/APAP 7.5/325 MG TAB PO PRN (12:12)
--- NOTE | 2017-10-08 13:18 | FAST ---
ENCOUNTER DATE AND TIME: 10/08/2017 08:00 (CDT) NAME CARMEN ALTAMIRANO DATE OF : 1955 DATE OF ADMISSION: 09/21/2017 15:46 (CDT) PHONE: AGE: 62 N# [id number] GENDER: Male ENCOUNTER PHYSICIAN: Dr. Edgar Pereira M.D. ADMISSION DIAGNOSIS: - Amputation of Limb 05 - Unilateral Lower Limb Below the Knee (BK) (05.4) Left Below the Knee Amputation. EATING: Activity did not occur on this shift EATING - SCORE: 0-UNK GROOMING: Wash, rinse, and dry face Wash, rinse, and dry hands GROOMING - STEP 1: Does the patient require assistance when grooming? No. GROOMING - SCORE: 7-IND BATHING: Abdomen Buttocks Chest Left arm Left upper leg Perineal area Right arm Right lower leg and foot Right upper leg BATHING - STEP 1: Does the patient require assistance when bathing? Yes. BATHING - STEP 2: Does the patient require the assistance of a helper? No. The patient only requires an assistive devic e such as a bath amira, OR the patient takes more than reasonable time to bathe, OR there is a concern for safety such as regulating water temperature as the patient bathes. BATHING - SCORE: 6-MARIPOSA DRESSING - UPPER BODY: T-shirt/pullover shirt (four steps) ARTICLES SCORE Total number of steps: 4 DRESSING - UPPER BODY - STEP 1: Does the patient require help when dressing above the waist? No. DRESSING - UPPER BODY - SCORE: 7-IND DRESSING - LOWER BODY: Elastic waist pants (three steps) Slip-on shoe - Right foot (one step) Sock - Right foot (one step) Underwear (three steps) ARTICLES SCORE Total number of steps: 8 DRESSING - LOWER BODY - STEP 1: Does the patient require help when dressing below the waist? Yes. DRESSING - LOWER BODY - STEP 2: Does the patient require the assistance of a helper? Yes. DRESSING - LOWER BODY - STEP 3: Does the helper touch the patient while dressing? No. DRESSING - LOWER BODY - SCORE: 5-SUP TOILETING: Activity did not occur on this shift TOILETING - SCORE: 0-UNK BLADDER MANAGEMENT: Activity did not occur on this shift BLADDER MANAGEMENT - SCORE: 7-IND BOWEL MANAGEMENT: Activity did not occur on this shift BOWEL MANAGEMENT - SCORE: 7-IND TRANSFERS: BED, CHAIR, WHEELCHAIR: Activity did not occur on this shift TRANSFERS: BED, CHAIR, WHEELCHAIR - SCORE: 0-UNK TRANSFERS: TOILET: Activity did not occur on this shift TRANSFERS: TOILET - SCORE: 0-UNK TRANSFERS: SHOWER: Activity did not occur on this shift TRANSFERS: SHOWER - SCORE: 0-UNK TRANSFERS: TUB: TRANSFERS: TUB - STEP 1: Does the patient require assistance with tub transfers? Yes. TRANSFERS: TUB - STEP 2: Does the patient require the assistance of a helper? Yes. TRANSFERS: TUB - STEP 3: How much assistance does the patient require from the helper? Only supervision, cuing, coaxing, or he lp to set out transfer equipment or to lock brakes and/or lift foot rests TRANSFERS: TUB - SCORE: 5-SUP LOCOMOTION: WALK: Activity did not occur on this shift LOCOMOTION: WALK - SCORE: 0-UNK LOCOMOTION: WHEELCHAIR: Activity did not occur on this shift LOCOMOTION: WHEELCHAIR - SCORE: 0-UNK LOCOMOTION: STAIRS: Activity did not occur on this shift LOCOMOTION: STAIRS - SCORE: 0-UNK COMPREHENSION: COMPREHENSION - SCORE: 0-UNK EXPRESSION EXPRESSION - SCORE: 0-UNK SOCIAL INTERACTION: SOCIAL INTERACTION - SCORE: 0-UNK PROBLEM SOLVING: PROBLEM SOLVING - SCORE: 0-UNK MEMORY: MEMORY - SCORE: 0-UNK SIGNATURE PANEL: The following modified sections: Eating - Score, Grooming - Score, Bathing - Score, Dressing - Upper Body - Score, Dressing - Lower Body - Score, Toileting - Score, Transfers: Bed, Chair, Wheelchair - S core, Transfers: Toilet - Score, Transfers: Shower - Score, Transfers: Tub - Score, Comprehension - S core, Expression - Score, Social Interaction - Score, Problem Solving - Score, Memory - Score were [e lectronically] signed by CRISTINA Oh on SunOct 08 2017 12:18:19 T-0500 ([facility] Time)
--- NOTE | 2017-10-08 16:27 | FAST ---
ENCOUNTER DATE AND TIME: 10/08/2017 08:00 (CDT) NAME CARMEN ALTAMIRANO DATE OF : 1955 DATE OF ADMISSION: 09/21/2017 15:46 (CDT) PHONE: AGE: 62 N# [id number] GENDER: Male ENCOUNTER PHYSICIAN: Dr. Edgar Pereira M.D. ADMISSION DIAGNOSIS: - Amputation of Limb 05 - Unilateral Lower Limb Below the Knee (BK) (05.4) Left Below the Knee Amputation. EATING: Activity did not occur on this shift EATING - SCORE: 0-UNK GROOMING: Activity did not occur on this shift GROOMING - SCORE: 0-UNK BATHING: Activity did not occur on this shift BATHING - SCORE: 0-UNK DRESSING - UPPER BODY: Activity did not occur on this shift Patient is not dressing in public clothing ARTICLES SCORE Total number of steps: 0 DRESSING - UPPER BODY - SCORE: 0-UNK DRESSING - LOWER BODY: Activity did not occur on this shift Patient is not dressing in public clothing ARTICLES SCORE Total number of steps: 0 DRESSING - LOWER BODY - SCORE: 0-UNK TOILETING: Activity did not occur on this shift TOILETING - SCORE: 0-UNK BLADDER MANAGEMENT: Activity did not occur on this shift BLADDER MANAGEMENT - SCORE: 7-IND BOWEL MANAGEMENT: Activity did not occur on this shift BOWEL MANAGEMENT - SCORE: 7-IND TRANSFERS: BED, CHAIR, WHEELCHAIR: Activity did not occur on this shift TRANSFERS: BED, CHAIR, WHEELCHAIR - SCORE: 0-UNK TRANSFERS: TOILET: Activity did not occur on this shift TRANSFERS: TOILET - SCORE: 0-UNK TRANSFERS: SHOWER: Activity did not occur on this shift TRANSFERS: SHOWER - SCORE: 0-UNK TRANSFERS: TUB: Activity did not occur on this shift TRANSFERS: TUB - SCORE: 0-UNK LOCOMOTION: WALK: Activity did not occur on this shift LOCOMOTION: WALK - SCORE: 0-UNK LOCOMOTION: WHEELCHAIR: Activity did not occur on this shift LOCOMOTION: WHEELCHAIR - SCORE: 0-UNK LOCOMOTION: STAIRS: Activity did not occur on this shift LOCOMOTION: STAIRS - SCORE: 0-UNK COMPREHENSION: COMPREHENSION - STEP 1: Does the patient require help to understand complex and abstract ideas (such as current events, finan josé, discharge planning, medical issues, relationships, etc)? No. COMPREHENSION - STEP 2: Does the patient need extra time, require an assistive device (such as glasses, hearing aids, or an a ugmentative communication system), OR does s/he have mild difficulty expressing complex and abstract ideas (including mild dysarthria or mild word-finding problems)? Yes. COMPREHENSION - SCORE: 6-MARIPOSA EXPRESSION EXPRESSION - STEP 1: Does the patient require help expressing complex and abstract ideas (such as current events, finances , discharge planning, medical issues, relationships, etc)? No. EXPRESSION - STEP 2: Does the patient need extra time, require an assistive device (such as augmentive communication syste m or a communication board), OR does s/he have mild difficulty expressing complex and abstract ideas (including mild dysarthria or mild word-find problems)? No. EXPRESSION - SCORE: 7-IND SOCIAL INTERACTION: SOCIAL INTERACTION - STEP 1: Does the patient require a helper to interact with others in social and therapeutic situations? No. SOCIAL INTERACTION - STEP 2: Does the patient need extra time in social situations, OR does s/he interact with staff, other patien ts, and family members ONLY in structured environments, OR does s/he require medication for social in teraction? No. SOCIAL INTERACTION - SCORE: 7-IND PROBLEM SOLVING: PROBLEM SOLVING - STEP 1: Does the patient need help to solve complex problems such as managing a checking account or confronti ng interpersonal problems? No. PROBLEM SOLVING - STEP 2: Does the patient require extra time to make decisions or solve problems, OR does s/he have slight dif ficulty reading, initiating, or self-correcting in unfamiliar situations? Yes, patient needs extra ti me. PROBLEM SOLVING - SCORE: 6-MARIPOSA MEMORY: MEMORY - STEP 1: Does the patient need help to remember frequently encountered people, daily routines, and executing r equests? No. MEMORY - STEP 2: Does the patient have slight difficulty recognizing frequently encountered people, daily routines, or executing requests without the need for repetition or using self-initiated or environmental cues to remember? Yes. MEMORY - SCORE: 6-MARIPOSA SIGNATURE PANEL: The following modified sections: Comprehension - Score, Expression - Score, Social Interaction - Scor e, Problem Solving - Score, Memory - Score were [electronically] signed by ST Dora sun 15:27:47 GMT-0500 (Central Daylight Time)
--- NOTE | 2017-10-08 16:29 | FAST ---
SHIFT START DATE/TIME: 10/08/2017 07:00 (CDT) SHIFT END DATE/TIME: 10/08/2017 19:00 (CDT) NAME CARMEN ALTAMIRANO DATE OF : 1955 DATE OF ADMISSION: 09/21/2017 15:46 (CDT) PHONE: AGE: 62 [facility]# [id number] GENDER: Male ENCOUNTER PHYSICIAN: Dr. Edgar Pereira M.D. ADMISSION DIAGNOSIS: - Amputation of Limb 05 - Unilateral Lower Limb Below the Knee (BK) (05.4) Left Below the Knee Amputation. EATING: EATING - STEP 1: Does the patient require assistance when eating? Yes. EATING - STEP 2: Does the patient require the assistance of a helper? No, patient only requires an assistive device, O R s/he takes more than reasonable time to eat, OR there is a safety concern, OR s/he requires modifie d food consistency EATING - SCORE: 6-MARIPOSA GROOMING: Comb/brush hair Oral care Wash, rinse, and dry face Wash, rinse, and dry hands GROOMING - STEP 1: Does the patient require assistance when grooming? Yes. GROOMING - STEP 2: Does the patient require the assistance of a helper? No. The patient only requires an assistive devic e, OR takes more than reasonable time to groom, OR there is a concern for safety as the patient groom s GROOMING - SCORE: 6-MARIPOSA BATHING: Activity did not occur on this shift BATHING - SCORE: 0-UNK DRESSING - UPPER BODY: Activity did not occur on this shift ARTICLES SCORE Total number of steps: 0 DRESSING - UPPER BODY - SCORE: 0-UNK DRESSING - LOWER BODY: Activity did not occur on this shift ARTICLES SCORE Total number of steps: 0 DRESSING - LOWER BODY - SCORE: 0-UNK TOILETING: TOILETING - STEP 1: Does the patient require assistance with toileting? Yes. TOILETING - STEP 2: Does the patient require the assistance of a helper? Yes. TOILETING - STEP 3: How much assistance does the patient require from the helper? Hands-on assistance from the helper TOILETING - STEP 4: Of the 3 tasks: 1) Adjusting clothing prior to use, 2) Cleansing of perineal area, 3) Adjusting clot kathy after use; How many tasks does the patient perform WITHOUT assistance of the helper? Two tasks TOILETING - SCORE: 3-MOD BLADDER MANAGEMENT: Patient depends entirely on nursing staff for timed void program (helper reminds patient each time to go to bathroom for timed void program). BLADDER MANAGEMENT - SCORE: 1-DEP BOWEL MANAGEMENT: Activity did not occur on this shift BOWEL MANAGEMENT - SCORE: 7-IND TRANSFERS: BED, CHAIR, WHEELCHAIR: TRANSFERS: BED, CHAIR, WHEELCHAIR - STEP 1: Does the patient require assistance with bed, chair, or wheelchair transfers? Yes. TRANSFERS: BED, CHAIR, WHEELCHAIR - STEP 2: Does the patient require the assistance of a helper? Yes. TRANSFERS: BED, CHAIR, WHEELCHAIR - STEP 3: How much assistance does the patient require from the helper? Steadying/guiding assistance TRANSFERS: BED, CHAIR, WHEELCHAIR - SCORE: 4-MIN TRANSFERS: TOILET: TRANSFERS: TOILET - STEP 1: Does the patient require assistance with toilet transfers? Yes. TRANSFERS: TOILET - STEP 2: Does the patient require the assistance of a helper? Yes. TRANSFERS: TOILET - STEP 3: How much assistance does the patient require from the helper? Patient performs half or more of the tr ansferring tasks TRANSFERS: TOILET - STEP 4: Does the patient need only incidental help such as contact guard or steadying during toilet transfer? Yes. TRANSFERS: TOILET - SCORE: 4-MIN TRANSFERS: SHOWER: Activity did not occur on this shift TRANSFERS: SHOWER - SCORE: 0-UNK TRANSFERS: TUB: Activity did not occur on this shift TRANSFERS: TUB - SCORE: 0-UNK LOCOMOTION: WALK: Activity did not occur on this shift LOCOMOTION: WALK - SCORE: 0-UNK LOCOMOTION: WHEELCHAIR: Activity did not occur on this shift LOCOMOTION: WHEELCHAIR - SCORE: 0-UNK COMPREHENSION: COMPREHENSION - SCORE: 0-UNK EXPRESSION EXPRESSION - SCORE: 0-UNK SOCIAL INTERACTION: SOCIAL INTERACTION - SCORE: 0-UNK PROBLEM SOLVING: PROBLEM SOLVING - SCORE: 0-UNK MEMORY: MEMORY - SCORE: 0-UNK SIGNATURE PANEL: The following modified sections: Eating - Score, Grooming - Score, Bathing - Score, Dressing - Upper Body - Score, Dressing - Lower Body - Score, Toileting - Score, Bladder Management - Score, Bowel Man agement - Score, Transfers: Bed, Chair, Wheelchair - Score, Transfers: Toilet - Score, Transfers: Adeline wer - Score, Transfers: Tub - Score, Locomotion: Walk - Score, Locomotion: Wheelchair - Score, Compre hension - Score, Expression - Score, Social Interaction - Score, Problem Solving - Score, Memory - Sc ore were [electronically] signed by Tavo Jamil on SunOct 08 2017 15:29:33 GMT-0500 (Central Daylight Time)
--- NOTE | 2017-10-08 16:40 | FAST ---
ENCOUNTER DATE AND TIME: 10/08/2017 08:00 (CDT) NAME CARMEN ALTAMIRANO DATE OF : 1955 DATE OF ADMISSION: 09/21/2017 15:46 (CDT) PHONE: AGE: 62 N# [id number] GENDER: Male ENCOUNTER PHYSICIAN: Dr. Edgar Pereira M.D. ADMISSION DIAGNOSIS: - Amputation of Limb 05 - Unilateral Lower Limb Below the Knee (BK) (05.4) Left Below the Knee Amputation. EATING: Activity did not occur on this shift EATING - SCORE: 0-UNK GROOMING: Activity did not occur on this shift GROOMING - SCORE: 0-UNK BATHING: Activity did not occur on this shift BATHING - SCORE: 0-UNK DRESSING - UPPER BODY: Activity did not occur on this shift Patient is not dressing in public clothing ARTICLES SCORE Total number of steps: 0 DRESSING - UPPER BODY - SCORE: 0-UNK DRESSING - LOWER BODY: Activity did not occur on this shift Patient is not dressing in public clothing ARTICLES SCORE Total number of steps: 0 DRESSING - LOWER BODY - SCORE: 0-UNK TOILETING: Activity did not occur on this shift TOILETING - SCORE: 0-UNK BLADDER MANAGEMENT: Activity did not occur on this shift BLADDER MANAGEMENT - SCORE: 7-IND BOWEL MANAGEMENT: Activity did not occur on this shift BOWEL MANAGEMENT - SCORE: 7-IND TRANSFERS: BED, CHAIR, WHEELCHAIR: TRANSFERS: BED, CHAIR, WHEELCHAIR - STEP 1: Does the patient require assistance with bed, chair, or wheelchair transfers? Yes. TRANSFERS: BED, CHAIR, WHEELCHAIR - STEP 2: Does the patient require the assistance of a helper? Yes. TRANSFERS: BED, CHAIR, WHEELCHAIR - STEP 3: How much assistance does the patient require from the helper? Steadying/guiding assistance TRANSFERS: BED, CHAIR, WHEELCHAIR - SCORE: 4-MIN TRANSFERS: TOILET: Activity did not occur on this shift TRANSFERS: TOILET - SCORE: 0-UNK TRANSFERS: SHOWER: Activity did not occur on this shift TRANSFERS: SHOWER - SCORE: 0-UNK TRANSFERS: TUB: Activity did not occur on this shift TRANSFERS: TUB - SCORE: 0-UNK LOCOMOTION: WALK: Activity did not occur on this shift LOCOMOTION: WALK - SCORE: 0-UNK LOCOMOTION: WHEELCHAIR: LOCOMOTION: WHEELCHAIR - STEP 1: Does the patient need help to go 150 feet in a wheelchair? Yes. LOCOMOTION: WHEELCHAIR - STEP 2: How much assistance does the patient need from the helper? Only supervision, cuing, or coaxing LOCOMOTION: WHEELCHAIR - SCORE: 5-SUP LOCOMOTION: STAIRS: Activity did not occur on this shift LOCOMOTION: STAIRS - SCORE: 0-UNK COMPREHENSION: COMPREHENSION - SCORE: 0-UNK EXPRESSION EXPRESSION - SCORE: 0-UNK SOCIAL INTERACTION: SOCIAL INTERACTION - SCORE: 0-UNK PROBLEM SOLVING: PROBLEM SOLVING - SCORE: 0-UNK MEMORY: MEMORY - SCORE: 0-UNK SIGNATURE PANEL: The following modified sections: Transfers: Bed, Chair, Wheelchair - Score, Transfers: Toilet - Score , Locomotion: Walk - Score, Locomotion: Wheelchair - Score, Locomotion: Stairs - Score were [monica meyer] signed by Christina Walton PTA on SunOct 08 2017 15:40:09 T-0500 (Central Daylight Time)
[2017-10-08] MEDS: EPOETIN ALFA 10,000 UNIT/ML VIAL IV SCH (17:41)
[2017-10-08] MEDS: ENOXAPARIN 30 MG/0.3 ML SQ SCH (19:58)
[2017-10-08] MEDS: MELATONIN 3 MG TABLET PO PRN (20:00)
[2017-10-08] MEDS: ATORVASTATIN 10 MG TAB PO SCH (20:00)
[2017-10-08] MEDS: DOCUSATE NA/SENNA CONC 1 TAB PO SCH (20:00)
--- NOTE | 2017-10-08 21:49 | P.PN ---
Date of Service: 10/08/17 Vital Signs Temp Pulse Resp BP Pulse Ox 97.4 F 78 16 177/81 H 98 10/08/17 07:27 10/08/17 08:13 10/08/17 07:27 10/08/17 08:13 10/08/17 07:27 Medications Hydrocodone Bitart/Acetaminophen ([place] 7.5/325 Mg) 1 tab PO Q6H PRN PRN Reason: PAIN Stop: 10/21/17 23:50 Last Admin: 10/08/17 12:12 Dose: 1 tab Albuterol Sulfate (Proventil 0.083% Neb Soln) 2.5 mg NEB TIDRESP PRN PRN Reason: SHORTNESS OF BREATH Stop: 10/21/17 16:26 Last Admin: 10/07/17 14:30 Dose: 2.5 mg Aspirin (Aspirin Ec) 81 mg PO DAILY FIDEL Stop: 10/22/17 08:01 Last Admin: 10/08/17 08:13 Dose: 81 mg Atorvastatin Calcium (Lipitor) 10 mg PO BEDTIME FIDEL Stop: 10/21/17 21:01 Last Admin: 10/08/17 20:00 Dose: 10 mg Bisacodyl (Dulcolax) [address] DAILY PRN PRN Reason: CONSTIPATION Stop: 10/21/17 19:28 Last Admin: 10/01/17 05:30 Dose: 10 mg Clopidogrel Bisulfate (Plavix) 75 mg PO DAILY FIDEL Stop: 10/22/17 08:01 Last Admin: 10/08/17 08:17 Dose: 75 mg Dextrose (Dextrose 50% Syringe) 12.5 gm IV PRN PRN; Protocol PRN Reason: HYPOGLYCEMIA Stop: 10/21/17 16:18 Docusate Sodium (Colace Cap) 200 mg PO DAILY FIDEL Stop: 10/29/17 08:01 Last Admin: 10/08/17 08:18 Dose: 200 mg Enoxaparin Sodium (Lovenox 30 Mg Inj) 30 mg SQ DAILY 5 PM FIDEL Stop: 10/23/17 17:01 Last Admin: 10/08/17 19:58 Dose: 30 mg [employer] (Procrit) 10,000 unit IV EVERY HD FIDEL Stop: 10/24/17 08:46 Last Admin: 10/08/17 17:41 Dose: 10,000 unit Furosemide (Lasix) 80 mg PO BIDL [facility] Stop: 10/21/17 17:01 Last Admin: 10/08/17 16:59 Dose: Not Given Gabapentin (Neurontin) 600 mg PO BID [facility] Stop: 10/28/17 10:01 Last Admin: 10/08/17 19:59 Dose: 600 mg Glucagon (Glucagen) 1 mg IM 1X PRN; Protocol PRN Reason: HYPOGLYCEMIA Stop: 10/21/17 16:18 Heparin Sodium (Porcine) (Heparin 1,000 Units/Ml) 2,000 unit IV EVERY HD FIDEL Stop: 10/26/17 11:01 Last Admin: 10/08/17 17:43 Dose: 2,000 unit Hydralazine HCl (Apresoline) 25 mg PO BID [facility] Stop: 10/21/17 20:01 Last Admin: 10/08/17 19:59 Dose: 25 mg Albumin Human (Albumin 25%) 50 mls @ 100 mls/hr IV EVERY HD [facility] Stop: 10/24/17 09:01 Insulin Human Regular (Novolin -R) 0 unit SQ ACHS [facility]; Protocol Stop: 10/21/17 16:31 Last Admin: 10/08/17 20:31 Dose: Not Given Lactulose (Cephulac) 20 gm PO TID [facility] Stop: 11/02/17 14:01 Last Admin: 10/08/17 20:00 Dose: Not Given Mannitol (Mannitol 12.5 Gm/50 Ml Vial) 12.5 gm IV EVERY HD PRN PRN Reason: BP support at hemodialysis Stop: 10/24/17 08:40 Melatonin (Melatonin) 3 mg PO BEDTIME PRN PRN PRN Reason: INSOMNIA Stop: 10/23/17 01:10 Last Admin: 10/08/17 20:00 Dose: 3 mg Nifedipine (Procardia Xl) 30 mg PO DAILY [facility] Stop: 10/22/17 08:01 Last Admin: 10/08/17 08:00 Dose: Not Given Nutritional Formula (Promod Liquid Protein) 30 ml PO BID [facility] Stop: 10/23/17 20:01 Last Admin: 10/08/17 20:00 Dose: 30 ml Ondansetron HCl (Zofran) 4 mg PO Q6H PRN PRN Reason: NAUSEA / VOMITING Stop: 10/21/17 16:39 Phenyleph/Shark Oil/Min Oil/Petrol (Formulation R) [address] BID PRN PRN Reason: HEMORRHOIDS Stop: 10/31/17 13:08 Polyethylene Glycol (Glycolax) 17 gm PO DAILY PRN PRN Reason: CONSTIPATION Stop: 10/31/17 14:31 Senna/Docusate Sodium (Senokot-S) 2 tab PO BEDTIME FIDEL Stop: 10/22/17 21:01 Last Admin: 10/08/17 20:00 Dose: 2 tab Sevelamer Carbonate (Renvela) 1,600 mg PO TIDWM [facility]IDEL Stop: 10/31/17 17:01 Last Admin: 10/08/17 17:10 Dose: 1,600 mg Tamsulosin HCl (Flomax) 0.4 mg PO BID [facility]IDEL Stop: 11/01/17 20:01 Last Admin: 10/08/17 19:59 Dose: 0.4 mg Tramadol HCl (Ultram) 50 mg PO Q6H PRN PRN Reason: PAIN MILD Stop: 10/21/17 16:03 Last Admin: 10/08/17 20:00 Dose: 50 mg Vitamin B Complex/Vit C/Folic Acid (Nephro-Kayden) 1 tab PO DAILY FIDEL Stop: 10/22/17 08:01 Last Admin: 10/08/17 08:16 Dose: 1 tab Lab Results (last 24 hrs) 10/08/17 20:25: POC Glucose 155 H 10/08/17 11:56: POC Glucose 176 H 10/08/17 07:13: POC Glucose 163 H Microbiology Results 09/27/17 16:55 Blood - Blood Aerobic Blood Culture - Final No growth in 5 days. 09/27/17 16:55 Blood - Blood Anaerobic Blood Culture - Final 09/22/17 21:32 Clean Catch Urine [place] Count - Final <10,000 CFU/ML. 09/22/17 21:32 Clean Catch Urine - Final Assessment/ Plan: Nephrology. CPS stable without CP or SOB. No acute events. Doing well. Another episode of urinary retention treated with catherization; approximately 200ml of urine per day. Vitals, medications, blood work and imaging reviewed in the chart. General: In no apparent distress, Oriented x3, Cooperative HEENT: Atraumatic Neck: Supple Respiratory: Clear to auscultation bilaterally Cardiovascular: Regular rate/rhythm, No rubs Gastrointestinal: Soft and benign, Non-distended Musculoskeletal: No clubbing, No contractures Integumentary: No rashes, No cyanosis, Other (Left BKA.) Neurological: Normal speech Blood work reviewed in the chart. Hgb 9.6; Alb 3.3 Imagings Data: HEIGHT: 6 ft 1 in WEIGHT: 235 lb 0 oz DATE OF STUDY: 09/20/[address]: Familia Duval MD 2-DIMENSIONAL: YES M.MODE: YES DOPPLER: YES COLOR FLOW: YES TDS: NO PORTABLE: NO DEFINITY: NO BUBBLE STUDY: NO DIAGNOSIS: ARRYTHMIA CARDIAC HISTORY: CATHERIZATION: YES SURGERY: NO PROSTHETIC VALVE: NO PACEMAKER: NO MEASUREMENTS (cm) DIASTOLIC (NORMALS) SYSTOLIC (NORMALS) IVSd 1.2 (0.6-1.2) LA Diam 3.7 (1.9-4.0) LVEF 54% LVIDd 6.0 (3.5-5.7) LVIDs 4.3 (2.0-3.5) %FS 29% LVPWd 1.2 (0.6-1.2) Ao Diam 3.1 (2.0-3.7) 2 DIMENSIONAL ASSESSMENT: RIGHT ATRIUM: NORMAL LEFT ATRIUM: NORMAL SIZE RIGHT VENTRICLE: NORMAL LEFT VENTRICLE: DILATED TRICUSPID VALVE: NORMAL MITRAL VALVE: MITRAL ANNULAR CALCIFICATION PULMONIC VALVE: NORMAL AORTIC VALVE: NORMAL PERICARDIAL EFFUSION: NONE AORTIC ROOT: NORMAL LEFT VENTRICULAR WALL MOTION: NORMAL LEFT VENTRICULAR EJECTION FRACTION. DECREASED LEFT VENTRICULAR COMPLIANCE. DOPPLER/COLOR FLOW: MILD TRICUSPID REGURGITATION. COMMENTS: MILD TRICUSPID REGURGITATION. DECREASED LEFT VENTRICULAR COMPLIANCE. NORMAL LEFT VENTRICULAR EJECTION FRACTION. MILD LEFT VENTRICULAR DILIATION. MITRAL ANNULAR CALCIFICATION. Conclusions/Impression: A/ ESRD on HD. Hyperkalemia. HTN with CKD. Diastolic CHF, chronic. Anemia in CKD. PERYC/ Secondary HyperPTH. 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 Constipation. Urinary retention likely due to BPH & opiates. P/ Continue current POC and Medications. HD TIW. Plan for HD today. Another episode of urinary retention; counseled patient regarding intermittent catheterization. Will need a urology evaluation as an outpt. Wean opiate therapy as tolerated. No NSAIDs. Titrate insulin as needed. Low sodium diet. AM labs. Daily weight. PT as tolerated.
--- NOTE | 2017-10-09 02:33 | FAST ---
SHIFT START DATE/TIME: 10/08/2017 19:00 (CDT) SHIFT END DATE/TIME: 10/09/2017 07:00 (CDT) NAME CARMEN ALTAMIRANO DATE OF : 1955 DATE OF ADMISSION: 09/21/2017 15:46 (CDT) PHONE: AGE: 62 [facility]# [phone] GENDER: Male ENCOUNTER PHYSICIAN: Dr. Edgar Pereira M.D. ADMISSION DIAGNOSIS: - Amputation of Limb 05 - Unilateral Lower Limb Below the Knee (BK) (05.4) Left Below the Knee Amputation. EATING: Activity did not occur on this shift EATING - SCORE: 0-UNK GROOMING: Activity did not occur on this shift GROOMING - SCORE: 0-UNK BATHING: Activity did not occur on this shift BATHING - SCORE: 0-UNK DRESSING - UPPER BODY: Activity did not occur on this shift ARTICLES SCORE Total number of steps: 0 DRESSING - UPPER BODY - SCORE: 0-UNK DRESSING - LOWER BODY: Activity did not occur on this shift ARTICLES SCORE Total number of steps: 0 DRESSING - LOWER BODY - SCORE: 0-UNK TOILETING: Activity did not occur on this shift TOILETING - SCORE: 0-UNK BLADDER MANAGEMENT: Patient is on renal dialysis or peritoneal dialysis and no voiding activity BLADDER MANAGEMENT - SCORE: 7-IND BOWEL MANAGEMENT: Activity did not occur on this shift BOWEL MANAGEMENT - SCORE: 7-IND TRANSFERS: BED, CHAIR, WHEELCHAIR: TRANSFERS: BED, CHAIR, WHEELCHAIR - STEP 1: Does the patient require assistance with bed, chair, or wheelchair transfers? Yes. TRANSFERS: BED, CHAIR, WHEELCHAIR - STEP 2: Does the patient require the assistance of a helper? Yes. TRANSFERS: BED, CHAIR, WHEELCHAIR - STEP 3: How much assistance does the patient require from the helper? Steadying/guiding assistance TRANSFERS: BED, CHAIR, WHEELCHAIR - SCORE: 4-MIN TRANSFERS: TOILET: Activity did not occur on this shift TRANSFERS: TOILET - SCORE: 0-UNK TRANSFERS: SHOWER: Activity did not occur on this shift TRANSFERS: SHOWER - SCORE: 0-UNK TRANSFERS: TUB: Activity did not occur on this shift TRANSFERS: TUB - SCORE: 0-UNK LOCOMOTION: WALK: Activity did not occur on this shift LOCOMOTION: WALK - SCORE: 0-UNK LOCOMOTION: WHEELCHAIR: Activity did not occur on this shift LOCOMOTION: WHEELCHAIR - SCORE: 0-UNK COMPREHENSION: COMPREHENSION - STEP 1: Does the patient require help to understand complex and abstract ideas (such as current events, finan josé, discharge planning, medical issues, relationships, etc)? No. COMPREHENSION - STEP 2: Does the patient need extra time, require an assistive device (such as glasses, hearing aids, or an a ugmentative communication system), OR does s/he have mild difficulty expressing complex and abstract ideas (including mild dysarthria or mild word-finding problems)? Yes. COMPREHENSION - SCORE: 6-MARIPOSA EXPRESSION EXPRESSION - STEP 1: Does the patient require help expressing complex and abstract ideas (such as current events, finances , discharge planning, medical issues, relationships, etc)? No. EXPRESSION - STEP 2: Does the patient need extra time, require an assistive device (such as augmentive communication syste m or a communication board), OR does s/he have mild difficulty expressing complex and abstract ideas (including mild dysarthria or mild word-find problems)? No. EXPRESSION - SCORE: 7-IND SOCIAL INTERACTION: SOCIAL INTERACTION - STEP 1: Does the patient require a helper to interact with others in social and therapeutic situations? No. SOCIAL INTERACTION - STEP 2: Does the patient need extra time in social situations, OR does s/he interact with staff, other patien ts, and family members ONLY in structured environments, OR does s/he require medication for social in teraction? No. SOCIAL INTERACTION - SCORE: 7-IND PROBLEM SOLVING: PROBLEM SOLVING - STEP 1: Does the patient need help to solve complex problems such as managing a checking account or confronti ng interpersonal problems? No. PROBLEM SOLVING - STEP 2: Does the patient require extra time to make decisions or solve problems, OR does s/he have slight dif ficulty reading, initiating, or self-correcting in unfamiliar situations? No. PROBLEM SOLVING - SCORE: 7-IND MEMORY: MEMORY - STEP 1: Does the patient need help to remember frequently encountered people, daily routines, and executing r equests? No. MEMORY - STEP 2: Does the patient have slight difficulty recognizing frequently encountered people, daily routines, or executing requests without the need for repetition or using self-initiated or environmental cues to remember? No. MEMORY - SCORE: 7-IND SIGNATURE PANEL: The following modified sections: Eating - Score, Grooming - Score, Bathing - Score, Dressing - Upper Body - Score, Dressing - Lower Body - Score, Toileting - Score, Bladder Management - Score, Bowel Man agement - Score, Transfers: Bed, Chair, Wheelchair - Score, Transfers: Toilet - Score, Transfers: Adeline wer - Score, Transfers: Tub - Score, Locomotion: Walk - Score, Locomotion: Wheelchair - Score, Compre hension - Score, Expression - Score, Social Interaction - Score, Problem Solving - Score, Memory - Sc ore were [electronically] signed by Lina Islas RN on SunOct 09 2017 01:33:38 T-0500 ([facility] Time)
[2017-10-09] MEDS: INSULIN -REGULAR HUMAN 50 UNIT/0.5 ML ML SQ SCH ×4 (07:20→21:00)
[2017-10-09] MEDS: SEVELAMER CARBONATE 800 MG TABLET PO SCH ×3 (08:28→17:27)
[2017-10-09] MEDS: LACTULOSE 20 GM/30 ML UCUP PO SCH ×4 (08:28→20:56)
[2017-10-09] MEDS: TAMSULOSIN 0.4 MG SR CAP PO SCH ×2 (08:29→20:57)
[2017-10-09] MEDS: CLOPIDOGREL 75 MG TABLET PO SCH (08:29)
[2017-10-09] MEDS: DOCUSATE NA 100 MG CAP PO SCH (08:29)
[2017-10-09] MEDS: ASPIRIN EC 81 MG TAB PO SCH (08:29)
[2017-10-09] MEDS: MULTIVITAMINS,THERAPEUT 1 TAB PO SCH (08:29)
[2017-10-09] MEDS: HYDRALAZINE HCL 25 MG TABLET PO SCH ×2 (08:30→20:57)
[2017-10-09] MEDS: FUROSEMIDE 40 MG TABLET PO SCH ×2 (08:30→17:28)
[2017-10-09] MEDS: GABAPENTIN 300 MG CAP PO SCH ×2 (08:30→20:57)
[2017-10-09] MEDS: TRAMADOL HCL 50 MG TAB PO PRN ×2 (08:31→20:57)
[2017-10-09] MEDS: PROMOD 30 ML DOSE PO SCH ×2 (08:32→20:58)
--- NOTE | 2017-10-09 11:26 | FAST ---
SHIFT START DATE/TIME: 10/09/2017 07:00 (CDT) SHIFT END DATE/TIME: 10/09/2017 19:00 (CDT) NAME CARMEN ALTAMIRANO DATE OF : 1955 DATE OF ADMISSION: 09/21/2017 15:46 (CDT) PHONE: AGE: 62 [employer] [facility]IC# [id number] GENDER: Male ENCOUNTER PHYSICIAN: Dr. Edgar Pereira M.D. ADMISSION DIAGNOSIS: - Amputation of Limb 05 - Unilateral Lower Limb Below the Knee (BK) (05.4) Left Below the Knee Amputation. EATING: EATING - STEP 1: Does the patient require assistance when eating? Yes. EATING - STEP 2: Does the patient require the assistance of a helper? No, patient only requires an assistive device, O R s/he takes more than reasonable time to eat, OR there is a safety concern, OR s/he requires modifie d food consistency EATING - SCORE: 6-MARIPOSA GROOMING: Comb/brush hair Oral care Wash, rinse, and dry face Wash, rinse, and dry hands GROOMING - STEP 1: Does the patient require assistance when grooming? Yes. GROOMING - STEP 2: Does the patient require the assistance of a helper? No. The patient only requires an assistive devic e, OR takes more than reasonable time to groom, OR there is a concern for safety as the patient groom s GROOMING - SCORE: 6-MARIPOSA BATHING: Activity did not occur on this shift BATHING - SCORE: 0-UNK DRESSING - UPPER BODY: Activity did not occur on this shift ARTICLES SCORE Total number of steps: 0 DRESSING - UPPER BODY - SCORE: 0-UNK DRESSING - LOWER BODY: Activity did not occur on this shift ARTICLES SCORE Total number of steps: 0 DRESSING - LOWER BODY - SCORE: 0-UNK TOILETING: TOILETING - STEP 1: Does the patient require assistance with toileting? Yes. TOILETING - STEP 2: Does the patient require the assistance of a helper? Yes. TOILETING - STEP 3: How much assistance does the patient require from the helper? Hands-on assistance from the helper TOILETING - STEP 4: Of the 3 tasks: 1) Adjusting clothing prior to use, 2) Cleansing of perineal area, 3) Adjusting clot kathy after use; How many tasks does the patient perform WITHOUT assistance of the helper? Two tasks TOILETING - SCORE: 3-MOD BLADDER MANAGEMENT: BLADDER MANAGEMENT - STEP 1: Does the patient control the bladder completely and intentionally without equipment or devices or med ications, and is always continent? No. BLADDER MANAGEMENT - STEP 2: Does the patient require the assistance of a helper? No, patient requires and independently uses an a ssistive device, such as a urinal, bedpan, bedside commode, catheter, absorbent pad, or collecting de vice BLADDER MANAGEMENT - SCORE: 6-MARIPOSA BOWEL MANAGEMENT: Activity did not occur on this shift BOWEL MANAGEMENT - SCORE: 7-IND TRANSFERS: BED, CHAIR, WHEELCHAIR: TRANSFERS: BED, CHAIR, WHEELCHAIR - STEP 1: Does the patient require assistance with bed, chair, or wheelchair transfers? Yes. TRANSFERS: BED, CHAIR, WHEELCHAIR - STEP 2: Does the patient require the assistance of a helper? Yes. TRANSFERS: BED, CHAIR, WHEELCHAIR - STEP 3: How much assistance does the patient require from the helper? Steadying/guiding assistance TRANSFERS: BED, CHAIR, WHEELCHAIR - SCORE: 4-MIN TRANSFERS: TOILET: TRANSFERS: TOILET - STEP 1: Does the patient require assistance with toilet transfers? Yes. TRANSFERS: TOILET - STEP 2: Does the patient require the assistance of a helper? Yes. TRANSFERS: TOILET - STEP 3: How much assistance does the patient require from the helper? Patient performs half or more of the tr ansferring tasks TRANSFERS: TOILET - STEP 4: Does the patient need only incidental help such as contact guard or steadying during toilet transfer? Yes. TRANSFERS: TOILET - SCORE: 4-MIN TRANSFERS: SHOWER: Activity did not occur on this shift TRANSFERS: SHOWER - SCORE: 0-UNK TRANSFERS: TUB: Activity did not occur on this shift TRANSFERS: TUB - SCORE: 0-UNK LOCOMOTION: WALK: Activity did not occur on this shift LOCOMOTION: WALK - SCORE: 0-UNK LOCOMOTION: WHEELCHAIR: Activity did not occur on this shift LOCOMOTION: WHEELCHAIR - SCORE: 0-UNK COMPREHENSION: COMPREHENSION - SCORE: 0-UNK EXPRESSION EXPRESSION - SCORE: 0-UNK SOCIAL INTERACTION: SOCIAL INTERACTION - SCORE: 0-UNK PROBLEM SOLVING: PROBLEM SOLVING - SCORE: 0-UNK MEMORY: MEMORY - SCORE: 0-UNK SIGNATURE PANEL: The following modified sections: Eating - Score, Grooming - Score, Bathing - Score, Dressing - Upper Body - Score, Dressing - Lower Body - Score, Toileting - Score, Bladder Management - Score, Bowel Man agement - Score, Transfers: Bed, Chair, Wheelchair - Score, Transfers: Toilet - Score, Transfers: Adeline wer - Score, Transfers: Tub - Score, Locomotion: Walk - Score, Locomotion: Wheelchair - Score, Compre hension - Score, Expression - Score, Social Interaction - Score, Problem Solving - Score, Memory - Sc ore were [electronically] signed by Tavo Jamil on SunOct 09 2017 10:26:28 GMT-0500 (Central Daylight Time)
[2017-10-09] MEDS: NIFEDIPINE XL 30 MG TABLET PO SCH (12:21)
[2017-10-09] MEDS: HYDROCODONE/APAP 7.5/325 MG TAB PO PRN (12:21)
--- NOTE | 2017-10-09 14:45 | PN ---
Date of Progress Note: 10/09/2017 Subjective: The patient is awake, alert. No complaints. Has fallen a couple of times while on reha b. Objective: Vital Signs: Stable. Afebrile. Extremities: Examination of the stump reveals to be healing quite well actually despite some minor t rauma to the incision. There is no sign of infection. There is no redness, warmth, edema. No tende rness. Assessment: Status post left below-knee amputation. Recommendations: We will discontinue every other staple this week and [facility] remainder of the pantera. /MODL Voice ID: [id number] Report ID: [id number]
--- NOTE | 2017-10-09 17:05 | CON ---
Date of Consultation: 10/09/2017 Reason For Consultation: Dialysis patient is unable to void. History Of Present Illness: A 62-year-old male, who presented for left [id number] ee amputation due to a nonhealing diabetic ulcer. After failing conservative management, he had the surgery performed. He said normally he was able to void, but recently, especially since he has been in the hospital, he has now some difficulty voiding. He is certainly taking more pain medications th an usual. Daughters are trying to wean him off. Of note is that the patient is on dialysis 3 times a week for end-stage renal disease. Due to the fact that he is taking Lasix, he is now making urine and he is unable to go, restart Flomax, which has not helped the situation yet. He makes about 200 c c of urine per day, so about every 2 days, he needs to be straight cathed. He was straight cathed 2 days ago when I got 800 cc. He is due for straight cath today. We will teach the patient how to str aight cath every 2 days. However, if he is off the Lasix, most likely he will not be making urine an d dialysis can take care of fluids; however, he would need to be fluid restricted at that time. Past Medical History: History of insulin-dependent diabetes mellitus, hypertension, end-stage renal disease. He does dialysis Sunday, Sunday, and Fridays. He has coronary artery disease, CHF, hist ory of tobacco use. History of hypertension, CHF, systolic and diastolic dysfunction, COPD, foot timothy jing x3, cholecystectomy, appendectomy. Allergies: TO LEVAQUIN CAUSES SHORTNESS OF BREATH. Home Medications: Aspirin, Plavix, Lasix 80 mg p.o. b.i.d., hydralazine, lovastatin, nifedipine, sev elamer carbonate 800 p.o. t.i.d. on Sunday and Sunday, folic acid, vitamin B complex, insulin ____ and regular Novolin 70/30 subcu, albuterol sulfate, Symbicort, Keflex, docusate, lactulose, tr amadol. Personal History: , . The patient has 2 children. Family History: Father unknown. Some type of cancer. Father and mother of lung cancer. Social History: No alcohol use. No drug use. Some caffeine use. Resides at home. Review of Systems: A 10-point review of systems otherwise unremarkable. Physical Examination: Vital Signs: Afebrile. Stable. HEENT: Atraumatic, normocephalic. Neck: Supple. General: The patient is alert and oriented x3, in no apparent distress. Oriented x3 and cooperative . Respiratory: Clear to auscultation bilaterally. Cardiovascular: S1, S2. Gastrointestinal: Soft, nontender. Laboratory Data: Latest CBC done 10/03/2017; white count 9.7, H and H 10.9 and 30, platelet count 24 1. Latest chem-7 done on 10/03/2017 showed sodium 139, potassium 5.0, chloride 103, carbon dioxide 2 6, BUN 61, creatinine 7.9, GFR estimated to be 8, glucose 152, calcium 8.9, phosphorus 7.1, magnesium 3.01 and high, albumin 2.7. UA done 09/22/2017 showed clear color, pH 7.5, specific gravity 1020, b lood negative, nitrate negative, leukocyte esterase negative. Urine culture not needed. Total prote in 3+. Assessment: This is a pleasant 62-year-old gentleman, who has end-stage renal disease, recently stat us post left BKA, multiple medical problems including congestive heart failure, coronary artery disea se, who is on dialysis 3 times a week, but does make urine due to 80 mg of Lasix p.o. b.i.d. and he i s in retention, so here the options are clean intermittent catheterization every 2 days versus my sadie ss is that if the Lasix is stopped, most likely would not be making much more urine and therefore wou ld not need to void anymore. However, I think it is important for him to be on the Lasix at this point and hopefully to help with a history o f CHF and fluid management. PB/NAYA Voice ID: [id number] Report ID: [id number]
[2017-10-09] MEDS: ENOXAPARIN 30 MG/0.3 ML SQ SCH (17:28)
--- NOTE | 2017-10-09 19:56 | R.PN ---
ENCOUNTER DATE AND TIME: 10/09/2017 18:53 (CDT) NAME CARMEN ALTAMIRANO DATE OF : 1955 DATE OF ADMISSION: 09/21/2017 15:46 (CDT) Left Below the Knee AmputationCHIEF COMPLAINT: Left below the knee amputation SUBJECTIVE: Pt denied any Shortness of Breath. Pt denied any depression. Self-propelled wheelchair 100' with bilateral upper and left lower extremity. Denies significant pain in left BKA stump. Ambulated 34' using a rolling walker with moderate assistance. Self-propelled wheelchair 500' with modified independence. Speech expression done with modified inde pendence. VITAL SIGNS Temperature: 97.2 F SBP/DBP: 168/74 Pulse: 76 Resp: 14 MEDICATION ALLERGIES: Levofloxacin ENVIRONMENTAL ALLERGIES: None Known - Substance Allergies None Known - Other Allergies None Known CONSULT: Perform Consult Certified Prosthetic for prosthesis construction NURSING: - Shower allowing shower - Lab Results blood Sugar Check ACHS - Skin care per protocol PRECAUTIONS: - Fall Precaution Bed and chair alarm ACTIVITIES OOB only with supervision THERAPIES: - Orthotics/Prosthetics Prosthetic Evaluation. - Occupational Therapy Evaluate and Treat. - Physical Therapy Evaluate and Treat. PHYSICAL EXAM - Gen Alert and awake Lying in bed No apparent distress Oriented to: person, time, and place - Skin Left BKA bandage in place with good hemostasis. Normacephalic - Eyes No abnormalities - ENMT No abnormalities - Neck No abnormalities - CVS RRR - Chest Clear - Abd +bowel sounds - GI Non distended Deferred - No abnormalities - Ext No significant edema - MSK 5-/5 weakness in right upper and 3+/5 weakness in right lower extremity. - Neuro No focal deficits - Psych No abnormalities ASSESSMENT: Pt. is a 62 yo Right-handed white male.His impairment category is Amputation of Limb 05 - Unilateral Lower Limb Below the Knee (BK) (05.4).Pre-morbidly, Pt. was independent/mod-I in Communication, Soci al Cognition, Self-Care, Locomotion, Sphincter Control, and Transfers Control; and he had good Sphinc ter Control.Currently, he has deficits of Balance, Self-Care, Locomotion, Endurance, Safety Awareness , and Transfers Control.Pt. is now referred to [facility] for acute in-patient rehabilitation in order to maximize patient's functional independence in activities of daily living, strength, ROM, and mobility.- Rehab Goal Patient has realistic goal of being discharged at assistance level 6-Johana to reside at Home with Fam ramy/Relatives. MDM/PLAN: - Diet Type Continue Regular - Physical Therapy Gait dysfunction - to improve, our physical therapists will perform initial evaluation of pt's statu s upon admission and devise an individualized program for Gait Training, and Wheel Chair mobility Inability to transfer - to improve, our physical therapists will perform initial evaluation of pt's status upon admission and devise an individualized program for Bed mobility Need for home safety evaluation - to improve, our physical therapists will perform initial evaluatio n of pt's status upon admission and devise an individualized program for Home Evaluation Need in caregiver upon discharge - to improve, our physical therapists will perform initial evaluati on of pt's status upon admission and devise an individualized program for Caregiver Training Edema - to improve, our physical therapists will perform initial evaluation of pt's status upon admi ssion and devise an individualized program for Elevation Training, and Lymphedema Therapy New precaution - to improve, our physical therapists will perform initial evaluation of pt's status upon admission and devise an individualized program for Patient precaution education Poor balance - to improve, our physical therapists will perform initial evaluation of pt's status up on admission and devise an individualized program for Balance Training Poor endurance - to improve, our physical therapists will perform initial evaluation of pt's status upon admission and devise an individualized program for Endurance Training Weakness - to improve, our physical therapists will perform initial evaluation of pt's status upon a dmission and devise an individualized program for Aquatic Therapy, Neuromuscular Reeducation, and Str engthening Achieving independence - to improve, our physical therapists will perform initial evaluation of pt's status upon admission and devise an individualized program for Community Reintegration Activities - Diet - Liquid Texture Continue Regular - Tube Feed Continue N/A - Lab Results blood Sugar Check ACHS - Weight Bearing Precaution NWB left LE - Fall Precaution Bed and chair alarm - Skin care per protocol - N/A Perform Consult Certified Prosthetic for prosthesis construction - Diet - Solid Texture Continue Regular - Shower allowing shower - Occupational Therapy ADL deficits - to improve, our occupation therapists will perform initial evaluation of pt's status upon admission and devise an individualized program for Bathing, Bed mobility, Community Reintegratio n, Cooking, Dressing, Eating, Fine Motor Skills, Grooming, Homemaking, Kitchen Mobility, Laundry, Pat ient Education, Safety Awareness, Splinting - Positioning, Transfers(Toilet, Tub, Shower), and Wheel Chair Management Need for hospice home care coordinator - to improve, our occupation therapists will perform initial evaluation of pt's status upon admission and devise an individualized program for Caregiver Training Weakness - to improve, our occupation therapists will perform initial evaluation of pt's status upon admission and devise an individualized program for Aquatic Therapy, Balance, Endurance, UE ROM, and UE strengthening FUNCTIONAL STATUS: UPDATED AT WEEKLY TEAM CONFERENCE - Bladder Same Bladder control device used: diaper Same assistance level: On dialysis Same accident frequency: 7-Ind - No accidents in the past 7 days - Bowel Same accident frequency: 7-Ind - No accidents in the past 7 days - Walking Same score based on distance walked: 0(N/A) - Wheelchair Same score based on distance traveled: 0(N/A) FUNCTIONAL STATUS: - Self-Care A. Eating sup B. Grooming sup C. Bathing Uriel D. Dressing - Upper Johana E. Dressing - Lower Uriel F. Toileting Uriel - Sphincter Control G: Bladder control Dep H: Bowel control Ind - Transfers Control I. Bed/Chair/Wheelchair Uriel J. Toilet Uriel K. Tub/Shower ADNO - Locomotion L. Walk/Wheelchair (C) Uriel L. Walk/Wheelchair (W) Uriel M. Stairs ADNO - Communication N. Comprehension (B) Ind O. Expression (B) Ind - Social Cognition P. Social Interaction Ind Q. Problem Solving Ind R. Memory Ind - Endurance Fair - Balance Fair - Safety Awareness Fair CURRENT FUNC. DEFICITS: Balance, Self-Care, Locomotion, Endurance, Safety Awareness, and Transfers Control SIGNATURE PANEL: (CDT)
[2017-10-09] MEDS: MELATONIN 3 MG TABLET PO PRN (20:57)
[2017-10-09] MEDS: DOCUSATE NA/SENNA CONC 1 TAB PO SCH (20:57)
[2017-10-09] MEDS: ATORVASTATIN 10 MG TAB PO SCH (20:57)
--- NOTE | 2017-10-09 22:10 | P.PN ---
Date of Service: 10/09/17 Vital Signs Temp Pulse Resp BP Pulse Ox 97.8 F 84 18 130/64 97 10/09/17 20:00 10/09/17 20:00 10/09/17 20:00 10/09/17 20:00 10/09/17 20:00 Medications Hydrocodone Bitart/Acetaminophen (Glendo 7.5/325 Mg) 1 tab PO Q6H PRN PRN Reason: PAIN Stop: 10/21/17 23:50 Last Admin: 10/09/17 12:21 Dose: 1 tab Albuterol Sulfate (Proventil 0.083% Neb Soln) 2.5 mg NEB TIDRESP PRN PRN Reason: SHORTNESS OF BREATH Stop: 10/21/17 16:26 Last Admin: 10/07/17 14:30 Dose: 2.5 mg Aspirin (Aspirin Ec) 81 mg PO DAILY FIDEL Stop: 10/22/17 08:01 Last Admin: 10/09/17 08:29 Dose: 81 mg Atorvastatin Calcium (Lipitor) 10 mg PO BEDTIME FIDEL Stop: 10/21/17 21:01 Last Admin: 10/09/17 20:57 Dose: 10 mg Bisacodyl (Dulcolax) 10 mg SD DAILY PRN PRN Reason: CONSTIPATION Stop: 10/21/17 19:28 Last Admin: 10/01/17 05:30 Dose: 10 mg Clopidogrel Bisulfate (Plavix) 75 mg PO DAILY FIDEL Stop: 10/22/17 08:01 Last Admin: 10/09/17 08:29 Dose: 75 mg Dextrose (Dextrose 50% Syringe) 12.5 gm IV PRN PRN; Protocol PRN Reason: HYPOGLYCEMIA Stop: 10/21/17 16:18 Docusate Sodium (Colace Cap) 200 mg PO DAILY FIDEL Stop: 10/29/17 08:01 Last Admin: 10/09/17 08:29 Dose: 200 mg Enoxaparin Sodium (Lovenox 30 Mg Inj) 30 mg SQ DAILY 5 PM FIDEL Stop: 10/23/17 17:01 Last Admin: 10/09/17 17:28 Dose: 30 mg Epoetin Taqueria (Procrit) 10,000 unit IV EVERY HD FIDEL Stop: 10/24/17 08:46 Last Admin: 10/08/17 17:41 Dose: 10,000 unit Furosemide (Lasix) 80 mg PO BIDL [facility] Stop: 10/21/17 17:01 Last Admin: 10/09/17 17:28 Dose: 80 mg Gabapentin (Neurontin) 600 mg PO BID [facility] Stop: 10/28/17 10:01 Last Admin: 10/09/17 20:57 Dose: 600 mg Glucagon (Glucagen) 1 mg IM 1X PRN; Protocol PRN Reason: HYPOGLYCEMIA Stop: 10/21/17 16:18 Heparin Sodium (Porcine) (Heparin 1,000 Units/Ml) 2,000 unit IV EVERY HD FIDEL Stop: 10/26/17 11:01 Last Admin: 10/08/17 17:43 Dose: 2,000 unit Hydralazine HCl (Apresoline) 25 mg PO BID [facility] Stop: 10/21/17 20:01 Last Admin: 10/09/17 20:57 Dose: 25 mg Albumin Human (Albumin 25%) 50 mls @ 100 mls/hr IV EVERY HD [facility] Stop: 10/24/17 09:01 Insulin Human Regular (Novolin -R) 0 unit SQ ACHS [facility]; Protocol Stop: 10/21/17 16:31 Last Admin: 10/09/17 21:00 Dose: Not Given Lactulose (Cephulac) 20 gm PO TID [facility] Stop: 11/02/17 14:01 Last Admin: 10/09/17 20:56 Dose: Not Given Mannitol (Mannitol 12.5 Gm/50 Ml Vial) 12.5 gm IV EVERY HD PRN PRN Reason: BP support at hemodialysis Stop: 10/24/17 08:40 Melatonin (Melatonin) 3 mg PO BEDTIME PRN PRN PRN Reason: INSOMNIA Stop: 10/23/17 01:10 Last Admin: 10/09/17 20:57 Dose: 3 mg Nifedipine (Procardia Xl) 30 mg PO DAILY [facility] Stop: 10/22/17 08:01 Last Admin: 10/09/17 12:21 Dose: 30 mg Nutritional Formula (Promod Liquid Protein) 30 ml PO BID [facility] Stop: 10/23/17 20:01 Last Admin: 10/09/17 20:58 Dose: 30 ml Ondansetron HCl (Zofran) 4 mg PO Q6H PRN PRN Reason: NAUSEA / VOMITING Stop: 10/21/17 16:39 Phenyleph/Shark Oil/Min Oil/Petrol (Formulation R) 1 appl SD BID PRN PRN Reason: HEMORRHOIDS Stop: 10/31/17 13:08 Polyethylene Glycol (Glycolax) 17 gm PO DAILY PRN PRN Reason: CONSTIPATION Stop: 10/31/17 14:31 Senna/Docusate Sodium (Senokot-S) 2 tab PO BEDTIME FIDEL Stop: 10/22/17 21:01 Last Admin: 10/09/17 20:57 Dose: 2 tab Sevelamer Carbonate (Renvela) 1,600 mg PO TIDWM [facility]IDEL Stop: 10/31/17 17:01 Last Admin: 10/09/17 17:27 Dose: 1,600 mg Tamsulosin HCl (Flomax) 0.4 mg PO BID FIDEL Stop: 11/01/17 20:01 Last Admin: 10/09/17 20:57 Dose: 0.4 mg Tramadol HCl (Ultram) 50 mg PO Q6H PRN PRN Reason: PAIN MILD Stop: 10/21/17 16:03 Last Admin: 10/09/17 20:57 Dose: 50 mg Vitamin B Complex/Vit C/Folic Acid (Nephro-Kayden) 1 tab PO DAILY FIDEL Stop: 10/22/17 08:01 Last Admin: 10/09/17 08:29 Dose: 1 tab Lab Results (last 24 hrs) 10/09/17 20:39: POC Glucose 149 H 10/09/17 16:32: POC Glucose 229 H 10/09/17 11:57: POC Glucose 153 H 10/09/17 06:47: POC Glucose 143 H Microbiology Results 09/27/17 16:55 Blood - Blood Aerobic Blood Culture - Final No growth in 5 days. 09/27/17 16:55 Blood - Blood Anaerobic Blood Culture - Final 09/22/17 21:32 Clean Catch Urine Coldiron Count - Final <10,000 CFU/ML. 09/22/17 21:32 Clean Catch Urine - Final Assessment/ Plan: Nephrology. CPS stable without CP or SOB. No acute events. Doing well. Not happy about having to do self-catheterization. Vitals, medications, blood work and imaging reviewed in the chart. General: In no apparent distress, Oriented x3, Cooperative HEENT: Atraumatic Neck: Supple Respiratory: Clear to auscultation bilaterally Cardiovascular: Regular rate/rhythm, No rubs Gastrointestinal: Soft and benign, Non-distended Musculoskeletal: No clubbing, No contractures Integumentary: No rashes, No cyanosis, Other (Left BKA.) Neurological: Normal speech Blood work reviewed in the chart. Hgb 9.6; Alb 3.3 Imagings Data: HEIGHT: 6 ft 1 in WEIGHT: 235 lb 0 oz DATE OF STUDY: 09/20/[address]: Familia Duval MD 2-DIMENSIONAL: YES M.MODE: YES DOPPLER: YES COLOR FLOW: YES TDS: NO PORTABLE: NO DEFINITY: NO BUBBLE STUDY: NO DIAGNOSIS: ARRYTHMIA CARDIAC HISTORY: CATHERIZATION: YES SURGERY: NO PROSTHETIC VALVE: NO PACEMAKER: NO MEASUREMENTS (cm) DIASTOLIC (NORMALS) SYSTOLIC (NORMALS) IVSd 1.2 (0.6-1.2) LA Diam 3.7 (1.9-4.0) LVEF 54% LVIDd 6.0 (3.5-5.7) LVIDs 4.3 (2.0-3.5) %FS 29% LVPWd 1.2 (0.6-1.2) Ao Diam 3.1 (2.0-3.7) 2 DIMENSIONAL ASSESSMENT: RIGHT ATRIUM: NORMAL LEFT ATRIUM: NORMAL SIZE RIGHT VENTRICLE: NORMAL LEFT VENTRICLE: DILATED TRICUSPID VALVE: NORMAL MITRAL VALVE: MITRAL ANNULAR CALCIFICATION PULMONIC VALVE: NORMAL AORTIC VALVE: NORMAL PERICARDIAL EFFUSION: NONE AORTIC ROOT: NORMAL LEFT VENTRICULAR WALL MOTION: NORMAL LEFT VENTRICULAR EJECTION FRACTION. DECREASED LEFT VENTRICULAR COMPLIANCE. DOPPLER/COLOR FLOW: MILD TRICUSPID REGURGITATION. COMMENTS: MILD TRICUSPID REGURGITATION. DECREASED LEFT VENTRICULAR COMPLIANCE. NORMAL LEFT VENTRICULAR EJECTION FRACTION. MILD LEFT VENTRICULAR DILIATION. MITRAL ANNULAR CALCIFICATION. Conclusions/Impression: A/ ESRD on HD. Hyperkalemia. HTN with CKD. Diastolic CHF, chronic. Anemia in CKD. PERCY/ Secondary HyperPTH. 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 Constipation. Urinary retention likely due to BPH & opiates. P/ Continue current POC and Medications. HD TIW. Plan for HD tomorrow. Will need a urology evaluation as an outpt. Wean opiate therapy as tolerated. No NSAIDs. Titrate insulin as needed. Low sodium diet. AM labs. Daily weight. PT as tolerated.
--- NOTE | 2017-10-10 03:35 | FAST ---
SHIFT START DATE/TIME: 10/09/2017 19:00 (CDT) SHIFT END DATE/TIME: 10/10/2017 07:00 (CDT) NAME CARMEN ALTAMIRANO DATE OF : 1955 DATE OF ADMISSION: 09/21/2017 15:46 (CDT) PHONE: AGE: 62 [facility]# [id number] GENDER: Male ENCOUNTER PHYSICIAN: Dr. Edgar Pereira M.D. ADMISSION DIAGNOSIS: - Amputation of Limb 05 - Unilateral Lower Limb Below the Knee (BK) (05.4) Left Below the Knee Amputation. EATING: Activity did not occur on this shift EATING - SCORE: 0-UNK GROOMING: Activity did not occur on this shift GROOMING - SCORE: 0-UNK BATHING: Activity did not occur on this shift BATHING - SCORE: 0-UNK DRESSING - UPPER BODY: Activity did not occur on this shift ARTICLES SCORE Total number of steps: 0 DRESSING - UPPER BODY - SCORE: 0-UNK DRESSING - LOWER BODY: Activity did not occur on this shift ARTICLES SCORE Total number of steps: 0 DRESSING - LOWER BODY - SCORE: 0-UNK TOILETING: Activity did not occur on this shift TOILETING - SCORE: 0-UNK BLADDER MANAGEMENT: Ashby performs entire intermittent straight catheterization procedure. BLADDER MANAGEMENT - SCORE: 1-DEP BOWEL MANAGEMENT: Activity did not occur on this shift BOWEL MANAGEMENT - SCORE: 7-IND TRANSFERS: BED, CHAIR, WHEELCHAIR: TRANSFERS: BED, CHAIR, WHEELCHAIR - STEP 1: Does the patient require assistance with bed, chair, or wheelchair transfers? Yes. TRANSFERS: BED, CHAIR, WHEELCHAIR - STEP 2: Does the patient require the assistance of a helper? Yes. TRANSFERS: BED, CHAIR, WHEELCHAIR - STEP 3: How much assistance does the patient require from the helper? Steadying/guiding assistance TRANSFERS: BED, CHAIR, WHEELCHAIR - SCORE: 4-MIN TRANSFERS: TOILET: Activity did not occur on this shift TRANSFERS: TOILET - SCORE: 0-UNK TRANSFERS: SHOWER: Activity did not occur on this shift TRANSFERS: SHOWER - SCORE: 0-UNK TRANSFERS: TUB: Activity did not occur on this shift TRANSFERS: TUB - SCORE: 0-UNK LOCOMOTION: WALK: Activity did not occur on this shift LOCOMOTION: WALK - SCORE: 0-UNK LOCOMOTION: WHEELCHAIR: Activity did not occur on this shift LOCOMOTION: WHEELCHAIR - SCORE: 0-UNK COMPREHENSION: COMPREHENSION - STEP 1: Does the patient require help to understand complex and abstract ideas (such as current events, finan josé, discharge planning, medical issues, relationships, etc)? No. COMPREHENSION - STEP 2: Does the patient need extra time, require an assistive device (such as glasses, hearing aids, or an a ugmentative communication system), OR does s/he have mild difficulty expressing complex and abstract ideas (including mild dysarthria or mild word-finding problems)? Yes. COMPREHENSION - SCORE: 6-MARIPOSA EXPRESSION EXPRESSION - STEP 1: Does the patient require help expressing complex and abstract ideas (such as current events, finances , discharge planning, medical issues, relationships, etc)? No. EXPRESSION - STEP 2: Does the patient need extra time, require an assistive device (such as augmentive communication syste m or a communication board), OR does s/he have mild difficulty expressing complex and abstract ideas (including mild dysarthria or mild word-find problems)? Yes. EXPRESSION - SCORE: 6-MARIPOSA SOCIAL INTERACTION: SOCIAL INTERACTION - STEP 1: Does the patient require a helper to interact with others in social and therapeutic situations? No. SOCIAL INTERACTION - STEP 2: Does the patient need extra time in social situations, OR does s/he interact with staff, other patien ts, and family members ONLY in structured environments, OR does s/he require medication for social in teraction? No. SOCIAL INTERACTION - SCORE: 7-IND PROBLEM SOLVING: PROBLEM SOLVING - STEP 1: Does the patient need help to solve complex problems such as managing a checking account or confronti ng interpersonal problems? No. PROBLEM SOLVING - STEP 2: Does the patient require extra time to make decisions or solve problems, OR does s/he have slight dif ficulty reading, initiating, or self-correcting in unfamiliar situations? No. PROBLEM SOLVING - SCORE: 7-IND MEMORY: MEMORY - STEP 1: Does the patient need help to remember frequently encountered people, daily routines, and executing r equests? No. MEMORY - STEP 2: Does the patient have slight difficulty recognizing frequently encountered people, daily routines, or executing requests without the need for repetition or using self-initiated or environmental cues to remember? No. MEMORY - SCORE: 7-IND SIGNATURE PANEL: The following modified sections: Eating - Score, Grooming - Score, Bathing - Score, Dressing - Upper Body - Score, Dressing - Lower Body - Score, Toileting - Score, Bladder Management - Score, Bowel Man agement - Score, Transfers: Bed, Chair, Wheelchair - Score, Transfers: Toilet - Score, Transfers: Adeline wer - Score, Transfers: Tub - Score, Locomotion: Walk - Score, Locomotion: Wheelchair - Score, Compre hension - Score, Expression - Score, Social Interaction - Score, Problem Solving - Score, Memory - Sc ore were [electronically] signed by Lina Islas RN on SunOct 10 2017 02:35:27 T[facility]0500 [facility]
[2017-10-10 06:38] LABS: Absolute Lymphocytes (CBC) 1.9 K/uL (0.7-4.9); Absolute Monocytes 1.1 K/uL (0.1-1.3); Absolute Neutrophil 6.3 K/uL (1.8-8.0); Basophils % 1.2 % (0-1.3); Eosinophils % 3.9 % (0-4.4); Hematocrit 30.4 % (39.6-49.0); Lymphocytes % 19.3 % (15.3-44.8); MCV 85.8 fL (80-100); MPV 7.4 fL (7.6-11.3); RBC Red Blood Cell Count 3.54 M/uL (4.33-5.43)
[2017-10-10 07:04] LABS: Albumin 2.9 g/dL (3.2-5.5); Bilirubin Total 0.5 mg/dL (0.3-1.2); Potassium 5.4 mEq/L (3.6-5.0); Protein, Total 6.5 g/dL (6.0-8.3); Uric Acid 4.9 mg/dL (4.8-8.7)
[2017-10-10] MEDS: INSULIN -REGULAR HUMAN 50 UNIT/0.5 ML ML SQ SCH ×4 (07:30→21:34)
[2017-10-10 08:25] LABS: Anisocytosis 2+; Blood Morphology Comment NOTED (NOT SEEN); Platelet Estimate ADEQ
[2017-10-10] MEDS: TAMSULOSIN 0.4 MG SR CAP PO SCH ×2 (08:32→20:39)
[2017-10-10] MEDS: HYDRALAZINE HCL 25 MG TABLET PO SCH ×2 (08:32→20:39)
[2017-10-10] MEDS: LACTULOSE 20 GM/30 ML UCUP PO SCH ×3 (08:33→20:40)
[2017-10-10] MEDS: FUROSEMIDE 40 MG TABLET PO SCH ×2 (08:33→16:54)
[2017-10-10] MEDS: MULTIVITAMINS,THERAPEUT 1 TAB PO SCH (08:33)
[2017-10-10] MEDS: TRAMADOL HCL 50 MG TAB PO PRN (08:33)
[2017-10-10] MEDS: GABAPENTIN 300 MG CAP PO SCH ×2 (08:34→20:40)
[2017-10-10] MEDS: DOCUSATE NA 100 MG CAP PO SCH (08:34)
[2017-10-10] MEDS: NIFEDIPINE XL 30 MG TABLET PO SCH (08:34)
[2017-10-10] MEDS: SEVELAMER CARBONATE 800 MG TABLET PO SCH ×3 (08:34→16:54)
[2017-10-10] MEDS: CLOPIDOGREL 75 MG TABLET PO SCH (08:34)
[2017-10-10] MEDS: ASPIRIN EC 81 MG TAB PO SCH (08:34)
[2017-10-10] MEDS: PROMOD 30 ML DOSE PO SCH ×2 (08:35→20:40)
--- NOTE | 2017-10-10 08:51 | FAST ---
ENCOUNTER DATE AND TIME: 10/09/2017 08:00 (CDT) NAME CARMEN ALTAMIRANO DATE OF : 1955 DATE OF ADMISSION: 09/21/2017 15:46 (CDT) PHONE: AGE: 62 N# [id number] GENDER: Male ENCOUNTER PHYSICIAN: Dr. Edgar Pereira M.D. ADMISSION DIAGNOSIS: - Amputation of Limb 05 - Unilateral Lower Limb Below the Knee (BK) (05.4) Left Below the Knee Amputation. EATING: Activity did not occur on this shift EATING - SCORE: 0-UNK GROOMING: Activity did not occur on this shift GROOMING - SCORE: 0-UNK BATHING: Activity did not occur on this shift BATHING - SCORE: 0-UNK DRESSING - UPPER BODY: Activity did not occur on this shift Patient is not dressing in public clothing ARTICLES SCORE Total number of steps: 0 DRESSING - UPPER BODY - SCORE: 0-UNK DRESSING - LOWER BODY: Activity did not occur on this shift Patient is not dressing in public clothing ARTICLES SCORE Total number of steps: 0 DRESSING - LOWER BODY - SCORE: 0-UNK TOILETING: Activity did not occur on this shift TOILETING - SCORE: 0-UNK BLADDER MANAGEMENT: Activity did not occur on this shift BLADDER MANAGEMENT - SCORE: 7-IND BOWEL MANAGEMENT: Activity did not occur on this shift BOWEL MANAGEMENT - SCORE: 7-IND TRANSFERS: BED, CHAIR, WHEELCHAIR: TRANSFERS: BED, CHAIR, WHEELCHAIR - STEP 1: Does the patient require assistance with bed, chair, or wheelchair transfers? Yes. TRANSFERS: BED, CHAIR, WHEELCHAIR - STEP 2: Does the patient require the assistance of a helper? Yes. TRANSFERS: BED, CHAIR, WHEELCHAIR - STEP 3: How much assistance does the patient require from the helper? Only supervision TRANSFERS: BED, CHAIR, WHEELCHAIR - SCORE: 5-SUP TRANSFERS: TOILET: Activity did not occur on this shift TRANSFERS: TOILET - SCORE: 0-UNK TRANSFERS: SHOWER: Activity did not occur on this shift TRANSFERS: SHOWER - SCORE: 0-UNK TRANSFERS: TUB: Activity did not occur on this shift TRANSFERS: TUB - SCORE: 0-UNK LOCOMOTION: WALK: Activity did not occur on this shift LOCOMOTION: WALK - SCORE: 0-UNK LOCOMOTION: WHEELCHAIR: LOCOMOTION: WHEELCHAIR - STEP 1: Does the patient need help to go 150 feet in a wheelchair? No. LOCOMOTION: WHEELCHAIR - SCORE: 6-MARIPOSA LOCOMOTION: STAIRS: Activity did not occur on this shift LOCOMOTION: STAIRS - SCORE: 0-UNK COMPREHENSION: COMPREHENSION - SCORE: 0-UNK EXPRESSION EXPRESSION - SCORE: 0-UNK SOCIAL INTERACTION: SOCIAL INTERACTION - SCORE: 0-UNK PROBLEM SOLVING: PROBLEM SOLVING - SCORE: 0-UNK MEMORY: MEMORY - SCORE: 0-UNK SIGNATURE PANEL: The following modified sections: Transfers: Bed, Chair, Wheelchair - Score, Transfers: Toilet - Score , Locomotion: Walk - Score, Locomotion: Wheelchair - Score, Locomotion: Stairs - Score were [electron ically] signed by Ran Marshall PTA on SunOct 10 2017 07:51:20 GMT-0500 (Central Daylight Time)
--- NOTE | 2017-10-10 15:15 | FAST ---
ENCOUNTER DATE AND TIME: 10/10/2017 08:00 (CDT) NAME CARMEN ALTAMIRANO DATE OF : 1955 DATE OF ADMISSION: 09/21/2017 15:46 (CDT) PHONE: AGE: 62 N# [id number] GENDER: Male ENCOUNTER PHYSICIAN: Dr. Edgar Pereira M.D. ADMISSION DIAGNOSIS: - Amputation of Limb 05 - Unilateral Lower Limb Below the Knee (BK) (05.4) Left Below the Knee Amputation. EATING: Activity did not occur on this shift EATING - SCORE: 0-UNK GROOMING: Activity did not occur on this shift GROOMING - SCORE: 0-UNK BATHING: Activity did not occur on this shift BATHING - SCORE: 0-UNK DRESSING - UPPER BODY: Activity did not occur on this shift Patient is not dressing in public clothing ARTICLES SCORE Total number of steps: 0 DRESSING - UPPER BODY - SCORE: 0-UNK DRESSING - LOWER BODY: Activity did not occur on this shift Patient is not dressing in public clothing ARTICLES SCORE Total number of steps: 0 DRESSING - LOWER BODY - SCORE: 0-UNK TOILETING: Activity did not occur on this shift TOILETING - SCORE: 0-UNK BLADDER MANAGEMENT: Activity did not occur on this shift BLADDER MANAGEMENT - SCORE: 7-IND BOWEL MANAGEMENT: Activity did not occur on this shift BOWEL MANAGEMENT - SCORE: 7-IND TRANSFERS: BED, CHAIR, WHEELCHAIR: TRANSFERS: BED, CHAIR, WHEELCHAIR - STEP 1: Does the patient require assistance with bed, chair, or wheelchair transfers? Yes. TRANSFERS: BED, CHAIR, WHEELCHAIR - STEP 2: Does the patient require the assistance of a helper? Yes. TRANSFERS: BED, CHAIR, WHEELCHAIR - STEP 3: How much assistance does the patient require from the helper? Only supervision TRANSFERS: BED, CHAIR, WHEELCHAIR - SCORE: 5-SUP TRANSFERS: TOILET: Activity did not occur on this shift TRANSFERS: TOILET - SCORE: 0-UNK TRANSFERS: SHOWER: Activity did not occur on this shift TRANSFERS: SHOWER - SCORE: 0-UNK TRANSFERS: TUB: Activity did not occur on this shift TRANSFERS: TUB - SCORE: 0-UNK LOCOMOTION: WALK: Activity did not occur on this shift LOCOMOTION: WALK - SCORE: 0-UNK LOCOMOTION: WHEELCHAIR: LOCOMOTION: WHEELCHAIR - STEP 1: Does the patient need help to go 150 feet in a wheelchair? No. LOCOMOTION: WHEELCHAIR - SCORE: 6-MARIPOSA LOCOMOTION: STAIRS: Activity did not occur on this shift LOCOMOTION: STAIRS - SCORE: 0-UNK COMPREHENSION: COMPREHENSION - SCORE: 0-UNK EXPRESSION EXPRESSION - SCORE: 0-UNK SOCIAL INTERACTION: SOCIAL INTERACTION - SCORE: 0-UNK PROBLEM SOLVING: PROBLEM SOLVING - SCORE: 0-UNK MEMORY: MEMORY - SCORE: 0-UNK SIGNATURE PANEL: The following modified sections: Transfers: Bed, Chair, Wheelchair - Score, Transfers: Toilet - Score , Locomotion: Walk - Score, Locomotion: Wheelchair - Score, Locomotion: Stairs - Score were [electron icallteodoro] signed by Ran Marshall PTA on SunOct 10 2017 14:15:05 GMT-0500 (Central Daylight Time)
--- NOTE | 2017-10-10 15:42 | FAST ---
SHIFT START DATE/TIME: 10/10/2017 07:00 (CDT) SHIFT END DATE/TIME: 10/10/2017 19:00 (CDT) NAME CARMEN ALTAMIRANO DATE OF : 1955 DATE OF ADMISSION: 09/21/2017 15:46 (CDT) PHONE: AGE: 62 [facility]# [id number] GENDER: Male ENCOUNTER PHYSICIAN: Dr. Edgar Pereira M.D. ADMISSION DIAGNOSIS: - Amputation of Limb 05 - Unilateral Lower Limb Below the Knee (BK) (05.4) Left Below the Knee Amputation. EATING: EATING - STEP 1: Does the patient require assistance when eating? No. EATING - SCORE: 7-IND GROOMING: GROOMING - STEP 1: Does the patient require assistance when grooming? No. GROOMING - SCORE: 7-IND BATHING: Activity did not occur on this shift BATHING - SCORE: 0-UNK DRESSING - UPPER BODY: T-shirt/pullover shirt (four steps) ARTICLES SCORE Total number of steps: 4 DRESSING - UPPER BODY - STEP 1: Does the patient require help when dressing above the waist? Yes. DRESSING - UPPER BODY - STEP 2: Does the patient require the assistance of a helper? No. Patient only requires an assistive device, s uch as a button hook, velcro, or senior accounts payable clerk. OR s/he takes more than reasonable time as s/he dresses the upper body. OR there is a concern for safety when s/he dresses the upper body DRESSING - UPPER BODY - SCORE: 6-MARIPOSA DRESSING - LOWER BODY: Elastic waist pants (three steps) Slip-on shoe - Right foot (one step) Sock - Right foot (one step) Underwear (three steps) ARTICLES SCORE Total number of steps: 8 DRESSING - LOWER BODY - STEP 1: Does the patient require help when dressing below the waist? Yes. DRESSING - LOWER BODY - STEP 2: Does the patient require the assistance of a helper? No. Patient requires an assistive device such as a senior accounts payable clerk. OR s/he takes more than reasonable time as s/he dresses the lower body, OR there is a con cern for safety when s/he dresses the lower body DRESSING - LOWER BODY - SCORE: 6-MARIPOSA TOILETING: Activity did not occur on this shift TOILETING - SCORE: 0-UNK BLADDER MANAGEMENT: Activity did not occur on this shift BLADDER MANAGEMENT - SCORE: 7-IND BOWEL MANAGEMENT: Activity did not occur on this shift BOWEL MANAGEMENT - SCORE: 7-IND BOWEL MANAGEMENT - FREQUENCY OF ACCIDENTS: BOWEL MANAGEMENT(FA) - STEP 1: How many accidents has the patient had during the current shift? 0 TRANSFERS: BED, CHAIR, WHEELCHAIR: TRANSFERS: BED, CHAIR, WHEELCHAIR - STEP 1: Does the patient require assistance with bed, chair, or wheelchair transfers? Yes. TRANSFERS: BED, CHAIR, WHEELCHAIR - STEP 2: Does the patient require the assistance of a helper? Yes. TRANSFERS: BED, CHAIR, WHEELCHAIR - STEP 3: How much assistance does the patient require from the helper? Only supervision TRANSFERS: BED, CHAIR, WHEELCHAIR - SCORE: 5-SUP TRANSFERS: TOILET: Activity did not occur on this shift TRANSFERS: TOILET - SCORE: 0-UNK TRANSFERS: SHOWER: Activity did not occur on this shift TRANSFERS: SHOWER - SCORE: 0-UNK TRANSFERS: TUB: Activity did not occur on this shift TRANSFERS: TUB - SCORE: 0-UNK LOCOMOTION: WALK: Activity did not occur on this shift LOCOMOTION: WALK - SCORE: 0-UNK LOCOMOTION: WHEELCHAIR: LOCOMOTION: WHEELCHAIR - STEP 1: Does the patient need help to go 150 feet in a wheelchair? No. LOCOMOTION: WHEELCHAIR - SCORE: 6-MARIPOSA COMPREHENSION: COMPREHENSION: TYPE: Both COMPREHENSION - STEP 1: Does the patient require help to understand complex and abstract ideas (such as current events, finan josé, discharge planning, medical issues, relationships, etc)? No. COMPREHENSION - STEP 2: Does the patient need extra time, require an assistive device (such as glasses, hearing aids, or an a ugmentative communication system), OR does s/he have mild difficulty expressing complex and abstract ideas (including mild dysarthria or mild word-finding problems)? Yes. COMPREHENSION - SCORE: 6-MARIPOSA EXPRESSION EXPRESSION: TYPE: Both EXPRESSION - STEP 1: Does the patient require help expressing complex and abstract ideas (such as current events, finances , discharge planning, medical issues, relationships, etc)? No. EXPRESSION - STEP 2: Does the patient need extra time, require an assistive device (such as augmentive communication syste m or a communication board), OR does s/he have mild difficulty expressing complex and abstract ideas (including mild dysarthria or mild word-find problems)? Yes. EXPRESSION - SCORE: 6-MARIPOSA SOCIAL INTERACTION: SOCIAL INTERACTION - STEP 1: Does the patient require a helper to interact with others in social and therapeutic situations? No. SOCIAL INTERACTION - STEP 2: Does the patient need extra time in social situations, OR does s/he interact with staff, other patien ts, and family members ONLY in structured environments, OR does s/he require medication for social in teraction? No. SOCIAL INTERACTION - SCORE: 7-IND PROBLEM SOLVING: PROBLEM SOLVING - STEP 1: Does the patient need help to solve complex problems such as managing a checking account or confronti ng interpersonal problems? No. PROBLEM SOLVING - STEP 2: Does the patient require extra time to make decisions or solve problems, OR does s/he have slight dif ficulty reading, initiating, or self-correcting in unfamiliar situations? Yes, patient needs extra ti me. PROBLEM SOLVING - SCORE: 6-MARIPOSA MEMORY: MEMORY - STEP 1: Does the patient need help to remember frequently encountered people, daily routines, and executing r equests? No. MEMORY - STEP 2: Does the patient have slight difficulty recognizing frequently encountered people, daily routines, or executing requests without the need for repetition or using self-initiated or environmental cues to remember? Yes. MEMORY - SCORE: 6-MARIPOSA SIGNATURE PANEL: The following modified sections: Eating - Score, Grooming - Score, Bathing - Score, Dressing - Upper Body - Score, Dressing - Lower Body - Score, Toileting - Score, Bladder Management - Score, Bowel Man agement - Score, Transfers: Bed, Chair, Wheelchair - Score, Transfers: Toilet - Score, Transfers: Adeline wer - Score, Transfers: Tub - Score, Locomotion: Walk - Score, Locomotion: Wheelchair - Score, Compre hension - Score, Expression - Score, Social Interaction - Score, Problem Solving - Score, Memory - Sc ore were [electronically] signed by Gemma Webb C.N.A. on SunOct 10 2017 14:42:03 T-0500 ([facility])
[2017-10-10] MEDS: ENOXAPARIN 30 MG/0.3 ML SQ SCH (16:54)
--- NOTE | 2017-10-10 17:40 | PN ---
Date of Progress Note: 10/10/2017 Subjective: The patient is doing okay. He continues to have intermittent episodes of urinary retent ion for which he has been getting a straight cath. The patient has been educated on the way to do a straight cath as needed intermittently. Objective: Vital Signs: Have been reviewed and are stable. General: He appears in no acute distress. Lungs: Clear to auscultation. Abdomen: Soft and nontender. Extremities: Without any evidence of edema. Laboratory Data: Showing mild hyperkalemia with potassium of 5.4, mild hyponatremia. CBC showing st able hemoglobin and hematocrit. White cell count has normalized. Current Medications: Have all been reviewed. Impression: 1.End-stage renal disease, on dialysis. 2.Nonhealing ulcer of the lower extremity status post below-knee amputation. 3.Intermittent episodes of urinary retention, possibly from bladder spasm, urethral spasm secondary to pain medication use. The patient is also on tamsulosin and is undergoing intermittent catheteriza tion. 4.Hypertension. 5.Type 2 diabetes on medications. Plan: Overall the patient is doing okay at this time. Advised to continue intermittent catheterizat ions and hopefully urinary retention will get better once he is off pain medications. Continue all o ther medications and will continue dialysis Sunday, Sunday, Sunday. No need to treat hyperkalemia. Th e patient should improve with dialysis. VV/MODL Voice ID: [id number] Report ID: [id number]
--- NOTE | 2017-10-10 18:19 | PN ---
Subjective: The patient is doing well, up to wheelchair, talked in good mood. Objective: Vital signs stable. Did catheterization last night, observed the nurse. Plan: The plan is for him to do 1 in the morning. He is going for dialysis at this time in the afternoon. morning and then 1 Sunday morning before he goes, so he will learn how to do it. We will need to supply his catheter gloves to go home, then he can call my office for followup. We can organize the cath program for him. He will do intermittent catheterization every 2 days at home. CALIN/NAYA Voice ID: [id number] Report ID: [id number] JOANNE
--- NOTE | 2017-10-10 18:38 | R.PN ---
ENCOUNTER DATE AND TIME: 10/10/2017 17:36 (CDT) NAME CARMEN ALTAMIRANO DATE OF : 1955 DATE OF ADMISSION: 09/21/2017 15:46 (CDT) Left Below the Knee AmputationCHIEF COMPLAINT: Left below the knee amputation SUBJECTIVE: Pt denied any Shortness of Breath. Pt denied any depression. Self-propelled wheelchair 100' with bilateral upper and left lower extremity. Denies significant pain in left BKA stump. Ambulated 34' using a rolling walker with moderate assistance. Self-propelled wheelchair 1000' with modified independence. Up and down ramp with wheelchair with mod ified independence. Speech expression done with modified independence. VITAL SIGNS Temperature: 97.2 F SBP/DBP: 163/71 Pulse: 64 Resp: 14 MEDICATION ALLERGIES: Levofloxacin ENVIRONMENTAL ALLERGIES: None Known - Substance Allergies None Known - Other Allergies None Known CONSULT: Perform Consult Certified Prosthetic for prosthesis construction NURSING: - Shower allowing shower - Lab Results blood Sugar Check ACHS - Skin care per protocol PRECAUTIONS: - Fall Precaution Bed and chair alarm ACTIVITIES OOB only with supervision THERAPIES: - Orthotics/Prosthetics Prosthetic Evaluation. - Occupational Therapy Evaluate and Treat. - Physical Therapy Evaluate and Treat. PHYSICAL EXAM - Gen Alert and awake Lying in bed No apparent distress Oriented to: person, time, and place - Skin Left BKA bandage in place with good hemostasis. Normacephalic - Eyes No abnormalities - ENMT No abnormalities - Neck No abnormalities - CVS RRR - Chest Clear - Abd +bowel sounds - GI Non distended Deferred - No abnormalities - Ext No significant edema - MSK 5-/5 weakness in right upper and 3+/5 weakness in right lower extremity. - Neuro No focal deficits - Psych No abnormalities ASSESSMENT: Pt. is a 62 yo Right-handed white male.His impairment category is Amputation of Limb 05 - Unilateral Lower Limb Below the Knee (BK) (05.4).Pre-morbidly, Pt. was independent/mod-I in Communication, Soci al Cognition, Self-Care, Locomotion, Sphincter Control, and Transfers Control; and he had good Sphinc ter Control.Currently, he has deficits of Balance, Self-Care, Locomotion, Endurance, Safety Awareness , and Transfers Control.Pt. is now referred to [facility] for acute in-patient rehabilitation in order to maximize patient's functional independence in activities of daily living, strength, ROM, and mobility.- Rehab Goal Patient has realistic goal of being discharged at assistance level 6-Johana to reside at Home with Fam ramy/Relatives. MDM/PLAN: - Diet Type Continue Regular - Physical Therapy Gait dysfunction - to improve, our physical therapists will perform initial evaluation of pt's statu s upon admission and devise an individualized program for Gait Training, and Wheel Chair mobility Inability to transfer - to improve, our physical therapists will perform initial evaluation of pt's status upon admission and devise an individualized program for Bed mobility Need for home safety evaluation - to improve, our physical therapists will perform initial evaluatio n of pt's status upon admission and devise an individualized program for Home Evaluation Need in caregiver upon discharge - to improve, our physical therapists will perform initial evaluati on of pt's status upon admission and devise an individualized program for Caregiver Training Edema - to improve, our physical therapists will perform initial evaluation of pt's status upon admi ssion and devise an individualized program for Elevation Training, and Lymphedema Therapy New precaution - to improve, our physical therapists will perform initial evaluation of pt's status upon admission and devise an individualized program for Patient precaution education Poor balance - to improve, our physical therapists will perform initial evaluation of pt's status up on admission and devise an individualized program for Balance Training Poor endurance - to improve, our physical therapists will perform initial evaluation of pt's status upon admission and devise an individualized program for Endurance Training Weakness - to improve, our physical therapists will perform initial evaluation of pt's status upon a dmission and devise an individualized program for Aquatic Therapy, Neuromuscular Reeducation, and Str engthening Achieving independence - to improve, our physical therapists will perform initial evaluation of pt's status upon admission and devise an individualized program for Community Reintegration Activities - Diet - Liquid Texture Continue Regular - Tube Feed Continue N/A - Lab Results blood Sugar Check ACHS - Weight Bearing Precaution NWB left LE - Fall Precaution Bed and chair alarm - Skin care per protocol - N/A Perform Consult Certified Prosthetic for prosthesis construction - Diet - Solid Texture Continue Regular - Shower allowing shower - Occupational Therapy ADL deficits - to improve, our occupation therapists will perform initial evaluation of pt's status upon admission and devise an individualized program for Bathing, Bed mobility, Community Reintegratio n, Cooking, Dressing, Eating, Fine Motor Skills, Grooming, Homemaking, Kitchen Mobility, Laundry, Pat ient Education, Safety Awareness, Splinting - Positioning, Transfers(Toilet, Tub, Shower), and Wheel Chair Management Need for clinical care manager - to improve, our occupation therapists will perform initial evaluation of pt's status upon admission and devise an individualized program for Caregiver Training Weakness - to improve, our occupation therapists will perform initial evaluation of pt's status upon admission and devise an individualized program for Aquatic Therapy, Balance, Endurance, UE ROM, and UE strengthening FUNCTIONAL STATUS: UPDATED AT WEEKLY TEAM CONFERENCE - Bladder Same Bladder control device used: diaper Same assistance level: On dialysis Same accident frequency: 7-Ind - No accidents in the past 7 days - Bowel Same accident frequency: 7-Ind - No accidents in the past 7 days - Walking Same score based on distance walked: 0(N/A) - Wheelchair Same score based on distance traveled: 0(N/A) FUNCTIONAL STATUS: - Self-Care A. Eating sup B. Grooming sup C. Bathing Uirel D. Dressing - Upper Johana E. Dressing - Lower Uriel F. Toileting Uriel - Sphincter Control G: Bladder control Dep H: Bowel control Ind - Transfers Control I. Bed/Chair/Wheelchair Uriel J. Toilet Uriel K. Tub/Shower ADNO - Locomotion L. Walk/Wheelchair (C) Uriel L. Walk/Wheelchair (W) Uriel M. Stairs ADNO - Communication N. Comprehension (B) Ind O. Expression (B) Ind - Social Cognition P. Social Interaction Ind Q. Problem Solving Ind R. Memory Ind - Endurance Fair - Balance Fair - Safety Awareness Fair CURRENT FUNC. DEFICITS: Balance, Self-Care, Locomotion, Endurance, Safety Awareness, and Transfers Control SIGNATURE PANEL: (CDT)
[2017-10-10] MEDS: ATORVASTATIN 10 MG TAB PO SCH (20:40)
[2017-10-10] MEDS: DOCUSATE NA/SENNA CONC 1 TAB PO SCH (20:40)
[2017-10-10] MEDS: MELATONIN 3 MG TABLET PO PRN (20:40)
[2017-10-10] MEDS ORDERED: INSULIN -REGULAR HUMAN 50 UNIT/0.5 ML ML ONE (21:34)
[2017-10-10] MEDS: HYDROCODONE/APAP 7.5/325 MG TAB PO PRN (23:02)
--- NOTE | 2017-10-11 03:34 | FAST ---
SHIFT START DATE/TIME: 10/10/2017 19:00 (CDT) SHIFT END DATE/TIME: 10/11/2017 07:00 (CDT) NAME CARMEN ALTAMIRANO DATE OF : 1955 DATE OF ADMISSION: 09/21/2017 15:46 (CDT) PHONE: AGE: 62 [facility]# [id number] GENDER: Male ENCOUNTER PHYSICIAN: Dr. Edgar Pereira M.D. ADMISSION DIAGNOSIS: - Amputation of Limb 05 - Unilateral Lower Limb Below the Knee (BK) (05.4) Left Below the Knee Amputation. EATING: Activity did not occur on this shift EATING - SCORE: 0-UNK GROOMING: Activity did not occur on this shift GROOMING - SCORE: 0-UNK BATHING: Activity did not occur on this shift BATHING - SCORE: 0-UNK DRESSING - UPPER BODY: Patient is not dressing in public clothing ARTICLES SCORE Total number of steps: 0 DRESSING - UPPER BODY - SCORE: 0-UNK DRESSING - LOWER BODY: Patient is not dressing in public clothing ARTICLES SCORE Total number of steps: 0 DRESSING - LOWER BODY - SCORE: 0-UNK TOILETING: Activity did not occur on this shift TOILETING - SCORE: 0-UNK BLADDER MANAGEMENT: Patient is on renal dialysis or peritoneal dialysis and no voiding activity BLADDER MANAGEMENT - SCORE: 7-IND BOWEL MANAGEMENT: Activity did not occur on this shift BOWEL MANAGEMENT - SCORE: 7-IND TRANSFERS: BED, CHAIR, WHEELCHAIR: TRANSFERS: BED, CHAIR, WHEELCHAIR - STEP 1: Does the patient require assistance with bed, chair, or wheelchair transfers? Yes. TRANSFERS: BED, CHAIR, WHEELCHAIR - STEP 2: Does the patient require the assistance of a helper? Yes. TRANSFERS: BED, CHAIR, WHEELCHAIR - STEP 3: How much assistance does the patient require from the helper? Only supervision TRANSFERS: BED, CHAIR, WHEELCHAIR - SCORE: 5-SUP TRANSFERS: TOILET: Activity did not occur on this shift TRANSFERS: TOILET - SCORE: 0-UNK TRANSFERS: SHOWER: Activity did not occur on this shift TRANSFERS: SHOWER - SCORE: 0-UNK TRANSFERS: TUB: Activity did not occur on this shift TRANSFERS: TUB - SCORE: 0-UNK LOCOMOTION: WALK: Activity did not occur on this shift LOCOMOTION: WALK - SCORE: 0-UNK LOCOMOTION: WHEELCHAIR: Activity did not occur on this shift LOCOMOTION: WHEELCHAIR - SCORE: 0-UNK COMPREHENSION: COMPREHENSION: TYPE: Both COMPREHENSION - STEP 1: Does the patient require help to understand complex and abstract ideas (such as current events, finan josé, discharge planning, medical issues, relationships, etc)? No. COMPREHENSION - STEP 2: Does the patient need extra time, require an assistive device (such as glasses, hearing aids, or an a ugmentative communication system), OR does s/he have mild difficulty expressing complex and abstract ideas (including mild dysarthria or mild word-finding problems)? Yes. COMPREHENSION - SCORE: 6-MARIPOSA EXPRESSION EXPRESSION: TYPE: Both EXPRESSION - STEP 1: Does the patient require help expressing complex and abstract ideas (such as current events, finances , discharge planning, medical issues, relationships, etc)? No. EXPRESSION - STEP 2: Does the patient need extra time, require an assistive device (such as augmentive communication syste m or a communication board), OR does s/he have mild difficulty expressing complex and abstract ideas (including mild dysarthria or mild word-find problems)? Yes. EXPRESSION - SCORE: 6-MARIPOSA SOCIAL INTERACTION: SOCIAL INTERACTION - STEP 1: Does the patient require a helper to interact with others in social and therapeutic situations? No. SOCIAL INTERACTION - STEP 2: Does the patient need extra time in social situations, OR does s/he interact with staff, other patien ts, and family members ONLY in structured environments, OR does s/he require medication for social in teraction? Yes, patient requires medication for social interaction SOCIAL INTERACTION - SCORE: 6-MARIPOSA PROBLEM SOLVING: PROBLEM SOLVING - STEP 1: Does the patient need help to solve complex problems such as managing a checking account or confronti ng interpersonal problems? No. PROBLEM SOLVING - STEP 2: Does the patient require extra time to make decisions or solve problems, OR does s/he have slight dif ficulty reading, initiating, or self-correcting in unfamiliar situations? No. PROBLEM SOLVING - SCORE: 7-IND MEMORY: MEMORY - STEP 1: Does the patient need help to remember frequently encountered people, daily routines, and executing r equests? No. MEMORY - STEP 2: Does the patient have slight difficulty recognizing frequently encountered people, daily routines, or executing requests without the need for repetition or using self-initiated or environmental cues to remember? No. MEMORY - SCORE: 7-IND
[2017-10-11] MEDS: INSULIN -REGULAR HUMAN 50 UNIT/0.5 ML ML SQ SCH ×4 (06:54→21:00)
[2017-10-11 07:01] LABS: Potassium 4.8 mEq/L (3.6-5.0)
[2017-10-11] MEDS: LACTULOSE 20 GM/30 ML UCUP PO SCH ×3 (07:37→21:00)
[2017-10-11] MEDS: PROMOD 30 ML DOSE PO SCH ×2 (07:37→19:24)
[2017-10-11] MEDS: MULTIVITAMINS,THERAPEUT 1 TAB PO SCH (07:37)
[2017-10-11] MEDS: FUROSEMIDE 40 MG TABLET PO SCH ×2 (07:37→16:15)
[2017-10-11] MEDS: SEVELAMER CARBONATE 800 MG TABLET PO SCH ×3 (07:38→16:15)
[2017-10-11] MEDS: HYDRALAZINE HCL 25 MG TABLET PO SCH ×2 (07:38→19:24)
[2017-10-11] MEDS: DOCUSATE NA 100 MG CAP PO SCH (07:38)
[2017-10-11] MEDS: CLOPIDOGREL 75 MG TABLET PO SCH (07:38)
[2017-10-11] MEDS: GABAPENTIN 300 MG CAP PO SCH ×2 (07:38→21:00)
[2017-10-11] MEDS: TAMSULOSIN 0.4 MG SR CAP PO SCH ×2 (07:38→19:24)
[2017-10-11] MEDS: NIFEDIPINE XL 30 MG TABLET PO SCH (07:38)
[2017-10-11] MEDS: HYDROCODONE/APAP 7.5/325 MG TAB PO PRN ×2 (07:38→19:23)
[2017-10-11] MEDS: ASPIRIN EC 81 MG TAB PO SCH (07:38)
--- NOTE | 2017-10-11 12:02 | FAST ---
SHIFT START DATE/TIME: 10/11/2017 07:00 (CDT) SHIFT END DATE/TIME: 10/11/2017 19:00 (CDT) NAME CARMEN ALTAMIRANO DATE OF : 1955 DATE OF ADMISSION: 09/21/2017 15:46 (CDT) PHONE: AGE: 62 [facility]# [phone] GENDER: Male ENCOUNTER PHYSICIAN: Dr. Edgar Pereira M.D. ADMISSION DIAGNOSIS: - Amputation of Limb 05 - Unilateral Lower Limb Below the Knee (BK) (05.4) Left Below the Knee Amputation. EATING: EATING - STEP 1: Does the patient require assistance when eating? No. EATING - SCORE: 7-IND GROOMING: Comb/brush hair Oral care Patient shaved Wash, rinse, and dry face GROOMING - STEP 1: Does the patient require assistance when grooming? No. GROOMING - SCORE: 7-IND BATHING: Activity did not occur on this shift BATHING - SCORE: 0-UNK DRESSING - UPPER BODY: Activity did not occur on this shift ARTICLES SCORE Total number of steps: 0 DRESSING - UPPER BODY - SCORE: 0-UNK DRESSING - LOWER BODY: Elastic waist pants (three steps) Slip-on shoe - Right foot (one step) ARTICLES SCORE Total number of steps: 4 DRESSING - LOWER BODY - STEP 1: Does the patient require help when dressing below the waist? Yes. DRESSING - LOWER BODY - STEP 2: Does the patient require the assistance of a helper? No. Patient requires an assistive device such as a split and drum room supervisor. OR s/he takes more than reasonable time as s/he dresses the lower body, OR there is a con cern for safety when s/he dresses the lower body DRESSING - LOWER BODY - SCORE: 6-MARIPOSA TOILETING: Activity did not occur on this shift TOILETING - SCORE: 0-UNK BLADDER MANAGEMENT: Activity did not occur on this shift BLADDER MANAGEMENT - SCORE: 7-IND BLADDER MANAGEMENT - FREQUENCY OF ACCIDENTS: BLADDER MANAGEMENT(FA) - STEP 1: How many accidents has the patient had during the current shift? 0 BOWEL MANAGEMENT: Activity did not occur on this shift BOWEL MANAGEMENT - SCORE: 7-IND BOWEL MANAGEMENT - FREQUENCY OF ACCIDENTS: BOWEL MANAGEMENT(FA) - STEP 1: How many accidents has the patient had during the current shift? 0 TRANSFERS: BED, CHAIR, WHEELCHAIR: TRANSFERS: BED, CHAIR, WHEELCHAIR - STEP 1: Does the patient require assistance with bed, chair, or wheelchair transfers? Yes. TRANSFERS: BED, CHAIR, WHEELCHAIR - STEP 2: Does the patient require the assistance of a helper? Yes. TRANSFERS: BED, CHAIR, WHEELCHAIR - STEP 3: How much assistance does the patient require from the helper? Only supervision TRANSFERS: BED, CHAIR, WHEELCHAIR - SCORE: 5-SUP TRANSFERS: TOILET: Activity did not occur on this shift TRANSFERS: TOILET - SCORE: 0-UNK TRANSFERS: SHOWER: Activity did not occur on this shift TRANSFERS: SHOWER - SCORE: 0-UNK TRANSFERS: TUB: Activity did not occur on this shift TRANSFERS: TUB - SCORE: 0-UNK LOCOMOTION: WALK: Activity did not occur on this shift LOCOMOTION: WALK - SCORE: 0-UNK LOCOMOTION: WHEELCHAIR: LOCOMOTION: WHEELCHAIR - STEP 1: Does the patient need help to go 150 feet in a wheelchair? Yes. LOCOMOTION: WHEELCHAIR - STEP 2: How much assistance does the patient need from the helper? Only supervision, cuing, or coaxing LOCOMOTION: WHEELCHAIR - SCORE: 5-SUP COMPREHENSION: COMPREHENSION - STEP 1: Does the patient require help to understand complex and abstract ideas (such as current events, finan josé, discharge planning, medical issues, relationships, etc)? No. COMPREHENSION - STEP 2: Does the patient need extra time, require an assistive device (such as glasses, hearing aids, or an a ugmentative communication system), OR does s/he have mild difficulty expressing complex and abstract ideas (including mild dysarthria or mild word-finding problems)? Yes. COMPREHENSION - SCORE: 6-MARIPOSA EXPRESSION EXPRESSION: TYPE: Both EXPRESSION - STEP 1: Does the patient require help expressing complex and abstract ideas (such as current events, finances , discharge planning, medical issues, relationships, etc)? No. EXPRESSION - STEP 2: Does the patient need extra time, require an assistive device (such as augmentive communication syste m or a communication board), OR does s/he have mild difficulty expressing complex and abstract ideas (including mild dysarthria or mild word-find problems)? Yes. EXPRESSION - SCORE: 6-MARIPOSA SOCIAL INTERACTION: SOCIAL INTERACTION - STEP 1: Does the patient require a helper to interact with others in social and therapeutic situations? No. SOCIAL INTERACTION - STEP 2: Does the patient need extra time in social situations, OR does s/he interact with staff, other patien ts, and family members ONLY in structured environments, OR does s/he require medication for social in teraction? No. SOCIAL INTERACTION - SCORE: 7-IND PROBLEM SOLVING: PROBLEM SOLVING - STEP 1: Does the patient need help to solve complex problems such as managing a checking account or confronti ng interpersonal problems? No. PROBLEM SOLVING - STEP 2: Does the patient require extra time to make decisions or solve problems, OR does s/he have slight dif ficulty reading, initiating, or self-correcting in unfamiliar situations? Yes, patient needs extra ti me. PROBLEM SOLVING - SCORE: 6-MARIPOSA MEMORY: MEMORY - STEP 1: Does the patient need help to remember frequently encountered people, daily routines, and executing r equests? No. MEMORY - STEP 2: Does the patient have slight difficulty recognizing frequently encountered people, daily routines, or executing requests without the need for repetition or using self-initiated or environmental cues to remember? Yes. MEMORY - SCORE: 6-MARIPOSA SIGNATURE PANEL: The following modified sections: Eating - Score, Grooming - Score, Bathing - Score, Dressing - Upper Body - Score, Dressing - Lower Body - Score, Toileting - Score, Bladder Management - Score, Bowel Man agement - Score, Transfers: Bed, Chair, Wheelchair - Score, Transfers: Toilet - Score, Transfers: Adeline wer - Score, Transfers: Tub - Score, Locomotion: Walk - Score, Locomotion: Wheelchair - Score, Compre hension - Score, Expression - Score, Social Interaction - Score, Problem Solving - Score, Memory - Sc ore were [electronically] signed by Jomar IzquierdoNMagalis on SunOct 11 2017 11:02:09 T-0500 (Centra l Daylight Time)
--- NOTE | 2017-10-11 16:14 | FAST ---
ENCOUNTER DATE AND TIME: 10/11/2017 08:00 (CDT) NAME CARMEN ALTAMIRANO DATE OF : 1955 DATE OF ADMISSION: 09/21/2017 15:46 (CDT) PHONE: AGE: 62 N# [id number] GENDER: Male ENCOUNTER PHYSICIAN: Dr. Edgar Pereira M.D. ADMISSION DIAGNOSIS: - Amputation of Limb 05 - Unilateral Lower Limb Below the Knee (BK) (05.4) Left Below the Knee Amputation. EATING: Activity did not occur on this shift EATING - SCORE: 0-UNK GROOMING: Activity did not occur on this shift GROOMING - SCORE: 0-UNK BATHING: Activity did not occur on this shift BATHING - SCORE: 0-UNK DRESSING - UPPER BODY: Activity did not occur on this shift Patient is not dressing in public clothing ARTICLES SCORE Total number of steps: 0 DRESSING - UPPER BODY - SCORE: 0-UNK DRESSING - LOWER BODY: Activity did not occur on this shift Patient is not dressing in public clothing ARTICLES SCORE Total number of steps: 0 DRESSING - LOWER BODY - SCORE: 0-UNK TOILETING: Activity did not occur on this shift TOILETING - SCORE: 0-UNK BLADDER MANAGEMENT: Activity did not occur on this shift BLADDER MANAGEMENT - SCORE: 7-IND BOWEL MANAGEMENT: Activity did not occur on this shift BOWEL MANAGEMENT - SCORE: 7-IND TRANSFERS: BED, CHAIR, WHEELCHAIR: Activity did not occur on this shift TRANSFERS: BED, CHAIR, WHEELCHAIR - SCORE: 0-UNK TRANSFERS: TOILET: Activity did not occur on this shift TRANSFERS: TOILET - SCORE: 0-UNK TRANSFERS: SHOWER: Activity did not occur on this shift TRANSFERS: SHOWER - SCORE: 0-UNK TRANSFERS: TUB: Activity did not occur on this shift TRANSFERS: TUB - SCORE: 0-UNK LOCOMOTION: WALK: Activity did not occur on this shift LOCOMOTION: WALK - SCORE: 0-UNK LOCOMOTION: WHEELCHAIR: LOCOMOTION: WHEELCHAIR - STEP 1: Does the patient need help to go 150 feet in a wheelchair? No. LOCOMOTION: WHEELCHAIR - SCORE: 6-MARIPOSA LOCOMOTION: STAIRS: Activity did not occur on this shift LOCOMOTION: STAIRS - SCORE: 0-UNK COMPREHENSION: COMPREHENSION - SCORE: 0-UNK EXPRESSION EXPRESSION - SCORE: 0-UNK SOCIAL INTERACTION: SOCIAL INTERACTION - SCORE: 0-UNK PROBLEM SOLVING: PROBLEM SOLVING - SCORE: 0-UNK MEMORY: MEMORY - SCORE: 0-UNK SIGNATURE PANEL: The following modified sections: Transfers: Bed, Chair, Wheelchair - Score, Transfers: Toilet - Score , Locomotion: Walk - Score, Locomotion: Wheelchair - Score, Locomotion: Stairs - Score were [electron ically] signed by Ran Marshall PTA on SunOct 11 2017 15:14:23 T-0500 (Central Daylight Time)
[2017-10-11] MEDS: ENOXAPARIN 30 MG/0.3 ML SQ SCH (16:15)
--- NOTE | 2017-10-11 18:04 | R.PN ---
ENCOUNTER DATE AND TIME: 10/11/2017 17:01 (CDT) NAME CARMEN ALTAMIRANO DATE OF : 1955 DATE OF ADMISSION: 09/21/2017 15:46 (CDT) Left Below the Knee AmputationCHIEF COMPLAINT: Left below the knee amputation SUBJECTIVE: Pt denied any Shortness of Breath. Pt denied any depression. Self-propelled wheelchair 100' with bilateral upper and left lower extremity. Denies significant pain in left BKA stump. Ambulated 34' using a rolling walker with moderate assistance. Self-propelled wheelchair 1000' with modified independence. Up and down ramp with wheelchair with mod ified independence. Speech expression done with modified independence. VITAL SIGNS Temperature: 97.2 F SBP/DBP: 145/79 Pulse: 72 Resp: 14 MEDICATION ALLERGIES: Levofloxacin ENVIRONMENTAL ALLERGIES: None Known - Substance Allergies None Known - Other Allergies None Known CONSULT: Perform Consult Certified Prosthetic for prosthesis construction NURSING: - Shower allowing shower - Lab Results blood Sugar Check ACHS - Skin care per protocol PRECAUTIONS: - Fall Precaution Bed and chair alarm ACTIVITIES OOB only with supervision THERAPIES: - Orthotics/Prosthetics Prosthetic Evaluation. - Occupational Therapy Evaluate and Treat. - Physical Therapy Evaluate and Treat. PHYSICAL EXAM - Gen Alert and awake Lying in bed No apparent distress Oriented to: person, time, and place - Skin Left BKA bandage in place with good hemostasis. Normacephalic - Eyes No abnormalities - ENMT No abnormalities - Neck No abnormalities - CVS RRR - Chest Clear - Abd +bowel sounds - GI Non distended Deferred - No abnormalities - Ext No significant edema - MSK 5-/5 weakness in right upper and 3+/5 weakness in right lower extremity. - Neuro No focal deficits - Psych No abnormalities ASSESSMENT: Pt. is a 62 yo Right-handed white male.His impairment category is Amputation of Limb 05 - Unilateral Lower Limb Below the Knee (BK) (05.4).Pre-morbidly, Pt. was independent/mod-I in Communication, Soci al Cognition, Self-Care, Locomotion, Sphincter Control, and Transfers Control; and he had good Sphinc ter Control.Currently, he has deficits of Balance, Self-Care, Locomotion, Endurance, Safety Awareness , and Transfers Control.Pt. is now referred to [facility] for acute in-patient rehabilitation in order to maximize patient's functional independence in activities of daily living, strength, ROM, and mobility.- Rehab Goal Patient has realistic goal of being discharged at assistance level 6-Johana to reside at Home with Fam ramy/Relatives. MDM/PLAN: - Diet Type Continue Regular - Physical Therapy Gait dysfunction - to improve, our physical therapists will perform initial evaluation of pt's statu s upon admission and devise an individualized program for Gait Training, and Wheel Chair mobility Inability to transfer - to improve, our physical therapists will perform initial evaluation of pt's status upon admission and devise an individualized program for Bed mobility Need for home safety evaluation - to improve, our physical therapists will perform initial evaluatio n of pt's status upon admission and devise an individualized program for Home Evaluation Need in caregiver upon discharge - to improve, our physical therapists will perform initial evaluati on of pt's status upon admission and devise an individualized program for Caregiver Training Edema - to improve, our physical therapists will perform initial evaluation of pt's status upon admi ssion and devise an individualized program for Elevation Training, and Lymphedema Therapy New precaution - to improve, our physical therapists will perform initial evaluation of pt's status upon admission and devise an individualized program for Patient precaution education Poor balance - to improve, our physical therapists will perform initial evaluation of pt's status up on admission and devise an individualized program for Balance Training Poor endurance - to improve, our physical therapists will perform initial evaluation of pt's status upon admission and devise an individualized program for Endurance Training Weakness - to improve, our physical therapists will perform initial evaluation of pt's status upon a dmission and devise an individualized program for Aquatic Therapy, Neuromuscular Reeducation, and Str engthening Achieving independence - to improve, our physical therapists will perform initial evaluation of pt's status upon admission and devise an individualized program for Community Reintegration Activities - Diet - Liquid Texture Continue Regular - Tube Feed Continue N/A - Lab Results blood Sugar Check ACHS - Weight Bearing Precaution NWB left LE - Fall Precaution Bed and chair alarm - Skin care per protocol - N/A Perform Consult Certified Prosthetic for prosthesis construction - Diet - Solid Texture Continue Regular - Shower allowing shower - Occupational Therapy ADL deficits - to improve, our occupation therapists will perform initial evaluation of pt's status upon admission and devise an individualized program for Bathing, Bed mobility, Community Reintegratio n, Cooking, Dressing, Eating, Fine Motor Skills, Grooming, Homemaking, Kitchen Mobility, Laundry, Pat ient Education, Safety Awareness, Splinting - Positioning, Transfers(Toilet, Tub, Shower), and Wheel Chair Management Need for customer care manager - to improve, our occupation therapists will perform initial evaluation of pt's status upon admission and devise an individualized program for Caregiver Training Weakness - to improve, our occupation therapists will perform initial evaluation of pt's status upon admission and devise an individualized program for Aquatic Therapy, Balance, Endurance, UE ROM, and UE strengthening FUNCTIONAL STATUS: UPDATED AT WEEKLY TEAM CONFERENCE - Bladder Same Bladder control device used: diaper Same assistance level: On dialysis Same accident frequency: 7-Ind - No accidents in the past 7 days - Bowel Same accident frequency: 7-Ind - No accidents in the past 7 days - Walking Same score based on distance walked: 0(N/A) - Wheelchair Same score based on distance traveled: 0(N/A) FUNCTIONAL STATUS: - Self-Care A. Eating sup B. Grooming sup C. Bathing Uriel D. Dressing - Upper Johana E. Dressing - Lower Uriel F. Toileting Uriel - Sphincter Control G: Bladder control Dep H: Bowel control Ind - Transfers Control I. Bed/Chair/Wheelchair Uriel J. Toilet Uriel K. Tub/Shower ADNO - Locomotion L. Walk/Wheelchair (C) Uriel L. Walk/Wheelchair (W) Uriel M. Stairs ADNO - Communication N. Comprehension (B) Ind O. Expression (B) Ind - Social Cognition P. Social Interaction Ind Q. Problem Solving Ind R. Memory Ind - Endurance Fair - Balance Fair - Safety Awareness Fair CURRENT FUNC. DEFICITS: Balance, Self-Care, Locomotion, Endurance, Safety Awareness, and Transfers Control SIGNATURE PANEL: (CDT)
--- NOTE | 2017-10-11 18:38 | PN ---
Subjective: The patient is doing well and ready to go home tomorrow. He did a straight cath this morning, only about 350 cc came out. I recommend straight cath every 2 days. No need to do it every day. Megan, in my office will organize the catheter problem for him, 15 catheters per month where he can do his catheterizations at home. He is on Flomax, but not voiding on his own. CALIN/NAYA Voice ID: [id number] Report ID: [id number] MTDDorothy
[2017-10-11] MEDS: DOCUSATE NA/SENNA CONC 1 TAB PO SCH (21:00)
[2017-10-11] MEDS: ATORVASTATIN 10 MG TAB PO SCH (21:00)
[2017-10-11] MEDS: MELATONIN 3 MG TABLET PO PRN (21:00)
--- NOTE | 2017-10-11 21:33 | P.PN ---
Date of Service: 10/11/17 Vital Signs Temp Pulse Resp BP Pulse Ox 97.3 F 74 20 147/74 H 100 10/11/17 19:05 10/11/17 19:05 10/11/17 19:05 10/11/17 19:05 10/11/17 19:05 Medications Hydrocodone Bitart/Acetaminophen (Hamlin 7.5/325 Mg) 1 tab PO Q6H PRN PRN Reason: PAIN Stop: 10/21/17 23:50 Last Admin: 10/11/17 19:23 Dose: 1 tab Albuterol Sulfate (Proventil 0.083% Neb Soln) 2.5 mg NEB TIDRESP PRN PRN Reason: SHORTNESS OF BREATH Stop: 10/21/17 16:26 Last Admin: 10/07/17 14:30 Dose: 2.5 mg Aspirin (Aspirin Ec) 81 mg PO DAILY FIDEL Stop: 10/22/17 08:01 Last Admin: 10/11/17 07:38 Dose: 81 mg Atorvastatin Calcium (Lipitor) 10 mg PO BEDTIME FIDEL Stop: 10/21/17 21:01 Last Admin: 10/11/17 21:00 Dose: 10 mg Bisacodyl (Dulcolax) 10 mg NV DAILY PRN PRN Reason: CONSTIPATION Stop: 10/21/17 19:28 Last Admin: 10/01/17 05:30 Dose: 10 mg Clopidogrel Bisulfate (Plavix) 75 mg PO DAILY FIDEL Stop: 10/22/17 08:01 Last Admin: 10/11/17 07:38 Dose: 75 mg Dextrose (Dextrose 50% Syringe) 12.5 gm IV PRN PRN; Protocol PRN Reason: HYPOGLYCEMIA Stop: 10/21/17 16:18 Docusate Sodium (Colace Cap) 200 mg PO DAILY FIDEL Stop: 10/29/17 08:01 Last Admin: 10/11/17 07:38 Dose: 200 mg Enoxaparin Sodium (Lovenox 30 Mg Inj) 30 mg SQ DAILY 5 PM FIDEL Stop: 10/23/17 17:01 Last Admin: 10/11/17 16:15 Dose: 30 mg Epoetin Taqueria (Procrit) 10,000 unit IV EVERY HD FIDEL Stop: 10/24/17 08:46 Last Admin: 10/08/17 17:41 Dose: 10,000 unit Furosemide (Lasix) 80 mg PO BIDL [facility] Stop: 10/21/17 17:01 Last Admin: 10/11/17 16:15 Dose: 80 mg Gabapentin (Neurontin) 600 mg PO TID [facility] Stop: 11/10/17 21:01 Last Admin: 10/11/17 21:00 Dose: 600 mg Glucagon (Glucagen) 1 mg IM 1X PRN; Protocol PRN Reason: HYPOGLYCEMIA Stop: 10/21/17 16:18 Heparin Sodium (Porcine) (Heparin 1,000 Units/Ml) 2,000 unit IV EVERY HD FIDEL Stop: 10/26/17 11:01 Last Admin: 10/08/17 17:43 Dose: 2,000 unit Hydralazine HCl (Apresoline) 25 mg PO BID [facility] Stop: 10/21/17 20:01 Last Admin: 10/11/17 19:24 Dose: 25 mg Albumin Human (Albumin 25%) 50 mls @ 100 mls/hr IV EVERY HD [facility] Stop: 10/24/17 09:01 Insulin Human Regular (Novolin -R) 0 unit SQ ACHS [facility]; Protocol Stop: 10/21/17 16:31 Last Admin: 10/11/17 21:00 Dose: Not Given Lactulose (Cephulac) 20 gm PO TID [facility] Stop: 11/02/17 14:01 Last Admin: 10/11/17 21:00 Dose: Not Given Mannitol (Mannitol 12.5 Gm/50 Ml Vial) 12.5 gm IV EVERY HD PRN PRN Reason: BP support at hemodialysis Stop: 10/24/17 08:40 Melatonin (Melatonin) 3 mg PO BEDTIME PRN PRN PRN Reason: INSOMNIA Stop: 10/23/17 01:10 Last Admin: 10/11/17 21:00 Dose: 3 mg Nifedipine (Procardia Xl) 30 mg PO DAILY [facility] Stop: 10/22/17 08:01 Last Admin: 10/11/17 07:38 Dose: 30 mg Nutritional Formula (Promod Liquid Protein) 30 ml PO BID [facility] Stop: 10/23/17 20:01 Last Admin: 10/11/17 19:24 Dose: 30 ml Ondansetron HCl (Zofran) 4 mg PO Q6H PRN PRN Reason: NAUSEA / VOMITING Stop: 10/21/17 16:39 Phenyleph/Shark Oil/Min Oil/Petrol (Formulation R) 1 appl NV BID PRN PRN Reason: HEMORRHOIDS Stop: 10/31/17 13:08 Polyethylene Glycol (Glycolax) 17 gm PO DAILY PRN PRN Reason: CONSTIPATION Stop: 10/31/17 14:31 Senna/Docusate Sodium (Senokot-S) 2 tab PO BEDTIME FIDEL Stop: 10/22/17 21:01 Last Admin: 10/11/17 21:00 Dose: Not Given Sevelamer Carbonate (Renvela) 1,600 mg PO TIDWM [facility]IDEL Stop: 10/31/17 17:01 Last Admin: 10/11/17 16:15 Dose: 1,600 mg Tamsulosin HCl (Flomax) 0.4 mg PO BID [facility]IDEL Stop: 11/01/17 20:01 Last Admin: 10/11/17 19:24 Dose: 0.4 mg Tramadol HCl (Ultram) 50 mg PO Q6H PRN PRN Reason: PAIN MILD Stop: 10/21/17 16:03 Last Admin: 10/10/17 08:33 Dose: 50 mg Vitamin B Complex/Vit C/Folic Acid (Nephro-Kayden) 1 tab PO DAILY FIDEL Stop: 10/22/17 08:01 Last Admin: 10/11/17 07:37 Dose: 1 tab Lab Results (last 24 hrs) 10/11/17 20:48: POC Glucose 191 H 10/11/17 16:00: POC Glucose 182 H 10/11/17 11:22: POC Glucose 200 H 10/11/17 06:46: POC Glucose 164 H 10/11/17 05:58: Sodium 135, Potassium 4.8, Chloride 100 L, Carbon Dioxide 25, BUN 45 H, Creatinine 5.86 H* D, Estimated GFR 12 L, Glucose 155 H, Calcium 8.4 L Microbiology Results 09/27/17 16:55 Blood - Blood Aerobic Blood Culture - Final No growth in 5 days. 09/27/17 16:55 Blood - Blood Anaerobic Blood Culture - Final 09/22/17 21:32 Clean Catch Urine Stoddard Count - Final <10,000 CFU/ML. 09/22/17 21:32 Clean Catch Urine - Final Assessment/ Plan: Nephrology. CPS stable without CP or SOB. No acute events. Doing well. Vitals, medications, blood work and imaging reviewed in the chart. General: In no apparent distress, Oriented x3, Cooperative HEENT: Atraumatic Neck: Supple Respiratory: Clear to auscultation bilaterally Cardiovascular: Regular rate/rhythm, No rubs Gastrointestinal: Soft and benign, Non-distended Musculoskeletal: No clubbing, No contractures Integumentary: No rashes, No cyanosis, Other (Left BKA.) Neurological: Normal speech Blood work reviewed in the chart. Hgb 9.6; Alb 3.3 Imagings Data: HEIGHT: 6 ft 1 in WEIGHT: 235 lb 0 oz DATE OF STUDY: 09/20/[address]: Familia Duval MD 2-DIMENSIONAL: YES M.MODE: YES DOPPLER: YES COLOR FLOW: YES TDS: NO PORTABLE: NO DEFINITY: NO BUBBLE STUDY: NO DIAGNOSIS: ARRYTHMIA CARDIAC HISTORY: CATHERIZATION: YES SURGERY: NO PROSTHETIC VALVE: NO PACEMAKER: NO MEASUREMENTS (cm) DIASTOLIC (NORMALS) SYSTOLIC (NORMALS) IVSd 1.2 (0.6-1.2) LA Diam 3.7 (1.9-4.0) LVEF 54% LVIDd 6.0 (3.5-5.7) LVIDs 4.3 (2.0-3.5) %FS 29% LVPWd 1.2 (0.6-1.2) Ao Diam 3.1 (2.0-3.7) 2 DIMENSIONAL ASSESSMENT: RIGHT ATRIUM: NORMAL LEFT ATRIUM: NORMAL SIZE RIGHT VENTRICLE: NORMAL LEFT VENTRICLE: DILATED TRICUSPID VALVE: NORMAL MITRAL VALVE: MITRAL ANNULAR CALCIFICATION PULMONIC VALVE: NORMAL AORTIC VALVE: NORMAL PERICARDIAL EFFUSION: NONE AORTIC ROOT: NORMAL LEFT VENTRICULAR WALL MOTION: NORMAL LEFT VENTRICULAR EJECTION FRACTION. DECREASED LEFT VENTRICULAR COMPLIANCE. DOPPLER/COLOR FLOW: MILD TRICUSPID REGURGITATION. COMMENTS: MILD TRICUSPID REGURGITATION. DECREASED LEFT VENTRICULAR COMPLIANCE. NORMAL LEFT VENTRICULAR EJECTION FRACTION. MILD LEFT VENTRICULAR DILIATION. MITRAL ANNULAR CALCIFICATION. Conclusions/Impression: A/ ESRD on HD. Hyperkalemia. HTN with CKD. Diastolic CHF, chronic. Anemia in CKD. PERCY/ Secondary HyperPTH. 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 Constipation. Urinary retention likely due to BPH & opiates. P/ Continue current POC and Medications. HD TIW. Plan for HD tomorrow. Will need a urology evaluation as an outpt. Wean opiate therapy as tolerated. No NSAIDs. Titrate insulin as needed. Low sodium diet. AM labs. Daily weight. PT as tolerated.
--- NOTE | 2017-10-12 04:15 | FAST ---
SHIFT START DATE/TIME: 10/11/2017 19:00 (CDT) SHIFT END DATE/TIME: 10/12/2017 07:00 (CDT) NAME CARMEN ALTAMIRANO DATE OF : 1955 DATE OF ADMISSION: 09/21/2017 15:46 (CDT) PHONE: AGE: 62 [facility]# [id number] GENDER: Male ENCOUNTER PHYSICIAN: Dr. Edgar Pereira M.D. ADMISSION DIAGNOSIS: - Amputation of Limb 05 - Unilateral Lower Limb Below the Knee (BK) (05.4) Left Below the Knee Amputation. EATING: Activity did not occur on this shift EATING - SCORE: 0-UNK GROOMING: Activity did not occur on this shift GROOMING - SCORE: 0-UNK BATHING: Activity did not occur on this shift BATHING - SCORE: 0-UNK DRESSING - UPPER BODY: Activity did not occur on this shift ARTICLES SCORE Total number of steps: 0 DRESSING - UPPER BODY - SCORE: 0-UNK DRESSING - LOWER BODY: Activity did not occur on this shift ARTICLES SCORE Total number of steps: 0 DRESSING - LOWER BODY - SCORE: 0-UNK TOILETING: Activity did not occur on this shift TOILETING - SCORE: 0-UNK BLADDER MANAGEMENT: Patient is on renal dialysis or peritoneal dialysis and no voiding activity BLADDER MANAGEMENT - SCORE: 7-IND BLADDER MANAGEMENT - FREQUENCY OF ACCIDENTS: BLADDER MANAGEMENT(FA) - STEP 1: How many accidents has the patient had during the current shift? 0 BOWEL MANAGEMENT: Activity did not occur on this shift BOWEL MANAGEMENT - SCORE: 7-IND BOWEL MANAGEMENT - FREQUENCY OF ACCIDENTS: BOWEL MANAGEMENT(FA) - STEP 1: How many accidents has the patient had during the current shift? 0 TRANSFERS: BED, CHAIR, WHEELCHAIR: TRANSFERS: BED, CHAIR, WHEELCHAIR - STEP 1: Does the patient require assistance with bed, chair, or wheelchair transfers? Yes. TRANSFERS: BED, CHAIR, WHEELCHAIR - STEP 2: Does the patient require the assistance of a helper? Yes. TRANSFERS: BED, CHAIR, WHEELCHAIR - STEP 3: How much assistance does the patient require from the helper? Steadying/guiding assistance TRANSFERS: BED, CHAIR, WHEELCHAIR - SCORE: 4-MIN TRANSFERS: TOILET: Activity did not occur on this shift TRANSFERS: TOILET - SCORE: 0-UNK TRANSFERS: SHOWER: Activity did not occur on this shift TRANSFERS: SHOWER - SCORE: 0-UNK TRANSFERS: TUB: Activity did not occur on this shift TRANSFERS: TUB - SCORE: 0-UNK LOCOMOTION: WALK: Activity did not occur on this shift LOCOMOTION: WALK - SCORE: 0-UNK LOCOMOTION: WHEELCHAIR: Activity did not occur on this shift LOCOMOTION: WHEELCHAIR - SCORE: 0-UNK COMPREHENSION: COMPREHENSION: TYPE: Both COMPREHENSION - STEP 1: Does the patient require help to understand complex and abstract ideas (such as current events, finan josé, discharge planning, medical issues, relationships, etc)? No. COMPREHENSION - STEP 2: Does the patient need extra time, require an assistive device (such as glasses, hearing aids, or an a ugmentative communication system), OR does s/he have mild difficulty expressing complex and abstract ideas (including mild dysarthria or mild word-finding problems)? Yes. COMPREHENSION - SCORE: 6-MARIPOSA EXPRESSION EXPRESSION: TYPE: Both EXPRESSION - STEP 1: Does the patient require help expressing complex and abstract ideas (such as current events, finances , discharge planning, medical issues, relationships, etc)? No. EXPRESSION - STEP 2: Does the patient need extra time, require an assistive device (such as augmentive communication syste m or a communication board), OR does s/he have mild difficulty expressing complex and abstract ideas (including mild dysarthria or mild word-find problems)? Yes. EXPRESSION - SCORE: 6-MARIPOSA SOCIAL INTERACTION: SOCIAL INTERACTION - STEP 1: Does the patient require a helper to interact with others in social and therapeutic situations? No. SOCIAL INTERACTION - STEP 2: Does the patient need extra time in social situations, OR does s/he interact with staff, other patien ts, and family members ONLY in structured environments, OR does s/he require medication for social in teraction? No. SOCIAL INTERACTION - SCORE: 7-IND PROBLEM SOLVING: PROBLEM SOLVING - STEP 1: Does the patient need help to solve complex problems such as managing a checking account or confronti ng interpersonal problems? No. PROBLEM SOLVING - STEP 2: Does the patient require extra time to make decisions or solve problems, OR does s/he have slight dif ficulty reading, initiating, or self-correcting in unfamiliar situations? No. PROBLEM SOLVING - SCORE: 7-IND MEMORY: MEMORY - STEP 1: Does the patient need help to remember frequently encountered people, daily routines, and executing r equests? No. MEMORY - STEP 2: Does the patient have slight difficulty recognizing frequently encountered people, daily routines, or executing requests without the need for repetition or using self-initiated or environmental cues to remember? No. MEMORY - SCORE: 7-IND SIGNATURE PANEL: The following modified sections: Eating - Score, Grooming - Score, Bathing - Score, Dressing - Upper Body - Score, Dressing - Lower Body - Score, Toileting - Score, Bladder Management - Score, Bowel Man agement - Score, Transfers: Bed, Chair, Wheelchair - Score, Transfers: Toilet - Score, Transfers: Adeline wer - Score, Transfers: Tub - Score, Locomotion: Walk - Score, Locomotion: Wheelchair - Score, Compre hension - Score, Expression - Score, Social Interaction - Score, Problem Solving - Score, Memory - Sc ore were [electronically] signed by Pallavi Suarez RN on SunOct 12 2017 03:15:28 T-0500 (Centra l Daylight Time)
[2017-10-12 06:01] LABS: Absolute Lymphocytes (CBC) 1.3 K/uL (0.7-4.9); Absolute Monocytes 0.9 K/uL (0.1-1.3); Absolute Neutrophil 6.1 K/uL (1.8-8.0); Basophils % 1.1 % (0-1.3); Eosinophils % 3.3 % (0-4.4); Hematocrit 30.2 % (39.6-49.0); Lymphocytes % 15.2 % (15.3-44.8); MCH 28.1 pg (27.0-35.0); MCV 86.1 fL (80-100); MPV 7.4 fL (7.6-11.3); Monocytes % 10.3 % (3.3-12.3); RBC Red Blood Cell Count 3.51 M/uL (4.33-5.43)
[2017-10-12 06:02] VITALS: BMI 29.8
[2017-10-12 06:13] LABS: Albumin 2.9 g/dL (3.2-5.5); Bilirubin Total 0.2 mg/dL (0.3-1.2); Potassium 5.1 mEq/L (3.6-5.0); Protein, Total 6.4 g/dL (6.0-8.3)
[2017-10-12] MEDS: HYDROCODONE/APAP 7.5/325 MG TAB PO PRN ×2 (06:45→13:51)
[2017-10-12] MEDS: INSULIN -REGULAR HUMAN 50 UNIT/0.5 ML ML SQ SCH ×2 (06:49→11:30)
[2017-10-12] MEDS: HYDRALAZINE HCL 25 MG TABLET PO SCH (08:00)
[2017-10-12] MEDS: SEVELAMER CARBONATE 800 MG TABLET PO SCH ×2 (08:14→12:00)
[2017-10-12] MEDS: CLOPIDOGREL 75 MG TABLET PO SCH (08:15)
[2017-10-12] MEDS: TAMSULOSIN 0.4 MG SR CAP PO SCH (08:15)
[2017-10-12] MEDS: NIFEDIPINE XL 30 MG TABLET PO SCH (08:15)
[2017-10-12] MEDS: DOCUSATE NA 100 MG CAP PO SCH (08:15)
[2017-10-12] MEDS: GABAPENTIN 300 MG CAP PO SCH ×2 (08:16→13:51)
[2017-10-12] MEDS: MULTIVITAMINS,THERAPEUT 1 TAB PO SCH (08:16)
[2017-10-12] MEDS: ASPIRIN EC 81 MG TAB PO SCH (08:16)
[2017-10-12] MEDS: FUROSEMIDE 40 MG TABLET PO SCH (08:17)
[2017-10-12] MEDS: PROMOD 30 ML DOSE PO SCH (08:17)
[2017-10-12] MEDS: LACTULOSE 20 GM/30 ML UCUP PO SCH ×2 (08:17→13:49)
[2017-10-12 08:18] VITALS: BP 174/79
[2017-10-12 09:06] VITALS: TEMP 97.2
--- NOTE | 2017-10-12 09:47 | P.RH.PN ---
Estimated Length of Stay: 22 Expected Discharge Date: 10/12/17 Discharge Disposition Plan: Home Family Support: Yes Penitentiary Goal: Mobility, Transfers, Self Care Vital Signs: Last Vital Signs Temp 97.2 F 10/12/17 07:20 Pulse 67 10/12/17 08:17 Resp 16 10/12/17 07:20 BP 174/79 H 10/12/17 08:17 Pulse Ox 98 10/12/17 07:20 Laboratory: Laboratory Last Values WBC 8.8 K/uL (4.3-10.9) 10/12/17 05:25 RBC 3.51 M/uL (4.33-5.43) L 10/12/17 05:25 Hgb 9.9 g/dL (13.6-17.9) L 10/12/17 05:25 Hct 30.2 % (39.6-49.0) L 10/12/17 05:25 MCV 86.1 fL (80-100) 10/12/17 05:25 MCH 28.1 pg (27.0-35.0) 10/12/17 05:25 MCHC 32.7 g/dL (32.0-36.0) 10/12/17 05:25 RDW 20.8 % (12.1-15.2) H 10/12/17 05:25 Plt Count 180 K/uL (152-406) 10/12/17 05:25 MPV 7.4 fL (7.6-11.3) L 10/12/17 05:25 Neutrophils % 70.1 % (41.7-73.7) 10/12/17 05:25 Lymphocytes % 15.2 % (15.3-44.8) L 10/12/17 05:25 Monocytes % 10.3 % (3.3-12.3) 10/12/17 05:25 Eosinophils % 3.3 % (0-4.4) 10/12/17 05:25 Basophils % 1.1 % (0-1.3) 10/12/17 05:25 Absolute Neutrophils 6.1 K/uL (1.8-8.0) 10/12/17 05:25 Segmented Neutrophils 64 % (40-80) 10/10/17 05:53 Absolute Lymphocytes 1.3 K/uL (0.7-4.9) 10/12/17 05:25 Lymphocytes 30 % (15-42) 10/10/17 05:53 Monocytes 4 % (0-10) 10/10/17 05:53 Absolute Monocytes 0.9 K/uL (0.1-1.3) 10/12/17 05:25 Eosinophils 2 % (0-3) 10/10/17 05:53 Absolute Eosinophils 0.3 K/uL (0-0.5) 10/12/17 05:25 Absolute Basophils 0.1 K/uL (0-0.5) 10/12/17 05:25 Anisocytosis 2+ 10/10/17 05:53 Microcytosis 1+ 10/10/17 05:53 Schistocytes Few 10/10/17 05:53 Morphology Comment Noted (NOT SEEN) 10/10/17 05:53 ESR Westergren 82 mm/HR (0-20) H 10/01/17 05:45 Sodium 135 mEq/L (135-145) 10/12/17 05:25 Potassium 5.1 mEq/L (3.6-5.0) H 10/12/17 05:25 Chloride 102 mEq/L (101-111) 10/12/17 05:25 Carbon Dioxide 22 mEq/L (21-31) 10/12/17 05:25 BUN 59 mg/dL (6-20) H 10/12/17 05:25 Creatinine 6.94 mg/dL (0.61-1.24) H* D 10/12/17 05:25 Estimated GFR 10 mL/min (=/>90) L 10/12/17 05:25 Glucose 147 mg/dL (65-120) H 10/12/17 05:25 POC Glucose 144 mg/dl (65-120) H 10/12/17 06:39 Uric Acid 4.9 mg/dL (4.8-8.7) 10/10/17 05:53 Calcium 8.7 mg/dL (8.5-10.5) 10/12/17 05:25 Phosphorus 6.0 mg/dL (2.5-4.3) H 10/10/17 05:53 Magnesium 3.0 mg/dL (1.8-2.5) H 10/10/17 05:53 Total Bilirubin 0.2 mg/dL (0.3-1.2) L 10/12/17 05:25 AST 18 IU/L (10-42) 10/12/17 05:25 ALT 12 IU/L (10-60) 10/12/17 05:25 Alkaline Phosphatase 92 IU/L (42-121) 10/12/17 05:25 Lactate Dehydrogenase 142 IU/L (125-240) 09/27/17 13:26 Serum Total Protein 6.4 g/dL (6.0-8.3) 10/12/17 05:25 Albumin 2.9 g/dL (3.2-5.5) L 10/12/17 05:25 Globulin 3.5 g/dL (2.3-3.5) 10/12/17 05:25 Albumin/Globulin Ratio 0.8 (1.1-1.8) L 10/12/17 05:25 Prealbumin 21.3 mg/dl (18-38) 10/03/17 05:50 Procalcitonin 1.29 ng/mL (<0.50) H 09/30/17 22:42 Urine Color Yellow 09/22/17 21:32 Urine Appearance Clear 09/22/17 21:32 Urine pH 7.5 (5.0-7.0) H 09/22/17 21:32 Ur Specific [place] 1.020 (1.005-1.030) 09/22/17 21:32 Urine Ketones Negative (NEG) 09/22/17 21:32 Urine Blood Negative (NEG) 09/22/17 21:32 Urine Nitrite Negative (NEG) 09/22/17 21:32 Urine Bilirubin Negative (NEG) 09/22/17 21:32 Urine Urobilinogen 0.2 mg/dL (0.2-1.0) 09/22/17 21:32 Ur Leukocyte Esterase Negative (NEG) 09/22/17 21:32 Urine RBC <5 /HPF (NONE SEEN) 09/22/17 21:32 Urine WBC <5 /HPF (<5) 09/22/17 21:32 Ur Squamous Epith Cells <5 /HPF (NONE SEEN) 09/22/17 21:32 Ur Urothelial Cells <5 /HPF (NONE SEEN) 09/22/17 21:32 Urine Bacteria <20 /HPF (NONE SEEN) 09/22/17 21:32 Urine Culture Reflexed Not needed 09/22/17 21:32 Urine Glucose Trace (NEG) 09/22/17 21:32 Urine Total Protein 3+ (NEG) H 09/22/17 21:32 Weight: 226 lb 4.8 oz Wound Present: Yes Closed Surgical Incision Present: Yes Negative Pressure Wound Therapy Present: No Physician Update: His Hgb is stable at 9.9. He is on hemodialysis scheduled for today. He is making good progress with physical and occuptional therapy with nonweight bearing status with the left BKA. His right leg is currently not strong enough to hold him up. Therefore he will use the wheelchair and transfer board. He will be discharged home today with home health and followup with Dr. Aguilar. Functional Improvement: Patient will be transferring home using a slide board technique for transfers. Patient has been demonstrating good overall technique and progress w/ mentioned transfer. Patient will continue to work toward strengthening B UEs and R LE. Speech Therapy Update: Pt. verbally recalls all safety strategies independently for transfers with board, special day class teacher use, fall risks, sit to stand, and walker use. Problem solving withing new physical restrictions is independent, and pt. has excellent family support. Summary: Patient's care plan and watermaster goals have been reviewed and revised as necessary. Please see the Rehabilitation Signature page for all necessary signatures.
[2017-10-12] MEDS: EPOETIN ALFA 10,000 UNIT/ML VIAL IV SCH (11:23)
--- NOTE | 2017-10-12 12:25 | FAST ---
SHIFT START DATE/TIME: 10/12/2017 07:00 (CDT) SHIFT END DATE/TIME: 10/12/2017 19:00 (CDT) NAME CARMEN ALTAMIRANO DATE OF : 1955 DATE OF ADMISSION: 09/21/2017 15:46 (CDT) PHONE: AGE: 62 [facility]# [id number] GENDER: Male ENCOUNTER PHYSICIAN: Dr. Edgar Pereira M.D. ADMISSION DIAGNOSIS: - Amputation of Limb 05 - Unilateral Lower Limb Below the Knee (BK) (05.4) Left Below the Knee Amputation. EATING: EATING - STEP 1: Does the patient require assistance when eating? No. EATING - SCORE: 7-IND GROOMING: Oral care Wash, rinse, and dry face Wash, rinse, and dry hands GROOMING - STEP 1: Does the patient require assistance when grooming? No. GROOMING - SCORE: 7-IND BATHING: Activity did not occur on this shift BATHING - SCORE: 0-UNK DRESSING - UPPER BODY: Activity did not occur on this shift ARTICLES SCORE Total number of steps: 0 DRESSING - UPPER BODY - SCORE: 0-UNK DRESSING - LOWER BODY: Activity did not occur on this shift ARTICLES SCORE Total number of steps: 0 DRESSING - LOWER BODY - SCORE: 0-UNK TOILETING: Activity did not occur on this shift TOILETING - SCORE: 0-UNK BLADDER MANAGEMENT: BLADDER MANAGEMENT - STEP 1: Does the patient control the bladder completely and intentionally without equipment or devices or med ications, and is always continent? Yes. BLADDER MANAGEMENT - SCORE: 7-IND BLADDER MANAGEMENT - FREQUENCY OF ACCIDENTS: BLADDER MANAGEMENT(FA) - STEP 1: How many accidents has the patient had during the current shift? 0 BOWEL MANAGEMENT: BOWEL MANAGEMENT - STEP 1: Does the patient control bowels completely and intentionally without equipment devices or medications AND is always continent? Yes. BOWEL MANAGEMENT - SCORE: 7-IND BOWEL MANAGEMENT - FREQUENCY OF ACCIDENTS: BOWEL MANAGEMENT(FA) - STEP 1: How many accidents has the patient had during the current shift? 0 TRANSFERS: BED, CHAIR, WHEELCHAIR: TRANSFERS: BED, CHAIR, WHEELCHAIR - STEP 1: Does the patient require assistance with bed, chair, or wheelchair transfers? Yes. TRANSFERS: BED, CHAIR, WHEELCHAIR - STEP 2: Does the patient require the assistance of a helper? No. Patient only requires an assistive device fo r bed, chair, wheelchair transfers such as a sliding board, grab bar, or brace, OR s/he takes more th an reasonable time, OR there is a safety concern when s/he performs the transfers TRANSFERS: BED, CHAIR, WHEELCHAIR - SCORE: 6-MARIPOSA TRANSFERS: TOILET: Activity did not occur on this shift TRANSFERS: TOILET - SCORE: 0-UNK TRANSFERS: SHOWER: Activity did not occur on this shift TRANSFERS: SHOWER - SCORE: 0-UNK TRANSFERS: TUB: Activity did not occur on this shift TRANSFERS: TUB - SCORE: 0-UNK LOCOMOTION: WALK: Activity did not occur on this shift LOCOMOTION: WALK - SCORE: 0-UNK LOCOMOTION: WHEELCHAIR: Activity did not occur on this shift LOCOMOTION: WHEELCHAIR - SCORE: 0-UNK COMPREHENSION: COMPREHENSION - SCORE: 0-UNK EXPRESSION EXPRESSION - SCORE: 0-UNK SOCIAL INTERACTION: SOCIAL INTERACTION - SCORE: 0-UNK PROBLEM SOLVING: PROBLEM SOLVING - SCORE: 0-UNK MEMORY: MEMORY - SCORE: 0-UNK SIGNATURE PANEL: The following modified sections: Eating - Score, Grooming - Score, Bathing - Score, Dressing - Upper Body - Score, Dressing - Lower Body - Score, Toileting - Score, Bladder Management - Score, Bowel Man agement - Score, Transfers: Bed, Chair, Wheelchair - Score, Transfers: Toilet - Score, Transfers: Adeline wer - Score, Transfers: Tub - Score, Locomotion: Walk - Score, Locomotion: Wheelchair - Score, Compre hension - Score, Expression - Score, Social Interaction - Score, Problem Solving - Score, Memory - Sc ore were [electronically] signed by Cathleen Orosco CNA on SunOct 12 2017 11:25:27 T-0500 ([facility] Day[facility] Time)
--- NOTE | 2017-10-12 16:05 | FAST ---
ENCOUNTER DATE AND TIME: 10/12/2017 08:00 (CDT) NAME CARMEN ALTAMIRANO DATE OF : 1955 DATE OF ADMISSION: 09/21/2017 15:46 (CDT) PHONE: AGE: 62 N# [id number] GENDER: Male ENCOUNTER PHYSICIAN: Dr. Edgar Pereira M.D. ADMISSION DIAGNOSIS: - Amputation of Limb 05 - Unilateral Lower Limb Below the Knee (BK) (05.4) Left Below the Knee Amputation. EATING: Activity did not occur on this shift EATING - SCORE: 0-UNK GROOMING: Oral care Patient shaved Wash, rinse, and dry face Wash, rinse, and dry hands GROOMING - STEP 1: Does the patient require assistance when grooming? No. GROOMING - SCORE: 7-IND BATHING: Abdomen Buttocks Chest Left arm Left upper leg Perineal area Right arm Right lower leg and foot Right upper leg BATHING - STEP 1: Does the patient require assistance when bathing? Yes. BATHING - STEP 2: Does the patient require the assistance of a helper? No. The patient only requires an assistive devic e such as a bath amira, OR the patient takes more than reasonable time to bathe, OR there is a concern for safety such as regulating water temperature as the patient bathes. BATHING - SCORE: 6-MARIPOSA DRESSING - UPPER BODY: T-shirt/pullover shirt (four steps) ARTICLES SCORE Total number of steps: 4 DRESSING - UPPER BODY - STEP 1: Does the patient require help when dressing above the waist? No. DRESSING - UPPER BODY - SCORE: 7-IND DRESSING - LOWER BODY: Elastic waist pants (three steps) Slip-on shoe - Right foot (one step) Underwear (three steps) ARTICLES SCORE Total number of steps: 7 DRESSING - LOWER BODY - STEP 1: Does the patient require help when dressing below the waist? Yes. DRESSING - LOWER BODY - STEP 2: Does the patient require the assistance of a helper? No. Patient requires an assistive device such as a parking meter servicer. OR s/he takes more than reasonable time as s/he dresses the lower body, OR there is a con cern for safety when s/he dresses the lower body DRESSING - LOWER BODY - SCORE: 6-MARIPOSA TOILETING: Activity did not occur on this shift TOILETING - SCORE: 0-UNK BLADDER MANAGEMENT: Activity did not occur on this shift BLADDER MANAGEMENT - SCORE: 7-IND BOWEL MANAGEMENT: Activity did not occur on this shift BOWEL MANAGEMENT - SCORE: 7-IND TRANSFERS: BED, CHAIR, WHEELCHAIR: Activity did not occur on this shift TRANSFERS: BED, CHAIR, WHEELCHAIR - SCORE: 0-UNK TRANSFERS: TOILET: Activity did not occur on this shift TRANSFERS: TOILET - SCORE: 0-UNK TRANSFERS: SHOWER: Activity did not occur on this shift TRANSFERS: SHOWER - SCORE: 0-UNK TRANSFERS: TUB: TRANSFERS: TUB - STEP 1: Does the patient require assistance with tub transfers? Yes. TRANSFERS: TUB - STEP 2: Does the patient require the assistance of a helper? No. Only requires the assistance of an assistive device, OR takes more than reasonable time, OR there is a concern for safety when s/he performs tub transfers TRANSFERS: TUB - SCORE: 6-MARIPOSA LOCOMOTION: WALK: Activity did not occur on this shift LOCOMOTION: WALK - SCORE: 0-UNK LOCOMOTION: WHEELCHAIR: Activity did not occur on this shift LOCOMOTION: WHEELCHAIR - SCORE: 0-UNK LOCOMOTION: STAIRS: Activity did not occur on this shift LOCOMOTION: STAIRS - SCORE: 0-UNK COMPREHENSION: COMPREHENSION: TYPE: Visual COMPREHENSION - STEP 1: Does the patient require help to understand complex and abstract ideas (such as current events, finan josé, discharge planning, medical issues, relationships, etc)? No. COMPREHENSION - STEP 2: Does the patient need extra time, require an assistive device (such as glasses, hearing aids, or an a ugmentative communication system), OR does s/he have mild difficulty expressing complex and abstract ideas (including mild dysarthria or mild word-finding problems)? Yes. COMPREHENSION - SCORE: 6-MARIPOSA EXPRESSION EXPRESSION: TYPE: Non-Vocal EXPRESSION - STEP 1: Does the patient require help expressing complex and abstract ideas (such as current events, finances , discharge planning, medical issues, relationships, etc)? No. EXPRESSION - STEP 2: Does the patient need extra time, require an assistive device (such as augmentive communication syste m or a communication board), OR does s/he have mild difficulty expressing complex and abstract ideas (including mild dysarthria or mild word-find problems)? No. EXPRESSION - SCORE: 7-IND SOCIAL INTERACTION: SOCIAL INTERACTION - STEP 1: Does the patient require a helper to interact with others in social and therapeutic situations? No. SOCIAL INTERACTION - STEP 2: Does the patient need extra time in social situations, OR does s/he interact with staff, other patien ts, and family members ONLY in structured environments, OR does s/he require medication for social in teraction? No. SOCIAL INTERACTION - SCORE: 7-IND PROBLEM SOLVING: PROBLEM SOLVING - STEP 1: Does the patient need help to solve complex problems such as managing a checking account or confronti ng interpersonal problems? No. PROBLEM SOLVING - STEP 2: Does the patient require extra time to make decisions or solve problems, OR does s/he have slight dif ficulty reading, initiating, or self-correcting in unfamiliar situations? No. PROBLEM SOLVING - SCORE: 7-IND MEMORY: MEMORY - STEP 1: Does the patient need help to remember frequently encountered people, daily routines, and executing r equests? No. MEMORY - STEP 2: Does the patient have slight difficulty recognizing frequently encountered people, daily routines, or executing requests without the need for repetition or using self-initiated or environmental cues to remember? No. MEMORY - SCORE: 7-IND SIGNATURE PANEL: The following modified sections: Eating - Score, Grooming - Score, Bathing - Score, Dressing - Upper Body - Score, Dressing - Lower Body - Score, Toileting - Score, Transfers: Bed, Chair, Wheelchair - S core, Transfers: Toilet - Score, Transfers: Shower - Score, Transfers: Tub - Score, Comprehension - S core, Expression - Score, Social Interaction - Score, Problem Solving - Score, Memory - Score were [e lectronically] signed by CRISTINA Oh on SunOct 12 2017 15:05:09 T-0500 ([facility] Time)
--- NOTE | 2017-10-12 16:47 | FAST ---
ENCOUNTER DATE AND TIME: 10/12/2017 08:00 (CDT) NAME CARMEN ALTAMIRANO DATE OF : 1955 DATE OF ADMISSION: 09/21/2017 15:46 (CDT) PHONE: AGE: 62 N# [id number] GENDER: Male ENCOUNTER PHYSICIAN: Dr. Edgar Pereira M.D. ADMISSION DIAGNOSIS: - Amputation of Limb 05 - Unilateral Lower Limb Below the Knee (BK) (05.4) Left Below the Knee Amputation. EATING: Activity did not occur on this shift EATING - SCORE: 0-UNK GROOMING: Activity did not occur on this shift GROOMING - SCORE: 0-UNK BATHING: Activity did not occur on this shift BATHING - SCORE: 0-UNK DRESSING - UPPER BODY: Activity did not occur on this shift Patient is not dressing in public clothing ARTICLES SCORE Total number of steps: 0 DRESSING - UPPER BODY - SCORE: 0-UNK DRESSING - LOWER BODY: Activity did not occur on this shift Patient is not dressing in public clothing ARTICLES SCORE Total number of steps: 0 DRESSING - LOWER BODY - SCORE: 0-UNK TOILETING: Activity did not occur on this shift TOILETING - SCORE: 0-UNK BLADDER MANAGEMENT: Activity did not occur on this shift BLADDER MANAGEMENT - SCORE: 7-IND BOWEL MANAGEMENT: Activity did not occur on this shift BOWEL MANAGEMENT - SCORE: 7-IND TRANSFERS: BED, CHAIR, WHEELCHAIR: TRANSFERS: BED, CHAIR, WHEELCHAIR - STEP 1: Does the patient require assistance with bed, chair, or wheelchair transfers? Yes. TRANSFERS: BED, CHAIR, WHEELCHAIR - STEP 2: Does the patient require the assistance of a helper? No. Patient only requires an assistive device fo r bed, chair, wheelchair transfers such as a sliding board, grab bar, or brace, OR s/he takes more th an reasonable time, OR there is a safety concern when s/he performs the transfers TRANSFERS: BED, CHAIR, WHEELCHAIR - SCORE: 6-MARIPOSA TRANSFERS: TOILET: Activity did not occur on this shift TRANSFERS: TOILET - SCORE: 0-UNK TRANSFERS: SHOWER: Activity did not occur on this shift TRANSFERS: SHOWER - SCORE: 0-UNK TRANSFERS: TUB: Activity did not occur on this shift TRANSFERS: TUB - SCORE: 0-UNK LOCOMOTION: WALK: Activity did not occur on this shift LOCOMOTION: WALK - SCORE: 0-UNK LOCOMOTION: WHEELCHAIR: LOCOMOTION: WHEELCHAIR - STEP 1: Does the patient need help to go 150 feet in a wheelchair? No. LOCOMOTION: WHEELCHAIR - SCORE: 6-MARIPOSA LOCOMOTION: STAIRS: Activity did not occur on this shift LOCOMOTION: STAIRS - SCORE: 0-UNK COMPREHENSION: COMPREHENSION - SCORE: 0-UNK EXPRESSION EXPRESSION - SCORE: 0-UNK SOCIAL INTERACTION: SOCIAL INTERACTION - SCORE: 0-UNK PROBLEM SOLVING: PROBLEM SOLVING - SCORE: 0-UNK MEMORY: MEMORY - SCORE: 0-UNK SIGNATURE PANEL: The following modified sections: Transfers: Bed, Chair, Wheelchair - Score, Transfers: Toilet - Score , Locomotion: Walk - Score, Locomotion: Wheelchair - Score, Locomotion: Stairs - Score were [electron betsy] signed by Robe Ospina PT on SunOct 12 2017 15:47:08 T-0500 (Central Daylight Time)
--- NOTE | 2017-11-05 19:27 | R.DS ---
FACILITY [facility] MR# [id number] NAME CARMEN ALTAMIRANO ADDRESS [address] [place] [address] PHONE DATE OF 1955 AGE 62 N# [id number] GENDER Male DEXTERITY Right-handed MARITAL STATUS RACE White ENCOUNTER PHYSICIAN Dr. Edgar Pereira M.D. REFERRING DOCTOR ANTHONY FULLER REFERRING FACILITY [facility] DISCHARGE DIAGNOSIS: - Amputation of Limb 05 - Unilateral Lower Limb Below the Knee (BK) (05.4) Left Below the Knee Amputation. DISCHARGE COMORBIDITIES: - Non-Tiered ESRD - Tier 1 Dependence on renal dialysis [Z992] - Tier 3 Type 2 diabetes mellitus with other diabetic kidney complication [E1129] - N/A Anemia CAD CHF Hypertension COPD PAD Obesity DATE OF ADMISSION 09/21/2017 15:46 (CDT) MEDICATION ALLERGIES: Levofloxacin ENVIRONMENTAL ALLERGIES: None Known - Substance Allergies None Known - Other Allergies None Known CONSULT: Perform Consult Certified Prosthetic for prosthesis construction NURSING: - Shower allowing shower - Lab Results blood Sugar Check ACHS - Skin care per protocol PRECAUTIONS: - Fall Precaution Bed and chair alarm ACTIVITIES OOB only with supervision THERAPIES: - Orthotics/Prosthetics Prosthetic Evaluation - Occupational Therapy Evaluate and Treat - Physical Therapy Evaluate and Treat HISTORY OF PRESENT ILLNESS: Pt. is a 62 yo Right-handed white male.His impairment category is Amputation of Limb 05 - Unilateral Lower Limb Below the Knee (BK) (05.4).Pre-morbidly, Pt. was independent/mod-I in Self-Care, Sphincte r Control, Communication, and Social Cognition; and he had good Sphincter Control.Currently, he has d eficits of Balance, Self-Care, Locomotion, Endurance, Safety Awareness, and Transfers Control.Pt. is now referred to [facility] for acute in-patient rehabilitation in order to max imize patient's functional independence in activities of daily living, strength, ROM, and mobility.- Rehab Goal Patient has realistic goal of being discharged at assistance level 6-Johana to reside at Home with Fam ramy/Relatives. HOSPITAL COURSE: On 09/26/2017 the following precautions were added for the patient: Fall Precaution - Bed and chair alarm. On 09/20/2017 the following precautions were added for the patient: Fall Precaution - Bed and chair a larm. On 09/22/2017 the following precautions were added for the patient: Fall Precaution - Bed and chair alarm. On 09/25/2017 the following precautions were removed for the patient: Fall Precaution - Bed and lien r alarm. The following precautions were removed for the patient: Fall Precaution - Bed and chair alarm, and F all Precaution - Bed and chair alarm. On 09/22/2017 the following precautions were added for the patient: Weight Bearing Precaution - NWB left LE. On 09/25/2017 the following precautions were removed for the patient: Weight Bearing Precaution - NW B left LE. The following precautions were added for the patient: Weight Bearing Precaution - NWB left LE. On 09/26/2017 the following precautions were removed for the patient: Weight Bearing Precaution - NWB left LE. The following precautions were added for the patient: Weight Bearing Precaution - NWB left LE. DIET - LIQUID TEXTURE: On 09/20/2017 Pt was upgraded to Regular Diet - Liquid Texture. DIET - SOLID TEXTURE: On 09/20/2017 Pt was upgraded to Regular Diet - Solid Texture. DIET TYPE: On 09/20/2017 Pt was upgraded to Regular Diet Type. FALL PRECAUTION: TUBE FEED: On 09/20/2017 Pt was changed to N/A Tube Feed. WEIGHT BEARING PRECAUTION: DISCHARGE PHYSICAL EXAM - Gen Alert and awake Lying in bed No apparent distress Oriented to: person, time, and place - Skin Left BKA bandage in place with good hemostasis. Normacephalic - Eyes No abnormalities - ENMT No abnormalities - Neck No abnormalities - CVS RRR - Chest Clear - Abd +bowel sounds - GI Non distended Deferred - No abnormalities - Ext No significant edema - MSK 5-/5 weakness in right upper and 3+/5 weakness in right lower extremity. - Neuro No focal deficits - Psych No abnormalities FUNCTIONAL STATUS: - Self-Care A. Eating 5-sup 7-Ind B. Grooming 5-sup 6-Johana C. Bathing 4-Uriel 6-Johana D. Dressing - Upper 6-Johana 6-Johana E. Dressing - Lower 4-Uriel 6-Johana F. Toileting 4-Uriel 4-Uriel - Sphincter Control G: Bladder control 1-Dep 3-modA H: Bowel control 7-Ind 7-Ind - Transfers Control I. Bed/Chair/Wheelchair 4-Uriel 6-Johana J. Toilet 4-Uriel 6-Johana K. Tub/Shower 0-ADNO 6-Johana - Locomotion L. Walk/Wheelchair (C) 4-Uriel 6-Johana L. Walk/Wheelchair (W) 4-Uriel 4-Uriel M. Stairs 0-ADNO 0-ADNO - Communication N. Comprehension (B) 7-Ind 7-Ind O. Expression (B) 7-Ind 7-Ind - Social Cognition P. Social Interaction 7-Ind 7-Ind Q. Problem Solving 7-Ind 7-Ind R. Memory 7-Ind 7-Ind - Endurance Fair - Balance Fair - Safety Awareness Fair DISCHARGE INSTRUCTIONS: - N/A Lovenox 30 mg sq daily, Plavix 75 mg daily, Aspirin 81 mg daily. DISCHARGE PLAN, FOLLOW UP CARE PROVISIONS: - Estimated Length of Stay (days) 11. - Consensus on plan Discharge plan has been discussed with primary caregiver. Patient/Family is in agreement with the aide n. Primary caregiver is in agreement with the plan. - Patient/Family Goals Return home with assistance. - Planned Living Setting Upon Discharge Home, to live with Family/Relatives. SIGNATURE PANEL: (CDT)
== END 2017-10-12 15:15 | disposition home health service (06) | DRG 638 ==
LOC: 5TH 15:46
PROVIDERS: ADMIT Psychiatry & Neurology Neurology with Special Qualifications in Child Neurology; ATTEND Psychiatry & Neurology Neurology with Special Qualifications in Child Neurology
DX: E11.621 Type 2 diabetes mellitus with foot ulcer (principal); I13.2 Hypertensive heart and chronic kidney disease with heart failure and with stage 5 chronic kidney disease, or end stage renal disease; I50.32 Chronic diastolic (congestive) heart failure; E87.1 Hypo-osmolality and hyponatremia; R53.81 Other malaise; Z89.512 Acquired absence of left leg below knee; E11.22 Type 2 diabetes mellitus with diabetic chronic kidney disease; N18.6 End stage renal disease; E87.5 Hyperkalemia; J44.9 Chronic obstructive pulmonary disease, unspecified; I25.10 Atherosclerotic heart disease of native coronary artery without angina pectoris; D63.1 Anemia in chronic kidney disease; N25.81 Secondary hyperparathyroidism of renal origin; K59.00 Constipation, unspecified; I73.9 Peripheral vascular disease, unspecified; N40.1 Benign prostatic hyperplasia with lower urinary tract symptoms; R33.8 Other retention of urine; Z99.2 Dependence on renal dialysis
CPT/HCPCS: 36415; 71045; 71046; 74018; 80048; 80053; 81001; 82040; 82962; 83615; 83735; 84100; 84134; 84145; 84550; 85025; 85652; 87040; 87086; 87088; 90935; 93005; 94640; 97542; J0696; J1650; J7606; Q4081